=== PATIENT | male | born 1975 | race Caucasian/White ===

== ENCOUNTER → 2016-11-06 | Outpatient (CLI) | payer BC ==
[~2016-11-06] MED LIST: MOME200A INH; VNTHFA/IN INH
[2016-11-06 17:29] LABS: ALT/SGPT 26 U/L (12-78); AST/SGOT 11 U/L (15-37); BLOOD UREA NITROGEN 14 mg/dl (7-18); BUN/CREATININE RATIO 14.3 (10-20); CALCIUM 8.6 mg/dl (8.5-10.1); CARBON DIOXIDE 26 mmol/L (21-32); CHLORIDE 106 mmol/L (98-107); GLUCOSE 100 mg/dl (70-99); POTASSIUM 4.1 mmol/L (3.5-5.1); SODIUM 141 mmol/L (136-145)
[2016-11-06 17:32] LABS: ALB/GLOB RATIO 1.3 (0.9-2); ALKALINE PHOSPHATASE 54 U/L (45-117); CHOLESTEROL 167 mg/dl (0-200); CHOLESTEROL/HDL RATIO 3.6; HDL CHOLESTEROL 47 mg/dl; LDL CHOLESTEROL CALCULATED 94 mg/dl; TRIGLYCERIDES 131 mg/dl (0-150); VERY LOW DENSITY LIPOPROT CALC 26 mg/dl
== END | disposition home or self-care (01) ==
LOC: C.LABPVFM 14:59
PROVIDERS: ATTEND Family Medicine
DX: J45.909 Unspecified asthma, uncomplicated (principal); Z13.220 Encounter for screening for lipoid disorders; R06.83 Snoring; E80.6 Other disorders of bilirubin metabolism

== ENCOUNTER 2017-08-03 20:19 | Emergency (ER) | payer BC ==
[~2017-08-03] VITALS: Ht 177.8 cm; Wt 152.8 kg
[2017-08-03 20:22] VITALS: TEMP 37.1; Ht 177.8 cm; Wt 152.8 kg
[2017-08-03] MEDS ORDERED: AMOX875T PO (21:19)
[2017-08-03] MEDS ORDERED: SODIUM CHLORIDE 0.9% 1000ML 1,000 ML IV STA ×2 (21:51)
[2017-08-03] MEDS ORDERED: ALBUT/IPRATROP 3MG/0.5MG NEB 3 ML VIAL INH STA ×2 (21:51)
[2017-08-03 22:01] LABS: BASO % 0.6 %; BASO ABS # 0.04 K/uL (0-0.2); COMPLETE YES; EOS % 6.3 %; HEMATOCRIT 47.7 % (42-52); IG% 0.9 %; LYMPH % 32.9 %; LYMPH ABS # 2.09 K/uL (1.2-3.4); MEAN CORPUSCULAR HEMOGLOBIN 30.9 pg (25-34); MEAN CORPUSCULAR HGB CONC 34.4 g/dl (32-36); MEAN PLATELET VOLUME 9.6 fL (7.4-10.4); NEUT % 51.3 %; PLATELET COUNT 204 K/uL (130-400); WHITE BLOOD COUNT 6.35 K/uL (4.8-10.8)
--- NOTE | 2017-08-03 22:03 | EMERGENCY ROOM VISIT NOTE ---
History Report prepared by Grace: Patricia Mckeon Under the Supervision of: Dr. Billy Carrera M.D. First contact with patient: 21:43 Chief Complaint: ILLNESS Stated Complaint: EAR ACHE, HEART RACING, FATIQUE, SWEATS History of Present Illness The patient is a 42 year old male who presents to the Emergency Room with complaints of generalized illness beginning yesterday. The patient went to [facility] a week ago and was discharged with an ear infection and was given a 10 day cycle of Augmentin. He notes some sweats, heart racing and chest tightness beginning yesterday. He also notes some coughing, fatigue and lightheadedness but denies any nausea or vomiting. The patient notes an incident where he had a coughing fit and felt like he might of blacked out because he forgot what happened. The patient has difficulty hearing out of his left ear and notes some ringing. He has a history of asthma and uses a Ventolin inhaler and Flonase. The patient has family history of a heart attack ( grandfather) at age 49. Source of History: patient Onset: 3 days ago Position: other (generalized) Quality: other (illness) Associated Symptoms: + diaphoresis, + cough, + chest pain (tightness), + fatigue, No nausea, No vomiting Review of Systems See HPI for pertinent positives and negatives. A total of ten systems were reviewed and were otherwise negative. Past Medical & Surgical Medical Problems: (1) Asthma Family History FH: heart attack Social History Smoking Status: Never Smoker Marital Status: Current/Historical Medications Scheduled Amoxicillin & Pot Clavulanate (Augmentin 875-125 mg), 1 TAB PO BID Levofloxacin (Levaquin), 1 TAB PO DAILY Mometasone Furoate-Formoterol (Dulera 200/5 Mcg), 2 PUFFS INH BID Scheduled PRN Albuterol Hfa (Ventolin Hfa), 2 PUFFS INH QID PRN for SOB/Wheezing Allergies Coded Allergies: Aspirin (Verified Allergy, Intermediate, GI SYMPTOMS, 08/03/17) Physical Exam Vital Signs Date Time Temp Pulse Resp B/P (MAP) Pulse Ox O2 Delivery O2 Flow Rate FiO2 08/04/17 03:02 70 22 131/70 97 08/04/17 01:22 89 22 149/79 96 Room Air 08/03/17 22:40 91 22 131/73 94 Room Air 08/03/17 22:21 98 Room Air 08/03/17 20:46 92 08/03/17 20:22 37.1 94 18 218/94 95 Room Air Physical Exam GENERAL: Awake, alert, uncomfortable-appearing, in no distress HENT: Normocephalic, atraumatic. Oropharynx Dry MM. Ejected, edematous left TM. Mild left mastoid discomfort but no exquisite ttp, edema/erythema. EYES: Normal conjunctiva. Sclera non-icteric. NECK: Supple. No nuchal rigidity. FROM. No JVD. RESPIRATORY: Scant wheezes but otherwise CTAB. CARDIAC: Regular rate, normal rhythm. Extremities warm and well perfused. Pulses equal. ABDOMEN: Soft, non-distended, obese abdomen. No tenderness to palpation. No rebound or guarding. No masses. RECTAL: Deferred. MUSCULOSKELETAL: Chest examination reveals no tenderness. The back is symmetrical on inspection without obvious abnormality. There is no CVA tenderness to palpation. No joint edema. LOWER EXTREMITIES: Calves are equal size bilaterally and non-tender. No edema. No discoloration. NEURO: Normal sensorium. No sensory or motor deficits noted. SKIN: No rash or jaundice noted. Medical Decision & Procedures ER Provider Diagnostic Interpretation: Radiology results as stated below per my review and radiologist interpretation: CHEST ONE VIEW PORTABLE FINDINGS: The cardiac and mediastinal contours are normal. There is no evidence of focal pulmonary consolidation. There is no evidence of failure. No pleural effusions are visualized.[ A small linear opacity at the left lung base is felt to represent atelectasis/scar IMPRESSION: No active disease in the chest. Electronically signed by: Oscar Richards M.D. CT NECK: IMPRESSION: fluid density within left greater than right middle ears and left mastoid air cells may represent otitis media and mastoiditis. There are a few opacified mastoid air cells on the right. No evidence of osseous destruction or abscess. Right apical nodularity/scarring versus small area of airspace disease. Moderate mucosal thickening right sphenoid sinus. Findings: No evidence of intracranial mass hemorrhage or hematoma. No abnormal enhancement of the neck or brain. 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 No lymphadenopathy. Radiologist Oriln Bryant Laboratory Results 08/03/17 21:04 Red Blood Count 5.30, Mean Corpuscular Volume 90.0, Mean Corpuscular Hemoglobin 30.9, Mean Corpuscular Hemoglobin Concent 34.4, Mean Platelet Volume 9.6, Neutrophils (%) (Auto) 51.3, Lymphocytes (%) (Auto) 32.9, Monocytes (%) (Auto) 8.0, Eosinophils (%) (Auto) 6.3, Basophils (%) (Auto) 0.6, Neutrophils # (Auto) 3.25, Lymphocytes # (Auto) 2.09, Monocytes # (Auto) 0.51, Eosinophils # (Auto) 0.40, Basophils # (Auto) 0.04 08/03/17 21:04 Test 08/03/17 21:04 08/04/17 01:43 White Blood Count 6.35 K/uL (4.8-10.8) Red Blood Count 5.30 M/uL (4.7-6.1) Hemoglobin 16.4 g/dL (14.0-18.0) Hematocrit 47.7 % (42-52) Mean Corpuscular Volume 90.0 fL (80-100) Mean Corpuscular Hemoglobin 30.9 pg (25-34) Mean Corpuscular Hemoglobin Concent 34.4 g/dl (32-36) Platelet Count 204 K/uL (130-400) Mean Platelet Volume 9.6 fL (7.4-10.4) Neutrophils (%) (Auto) 51.3 % Lymphocytes (%) (Auto) 32.9 % Monocytes (%) (Auto) 8.0 % Eosinophils (%) (Auto) 6.3 % Basophils (%) (Auto) 0.6 % Neutrophils # (Auto) 3.25 K/uL (1.4-6.5) Lymphocytes # (Auto) 2.09 K/uL (1.2-3.4) Monocytes # (Auto) 0.51 K/uL (0.11-0.59) Eosinophils # (Auto) 0.40 K/uL (0-0.5) Basophils # (Auto) 0.04 K/uL (0-0.2) RDW Standard Deviation 42.1 fL (36.4-46.3) RDW Coefficient of Variation 12.9 % (11.5-14.5) Immature Granulocyte % (Auto) 0.9 % Immature Granulocyte # (Auto) 0.06 K/uL (0.00-0.02) Anion Gap 7.0 mmol/L (3-11) Est Creatinine Clear Calc Drug Dose 137.2 ml/min Estimated GFR () 102.6 Estimated GFR (Non- 88.6 BUN/Creatinine Ratio 13.6 (10-20) Calcium Level 8.9 mg/dl (8.5-10.1) Troponin I < 0.015 ng/ml (0-0.045) Lactic Acid Level 0.9 mmol/L (0.4-2.0) Laboratory results reviewed by me Medications Administered Medications (Trade) Dose Ordered Sig/Anish Route Start Time Stop Time Status Last Admin Dose Admin Sodium Chloride 1,000 ml @ 999 mls/hr Q1H1M STAT IV 08/03/17 21:51 08/03/17 22:51 DC 08/03/17 22:18 999 MLS/HR Albuterol/ Ipratropium (Duoneb) 3 ml NOW STAT INH 08/03/17 21:51 08/03/17 21:55 DC 08/03/17 21:51 3 ML Albuterol/ Ipratropium (Duoneb) 3 ml NOW STAT INH 08/03/17 21:51 08/03/17 21:55 DC 08/03/17 21:51 3 ML Sodium Chloride 1,000 ml @ 999 mls/hr Q1H1M STAT IV 08/03/17 21:51 08/03/17 22:51 DC 08/03/17 22:18 999 MLS/HR Piperacillin Sod/ Tazobactam Sod (Zosyn Iv) 4.5 gm NOW STAT IV 08/04/17 01:20 08/04/17 01:22 DC 08/04/17 01:20 4.5 GM Levofloxacin (Levaquin Tab) 750 mg NOW PO 08/04/17 02:45 08/04/17 03:53 DC 08/04/17 02:42 750 MG ECG Indication: chest pain Rate (beats per minute): 91 Rhythm: normal sinus Findings: no acute ischemic change, other (normal axis) ED Course 2144: The patient was evaluated in room B5. A complete history and physical exam was performed. 2114: Sodium Chloride 1000 ml @ 999 mls/hr IV, Duoneb 3 ml INH, Sodium Chloride 1000 ml @ 999 mls/hr IV, Duoneb 3 ml INH. 2315: Ioversol 100 ml IV, Vancomyocin HCL 2750 ml/Sodium Chloride 555 ml @200 mls/hr IV. 0120: Zosyn Iv 4.5 gm IV. 0126: Discussed the patient's case with [facility] Admitting Team. The patient will be evaluated for further treatment and disposition. 0215: Patient evaluated by hospitalist and admission declined as they do not believe he meets admission criteria and recommend that his treatment failure is likely due to lack of atypical coverage. Recommends Levofloxacin for mycoplasma coverage. 0230: I further d/w Dr. Roca, ENT, who agrees that the patient does not require admission and that Levofloxacin is an appropriate choice. Moreover, given the patient does not have mastoid swelling or erythema, mastoiditis is not likely. Medical Decision I reviewed the patient's past medical history, medications, and the nursing notes as described above. Differential diagnoses: mastoiditis, pharyngitis, pneumonia, peritonsillar abscess, retropharyngeal abscess. The patient is a 42-year-old gentleman with a past medical history of asthma who presents emergency Department with worsening left ear pain and fullness as well as body aches, fatigue and chest tightness in the setting of being treated outpatient for a left otitis media on Augmentin per history of present illness. Arrival the patient appears uncomfortable but in no acute distress. He is afebrile with stable vital signs. On exam the patient has an injected edematous left TM as well as with mild mastoid discomfort on palpation but no exquisite tenderness, redness or swelling. Labs unremarkable with WBC within normal limits. Given the patient's discomfort on arrival CT of the neck was ordered and showed fluid density within left greater than right middle ears and left mastoid air cells may represent otitis media and mastoiditis. Given these findings in the setting failed outpatient antibiotics, hospitalist was consulted for admission the patient was ordered for broad-spectrum antibiotics to cover for pseudomonas as well as possible MRSA. Patient was evaluated by the Dr. Germain [facility] hospitalist who recommended that the patient did not meet inpatient criteria. Rather, believes outpatient treatment failure was due to lack of atypical coverage and thus is recommending Levaquin for mycoplasma coverage. I did discuss this additionally with Dr. Roca, ENT, who agrees that the patient does not require admission and Levaquin is an appropriate choice. Moreover, given the patient has no redness or swelling of the mastoid he believes that mastoiditis is unlikely. Recommends, the patient may call the office in the morning for a follow-up visit. Findings and plan for follow-up reviewed patient. Patient agreeable and d/c'd per discharge instructions. Medication Reconcilliation Current Medication List: was personally reviewed by me Blood Pressure Screening Patient's blood pressure: Elevated blood pressure Blood pressure disposition: Elevated BP felt to be situational Consults Time Called: 0125 Consulting Physician: [facility] Admitting Team Returned Call: [phone] Discussed the patient's case. The patient will be evaluated for further treatment and disposition. Impression Primary Impression: Mastoiditis Scribe Attestation The scribe's documentation has been prepared under my direction and personally reviewed by me in its entirety. I confirm that the note above accurately reflects all work, treatment, procedures, and medical decision making performed by me. Departure Information Dispostion Home / Self-Care Prescriptions Levofloxacin (LEVAQUIN) 750 Mg Tab 1 TAB PO DAILY for 10 Days, #10 TAB Prov: Billy Carrera M.D. 08/04/17 Referrals Conner Merritt M.D. (PCP) Beatriz Roca M.D. Patient Instructions ED Otitis Media Acute Adult, Mastoiditis Ch, My [facility] Additional Instructions Please follow up with ENT, Dr. Roca, tomorrow for re-evaluation. You have a persistent ear infection that may also involve your mastoid. Take your new antibiotic as prescribed. Return to the emergency department for worsening symptoms as described in the accompanying instructions.
[2017-08-03 22:09] LABS: BLOOD UREA NITROGEN 14 mg/dl (7-18); BUN/CREATININE RATIO 13.6 (10-20); CALCIUM 8.9 mg/dl (8.5-10.1); CARBON DIOXIDE 28 mmol/L (21-32); CHLORIDE 105 mmol/L (98-107); CREATININE 1.03 mg/dl (0.60-1.40); GLUCOSE 166 mg/dl (70-99); POTASSIUM 3.8 mmol/L (3.5-5.1); SODIUM 140 mmol/L (136-145)
--- NOTE | 2017-08-03 22:14 | DIAGNOSTIC IMAGING REPORT ---
CHEST ONE VIEW PORTABLE CLINICAL HISTORY: Atypical chest pain COMPARISON STUDY: No previous studies for comparison. FINDINGS: The cardiac and mediastinal contours are normal. There is no evidence of focal pulmonary consolidation. There is no evidence of failure. No pleural effusions are visualized.[ A small linear opacity at the left lung base is felt to represent atelectasis/scar IMPRESSION: No active disease in the chest. Electronically signed by: Oscar Richards M.D. 08/03/2017 10:12 PM Dictated Date/Time: 08/03/2017 10:12 PM
[2017-08-03 22:21] VITALS: O2SAT 98
[2017-08-03] MEDS ORDERED: OPTIRAY 320 IV PRN (23:15)
[2017-08-04] MEDS ORDERED: VANCOMYCIN INJ 2,750 MG in SODIUM CHLORIDE 0.9% 500ML 500 ML IV STA (01:20)
[2017-08-04] MEDS ORDERED: PIPERACILLIN/TAZOBACTAM 4.5 GM/100ML D5W IV STA (01:20)
--- NOTE | 2017-08-04 02:21 | Progress Note ---
Progress Note Date of Service Aug 04, 2017. Progress Note Patient was evaluated by Dr. Germain and Frances. The patient maybe treated with a dose of IV Levaquin while in the ER and continuation of Abx for 2 weeks outpatient with close follow up with PCP. Should his condition worsen, he may come back to the ER for further evaluation. Patient agreeable to outpatient management of mastoiditis. Discussed with ER physician. p/e: General: Awake, alert, no acute distress, non toxic HEENT: Left TM is bulging and erythematous, Minimal tenderness over left mastoid , right TM is clear
[2017-08-04] MEDS ORDERED: LEVO-18 PO (02:35)
[2017-08-04] MEDS ORDERED: LEVOFLOXACIN 250 MG TAB ONE (02:43)
[2017-08-04] MEDS ORDERED: LEVOFLOXACIN 750 MG TAB PO SCH (02:45)
[2017-08-04 03:02] VITALS: BP 131/70; PULSE 70; O2SAT 97
--- NOTE | 2017-08-04 06:52 | DIAGNOSTIC IMAGING REPORT ---
SOFT TISSUE NECK WITH CLINICAL HISTORY: left mastoid tup, r/o mastoiditis TECHNIQUE: Transaxial CT acquisition with multi axial reformatted images COMPARISON STUDY: None FINDINGS: Moderate mucosal thickening of the mastoid air cells bilaterally. Soft tissue opacification of the left and to lesser extent right middle air regions. No evidence for bony destructive process. 3 x 2 cm poorly defined subcutaneous nodule right suboccipital region. Several cervical nodes bilaterally measuring up to 1.2 cm. Minimal mucosal thickening of the sinuses. IMPRESSION: 1. Moderate mucosal thickening right middle ear canal with near complete opacification left middle ear. 2. Moderate mucosal thickening of the mastoid air cells bilaterally. 3. Mild cervical adenopathy. 4. 3 x 2 cm nonspecific subcutaneous nodule right suboccipital region. The above report was generated using voice recognition software. It may contain grammatical, syntax or spelling errors. Electronically signed by: Júnior Noble M.D. 08/04/2017 6:51 AM Dictated Date/Time: 08/04/2017 6:42 AM
== END 2017-08-04 03:02 | disposition home or self-care (01) ==
LOC: C.EDB 20:20
DX: H70.92 Unspecified mastoiditis, left ear (principal); J45.909 Unspecified asthma, uncomplicated; Z88.6 Allergy status to analgesic agent; Z82.49 Family history of ischemic heart disease and other diseases of the circulatory system

== ENCOUNTER → 2017-11-14 | Outpatient (CLI) | payer BC ==
[~2017-11-14] MED LIST changes: +AMOX875T PO
[2017-11-14 12:51] LABS: ALBUMIN 3.5 gm/dl (3.4-5.0); ALT/SGPT 33 U/L (12-78); BLOOD UREA NITROGEN 18 mg/dl (7-18); CALCIUM 8.6 mg/dl (8.5-10.1); CARBON DIOXIDE 28 mmol/L (21-32); CREATININE 1.07 mg/dl (0.60-1.40); GLUCOSE 134 mg/dl (70-99); POTASSIUM 4.4 mmol/L (3.5-5.1); SODIUM 138 mmol/L (136-145)
[2017-11-14 12:54] LABS: ALKALINE PHOSPHATASE 56 U/L (45-117); AST/SGOT 11 U/L (15-37); TOTAL PROTEIN 6.6 gm/dl (6.4-8.2)
== END | disposition home or self-care (01) ==
LOC: C.LABPVFM 08:27
PROVIDERS: ATTEND Family Medicine
DX: E66.01 Morbid (severe) obesity due to excess calories (principal); J45.909 Unspecified asthma, uncomplicated; R73.9 Hyperglycemia, unspecified

== ENCOUNTER → 2017-11-21 | Outpatient (CLI) | payer BC | END | disposition home or self-care (01) | LOC: C.LABPVFM 13:24 | PROVIDERS: ATTEND Family Medicine | DX: R73.9 Hyperglycemia, unspecified (principal) ==

== ENCOUNTER 2020-08-14 08:53 | Inpatient (IN) ==
[2020-08-14] MEDS ORDERED: SODIUM CHLORIDE 0.9% 1000ML 1,000 ML IV STA (09:18)
--- NOTE | 2020-08-14 10:02 | XRay Report ---
SINGLE VIEW CHEST CLINICAL HISTORY: Dyspnea. FINDINGS: An AP, portable, upright chest radiograph is compared to study dated 08/03/2017. The heart is top normal for projection. Mild eventration of right hemidiaphragm is unchanged in previous. No ai rspace consolidation or large pleural effusion is seen. Atelectasis is noted at the lung bases. No pn eumothorax is seen. The bony thorax is grossly intact. IMPRESSION: No acute cardiopulmonary abnormality. ACT 112: Negative or not required by law. Electronically signed by: Kartik Mcfarlane M.D. 08/14/2020 10:01 AM
[2020-08-14] MEDS ORDERED: DEXAMETHASONE SOD INJ 10 MG/ML VIAL IV ONE (10:24)
[2020-08-14] MEDS ORDERED: ALBUTEROL HFA 8 GM INHALER INH ONE (10:24)
[2020-08-14 10:28] LABS: Basophils # (auto) 0.03 K/uL (0-0.2); Basophils % (auto) 0.4 %; Eosinophils # (auto) 0.23 K/uL (0-0.5); Hematocrit (blood only) 50.9 % (42-52); Hemoglobin 17.2 g/dL (14.0-18.0); Immature Granulocytes # (auto) 0.05 K/uL (0.00-0.02); Immature Granulocytes % (auto) 0.7 %; Lymphocytes # (auto) 0.99 K/uL (1.2-3.4); Lymphocytes % (auto) 13.1 %; Mean Corpuscular Hemoglobin 31.2 pg (25-34); Mean Corpuscular Hgb Conc 33.8 g/dL (32-36); Mean Corpuscular Volume 92.4 fL (80-100); Mean Platelet Volume 10.5 fL (7.4-10.4); Monocytes # (auto) 0.52 K/uL (0.11-0.59); Monocytes % (auto) 6.9 %; Neutrophils # (auto) 5.73 K/uL (1.4-6.5); Neutrophils % (auto) 75.9 %; Platelet Count 129 K/uL (130-400); RDW Coefficient of Variation 13.2 % (11.5-14.5); RDW Standard Deviation 44.6 fL (36.4-46.3); Red Blood Count 5.51 M/uL (4.7-6.1); White Blood Count 7.55 K/uL (4.8-10.8)
[2020-08-14 10:40] LABS: Partial Thromboplastin Ratio 0.9; Partial Thromboplastin Time 26.5 Seconds (21.0-31.0); Prothrombin Time 10.9 Seconds (9.0-12.0)
[2020-08-14] MEDS ORDERED: ALBUT/IPRATROP 3MG/0.5MG NEB 3 ML VIAL NEB STA (10:40)
[2020-08-14 10:43] LABS: Appearance Urine Clear (Clear); Bacteria Urine Automated Negative (Negative); Bilirubin Urine Negative (Negative); Blood Urine Negative (Negative); Color Urine Dark Yellow; Epithelial Cell Urine Auto 0-5 /lpf (0-5); Glucose Urine UA Trace (Negative); Ketones Urine Negative (Negative); Leukocyte Esterase Urine Negative (Negative); Nitrite Urine Negative (Negative); Protein Urine Trace (Negative); RBC Urine Automated 0-4 /hpf (0-4); Specific Gravity Urine 1.023 (1.000-1.030); Urobilinogen Urine Negative (Negative)
[2020-08-14 10:47] LABS: Albumin Level 3.9 gm/dl (3.4-5.0); BUN Creatinine Ratio 13.9 (10-20); Calcium 9.4 mg/dl (8.5-10.1); Creatinine Clr Calc Pharmacy 120.2 ml/min; Est GFR (African American) 89.8; Est GFR (Non-African American) 77.5; Magnesium 2.1 mg/dl (1.8-2.4); Potassium 4.6 mmol/L (3.5-5.1)
[2020-08-14 10:55] LABS: Bilirubin,Total 1.1 mg/dl (0.2-1); Globulin 3.9 gm/dl (2.5-4.0); Total Protein 7.8 gm/dl (6.4-8.2); Troponin I 0.407 ng/ml (0-0.045)
[2020-08-14] MEDS ORDERED: SODIUM CHLORIDE 0.9% 1000ML 500 ML IV ONE (11:00)
[2020-08-14] MEDS ORDERED: OPTIRAY 320 125ml IV ONE (11:14)
--- NOTE | 2020-08-14 11:17 | Electrocardiogram Report ---
Test Reason : Blood Pressure : / mmHG Vent. Rate : 134 BPM Atrial Rate : 134 BPM P-R Int : 142 ms QRS Dur : 090 ms QT Int : 296 ms P-R-T Axes : 061 087 041 degrees QTc Int : 442 ms Sinus tachycardia Otherwise normal ECG When compared with ECG of 03-AUG-2017 20:43, No significant change was found Confirmed by Josh Villarreal ([id number]) on 08/14/2020 11:16:53 AM Referred By: Confirmed By:Alex Villarreal
[2020-08-14] MEDS ORDERED: LORazepam 1 MG/2 ML VIAL IV STA ×2 (11:33→12:06)
--- NOTE | 2020-08-14 11:39 | Emergency Department Note ---
Impression & Plan Saddle pulmonary embolus, SOB (shortness of breath), Elevated troponin, Tachycardia ED Provider Note INFORMANT: Patient ED PROVIDER(S): Kalen Zamora MD CHIEF COMPLAINT: Shortness of breath PLAN: Disposition: Admitted Condition: Guarded MEDICAL DECISION MAKING: Patient presented with acute shortness of breath. He had a chest x-ray performed which was negative. Blood work was obtained. ECG showed sinus tachycardia. A CT scan of the chest was ordered. The patient's blood work showed a mildly elevated troponin but was otherwise unremarkable. The patient was sent for CT imaging but initially declined. He was given IV Ativan as he was anxious about the test. This helped but then he refused again. He was brought back to the ER. I had a long discussion with him about the necessary need for the test. He was given an additional dose of IV Ativan and and agreed for testing. He underwent CT imaging and this showed extensive bilateral pulmonary emboli with a saddle embolus. This would explain the patient's symptoms as well as his elevated troponin. The patient was started on IV heparin. I did discuss the case with critical care medicine, Dr. Oh who agreed with the heparin drip will review the CT scan and recommended PCU admission unless his condition deteriorates. I did discuss the case with Dr. Mckenzie of internal medicine. The patient was evaluated in the ER and admitted for further management. Triage Nursing notes reviewed and agree them. Additional history obtained from patient's Vital Signs: reviewed and remarkable for tachycardia Differential diagnosis: Reactive airway disease, pneumonia, pneumothorax, COPD, CHF, infections, cardiac ischemia, pulmonary embolism, musculoskeletal, gastrointestinal, as well as other pathologies. Diagnostics interpreted by me: ECG: Twelve-lead ECG reveals sinus tachycardia 134 bpm. There is no ST elevation or depression. No PACs or PVCs. Normal QRS and axis. Cardiac Monitoring: Cardiac monitoring ordered by me: The patient was placed on continuous cardiac monitoring and observed. It revealed a normal sinus rhythm at 123 beats per minute without ectopy or evidence of dysrhythmia. Imaging studies: Chest x-ray. Findings: A chest x-ray was performed and revealed no pneumothorax, effusion, infiltrate, pulmonary edema, free air under the diaphragm, or wide mediastinum. CT scan of the chest reveals significant bilateral pulmonary emboli with saddle embolus and right heart strain. Consultation(s): Critical care medicine, Dr. Oh Hospitalist medicine, Dr. Mckenzie HPI: The patient is a 45 year old male who presents to the Emergency Room with complaints of shortness of breath. This started 6 days and is progressively worsening. The patient also notes the following associated symptoms, fevers, fatigue, and mild chest discomfort with heavy breathing. The patient has tried his albuterol MDI for relieving factors. Current pain is rated as 5/10. Patient had knee scope surgery done 1 week ago. He was intubated for that. The day after the surgery he began to feel the symptoms. Pt denies LOC, headache, fevers, chills, diaphoresis, visual changes, neck pain, leg swelling, nausea, vomiting, abdominal pain, back pain, melena, hematochezia, urinary symptoms, numbness, weakness, lymphadenopathy, rash, or other complaints. ROS: See above HPI for pertinent positives & negatives. A total of 10 systems reviewed and were otherwise negative. PAST MEDICAL HISTORY:See Below, asthma, GERD PAST SURGICAL HISTORY:See Below, laparoscopic knee surgery left FAMILY HISTORY:See Below SOCIAL HISTORY:See Below, HOME MEDICATIONS:See Below ALLERGIES:See Below VITALS:See Below PHYSICAL EXAMINATION: GENERAL: Awake, alert, dyspneic-appearing, in no distress HENT: Normocephalic, atraumatic. Oropharynx unremarkable. EYES: Normal conjunctiva. Sclera non-icteric. NECK: Inspection normal. Non-tender. Supple. No nuchal rigidity. FROM. No masses. RESPIRATORY: Clear to auscultation. No wheezes. No rales. Normal respiratory effort. CARDIAC: Tachycardic rate. Normal rhythm. No murmurs. No rubs. Extremities warm and well perfused. Pulses equal. No JVD. GI: Soft, non-distended. No tenderness to palpation. No rebound or guarding. No masses. RECTAL: Deferred. MUSCULOSKELETAL: Atraumatic. Chest examination reveals no tenderness. The back is symmetrical on inspection without obvious abnormality. There is no CVA tenderness to palpation. No joint edema. LOWER EXTREMITIES: Calves are equal size bilaterally and non-tender. No edema. No discoloration. NEURO: Normal sensorium. No sensory or motor deficits noted. SKIN: No rash or jaundice noted. ED COURSE: Critical Care: I have personally spent greater than 75 minutes of critical care time in the direct management of this patient. This includes bedside care, interpretation of diagnostic studies, and testing, discussion with consultants, patient, and family members, and other required patient management activities. These minutes are in excess of all separately billable procedures. Kalen Zamora MD Past Med/Surg History Medical History Asthma Sleep apnea Umbilical hernia, incarcerated Surgical History History of cataract surgery L EYE History of tooth extraction History of umbilical hernia repair Family History Father Family history of diabetes mellitus Mother Family history of diabetes mellitus Brother Family history of diabetes mellitus Family/Other Coronary heart disease Social History Smoking Status: Never smoker Smoking End Date: 2015; Second Hand Exposure: No; Do You Dip or Chew Tobacco: No; Tobacco Cessation Education Requested by Patient: No Hx Alcohol Use: No Hx Substance Use: No Preferred Language: Maori Communication Ability: Effective Visual Impairment: No Limitations Predatory Animal Trapper Required: No Beliefs That Will Affect Care: None Current Living Situation: Family Current Living Situation Comment: FATHER/BROTHER IN HOME WITH PT AND SPOUSE current occupational status: employed Other Information That Helps Us Care for You: No Feels Safe at Home: Yes Safety Concerns: Feels Safe At This Time Assistive Devices: Cane Allergies Allergies Allergy/AdvReac Type Severity Reaction Status Date / Time aspirin AdvReac Intermediate GI SYMPTOMS Verified 08/14/20 09:36 Home Meds Home Medications Medication Instructions Recorded Confirmed fexofenadine [Jana Allergy] 180 mg PO DAILY 07/02/18 08/14/20 fluticasone propionate 50 1 sprays INTNAS DAILY 06/08/19 08/14/20 mcg/actuation nasal spray,suspension azelastine 0.15 % (205.5 mcg) 2 sprays INTNAS BID 06/25/19 08/14/20 nasal spray albuterol sulfate [Ventolin HFA] 2 puff INHALATION QID PRN 08/14/20 08/14/20 Previous Rx's Medication Instructions Recorded mometasone-formoterol HFA 200 2 puff INHALATION BID #8.8 gm 12/10/19 mcg-5 mcg/actuation aerosol inhaler omeprazole 20 mg capsule,delayed 20 mg PO DAILY #90 cap 03/28/20 release diclofenac sodium 75 mg 75 mg PO BID #60 tab 04/06/20 tablet,delayed release metformin 500 mg tablet 500 mg PO BID #180 tab 08/03/20 Results & Data (ED) Vital Signs Vital Signs - 24 hr 08/14/20 08:57 08/14/20 09:30 08/14/20 09:39 Temperature 36.9 C Temperature Source Oral Pulse Rate 135 H 130 H Pulse Rate [Right Finger] Pulse Rate from SpO2 Sensor 131 H Respiratory Rate 32 H 20 Respiratory Effort / Characteristics Blood Pressure 143/86 H 114/90 Blood Pressure Mean 105 95 Pulse Oximetry 91 95 88 L Oxygen Delivery Method Room Air Nasal Cannula Nasal Cannula Oxygen Flow Rate 2 Sepsis Recent Fever Within 48 Hours Yes Sepsis New/Unexplained Change in Mental Status N/A Sepsis Action Taken by Nursing No Action Required Oxygen Flow Rate - Titration 2 Pulse Oximetry Post Tiitration 93 08/14/20 09:40 08/14/20 10:00 08/14/20 10:30 Temperature Temperature Source Pulse Rate 130 H Pulse Rate [Right Finger] Pulse Rate from SpO2 Sensor 131 H 130 H Respiratory Rate 24 28 H Respiratory Effort / Characteristics Blood Pressure 122/81 140/86 Blood Pressure Mean 88 110 Pulse Oximetry 93 94 94 Oxygen Delivery Method Nasal Cannula Nasal Cannula Nasal Cannula Oxygen Flow Rate 2 2 2 Sepsis Recent Fever Within 48 Hours Sepsis New/Unexplained Change in Mental Status Sepsis Action Taken by Nursing Oxygen Flow Rate - Titration Pulse Oximetry Post Tiitration 08/14/20 10:58 08/14/20 11:01 08/14/20 11:31 Temperature Temperature Source Pulse Rate 123 H 125 H Pulse Rate [Right Finger] 121 H Pulse Rate from SpO2 Sensor 124 H 126 H Respiratory Rate 20 15 22 Respiratory Effort / Characteristics Spontaneous Blood Pressure 117/83 129/79 Blood Pressure Mean 97 109 Pulse Oximetry 94 97 93 Oxygen Delivery Method Nasal Cannula Nasal Cannula Oxygen Flow Rate 2 2 Sepsis Recent Fever Within 48 Hours Sepsis New/Unexplained Change in Mental Status Sepsis Action Taken by Nursing Oxygen Flow Rate - Titration Pulse Oximetry Post Tiitration 08/14/20 12:00 08/14/20 12:34 08/14/20 12:35 Temperature Temperature Source Pulse Rate 130 H 130 H 132 H Pulse Rate [Right Finger] Pulse Rate from SpO2 Sensor 131 H 228 H 255 H Respiratory Rate 25 H 29 H 34 H Respiratory Effort / Characteristics Blood Pressure 124/90 127/88 Blood Pressure Mean 98 93 Pulse Oximetry 90 91 92 Oxygen Delivery Method Nasal Cannula Nasal Cannula Nasal Cannula Oxygen Flow Rate 2 2 Sepsis Recent Fever Within 48 Hours Sepsis New/Unexplained Change in Mental Status Sepsis Action Taken by Nursing Oxygen Flow Rate - Titration Pulse Oximetry Post Tiitration 08/14/20 13:00 08/14/20 13:30 Temperature Temperature Source Pulse Rate 132 H 128 H Pulse Rate [Right Finger] Pulse Rate from SpO2 Sensor 131 H 129 H Respiratory Rate 34 H 32 H Respiratory Effort / Characteristics Blood Pressure 158/86 H 135/81 Blood Pressure Mean 101 87 Pulse Oximetry 92 92 Oxygen Delivery Method Nasal Cannula Oxygen Flow Rate 2 2 Sepsis Recent Fever Within 48 Hours Sepsis New/Unexplained Change in Mental Status Sepsis Action Taken by Nursing Oxygen Flow Rate - Titration Pulse Oximetry Post Tiitration Laboratory Data Result diagrams: 08/14/20 10:12 08/14/20 10:12 Lab Results 08/14/20 08/14/20 08/14/20 Range/Units 09:30 09:30 10:12 WBC 7.55 (4.8-10.8) K/uL RBC 5.51 (4.7-6.1) M/uL Hgb 17.2 (14.0-18.0) g/dL Hct 50.9 (42-52) % MCV 92.4 (80-100) fL MCH 31.2 (25-34) pg MCHC 33.8 (32-36) g/dL RDW Std Deviation 44.6 (36.4-46.3) fL RDW Coeff of Andie 13.2 (11.5-14.5) % Plt Count 129 L (130-400) K/uL MPV 10.5 H (7.4-10.4) fL Immature Gran % (Auto) 0.7 % Neut % (Auto) 75.9 % Lymph % (Auto) 13.1 % [place] % (Auto) 6.9 % Eos % (Auto) 3.0 % Baso % (Auto) 0.4 % Neut # (Auto) 5.73 (1.4-6.5) K/uL Lymph # (Auto) 0.99 L (1.2-3.4) K/uL [place] # (Auto) 0.52 (0.11-0.59) K/uL Eos # (Auto) 0.23 (0-0.5) K/uL Baso # (Auto) 0.03 (0-0.2) K/uL Immature Gran # (Auto) 0.05 H (0.00-0.02) K/uL PT (9.0-12.0) Seconds INR (0.9-1.1) APTT (21.0-31.0) Seconds PTT Ratio Sodium (136-145) mmol/L Potassium (3.5-5.1) mmol/L Chloride (98-107) mmol/L Carbon Dioxide (21-32) mmol/L Anion Gap (3-11) BUN (7-18) mg/dl Creatinine (0.6-1.4) mg/dl Est Cr Clr Drug Dosing ml/min Est GFR ( Amer) Est GFR (Non-Af Amer) BUN/Creatinine Ratio (10-20) Glucose (70-99) mg/dl Lactate (0.4-2.0) mmol/L Calcium (8.5-10.1) mg/dl Magnesium (1.8-2.4) mg/dl Total Bilirubin (0.2-1) mg/dl AST (15-37) U/L ALT (12-78) U/L Alkaline Phosphatase (45-117) U/L Troponin I (0-0.045) ng/ml NT-Pro-B Natriuret Pep (0-450) pg/ml Total Protein (6.4-8.2) gm/dl Albumin (3.4-5.0) gm/dl Globulin (2.5-4.0) gm/dl Albumin/Globulin Ratio (0.9-2) Urine Color Urine Appearance (Clear) Urine pH (4.5-7.5) Ur Specific [place] (1.000-1.030) Urine Protein (Negative) Urine Glucose (UA) (Negative) Urine Ketones (Negative) Urine Blood (Negative) Urine Nitrite (Negative) Urine Bilirubin (Negative) Urine Urobilinogen (Negative) Ur Leukocyte Esterase (Negative) Urine WBC (Auto) (0-5) /hpf Urine RBC (Auto) (0-4) /hpf U Hyaline Cast (Auto) (0-5) /lpf U Epithel Cells (Auto) (0-5) /lpf Urine Bacteria (Auto) (Negative) COVID-19 Eval Order Covid19 Done at [facility] COVID-19 PCR NEGATIVE (Negative) 08/14/20 08/14/20 08/14/20 Range/Units 10:12 10:12 10:12 WBC (4.8-10.8) K/uL RBC (4.7-6.1) M/uL Hgb (14.0-18.0) g/dL Hct (42-52) % MCV (80-100) fL MCH (25-34) pg MCHC (32-36) g/dL RDW Std Deviation (36.4-46.3) fL RDW Coeff of Andie (11.5-14.5) % Plt Count (130-400) K/uL MPV (7.4-10.4) fL Immature Gran % (Auto) % Neut % (Auto) % Lymph % (Auto) % [place] % (Auto) % Eos % (Auto) % Baso % (Auto) % Neut # (Auto) (1.4-6.5) K/uL Lymph # (Auto) (1.2-3.4) K/uL [place] # (Auto) (0.11-0.59) K/uL Eos # (Auto) (0-0.5) K/uL Baso # (Auto) (0-0.2) K/uL Immature Gran # (Auto) (0.00-0.02) K/uL PT 10.9 (9.0-12.0) Seconds INR 1.0 (0.9-1.1) APTT 26.5 (21.0-31.0) Seconds PTT Ratio 0.9 Sodium 136 (136-145) mmol/L Potassium 4.6 (3.5-5.1) mmol/L Chloride 103 (98-107) mmol/L Carbon Dioxide 27 (21-32) mmol/L Anion Gap 6.0 (3-11) BUN 16 (7-18) mg/dl Creatinine 1.13 (0.6-1.4) mg/dl Est Cr Clr Drug Dosing 120.2 ml/min Est GFR ( Amer) 89.8 Est GFR (Non-Af Amer) 77.5 BUN/Creatinine Ratio 13.9 (10-20) Glucose 244 H (70-99) mg/dl Lactate 2.4 H* (0.4-2.0) mmol/L Calcium 9.4 (8.5-10.1) mg/dl Magnesium 2.1 (1.8-2.4) mg/dl Total Bilirubin 1.1 H (0.2-1) mg/dl AST 20 (15-37) U/L ALT 46 (12-78) U/L Alkaline Phosphatase 77 (45-117) U/L Troponin I 0.407 H* (0-0.045) ng/ml NT-Pro-B Natriuret Pep 133 (0-450) pg/ml Total Protein 7.8 (6.4-8.2) gm/dl Albumin 3.9 (3.4-5.0) gm/dl Globulin 3.9 (2.5-4.0) gm/dl Albumin/Globulin Ratio 1.0 (0.9-2) Urine Color Urine Appearance (Clear) Urine pH (4.5-7.5) Ur Specific [place] (1.000-1.030) Urine Protein (Negative) Urine Glucose (UA) (Negative) Urine Ketones (Negative) Urine Blood (Negative) Urine Nitrite (Negative) Urine Bilirubin (Negative) Urine Urobilinogen (Negative) Ur Leukocyte Esterase (Negative) Urine WBC (Auto) (0-5) /hpf Urine RBC (Auto) (0-4) /hpf U Hyaline Cast (Auto) (0-5) /lpf U Epithel Cells (Auto) (0-5) /lpf Urine Bacteria (Auto) (Negative) COVID-19 Eval Order COVID-19 PCR (Negative) 08/14/20 08/14/20 Range/Units 10:22 12:01 WBC (4.8-10.8) K/uL RBC (4.7-6.1) M/uL Hgb (14.0-18.0) g/dL Hct (42-52) % MCV (80-100) fL MCH (25-34) pg MCHC (32-36) g/dL RDW Std Deviation (36.4-46.3) fL RDW Coeff of Andie (11.5-14.5) % Plt Count (130-400) K/uL MPV (7.4-10.4) fL Immature Gran % (Auto) % Neut % (Auto) % Lymph % (Auto) % [place] % (Auto) % Eos % (Auto) % Baso % (Auto) % Neut # (Auto) (1.4-6.5) K/uL Lymph # (Auto) (1.2-3.4) K/uL [place] # (Auto) (0.11-0.59) K/uL Eos # (Auto) (0-0.5) K/uL Baso # (Auto) (0-0.2) K/uL Immature Gran # (Auto) (0.00-0.02) K/uL PT (9.0-12.0) Seconds INR (0.9-1.1) APTT (21.0-31.0) Seconds PTT Ratio Sodium (136-145) mmol/L Potassium (3.5-5.1) mmol/L Chloride (98-107) mmol/L Carbon Dioxide (21-32) mmol/L Anion Gap (3-11) BUN (7-18) mg/dl Creatinine (0.6-1.4) mg/dl Est Cr Clr Drug Dosing ml/min Est GFR ( Amer) Est GFR (Non-Af Amer) BUN/Creatinine Ratio (10-20) Glucose (70-99) mg/dl Lactate 1.9 (0.4-2.0) mmol/L Calcium (8.5-10.1) mg/dl Magnesium (1.8-2.4) mg/dl Total Bilirubin (0.2-1) mg/dl AST (15-37) U/L ALT (12-78) U/L Alkaline Phosphatase (45-117) U/L Troponin I (0-0.045) ng/ml NT-Pro-B Natriuret Pep (0-450) pg/ml Total Protein (6.4-8.2) gm/dl Albumin (3.4-5.0) gm/dl Globulin (2.5-4.0) gm/dl Albumin/Globulin Ratio (0.9-2) Urine Color Dark Yellow Urine Appearance Clear (Clear) Urine pH 5.0 (4.5-7.5) Ur Specific [place] 1.023 (1.000-1.030) Urine Protein Trace H (Negative) Urine Glucose (UA) Trace H (Negative) Urine Ketones Negative (Negative) Urine Blood Negative (Negative) Urine Nitrite Negative (Negative) Urine Bilirubin Negative (Negative) Urine Urobilinogen Negative (Negative) Ur Leukocyte Esterase Negative (Negative) Urine WBC (Auto) 1-5 (0-5) /hpf Urine RBC (Auto) 0-4 (0-4) /hpf U Hyaline Cast (Auto) 1-5 (0-5) /lpf U Epithel Cells (Auto) 0-5 (0-5) /lpf Urine Bacteria (Auto) Negative (Negative) COVID-19 Eval Order COVID-19 PCR (Negative) Administered Medications Sodium Chloride (Nss 1000ml) 1,000 mls @ 125 mls/hr IV .Q8H STA Stop: 08/14/20 17:17 Last Admin: 08/14/20 10:38 Dose: 125 mls/hr Documented by: [id number] Heparin Sodium/Dextrose (Heparin Sodium/Dextrose) 25,000 units in 500 mls @ 37 mls/hr IV .[id number] [facility]; Protocol Stop: 09/13/20 12:44 Last Admin: 08/14/20 12:49 Dose: 1,850 units/hr, 37 mls/hr Documented by: [id number] Cosigned by: [id number] Discontinued Medications Albuterol (Albuterol Hfa 8 Gm Inhaler) 6 puffs INH NOW ONE Stop: 08/14/20 10:25 Last Admin: 08/14/20 10:45 Dose: Not Given Documented by: [id number] Albuterol (Albut/Ipratrop 3mg/0.5mg Neb 3 Ml Vial) 3 ml NEB NOW STA Stop: 08/14/20 10:41 Last Admin: 08/14/20 10:57 Dose: 3 ml Documented by: [id number] Dexamethasone (Dexamethasone Sod Inj 10 Mg/Ml Vial) 10 mg IV NOW ONE Stop: 08/14/20 10:25 Last Admin: 08/14/20 10:45 Dose: 10 mg Documented by: [id number] Heparin Sodium (Porcine) (Heparin Sod (Porcine) 1000 Unit/Ml 10 Ml Vial) Confirm Administered Dose 10,000 units .ROUTE .STK-MED ONE Stop: 08/14/20 12:46 Last Admin: 08/14/20 12:48 Dose: 5,000 units Documented by: [id number] Cosigned by: [id number] Heparin Sodium/Dextrose (Heparin Iv Standard With Bolus) 1 ea N/A NOW STA; Pr otocol Stop: 08/14/20 12:40 Last Admin: 08/14/20 12:50 Dose: Not Given Documented by: [id number] Sodium Chloride (Nss 1000ml) 500 mls @ 999 mls/hr IV .Q31M ONE Stop: 08/14/20 11:30 Last Infusion: 08/14/20 11:33 Dose: 0 mls/hr Documented by: [id number] Admin: 08/14/20 11:02 Dose: 999 mls/hr Documented by: [id number] Lorazepam (Ativan) 1 mg in 2 mls @ 2 mls/min IV NOW STA Stop: 08/14/20 11:34 Last Admin: 08/14/20 11:38 Dose: 2 mls/min Documented by: [id number] Lorazepam (Ativan) 1 mg in 2 mls @ 2 mls/min IV NOW STA Stop: 08/14/20 12:07 Last Admin: 08/14/20 12:14 Dose: 2 mls/min Documented by: [id number] Ioversol (Optiray 320 125ml) 119 ml IV ONCE ONE Stop: 08/14/20 11:15 Last Admin: 08/14/20 11:14 Dose: 119 ml Documented by: [id number] Discharge Plan Visit Data Chief Complaint: Shortness of Breath/Dyspnea Stated Complaint: SOB, ASTHMA ED Provider: Kalen Zamora Discharge Problem: Saddle pulmonary embolus, SOB (shortness of breath), Elevated troponin, Tachycardia Discharge Instructions Interventions: ED Discharge Assessment Last Done: 08/14/20 13:57 Forms Stand Alone Forms: My [facility] Prescriptions Prescriptions: No Action Dulera 200-5 mcg/actuation HFA aerosol inhaler 2 puff INHALATION BID Qty: 8.8 RF: 5 omeprazole 20 mg capsule,delayed release(DR/EC) 20 mg PO DAILY Qty: 90 RF: 1 diclofenac sodium 75 mg tablet,delayed release (DR/EC) 75 mg PO BID Qty: 60 RF: 5 metformin 500 mg tablet 500 mg PO BID Qty: 180 RF: 1 azelastine 0.15 % (205.5 mcg) spray,non-aerosol 2 sprays INTNAS BID RF: 0 fluticasone propionate [Flonase Allergy Relief] 50 mcg/actuation spray,suspension 1 sprays INTNAS DAILY RF: 0 fexofenadine [Jana Allergy] 180 mg Tablet 180 mg PO DAILY RF: 0 albuterol sulfate [Ventolin HFA] 90 mcg/actuation HFA aerosol inhaler 2 puff inhalation QID PRN (Reason: Shortness Of Breath) RF: 0 Referrals Referrals: Chayo Pfeiffer CRNP [Primary Care Provider] -
[2020-08-14] MEDS ORDERED: HEPARIN SOD (PORCINE) 1000 UNIT/ML 10 ML VIAL ONE (12:45)
[2020-08-14] MEDS: HEPARIN SODIUM/DEXTROSE 25,000 UNITS/500 ML BAG IV SCH (12:49)
--- NOTE | 2020-08-14 12:51 | CT Scan Report ---
CT angio chest PE protocol CT DOSE: 1987.79 mGy.cm HISTORY: 45 years-old Male with tachy, SOB, low 02, recent surg. eval for PE. Acute shortness of b reath with tachycardia TECHNIQUE: Multiple CTA images of the chest were obtained after the intravenous administration of 119 ml Optiray 320. Coronal and sagittal MIPS were obtained from the axial data set and were submitted for review. All measurements were obtained according to NASCET criteria. A dose lowering technique w as utilized adhering to the principles of ALARA. COMPARISON: Chest radiograph of same day. FINDINGS: Limited exam secondary to patient body habitus with beam hardening artifact. Portions of the patient' s right lateral lung and chest wall are outside the [id number]. CTA: Heart is upper limits of normal in size. Dilation of the right atrium and ventricle with straightenin g of the intraventricular septum. No thoracic aortic aneurysm or dissection. Patency of the imaged gr eat vessels. There is extensive pulmonary emboli including large saddle emboli with emboli extending into the lobar, segmental and subsegmental branches of all lobes bilaterally. CT CHEST: Unremarkable thyroid. Nonspecific mildly enlarged paratracheal and subcarinal lymph nodes measure up to 10 mm. There is no pneumothorax. Trace left pleural effusion. Mild bibasilar atelectasis without p ulmonary infarct, suspicious pulmonary nodule or mass. Central airways are patent. Hepatomegaly with hepatic steatosis. Unremarkable soft tissues. The bones appear intact. No acute fra cture. Degenerative changes of the shoulders and spine. IMPRESSION: 1. Extensive pulmonary emboli include saddle emboli with associated right heart strain. 2. Mild subsegmental bibasilar atelectasis. No pulmonary infarct. 3. Mild nonspecific mediastinal adenopathy. 4. Hepatomegaly with hepatic steatosis. ACT 112: Negative or not required by law. The above report was generated using voice recognition software. It may contain grammatical, syntax o r spelling errors. Electronically signed by: Parth Palmer M.D. 08/14/2020 12:49 PM
--- NOTE | 2020-08-14 14:25 | History & Physical Report ---
Date of Service August 14, 2020 Assessment & Plan (1) Saddle pulmonary embolus: Noted on CTA chest on 08/14. PESI score 126, giving him 10-25% 30-day mortality. Has a strong family hx of VTE with father, uncle. Per patient and , he tested negative, but unsure what testing was done. - Heparin gtt started - Pulmonary consulted - Informed in ED by ED provider - PCU-tele status - Hypercoagulable work-up as per pulmonary - Echo ordered; trend troponins (2) Asthma: Presently no wheezing on exam. - Continue home inhaler - DuoNebs PRN (3) Diabetes mellitus: A1c was 6.8% in 04/2020. - Hold metformin - Sliding scale insulin - Repeat A1c (4) Hematochezia: Noted on prior PCP notes. Had planned for colonoscopy, but not done. - Monitor while on anticoagulation (5) Sleep apnea: - Can use home CPAP. (6) Obesity (BMI 30-39.9): BMI 47. Given data on DOACs and obesity, may need warfarin. - Discuss with pulmonology History of Present Illness Primary Care Provider: NORBERTO Musa 45yo M w/ hx of asthma who presents with saddle PE. The patient underwent a laparoscopic knee procedure for a torn meniscus on Friday, . He says he has felt shortness of breath since the procedure and assumed it was asthma from the intubation. However, he has felt increasing shortness of breath in the week since then despite using his home inhalers. He also had some mild, central, substernal pressure that was non-pleuritic in nature and without radiation. No other palpitations or other chest pain. His family encouraged him to come to the ER. He was given a breathing treatment and felt some better and wanted to go home; however, he underwent a CTA chest which found large PE. Allergies Allergy/AdvReac Type Severity Reaction Status Date / Time aspirin AdvReac Intermediate GI SYMPTOMS Verified 08/14/20 09:36 Home Medications Home Medications Medication Instructions Recorded Confirmed Type fexofenadine [Jana Allergy] 180 mg PO DAILY 07/02/18 08/14/20 History fluticasone propionate 50 1 sprays INTNAS DAILY 06/08/19 08/14/20 History mcg/actuation nasal spray,suspension azelastine 0.15 % (205.5 mcg) 2 sprays INTNAS BID 06/25/19 08/14/20 History nasal spray mometasone-formoterol HFA 200 2 puff INHALATION BID #8.8 gm 12/10/19 08/14/20 Rx mcg-5 mcg/actuation aerosol inhaler omeprazole 20 mg capsule,delayed 20 mg PO DAILY #90 cap 03/28/20 08/14/20 Rx release diclofenac sodium 75 mg 75 mg PO BID #60 tab 04/06/20 08/14/20 Rx tablet,delayed release metformin 500 mg tablet 500 mg PO BID #180 tab 08/03/20 08/14/20 Rx albuterol sulfate [Ventolin HFA] 2 puff INHALATION QID PRN 08/14/20 08/14/20 History Past Med/Surg History Medical History Asthma Sleep apnea Umbilical hernia, incarcerated Surgical History History of cataract surgery L EYE History of tooth extraction History of umbilical hernia repair Family History Father Family history of diabetes mellitus Mother Family history of diabetes mellitus Brother Family history of diabetes mellitus Family/Other Coronary heart disease Social History Smoking Status: Never smoker Smoking End Date: 2015; Second Hand Exposure: No; Do You Dip or Chew Tobacco: No; Tobacco Cessation Education Requested by Patient: No Hx Alcohol Use: No Hx Substance Use: No Preferred Language: Persian Communication Ability: Effective Visual Impairment: No Limitations Knife Glazer Required: No Beliefs That Will Affect Care: None Current Living Situation: Family Current Living Situation Comment: FATHER/BROTHER IN HOME WITH PT AND SPOUSE current occupational status: employed Other Information That Helps Us Care for You: No Feels Safe at Home: Yes Safety Concerns: Feels Safe At This Time Assistive Devices: Cane Review of Systems Review of Systems: All systems reviewed & are unremarkable except as noted in HPI & below Physical Exam Constitutional: WD/WN, vitals as above Eyes: EOM intact bilaterally; no conjunctival abnormality ENMT: external ear and nose normal, oropharynx normal Neck: trachea midline, no thyromegaly normal visual inspection Respiratory: + labored breathing and + tachypneic; no respiratory distress Auscultation: + diminished lung sounds; no crackles and no wheezes Cardiovascular: Rate/Rhythm: + tachycardic Heart Sounds: normal S1 and normal S2 Vessels: no JVD Extremities: no edema Gastrointestinal (Abdomen): Inspection/Auscultation: abdomen normal to inspection; abdomen not distended Musculoskeletal: no cyanosis or clubbing, extremities motor strength 5/5 Skin: no rashes, warm and dry Neurologic: moves all extremities and awake Psychiatric: Orientation: alert, oriented to person and cooperative Results & Data Results & Data ([facility]) Vital Signs (Past 12 Hours) Vital Signs Temp Pulse Pulse Resp BP Pulse Ox 08/14/20 13:30 128 H 32 H 135/81 92 08/14/20 13:00 132 H 34 H 158/86 H 92 08/14/20 12:35 132 H 34 H 127/88 92 08/14/20 12:34 130 H 29 H 91 08/14/20 12:00 130 H 25 H 124/90 90 08/14/20 11:31 125 H 22 129/79 93 08/14/20 11:01 123 H 15 117/83 97 08/14/20 10:58 121 H 20 94 08/14/20 10:30 130 H 28 H 140/86 94 08/14/20 10:00 24 122/81 94 08/14/20 09:40 93 08/14/20 09:39 88 L 08/14/20 09:30 130 H 20 114/90 95 08/14/20 08:57 36.9 C 135 H 32 H 143/86 H 91 PG Care Time/CCT Total # of Minutes Spent Total Time Spent with Patient: Total time spent is greater than 50% in coordination of care (as documented) at patient's floor/unit and/or counseling patient: Coding Level of Care Code 47089 Initial Inpt Care Lvl 3 Diagnoses Saddle pulmonary embolus I26.92 Asthma J45.909 Diabetes mellitus E11.9 Hematochezia K92.1 Sleep apnea G47.30 Obesity (BMI 30-39.9) E66.9
[2020-08-14] MEDS ORDERED: GLUCOSE 10 TABS/TUBE PO PRN (15:09)
[2020-08-14] MEDS ORDERED: GLUCOSE 40% GEL 15 GM TUBE PO PRN (15:09)
[2020-08-14] MEDS ORDERED: CARBOHYDRATES FOR HYPOGLYCEMIA PO PRN (15:09)
[2020-08-14] MEDS ORDERED: ALBUT/IPRATROP 3MG/0.5MG NEB 3 ML VIAL NEB PRN (15:09)
[2020-08-14] MEDS ORDERED: ONDANSETRON INJ 2 MG/ML 2 ML VIAL IV PRN (15:09)
[2020-08-14] MEDS ORDERED: GLUCAGON FOR INJ 1 MG VIAL SQ PRN (15:09)
[2020-08-14] MEDS ORDERED: DEXTROSE 50% 50 ML SYRINGE IV PRN (15:09)
--- NOTE | 2020-08-14 15:15 | Pulmonary Consultation ---
Date of Consultation August 14, 2020 Assessment & Plan (1) Acute respiratory failure with hypoxia: CT chest 08/14/2020 personally reviewed: Mild atelectasis left lower lobe, scarring of the lingula inferior lobe, no mediastinal lymphadenopathy Saddle PE appreciated with right heart strain. --Acute hypoxic respiratory failure Secondary to saddle PE with right heart strain sPESI: 1 PESI: 76 points 1.7-3.5% 30 day mortality There is family history of clots on the paternal side. Patient falls into the criteria where consideration for TPA should be given. I did go over the risks and benefits of giving TPA. Risk includes but not limited to bleeding including cerebral bleed which might be fatal. Patient wants to think about it and wants to continue with the heparin currently . Continue with heparin for the time being. If there is any clinical deterioration will give TPA. --History of asthma Not in any acute exacerbation On Dulera at home Continue with Breo 100-25 MCG 1 in the hospital --TERRENCE Continue with CPAP His is going to bring his home CPAP --Morbid obesity Advised to lose with diet and exercise Plan: Follow-up Doppler lower extremity Follow-up 2D echo to look at the right side pressures Hypercoagulable work-up will be needed given that the patient has family history of blood clots Please note the above document was generated using voice recognition software. It may contain grammatical, syntax or spelling errors.Any formal questions or concerns about the content, text or information contained within the body of this dictation should be directly addressed to the provider for clarification. (2) Pulmonary embolism: (3) Sleep apnea: History of Present Illness Attending Physician: Anthony Mckenzie MD History of Present Illness 45-year-old male past medical history of TERRENCE, morbid obesity, asthma and diabetes type 2 presented to the ED with complaints of shortness of breath and chest tightness going on since couple of days progressively getting worse. Patient denies any dizziness, no palpitations, no chest pain, no fever or chills. No cough. In the ED patient had CTA which showed saddle PE with right heart strain. Patient blood pressure has been stable. Patient does not have history of hypertension. On examination his blood pressure was 135 systolic. He was saturating 93% on 4 L nasal cannula at rest. Patient's aunt was at bedside at the time of examination. Social history: Non-smoker. There is family history of blood clots on the paternal side. Allergies Allergy/AdvReac Type Severity Reaction Status Date / Time aspirin AdvReac Intermediate GI SYMPTOMS Verified 08/14/20 09:36 Home Medications Home Medications Medication Instructions Recorded Confirmed Type fexofenadine [Jana Allergy] 180 mg PO DAILY 07/02/18 08/14/20 History fluticasone propionate 50 1 sprays INTNAS DAILY 06/08/19 08/14/20 History mcg/actuation nasal spray,suspension azelastine 0.15 % (205.5 mcg) 2 sprays INTNAS BID 06/25/19 08/14/20 History nasal spray mometasone-formoterol HFA 200 2 puff INHALATION BID #8.8 gm 12/10/19 08/14/20 Rx mcg-5 mcg/actuation aerosol inhaler omeprazole 20 mg capsule,delayed 20 mg PO DAILY #90 cap 03/28/20 08/14/20 Rx release diclofenac sodium 75 mg 75 mg PO BID #60 tab 04/06/20 08/14/20 Rx tablet,delayed release metformin 500 mg tablet 500 mg PO BID #180 tab 08/03/20 08/14/20 Rx albuterol sulfate [Ventolin HFA] 2 puff INHALATION QID PRN 08/14/20 08/14/20 History Patient History Medical History Asthma Sleep apnea Umbilical hernia, incarcerated Surgical History History of cataract surgery L EYE History of tooth extraction History of umbilical hernia repair Family History Father Family history of diabetes mellitus Mother Family history of diabetes mellitus Brother Family history of diabetes mellitus Family/Other Coronary heart disease Social History Smoking Status: Never smoker Smoking End Date: 2015; Second Hand Exposure: No; Do You Dip or Chew Tobacco: No; Tobacco Cessation Education Requested by Patient: No Hx Alcohol Use: No Hx Substance Use: No Preferred Language: Belarusian Communication Ability: Effective Visual Impairment: No Limitations Apartment Community Assistant Manager Required: No Beliefs That Will Affect Care: None Current Living Situation: Family Current Living Situation Comment: FATHER/BROTHER IN HOME WITH PT AND SPOUSE current occupational status: employed Other Information That Helps Us Care for You: No Feels Safe at Home: Yes Safety Concerns: Feels Safe At This Time Assistive Devices: Cane Review of Systems Review of Systems: All systems reviewed & are unremarkable except as noted in HPI & below Physical Exam Physical Exam: Constitutional: No acute distress HEENT: EOMI, PERRLA Respiratory system: Decreased air entry bilaterally, no wheeze, no rhonchi, mild crackles bilateral lower lobes CVS: S1-S2 positive, no murmurs or gallops, tachycardia Abdomen: Soft, nontender, nondistended, positive bowel sounds x4, obese Extremities: +2 pulses bilaterally radialis/ dorsalis pedis, no cyanosis, +1 edema bilateral lower extremity, left knee medial aspect suture present Neuro: Awake alert oriented x3 Psych: Normal mood and affect G/U: No Srinivasan Skin: no rashes, warm and dry Lymphatic: no cervical or axillary lymphadenopathy Results & Data Results & Data ([facility]) Vital Signs (Past 12 Hours) Vital Signs Temp Pulse Pulse Resp BP BP Pulse Ox 08/14/20 14:39 36.9 C 133 H 28 H 135/90 92 08/14/20 13:30 128 H 32 H 135/81 92 08/14/20 13:00 132 H 34 H 158/86 H 92 08/14/20 12:35 132 H 34 H 127/88 92 08/14/20 12:34 130 H 29 H 91 08/14/20 12:00 130 H 25 H 124/90 90 08/14/20 11:31 125 H 22 129/79 93 08/14/20 11:01 123 H 15 117/83 97 08/14/20 10:58 121 H 20 94 08/14/20 10:30 130 H 28 H 140/86 94 08/14/20 10:00 24 122/81 94 08/14/20 09:40 93 08/14/20 09:39 88 L 08/14/20 09:30 130 H 20 114/90 95 08/14/20 08:57 36.9 C 135 H 32 H 143/86 H 91 08/14/20 10:12 08/14/20 10:12 PG Care Time/CCT Total # of Minutes Spent Total Time Spent with Patient: Total time spent is greater than 50% in coordination of care (as documented) at patient's floor/unit and/or counseling patient: Coding Level of Care Code 53395 Initial Inpt Care Lvl 3 Diagnoses Acute respiratory failure with hypoxia J96.01 Pulmonary embolism I26.99 Sleep apnea G47.30
--- NOTE | 2020-08-14 16:34 | XCELERA ---
[id number]
[2020-08-14] MEDS: INSULIN ASPART 100 UNITS/ML 3 ML PEN SC SCH ×2 (17:40→21:45)
--- NOTE | 2020-08-14 19:06 | Ultrasound Report ---
BILATERAL LOWER EXTREMITY VENOUS DOPPLER CLINICAL HISTORY: Saddle PE COMPARISON STUDY: No previous studies for comparison. TECHNIQUE: Sonography of the deep venous system of the bilateral lower extremities was performed. Co mpression and augmentation were evaluated. FINDINGS: The right common femoral, superficial femoral and popliteal veins were compressible. Augme ntation was normal. Flow was shown within the deep calf vessels. Note is made of deep venous thrombus within the left popliteal vein. There is also deep venous thrombus within the left anterior tibial v ein. IMPRESSION: Deep venous thrombus within the left popliteal and anterior tibial veins. ACT 112: Negative or not required by law. Electronically signed by: Rojas Hughes M.D. 08/14/2020 7:04 PM
[2020-08-14 19:21] LABS: Partial Thromboplastin Ratio 1.2; Partial Thromboplastin Time 32.4 Seconds (21.0-31.0)
[2020-08-14] MEDS ORDERED: HEPARIN IV BOLUS 8,000 UNITS in SYRINGE 0 ML IV ONE (19:45)
[2020-08-15] MEDS: HEPARIN SODIUM/DEXTROSE 25,000 UNITS/500 ML BAG IV SCH ×4 (01:38→21:08)
[2020-08-15 02:38] LABS: Hematocrit (blood only) 47.7 % (42-52); Hemoglobin 16.4 g/dL (14.0-18.0); Mean Corpuscular Hemoglobin 31.3 pg (25-34); Mean Corpuscular Hgb Conc 34.4 g/dL (32-36); Mean Platelet Volume 9.9 fL (7.4-10.4); Platelet Count 139 K/uL (130-400); RDW Coefficient of Variation 12.9 % (11.5-14.5); RDW Standard Deviation 42.7 fL (36.4-46.3); Red Blood Count 5.24 M/uL (4.7-6.1); White Blood Count 10.22 K/uL (4.8-10.8)
[2020-08-15 02:54] LABS: Partial Thromboplastin Ratio 1.4; Partial Thromboplastin Time 38.2 Seconds (21.0-31.0)
[2020-08-15 02:56] LABS: BUN Creatinine Ratio 17.5 (10-20); Calcium 8.6 mg/dl (8.5-10.1); Creatinine Clr Calc Pharmacy 130.6 ml/min; Est GFR (African American) 99.3; Est GFR (Non-African American) 85.7; Magnesium 2.3 mg/dl (1.8-2.4); Potassium 4.4 mmol/L (3.5-5.1)
[2020-08-15 03:02] LABS: Troponin I 0.158 ng/ml (0-0.045)
[2020-08-15] MEDS ORDERED: HEPARIN IV BOLUS 8,000 UNITS in SYRINGE 0 ML IV ONE ×2 (03:25→18:30)
[2020-08-15 05:58] LABS: Estimated Average Glucose 169 mg/dl; Hemoglobin A1C 7.5 % (4.5-5.6)
[2020-08-15] MEDS: FEXOFENADINE HCL 180 MG TAB PO SCH (08:58)
[2020-08-15] MEDS: INSULIN ASPART 100 UNITS/ML 3 ML PEN SC SCH ×4 (08:58→21:09)
[2020-08-15] MEDS: PANTOprazole 40 MG TAB PO SCH (08:58)
[2020-08-15] MEDS: FLUTICASONE/VILANTEROL 200/25MCG 14 PUFFS/INHALER INH SCH (08:58)
[2020-08-15 10:23] LABS: Partial Thromboplastin Ratio 1.7
[2020-08-15 10:28] LABS: Partial Thromboplastin Time 47.3 Seconds (21.0-31.0)
[2020-08-15] MEDS ORDERED: INSULIN GLARGINE SOLOSTAR 100 UNITS/ML 3 ML PEN SC ONE (12:15)
--- NOTE | 2020-08-15 12:40 | Hospitalist Progress Note ---
Date of Service August 15, 2020 Assessment & Plan (1) Saddle pulmonary embolus: Mr. Mcdonough is a 45 yo male with h/o Asthma, T2DM, TERRENCE and recent laparscopic knee surgery for torn meniscus on 08/07, who was admitted to [facility] on 08/14 for saddle PE. - Saddle PE noted on CTA chest on 08/14. - PESI score 86, giving him 3.2-7.1% 30-day mortality - LE Venous Doppler showed DVT in left popliteal and L anterior tibial veins - Has a strong family hx of VTE with father, uncle. Per patient and , father tested negative for hypercoagulability w/u, but unsure what testing was done. - hemodynamically stable with improved tachypnea and tachycardia - good oxygenation with 3L NC - Started on Heparin gtt on 08/14 - continue - PTT 47.3s at 0945 --> next ordered for 1545 (goal 60-90s) - Pulm consulted - recommended TPA but patient and aunt would like to hold off on this due to risk of intracranial bleed. They would consent to TPA if patient decompensates. - revisited this with patient and he would like to speak about it with his before deciding - ordered hypercoagulability w/u per Pulm - ordered on 08/15: Protein C/S, Factor V Leiden mutation, Homocysteine, PT mutation - will need chronic anti-coagulation given DVTs and saddle PE. Given weight > 120kg would need to be on Warfarin rather than DOAC - would consider Lovenox bridge to Warfarin on discharge (2) Asthma: - Denies h/o increased wheezing/sputum production before hospitalization. - No wheezing on exam - Continue Dulera daily inhaler - DuoNebs PRN (3) Diabetes mellitus: - A1C 7.5% on 08/15 (previously 6.8% in 04/2020) - Hold home Metformin 500 mg PO BID - Sliding scale insulin - POC glucose - Lantus 10u BID started on 08/15, due to POC glucose consistently in mid-200s (4) Hematochezia: - Noted on prior PCP notes. Had planned for colonoscopy, but not done. - Monitor while on anticoagulation (5) Sleep apnea: - Can use home CPAP. (6) Obesity (BMI 30-39.9): - BMI 47 - Would need Warfarin for chronic anti-coagulation as mentioned above Admission and Anticipated Discharge Date Admission Date: August 14, 2020 Supervising Physician Co-Signing Physician Notes Attending attestation Pt seen and examined in concert with Dr. Tim. In agreement with the documented findings as noted in the resident documentation with any exceptions o r additions as noted here. 45 y/o male h/o DMII, asthma with saddle PE and LE DVTs. Improving shortness of breath in bed, though 'was never that bad'. Initially concerned and afraid of the TpA but also concerned re: risks of delayed resolution of thrombus. Discussed briefly the questions that would be helpful - what can we do if adverse things happen, what to expect and watch for as the thrombus resolves. Patient is open to further discussion with Dr. Oh re: TPa if that's an option. On examination, S1/S2 nl, mild tachycardia no MCG. Distant but CTAB. Abd NT/ND BS+ve Saddle PE with LE DVTs - pulmonology consultation appreciated - tolerating heparin, would likely be warfarin candidate 2/2 weight, with lovenox bridge. Has more ? re: TPa Asthma - continue Dulera, DuoNebs DMII - glargine and ISS, restart metformin on discharge Else see resident documentation as noted. Subjective No acute events overnight. Patient confirmed family h/o VTE in father, uncle and paternal GM and reports hypercoagulability testing that was negative in his father. Denies previous testing for himself. Patient and aunt confirm that they have consider the risks and benefits of tPA and would like to hold off on this unless patient's condition worsens - will continue Heparin gtt. Denies fever/chills, chest pain, palpitations, SOB, wheezing, cough. Review of Systems Gastrointestinal: no abdominal pain, no nausea and no vomiting Neurologic: no syncope Physical Exam Physical Exam: Vitals are improving - currently satting well on 4L NC. Pulse down to 100s-110s overnight with occasional PVCs. RR improved to 18-20. Constitutional: + obese appears fatigued Respiratory: normal respiratory effort, lungs clear to auscultation Cardiovascular: RRR, no murmur, no edema Gastrointestinal (Abdomen): normal bowel sounds, soft, nontender, no hepatosplenomegaly Skin: no rashes, warm and dry Results & Data Results & Data ([facility]) Vital Signs (Past 12 Hours) Vital Signs Temp Pulse Pulse Resp BP Pulse Ox 08/15/20 11:47 36.8 C 107 H 18 104/83 97 08/15/20 09:30 107 H 08/15/20 07:28 36.5 C 101 H 20 101/71 96 08/15/20 05:22 36.8 C 100 H 20 120/90 98 08/15/20 00:38 119 H Resident Activity Tracking Resident Involvement: Resident Care Provided Care Provided: Adult [facility]
--- NOTE | 2020-08-15 15:09 | Pulmonology Progress Note ---
Date of Service August 15, 2020 Assessment & Plan (1) Acute respiratory failure with hypoxia: CT chest 08/14/2020 personally reviewed: Mild atelectasis left lower lobe, scarring of the lingula inferior lobe, no mediastinal lymphadenopathy Saddle PE appreciated with right heart strain. --Acute hypoxic respiratory failure Secondary to saddle PE with right heart strain, likely from left lower leg DVT sPESI: 1 PESI: 76 points 1.7-3.5% 30 day mortality There is family history of clots on the paternal side. Patient falls into the criteria where consideration for TPA should be given. I went over the risks and benefits of giving TPA with the patient as well as patient's . Risk includes but not limited to bleeding including cerebral bleed which might be fatal. Patient and patient's are currently inclined towards continuing with heparin drip. If there is any clinical deterioration will give TPA. On 2D echo 08/14/2020: EF greater than 70%, right-sided pressure but not able to be done as it was not very well visualized. ''Possible mild to moderate dilatation of the right ventricle with reduced function'' --History of asthma Not in any acute exacerbation On Dulera at home Continue with Breo 100-25 MCG 1 in the hospital --TERRENCE Continue with CPAP His is going to bring his home CPAP --Morbid obesity Advised to lose with diet and exercise Plan: All questions inquiries of the patient and patient's were answered and the best way possible. Continue with heparin drip till patient is definitely short of not getting TPA. Continue with heparin for at least 48-72 hours. Monitor for any signs of hypoxia or severe tachycardia or dizziness. In that case TPA should be given in the ICU. Patient likely will end up on oxygen at home. Social work consult recommended. Please note the above document was generated using voice recognition software. It may contain grammatical, syntax or spelling errors.Any formal questions or concerns about the content, text or information contained within the body of this dictation should be directly addressed to the provider for clarification. (2) Pulmonary embolism: (3) Sleep apnea: Admission and Anticipated Discharge Date Admission Date: August 14, 2020 Subjective Patient seen and examined at bedside. No acute distress, no adverse events overnight. Patient's was present at bedside. Patient states that he is feeling better compared to when he came to the hospital. He still gets short of breath on exertion. Denies any chest pain, no dizziness, no headache, no nausea, no vomiting. He was saturating 98% on 3 L nasal cannula at rest with heart rate of 108. Review of Systems Review of Systems: All systems reviewed & are unremarkable except as noted in Subjective Physical Exam Physical Exam: Constitutional: No acute distress HEENT: EOMI, PERRLA Respiratory system: Decreased air entry bilaterally, no wheeze, no rhonchi, mild crackles bilateral lower lobes CVS: S1-S2 positive, no murmurs or gallops, tachycardia Abdomen: Soft, nontender, nondistended, positive bowel sounds x4, obese Extremities: +2 pulses bilaterally radialis/ dorsalis pedis, no cyanosis, +1 edema bilateral lower extremity, left knee medial aspect suture present Neuro: Awake alert oriented x3 Psych: Normal mood and affect G/U: No Srinivasan Skin: no rashes, warm and dry Lymphatic: no cervical or axillary lymphadenopathy Results & Data Results & Data ([facility]) Vital Signs (Past 12 Hours) Vital Signs Temp Pulse Pulse Resp BP Pulse Ox 08/15/20 11:47 36.8 C 107 H 18 104/83 97 08/15/20 09:30 107 H 08/15/20 07:28 36.5 C 101 H 20 101/71 96 08/15/20 05:22 36.8 C 100 H 20 120/90 98 08/15/20 02:18 08/15/20 02:18 PG Care Time/CCT Total # of Minutes Spent Total Time Spent with Patient: Total time spent is greater than 50% in coordi nation of care (as documented) at patient's floor/unit and/or counseling patient: Coding Level of Care Code 49565 Subseq Hosp Care Lvl 3 Diagnoses Acute respiratory failure with hypoxia J96.01 Pulmonary embolism I26.99 Sleep apnea G47.30
[2020-08-15 16:26] LABS: Partial Thromboplastin Ratio 1.3; Partial Thromboplastin Time 37.4 Seconds (21.0-31.0)
[2020-08-15] MEDS: INSULIN GLARGINE SOLOSTAR 100 UNITS/ML 3 ML PEN SC SCH (21:08)
[2020-08-16 01:27] LABS: Partial Thromboplastin Ratio 1.9
[2020-08-16 01:31] LABS: Partial Thromboplastin Time 51.7 Seconds (21.0-31.0)
[2020-08-16] MEDS: HEPARIN SODIUM/DEXTROSE 25,000 UNITS/500 ML BAG IV SCH ×3 (05:05→17:00)
[2020-08-16 06:38] LABS: Basophils # (auto) 0.05 K/uL (0-0.2); Basophils % (auto) 0.6 %; Eosinophils # (auto) 0.41 K/uL (0-0.5); Eosinophils % (auto) 4.6 %; Hematocrit (blood only) 47.3 % (42-52); Hemoglobin 16.4 g/dL (14.0-18.0); Immature Granulocytes # (auto) 0.07 K/uL (0.00-0.02); Immature Granulocytes % (auto) 0.8 %; Lymphocytes # (auto) 2.56 K/uL (1.2-3.4); Lymphocytes % (auto) 28.5 %; Mean Corpuscular Hemoglobin 31.4 pg (25-34); Mean Corpuscular Hgb Conc 34.7 g/dL (32-36); Mean Corpuscular Volume 90.6 fL (80-100); Mean Platelet Volume 10.4 fL (7.4-10.4); Monocytes # (auto) 0.65 K/uL (0.11-0.59); Monocytes % (auto) 7.2 %; Neutrophils # (auto) 5.24 K/uL (1.4-6.5); Neutrophils % (auto) 58.3 %; Platelet Count 150 K/uL (130-400); RDW Coefficient of Variation 13.2 % (11.5-14.5); RDW Standard Deviation 43.3 fL (36.4-46.3); Red Blood Count 5.22 M/uL (4.7-6.1); White Blood Count 8.98 K/uL (4.8-10.8)
[2020-08-16 06:58] LABS: Partial Thromboplastin Ratio 1.9
[2020-08-16 07:04] LABS: Partial Thromboplastin Time 52.4 Seconds (21.0-31.0)
--- NOTE | 2020-08-16 07:04 | Hospitalist Progress Note ---
Date of Service August 16, 2020 Assessment & Plan (1) Saddle pulmonary embolus: Mr. Mcdonough is a 45 yo male with h/o Asthma, T2DM, TERRENCE and recent laparscopic knee surgery for torn meniscus on 08/07, who was admitted to [facility] on 08/14 for saddle PE. - Saddle PE noted on CTA chest on 08/14. - PESI score 86, giving him 3.2-7.1% 30-day mortality - LE Venous Doppler showed DVT in left popliteal and L anterior tibial veins - Has a strong family hx of VTE with father, uncle. Per patient and , father tested negative for hypercoagulability w/u, but unsure what testing was done. - hemodynamically stable with improved tachypnea and tachycardia - good oxygenation with 2-33L NC - Started on Heparin gtt on 08/14 - PTT therapeutic as of 08/15 PM - update on 08/16: patient would now like to proceed with tPA and will be transferred to ICU for tPA - Dr. Oh will administer tPA today in ICU - ordered hypercoagulability w/u per Pulm - ordered on 08/15: Protein C/S, Factor V Leiden mutation, Homocysteine, PT mutation - will need chronic anti-coagulation given DVTs and saddle PE. Given weight > 120kg would need to be on Warfarin rather than DOAC - would consider Heparin bridge for at least 48 hours to Warfarin before discharge - would need Warfarin therapy for at least 6 months (2) Asthma: - Denies h/o increased wheezing/sputum production before hospitalization. - No wheezing on exam - Continue Dulera daily inhaler - DuoNebs PRN (3) Diabetes mellitus: - A1C 7.5% on 08/15 (previously 6.8% in 04/2020) - Hold home Metformin 500 mg PO BID - Sliding scale insulin - POC glucose - Lantus 10u BID started on 08/15, due to POC glucose consistently in mid-200s (4) Hematochezia: - Noted on prior PCP notes. Had planned for colonoscopy, but not done. - Monitor while on anticoagulation (5) Sleep apnea: - Can use home CPAP. (6) Obesity (BMI 30-39.9): - BMI 47 - Would need Warfarin for chronic anti-coagulation as mentioned above Admission and Anticipated Discharge Date Admission Date: August 14, 2020 Supervising Physician Co-Signing Physician Notes Attending attestation Pt seen and examined in concert with Dr. Tim. In agreement with the documented findings as noted in the resident documentation with any exceptions or additions as noted here. 45 y/o male h/o DMII, asthma with saddle PE and LE DVTs. Stable/marginally improved shortness of breath without pain. Further discussion of TpA with patient along side pulmonology and patient is now interested in moving forward with same. On examination, S1/S2 nl, mild tachycardia no MCG. Distant but CTAB. Abd NT/ND BS+ve Saddle PE with LE DVTs - pulmonology consultation appreciated - transfer to ICU for TpA therapy. D/C heparin, would likely be warfarin candidate 2/2 weight, with lovenox bridge. Asthma - continue Dulera, DuoNebs DMII - glargine and ISS, restart metformin on discharge Else see resident documentation as noted. Subjective No acute events overnight. On further conversation about tPA this morning the patient decided that he would like to go forward with this. He will be trans ferred to ICU for Dr. Oh to administer tPA. Patient fever/chills, chest pain, palpitations, SOB, wheezing, cough. Review of Systems Review of Systems: Pertinent positives and negatives mentioned in HPI Physical Exam Constitutional: + obese Respiratory: normal respiratory effort, lungs clear to auscultation Cardiovascular: RRR, no murmur, no edema Gastrointestinal (Abdomen): normal bowel sounds, soft, nontender, no hepatosplenomegaly Skin: no rashes, warm and dry Results & Data Results & Data ([facility]) Vital Signs (Past 12 Hours) Vital Signs Temp Pulse Pulse Resp BP Pulse Ox 08/16/20 04:24 36.6 C 98 H 18 116/81 95 08/16/20 00:34 36.8 C 110 H 18 123/80 97 08/15/20 23:00 108 H 08/15/20 19:44 36.9 C 114 H 23 111/70 96 Resident Activity Tracking Resident Involvement: Resident Care Provided Care Provided: Adult Hospital Medicine
[2020-08-16 07:17] LABS: BUN Creatinine Ratio 17.1 (10-20); Calcium 8.6 mg/dl (8.5-10.1); Creatinine Clr Calc Pharmacy 122.9 ml/min; Est GFR (African American) 92.8; Est GFR (Non-African American) 80.1; Potassium 3.7 mmol/L (3.5-5.1)
[2020-08-16] MEDS: FLUTICASONE/VILANTEROL 200/25MCG 14 PUFFS/INHALER INH SCH (09:55)
[2020-08-16] MEDS: FEXOFENADINE HCL 180 MG TAB PO SCH (09:55)
[2020-08-16] MEDS: PANTOprazole 40 MG TAB PO SCH (09:55)
[2020-08-16] MEDS: INSULIN GLARGINE SOLOSTAR 100 UNITS/ML 3 ML PEN SC SCH ×2 (09:56→21:02)
[2020-08-16] MEDS: INSULIN ASPART 100 UNITS/ML 3 ML PEN SC SCH ×4 (09:57→21:02)
[2020-08-16] MEDS ORDERED: ICU PROTOCOL FOR HYPERGLYCEMIA PRN (10:39)
[2020-08-16] MEDS ORDERED: DC ALL ANTICOAGULANTS STA (12:30)
[2020-08-16] MEDS ORDERED: SODIUM CHLORIDE 0.9% 50 ML BAG IV STA (12:30)
[2020-08-16] MEDS ORDERED: PRIMARY PLUMSET, PE LINED TUBING, 113 IN, NON-DEHP (2260-0500) IV STA (12:30)
[2020-08-16] MEDS ORDERED: ALTEPLASE 100mg IV over 2hr **For PE (FDA Approved) IV STA (12:38)
[2020-08-16] MEDS ORDERED: ALTEPLASE, RECOMBINANT 50 MG in EMPTY BAG 0 ML IV STA (12:45)
[2020-08-16] MEDS ORDERED: NSS 50 ML--Send if TPA given as SVP IV ONE ×2 (12:45→14:45)
[2020-08-16] MEDS ORDERED: PRIMARY PLUMSET--Send if TPA given as SVP IV ONE (12:45)
--- NOTE | 2020-08-16 14:11 | Critical Care Progress Note ---
Date of Service August 16, 2020 Assessment & Plan (1) Acute respiratory failure with hypoxia: This is a 45-year-old male who had recent ACL repair. He presented with shortness of breath and dyspnea with exertion. He was found to have saddle pulmonary emboli with associated right heart strain. CT scan also showed mild atelectasis of the left lower lobe and scarring of the lingula inferior lobe. Patient is currently on weight-based heparin drip and has no acute complaints. Recommendations: 1. Saddle emboli: Patient is on a current heparin drip. He has decided to undergo TPA therapy. Systemic TPA will be administered in the intensive care unit over 2-hour.. Patient will then be monitored for 24 hours for acute changes. If APTT drops below 60 after administration of TPA, heparin drip will be reinitiated at previous rate with no bolus. Patient had lower extremity Doppler completed which showed occlusive DVT in the left popliteal and anterior tibial veins. There is no appreciation of thrombosis above the knee. Patient will require systemic anticoagulation on discharge for minimum of 6 months. He is not a candidate for DOAC therapy secondary to BMI of 47.2 kg/m. Once stable, he should be initiated on warfarin therapy with overlap with heparin drip for least 48 hours. Patient does have family history of thromboembolic disease on paternal side and should follow-up with hematology for genetic work- up. 2. Acute hypoxic respiratory failure: Secondary to saddle pulmonary embolus with right heart strain. Continue supplemental oxygen to titrate SaO2 greater than 90%. I did discuss with the patient that he most likely will need outpatient oxygen therapy on discharge and should follow up with the pulmonary office for management. 3. Acute right heart strain: Transthoracic echocardiogram completed 08/14/2020 with an EF greater than 70%. Right-sided pressure not well visualized. There is mention of mild to moderate dilatation of the right ventricle with reduced function. This is secondary to acute saddle emboli and hopefully will resolve in the next 6 months. Patient should follow-up outpatient for repeat echocardiogram. 3. Asthma: Patient is clear to auscultation on exam with no evidence of bronchospasm. He is on Dulera at home. Will use Brio Ellipta while in the hospital. 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 Patient does have exposure to dust and is much as patient primarily works with hay. Encouraged use of facial covering/mask while working in the [place]. Patient should also avoid working in a silo without SCBA. 4. Obstructive sleep apnea: Patient does use CPAP at home and reports compliance. We will use hospital CPAP until can bring home unit in. Patient permitted to use his own unit. 5. Morbid obesity: Dr. Oh talked about weight loss with the patient yesterday. It should be noted that the patient has had considerable intentional weight loss over the last 2 years. He is encouraged to continue working on weight loss as he can. Thank you very much for including us in the care of this patient. We will c marianela to follow along with you. Please refer to Dr. Oh's addendum for further recommendations. (2) Pulmonary embolism: (3) Sleep apnea: Admission and Anticipated Discharge Date Admission Date: August 14, 2020 Supervising Physician Co-Signing Physician Notes I saw and evaluated the patient with Kartik Landa, and agree with findings and plan as documented in the note. Patient seen and examined at bedside. was present at bedside at time of examination. He states that he is feeling little bit better. They both are in agreement to have TPA done per their submassive PE. Risk and benefits of the procedure were explained to the patient. Patient had the TPA questionnaire done which was negative. We will give the patient 50 mg of TPA over 2 hours. This will be followed by heparin drip. Patient will be in ICU for 24 hours for monitoring. Please note the above document was generated using voice recognition software. It may contain grammatical, syntax or spelling errors.Any formal questions or concerns about the content, text or information contained within the body of this dictation should be directly addressed to the provider for clarification. Subjective Attending: Dr. Oh Patient seen and examined at bedside with his present. They had many questions about TPA administration for saddle emboli as well as ongoing treatment for his pulmonary emboli. After long discussion was decided that the patient would prefer TPA so he was transferred to the intensive care unit in room 108 for further intervention. Patient had no complaints of headache, change of vision, or neurological deficit. He had no shortness of breath with supplemental oxygen placed. He does however still have exertional dyspnea and hypoxia. He is currently on supplemental oxygen at 3 L/min via nasal cannula and is comfortable at rest. He denies any current hemoptysis. He has no other acute complaints. Review of Systems Review of Systems: All systems reviewed & are unremarkable except as noted in Subjective Physical Exam Physical Exam: GENERAL : No acute distress EYES: No icterus, gaze conjugate NOSE: No evidence of epistaxis MOUTH: No lesions or candidiasis NECK: Supple LUNGS: CTA B/L, no wheezes, rales or rhonchi. Decreased breath sounds due to his inspiratory effort HEART: Regular, rate continues to be tachycardic in low 100s ABDOMEN: Soft, NT, ND, BS Present EXTREMITIES: No LE edema, pedal pulses intact and equal bilaterally NEURO: A&OX3. Pupils are equal round and reactive to light. Tongue is midline. No facial droop. Negative for pronator drift. Strength is equal and appropriate to bilateral upper extremity as well as lower extremities at 4/4. Patient does have some limitation of movement from his left leg status post ACL repair. Cerebellar function is in place with [id number] and rapid alternating movements. Patient has no neurological deficits that are appreciated. Results & Data Results & Data ([facility]) Vital Signs (Past 12 Hours) Vital Signs Temp Pulse Pulse Resp BP BP Pulse Ox 08/16/20 13:35 83 20 117/74 91 08/16/20 13:20 79 16 116/79 94 08/16/20 13:05 99 H 16 108/81 95 08/16/20 13:00 36.6 C 102 H 17 134/74 95 08/16/20 12:00 101 H 23 125/90 95 08/16/20 11:00 95 H 16 129/83 95 08/16/20 10:40 36.6 C 93 H 16 118/72 94 08/16/20 10:37 92 H 08/16/20 07:48 36.7 C 107 H 19 127/79 96 08/16/20 04:24 36.6 C 98 H 18 116/81 95 Laboratory Results 08/16/20 15:55 08/16/20 06:03 Diagnostic Findings No new diagnostic imaging since 08/14/2020 Coding Level of Care Code Critical Care 1st 30-74 mins Diagnoses Acute respiratory failure with hypoxia J96.01 Pulmonary embolism I26.99 Sleep apnea G47.30 Time Spent (min) 40
[2020-08-16] MEDS: ACETAMINOPHEN 325 MG TAB PO PRN (15:42)
[2020-08-16 16:01] LABS: Hematocrit (blood only) 45.8 % (42-52); Hemoglobin 15.9 g/dL (14.0-18.0); Mean Corpuscular Hemoglobin 31.2 pg (25-34); Mean Corpuscular Hgb Conc 34.7 g/dL (32-36); Platelet Count 126 K/uL (130-400); RDW Standard Deviation 42.8 fL (36.4-46.3); Red Blood Count 5.09 M/uL (4.7-6.1); White Blood Count 9.35 K/uL (4.8-10.8)
[2020-08-16 16:21] LABS: Partial Thromboplastin Ratio 1.8
[2020-08-16 16:43] LABS: Partial Thromboplastin Time 49.8 Seconds (21.0-31.0)
[2020-08-16] MEDS ORDERED: Heparin IV Standard *NO* Bolus IV ONE (16:49)
[2020-08-16 23:32] LABS: Partial Thromboplastin Time 56.7 Seconds (21.0-31.0)
[2020-08-17] MEDS: HEPARIN SODIUM/DEXTROSE 25,000 UNITS/500 ML BAG IV SCH ×3 (00:40→16:53)
[2020-08-17 04:45] LABS: Hematocrit (blood only) 47.2 % (42-52); Hemoglobin 16.4 g/dL (14.0-18.0); Mean Corpuscular Hemoglobin 31.4 pg (25-34); Mean Corpuscular Hgb Conc 34.7 g/dL (32-36); Mean Corpuscular Volume 90.2 fL (80-100); Mean Platelet Volume 10.6 fL (7.4-10.4); Platelet Count 141 K/uL (130-400); RDW Coefficient of Variation 13.1 % (11.5-14.5); RDW Standard Deviation 43.1 fL (36.4-46.3); Red Blood Count 5.23 M/uL (4.7-6.1); White Blood Count 8.03 K/uL (4.8-10.8)
[2020-08-17 05:06] LABS: BUN Creatinine Ratio 14.1 (10-20); Calcium 8.8 mg/dl (8.5-10.1); Creatinine Clr Calc Pharmacy 118.6 ml/min; Est GFR (African American) 88.9; Est GFR (Non-African American) 76.7; Phosphorus 4.1 mg/dl (2.5-4.9)
--- NOTE | 2020-08-17 06:41 | Hospitalist Progress Note ---
Date of Service August 17, 2020 Assessment & Plan (1) Saddle pulmonary embolus: Mr. Mcdonough is a 45 yo male with h/o Asthma, T2DM, TERRENCE and recent laparscopic knee surgery for torn meniscus on 08/07, who was admitted to [facility] on 08/14 for saddle PE. ICU for TPA on 08/16; back to PCU on 08/17. - Saddle PE noted on CTA chest on 08/14. - hypercoagulability w/u pending (family h/o VTE) - Started on Heparin gtt on 08/14 and transferred to ICU on 08/16 for TPA. Patient did well and was transferred back to floor on 08/17. - hemodynamically stable - TTE 08/17: Normal LV systolic fx and elevated RVSP 30-40 mmHg - suspect 2/2 saddle PE - serial TTE at 3 months and 6 months per Pulm recs - will need chronic anti-coagulation given DVTs and saddle PE. Given weight > 120kg would need to be on Warfarin rather than DOAC - start Warfarin 5 mg this afternoon - plan to transition Heparin gtt to Lovenox tomorrow in preparation for discharge (2) Asthma: - Denies h/o increased wheezing/sputum production before hospitalization. - No wheezing on exam - Continue Dulera daily inhaler - DuoNebs PRN (3) Diabetes mellitus: - A1C 7.5% on 08/15 (previously 6.8% in 04/2020) - Hold home Metformin 500 mg PO BID - Sliding scale insulin - POC glucose - Lantus 10u BID (4) Hematochezia: - Noted on prior PCP notes. Had planned for colonoscopy, but not done. - Monitor while on anticoagulation (5) Sleep apnea: - Can use home CPAP. (6) Obesity (BMI 30-39.9): - BMI 47 - Warfarin for chronic anti-coagulation as mentioned above FEN/GI: DM2 DVT Prophylaxis: Heparin gtt Code Status: Full code Disposition: PCU with tele Admission and Anticipated Discharge Date Admission Date: August 14, 2020 Supervising Physician Co-Signing Physician Notes Attending attestation Pt seen and examined in concert with Dr. Tim. In agreement with the documented findings as noted in the resident documentation with any exceptions or additions as noted here. Improved shortness of breath at rest and now without 2LNC. Feeling overall relieved at finished procedure. On examination, S1/S2 nl RRR no MCG. Distant but CTAB. Abd NT/ND BS+ve Saddle pulmonary embolism s/p TPa on 08.16.2020 - responding well. Continue heparin until tomorrow, start warfarin 5mg this evening and trend INR. O2 per protocol. f/u coagulopathy w/u as outpatient. DMII - continue glargine, ISS and restart metformin on discharge Else see resident documentation as noted. Subjective NAEO. Patient has done well since TPA. Denies headache, dizziness, chest pain/palpitations, SOB, cough, N/V, easy bleeding/bruising. Review of Systems Review of Systems: Pertinent positives and negatives mentioned in HPI Physical Exam Constitutional: + obese Respiratory: normal respiratory effort, lungs clear to auscultation Cardiovascular: RRR, no murmur, no edema Gastrointestinal (Abdomen): normal bowel sounds, soft, nontender, no hepatosplenomegaly Skin: no rashes, warm and dry Results & Data Results & Data ([facility]) Vital Signs (Past 12 Hours) Vital Signs Temp Pulse Resp BP Pulse Ox 08/17/20 06:19 93 H 16 110/70 95 08/17/20 05:19 88 21 122/75 94 08/17/20 04:19 89 22 116/71 95 08/17/20 03:34 37.0 C 08/17/20 03:19 97 H 20 119/78 93 08/17/20 02:19 88 12 128/74 93 08/17/20 01:19 94 H 17 101/69 94 08/17/20 00:19 86 24 108/71 93 08/16/20 23:21 91 H 21 111/78 95 08/16/20 23:19 92 H 08/16/20 23:04 36.6 C 08/16/20 22:19 91 H 18 114/75 94 08/16/20 21:19 94 H 24 115/72 94 08/16/20 20:19 91 H 23 128/78 96 08/16/20 19:46 37.3 C 08/16/20 19:19 93 H 20 112/74 91 08/16/20 19:18 96 H 26 H 119/71 92 08/16/20 19:12 90 18 112/70 92 08/16/20 19:08 90 20 104/72 92 08/16/20 19:02 93 H 24 115/76 90 Resident Activity Tracking Resident Involvement: Resident Care Provided Care Provided: Adult Hospital Medicine
[2020-08-17] MEDS: FLUTICASONE/VILANTEROL 200/25MCG 14 PUFFS/INHALER INH SCH (08:23)
[2020-08-17] MEDS: INSULIN GLARGINE SOLOSTAR 100 UNITS/ML 3 ML PEN SC SCH ×2 (08:25→20:52)
[2020-08-17] MEDS: FEXOFENADINE HCL 180 MG TAB PO SCH (08:25)
[2020-08-17] MEDS: PANTOprazole 40 MG TAB PO SCH (08:25)
[2020-08-17] MEDS: INSULIN ASPART 100 UNITS/ML 3 ML PEN SC SCH ×4 (08:27→20:52)
--- NOTE | 2020-08-17 09:16 | Critical Care Progress Note ---
Date of Service August 17, 2020 Assessment & Plan (1) Pulmonary embolism: (2) Acute respiratory failure with hypoxia: (3) Saddle pulmonary embolus: CT chest 08/14/2020 personally reviewed: Mild atelectasis left lower lobe, scarring of the lingula inferior lobe, no mediastinal lymphadenopathy Saddle PE appreciated with right heart strain. --Acute hypoxic respiratory failure Secondary to saddle PE with right heart strain, likely from left lower leg DVT sPESI: 1 PESI: 76 points 1.7-3.5% 30 day mortality There is family history of clots on the paternal side. Patient had TPA 50 mg IV over 2 hours on 08/16/2020 around 3 PM. On 2D echo 08/14/2020: EF greater than 70%, right-sided pressure but not able to be done as it was not very well visualized. ''Possible mild to moderate dilatation of the right ventricle with reduced function'' --History of asthma Not in any acute exacerbation On Dulera at home Continue with Breo 100-25 MCG in the hospital --TERRENCE Continue with CPAP His is going to bring his home CPAP --Morbid obesity Advised to lose with diet and exercise Plan: S/p TPA. Patient is hemodynamically stable. No adverse events overnight. Monitor in the ICU till later in the afternoon. Continue with heparin drip. Can start oral anticoagulation preferably warfarin later tonight. Continue with heparin for 1 more day. We will repeat limited echo to look at the right-sided pressures. Patient will need echo to be done at 3 months and then 6 months. Chest x-ray portable today. Please note the above document was generated using voice recognition software. It may contain grammatical, syntax or spelling errors.Any formal questions or concerns about the content, text or information contained within the body of this dictation should be directly addressed to the provider for clarification. (4) SOB (shortness of breath): (5) Asthma: (6) Encounter for wellness examination: (7) Obesity (BMI 30-39.9): Admission and Anticipated Discharge Date Admission Date: August 14, 2020 Subjective Patient seen and examined at bedside. No acute distress, no adverse events. Patient is s/p TPA 50 mg IV yesterday around 3 PM for 2 hours. No adverse events. Complains of mild chest tightness. no dizziness, no nausea or vomiting. Positive bowel movements. Denies any dysuria, no hematuria. No hematochezia. Mild headache which responds to Tylenol. He had this headache since prior to initiation of TPA. Patient was saturating 92% on room air at the time of examination with heart rate of 98 at rest. was present at bedside during examination. Review of Systems Review of Systems: All systems reviewed & are unremarkable except as noted in Subjective Physical Exam Physical Exam: Constitutional: No acute distress HEENT: EOMI, PERRLA Respiratory system: Decreased air entry bilaterally, no wheeze, no rhonchi, mild crackles bilateral lower lobes CVS: S1-S2 positive, no murmurs or gallops, tachycardia Abdomen: Soft, nontender, nondistended, positive bowel sounds x4, obese Extremities: +2 pulses bilaterally radialis/ dorsalis pedis, no cyanosis, +1 edema bilateral lower extremity, left knee medial aspect suture present Neuro: Awake alert oriented x3 Psych: Normal mood and flat affect G/U: No Srinivasan Skin: no rashes, warm and dry Lymphatic: no cervical or axillary lymphadenopathy Results & Data Results & Data ([facility]) Vital Signs (Past 12 Hours) Vital Signs Temp Pulse Resp BP Pulse Ox 08/17/20 09:00 98 H 18 93 08/17/20 08:30 99 H 16 89 L 08/17/20 08:19 121/75 94 08/17/20 08:00 94 H 18 91 08/17/20 07:31 112 H 19 118/67 93 08/17/20 07:30 108 H 12 93 08/17/20 07:00 90 22 93 08/17/20 06:30 88 21 96 08/17/20 06:19 93 H 16 110/70 95 08/17/20 05:19 88 21 122/75 94 08/17/20 04:19 89 22 116/71 95 08/17/20 03:34 37.0 C 08/17/20 03:19 97 H 20 119/78 93 08/17/20 02:19 88 12 128/74 93 08/17/20 01:19 94 H 17 101/69 94 08/17/20 00:19 86 24 108/71 93 08/16/20 23:21 91 H 21 111/78 95 08/16/20 23:19 92 H 08/16/20 23:04 36.6 C 08/16/20 22:19 91 H 18 114/75 94 08/16/20 21:19 94 H 24 115/72 94 08/17/20 03:40 Coding Level of Care Code 46599 Subseq Hosp Care Lvl 3 Diagnoses Pulmonary embolism I26.99 Acute respiratory failure with hypoxia J96.01 Saddle pulmonary embolus I26.92 SOB (shortness of breath) R06.02 Asthma J45.909 Encounter for wellness examination Z00.00 Obesity (BMI 30-39.9) E66.9
[2020-08-17 09:27] LABS: Potassium 3.8 mmol/L (3.5-5.1)
[2020-08-17 09:29] LABS: Magnesium 2.3 mg/dl (1.8-2.4)
[2020-08-17 09:39] LABS: Partial Thromboplastin Ratio 1.7
[2020-08-17 09:47] LABS: Partial Thromboplastin Time 46.7 Seconds (21.0-31.0)
--- NOTE | 2020-08-17 10:35 | XCELERA ---
[id number]
--- NOTE | 2020-08-17 11:36 | XRay Report ---
XR chest 1V portable CLINICAL HISTORY: saddle PE COMPARISON STUDY: Chest radiograph and chest CT August 14, 2020. FINDINGS: Mild elevation of the right hemidiaphragm is unchanged. There is no pneumothorax or pleural effusion. There is no evidence for pulmonary edema. Cardiomediastinal silhouette is stable. Mild lef t basilar opacity likely reflects epicardial fat pad and atelectasis. The appearance of the chest is unchanged. IMPRESSION: No change in appearance of the chest. ACT 112: Negative or not required by law. Electronically signed by: Rojas Hughes M.D. 08/17/2020 11:34 AM
[2020-08-17 13:40] LABS: Partial Thromboplastin Ratio 1.7
[2020-08-17 13:41] LABS: Partial Thromboplastin Time 46.9 Seconds (21.0-31.0)
[2020-08-17] MEDS: WARFARIN SOD 5 MG TAB PO SCH (16:51)
[2020-08-17] MEDS: ACETAMINOPHEN 325 MG TAB PO PRN (20:52)
[2020-08-18] MEDS: HEPARIN SODIUM/DEXTROSE 25,000 UNITS/500 ML BAG IV SCH (00:14)
[2020-08-18 06:29] LABS: Basophils # (auto) 0.03 K/uL (0-0.2); Basophils % (auto) 0.4 %; Eosinophils # (auto) 0.37 K/uL (0-0.5); Eosinophils % (auto) 4.8 %; Hematocrit (blood only) 44.5 % (42-52); Hemoglobin 15.2 g/dL (14.0-18.0); Immature Granulocytes # (auto) 0.09 K/uL (0.00-0.02); Immature Granulocytes % (auto) 1.2 %; Lymphocytes # (auto) 1.94 K/uL (1.2-3.4); Mean Corpuscular Hemoglobin 30.8 pg (25-34); Mean Corpuscular Hgb Conc 34.2 g/dL (32-36); Mean Corpuscular Volume 90.3 fL (80-100); Mean Platelet Volume 10.3 fL (7.4-10.4); Monocytes # (auto) 0.58 K/uL (0.11-0.59); Monocytes % (auto) 7.5 %; Neutrophils # (auto) 4.74 K/uL (1.4-6.5); Neutrophils % (auto) 61.1 %; Platelet Count 148 K/uL (130-400); RDW Coefficient of Variation 13.1 % (11.5-14.5); Red Blood Count 4.93 M/uL (4.7-6.1); White Blood Count 7.75 K/uL (4.8-10.8)
--- NOTE | 2020-08-18 06:35 | Hospitalist Progress Note ---
Date of Service August 18, 2020 Assessment & Plan (1) Saddle pulmonary embolus: Mr. Mcdonough is a 45 yo male with h/o Asthma, T2DM, TERRENCE and recent laparscopic knee surgery for torn meniscus on 08/07, who was admitted to [facility] on 08/14 for saddle PE. ICU for TPA on 08/16; back to PCU on 08/17. - Saddle PE noted on CTA chest on 08/14. - hypercoagulability w/u pending (family h/o VTE) - Started on Heparin gtt on 08/14 and transferred to ICU on 08/16 for TPA. Patient did well and was transferred back to floor on 08/17. - hemodynamically stable - TTE 08/17: Normal LV systolic fx and elevated RVSP 30-40 mmHg - suspect 2/2 saddle PE - serial TTE at 3 months and 6 months per Lorri abarca - will need chronic anti-coagulation given DVTs and saddle PE. Given weight > 120kg would need to be on Warfarin rather than DOAC - continue Warfarin 5 mg; INR 1.1 today - transition Heparin gtt --> therapeutic Lovenox 150mg SQ Q12H - bridge with Lovenox at least 5 days, and at least 48 hours with therapeutic INR - frequent trend of INR after discharge until therapeutic and stable (2) Asthma: - Denies h/o increased wheezing/sputum production before hospitalization. - No wheezing on exam - Continue Dulera daily inhaler - DuoNebs PRN (3) Diabetes mellitus: - A1C 7.5% on 08/15 (previously 6.8% in 04/2020) - Hold home Metformin 500 mg PO BID - Sliding scale insulin - POC glucose - Lantus 10u BID (4) Hematochezia: - Noted on prior PCP notes. Had planned for colonoscopy, but not done. - Monitor while on anticoagulation (5) Sleep apnea: - Continue home CPAP. (6) Obesity (BMI 30-39.9): - BMI 47 - Warfarin for chronic anti-coagulation as mentioned above FEN/GI: DM2 DVT Prophylaxis: Warfarin, Lovenox Code Status: Full code Disposition: PCU with tele; tentative discharge tomorrow if medically stable Admission and Anticipated Discharge Date Admission Date: August 14, 2020 Supervising Physician Co-Signing Physician Notes I also saw the patient with the resident physician and confirmed rock portions of the history and physical examination. I agree with the impression and plan as noted in the resident documentation. The patient and his have just received Lovenox instruction from the nursing staff. He tells me he would feel comfortable self administering the Lovenox on his own. He has been ambulatory with physical therapy and did so without significant pulse oximetry drop. Exam Blood pressure 105/60, 89, 20, 37.6, 93% room air Heart regular rate and rhythm. Lungs clear Data Hemoglobin 15.2 BMP is unremarkable Impression and Plan Saddle pulmonary embolism Asthma Diabetes Lovenox and warfarin, will need 48-hour overlap once therapeutic on warfarin Given his weight, will need to utilize the twice daily dosing (1 mg/kg twice daily). Hypercoagulability work-up is pending. Discussed with patient how these results will determine his duration of anticoagulation, but in the least expect 6 months; if positive finding, indefinite. Repeat echocardiogram to look at right-sided pressures at intervals recommended by pulmonary medicine. Resume Metformin upon discharge Subjective NAEO. Patient has done well since TPA. Reports doing well with PT this morning - no SOB or oxygen desaturation with ambulation around the PCU. Denies headache, dizziness, chest pain/palpitations, SOB, cough, N/V, easy bleeding/bruising. Review of Systems Review of Systems: Pertinent positives and negatives mentioned in HPI Physical Exam Constitutional: + obese Respiratory: normal respiratory effort, lungs clear to auscultation Cardiovascular: RRR, no murmur, no edema Gastrointestinal (Abdomen): normal bowel sounds, soft, nontender, no hepatosplenomegaly Skin: no rashes, warm and dry Results & Data Results & Data ([facility]) Vital Signs (Past 12 Hours) Vital Signs Temp Pulse Pulse Resp BP Pulse Ox 08/18/20 03:49 36.8 C 80 18 116/68 96 08/18/20 00:01 37 C 99 H 18 123/71 95 08/17/20 23:00 99 H 08/17/20 21:08 95 H 20 92 08/17/20 20:32 37.6 C H 96 H 18 156/91 H 94 Resident Activity Tracking Resident Involvement: Resident Care Provided Care Provided: [facility] Medicine
[2020-08-18 06:39] LABS: INR 1.1 (0.9-1.1); Partial Thromboplastin Ratio 1.8; Prothrombin Time 11.4 Seconds (9.0-12.0)
[2020-08-18 06:57] LABS: BUN Creatinine Ratio 11.5 (10-20); Calcium 8.9 mg/dl (8.5-10.1); Creatinine Clr Calc Pharmacy 125.1 ml/min; Est GFR (African American) 94.9; Est GFR (Non-African American) 81.9; Potassium 3.8 mmol/L (3.5-5.1)
[2020-08-18 07:00] LABS: Partial Thromboplastin Time 50.1 Seconds (21.0-31.0)
[2020-08-18] MEDS: PANTOprazole 40 MG TAB PO SCH (07:47)
[2020-08-18] MEDS: FLUTICASONE/VILANTEROL 200/25MCG 14 PUFFS/INHALER INH SCH (07:47)
[2020-08-18] MEDS: FEXOFENADINE HCL 180 MG TAB PO SCH (07:47)
[2020-08-18] MEDS: INSULIN ASPART 100 UNITS/ML 3 ML PEN SC SCH ×4 (08:24→21:02)
[2020-08-18] MEDS: INSULIN GLARGINE SOLOSTAR 100 UNITS/ML 3 ML PEN SC SCH ×2 (08:25→21:03)
--- NOTE | 2020-08-18 09:08 | Pulmonology Progress Note ---
Date of Service August 18, 2020 Assessment & Plan (1) Saddle pulmonary embolus: CT chest 08/14/2020 personally reviewed: Mild atelectasis left lower lobe, scarring of the lingula inferior lobe, no mediastinal lymphadenopathy Saddle PE appreciated with right heart strain. --Acute hypoxic respiratory failure Secondary to saddle PE with right heart strain, likely from left lower leg DVT sPESI: 1 PESI: 76 points 1.7-3.5% 30 day mortality There is family history of clots on the paternal side. Patient had TPA 50 mg IV over 2 hours on 08/16/2020 around 3 PM. On 2D echo 08/14/2020: EF greater than 70%, right-sided pressure but not able to be done as it was not very well visualized. ''Possible mild to moderate dilata tion of the right ventricle with reduced function'' Repeat 2D echo 08/17/2020: Shows RVSP of 30-40 mmHg, again right ventricle was not clearly visualized. --History of asthma Not in any acute exacerbation On Dulera at home Continue with Breo 100-25 MCG in the hospital --TERRENCE Continue with CPAP His is going to bring his home CPAP --Morbid obesity Advised to lose with diet and exercise Plan: Chest x-ray from yesterday 08/17/2020 did not show any infiltrate. Patient needs to be on at least 6 months of anticoagulation. Hypercoagulable work-up during that time. Recommend following up with fitness sales associate to see if he will qualify for lifelong anticoagulation given the family history of clots. Recommend repeating 2D echo in 3 months and then at 6 months to look at the right-sided pressures. Compliance with Dulera and CPAP at home. All questions and queries of the patient as well as patient's were answered in depth. No further recommendations from pulmonary perspective. Will sign off, please recall if needed. Please note the above document was generated using voice recognition software. It may contain grammatical, syntax or spelling errors.Any formal questions or concerns about the content, text or information contained within the body of this dictation should be directly addressed to the provider for clarification. (2) SOB (shortness of breath): (3) Asthma: (4) Encounter for wellness examination: Admission and Anticipated Discharge Date Admission Date: August 14, 2020 Subjective Patient seen and examined at bedside. No acute distress, no adverse events overnight. Patient is more than 36 hours post TPA. Patient was at bedside. He is in good mood today. Denies any shortness of breath. He was saturating 96% on room air at the time of examination. Did complain of some discomfort overnight on the right side of the chest which resolved with DuoNeb's. Eating well. No hematuria, no hematochezia, no epistaxis. Review of Systems Review of Systems: All systems reviewed & are unremarkable except as noted in Subjective Physical Exam Physical Exam: Constitutional: No acute distress HEENT: EOMI, PERRLA Respiratory system: Decreased air entry bilaterally, no wheeze, no rhonchi, mild crackles bilateral lower lobes CVS: S1-S2 positive, no murmurs or gallops Abdomen: Soft, nontender, nondistended, positive bowel sounds x4, obese Extremities: +2 pulses bilaterally radialis/ dorsalis pedis, no cyanosis, no edema, left knee medial aspect suture present Neuro: Awake alert oriented x3 Psych: Normal mood and flat affect G/U: No Srinivasan Skin: no rashes, warm and dry Lymphatic: no cervical or axillary lymphadenopathy Results & Data Results & Data ([facility]) Vital Signs (Past 12 Hours) Vital Signs Temp Pulse Pulse Resp BP Pulse Ox 08/18/20 07:29 36.9 C 90 20 133/77 93 08/18/20 03:49 36.8 C 80 18 116/68 96 08/18/20 00:01 37 C 99 H 18 123/71 95 08/17/20 23:00 99 H 08/18/20 05:51 08/18/20 05:51 PG Care Time/CCT Total # of Minutes Spent Total Time Spent with Patient: Total time spent is greater than 50% in coordination of care (as documented) at patient's floor/unit and/or counseling patient: Coding Level of Care Code 34024 Subseq Hosp Care Lvl 3 Diagnoses Saddle pulmonary embolus I26.92 SOB (shortness of breath) R06.02 Asthma J45.909 Encounter for wellness examination Z00.00
[2020-08-18] MEDS: ENOXAPARIN 150 MG/ML SYR SQ SCH ×2 (09:52→20:59)
[2020-08-18] MEDS: WARFARIN SOD 5 MG TAB PO SCH (15:53)
[2020-08-18 19:37] LABS: Protein S Functional(Activity) 80 % (70-150)
[2020-08-19 03:16] VITALS: PULSE 88; TEMP 98.4
[2020-08-19 06:04] LABS: Basophils # (auto) 0.05 K/uL (0-0.2); Basophils % (auto) 0.7 %; Eosinophils # (auto) 0.41 K/uL (0-0.5); Eosinophils % (auto) 5.8 %; Hematocrit (blood only) 44.2 % (42-52); Hemoglobin 14.8 g/dL (14.0-18.0); Immature Granulocytes # (auto) 0.06 K/uL (0.00-0.02); Immature Granulocytes % (auto) 0.8 %; Lymphocytes # (auto) 1.66 K/uL (1.2-3.4); Lymphocytes % (auto) 23.4 %; Mean Corpuscular Hemoglobin 30.5 pg (25-34); Mean Corpuscular Hgb Conc 33.5 g/dL (32-36); Mean Corpuscular Volume 91.1 fL (80-100); Mean Platelet Volume 10.1 fL (7.4-10.4); Monocytes # (auto) 0.54 K/uL (0.11-0.59); Monocytes % (auto) 7.6 %; Neutrophils # (auto) 4.38 K/uL (1.4-6.5); Neutrophils % (auto) 61.7 %; Platelet Count 162 K/uL (130-400); RDW Coefficient of Variation 13.1 % (11.5-14.5); RDW Standard Deviation 43.5 fL (36.4-46.3); Red Blood Count 4.85 M/uL (4.7-6.1)
[2020-08-19 06:09] LABS: INR 1.1 (0.9-1.1); Prothrombin Time 11.2 Seconds (9.0-12.0)
[2020-08-19 06:27] LABS: BUN Creatinine Ratio 12.4 (10-20); Calcium 8.6 mg/dl (8.5-10.1); Creatinine Clr Calc Pharmacy 128.2 ml/min; Est GFR (African American) 98.2; Est GFR (Non-African American) 84.7; Potassium 3.9 mmol/L (3.5-5.1)
[2020-08-19 07:36] VITALS: BP 146/86; O2SAT 93
[2020-08-19] MEDS: FLUTICASONE/VILANTEROL 200/25MCG 14 PUFFS/INHALER INH SCH (07:51)
[2020-08-19] MEDS: FEXOFENADINE HCL 180 MG TAB PO SCH (07:52)
[2020-08-19] MEDS: ENOXAPARIN 150 MG/ML SYR SQ SCH (07:52)
[2020-08-19] MEDS: PANTOprazole 40 MG TAB PO SCH (07:52)
[2020-08-19] MEDS: INSULIN GLARGINE SOLOSTAR 100 UNITS/ML 3 ML PEN SC SCH (07:53)
[2020-08-19] MEDS: INSULIN ASPART 100 UNITS/ML 3 ML PEN SC SCH ×2 (07:53→12:13)
--- NOTE | 2020-08-19 09:52 | Discharge Summary ---
Date of Service August 19, 2020 Admission HPI Per Admitting Provider 45yo M w/ hx of asthma who presents with saddle PE. The patient underwent a laparoscopic knee procedure for a torn meniscus on . He says he has felt shortness of breath since the procedure and assumed it was asthma from the intubation. However, he has felt increasing shortness of breath in the week since then despite using his home inhalers. He also had some mild, central, substernal pressure that was non-pleuritic in nature and without radiation. No other palpitations or other chest pain. His family encouraged him to come to the ER. He was given a breathing treatment and felt some better and wanted to go home; however, he underwent a CTA chest which found large PE. Admission Exam Per Admitting Provider Constitutional: WD/WN, vitals as above Eyes: EOM intact bilaterally; no conjunctival abnormality ENMT: external ear and nose normal, oropharynx normal Neck: trachea midline, no thyromegaly normal visual inspection Respiratory: + labored breathing and + tachypneic; no respiratory distress Auscultation: + diminished lung sounds; no crackles and no wheezes Cardiovascular: Rate/Rhythm: + tachycardic Heart Sounds: normal S1 and normal S2 Vessels: no JVD Extremities: no edema Gastrointestinal (Abdomen): Inspection/Auscultation: abdomen normal to inspection; abdomen not distended Musculoskeletal: no cyanosis or clubbing, extremities motor strength 5/5 Skin: no rashes, warm and dry Neurologic: moves all extremities and awake Psychiatric: Orientation: alert, oriented to person and cooperative Principal Diagnosis Saddle pulmonary embolism Discharge Exam Constitutional well nourished; no acute distress and not ill appearing Respiratory normal respiratory effort, lungs clear to auscultation Cardiovascular RRR, no murmur, no edema Gastrointestinal (Abdomen) normal bowel sounds, soft, nontender, no hepatosplenomegaly Musculoskeletal no cyanosis or clubbing, extremities motor strength 5/5 Neurologic PERRL, EOMI, accommodation nl, no face palsy, no dysarthria Psychiatric A+Ox3, euthymic affect Discharge Data Allergies Allergy/AdvReac Type Severity Reaction Status Date / Time aspirin AdvReac Intermediate GI SYMPTOMS Verified 08/14/20 09:36 Consultations 08/14/20 14:26 ED Decision to Admit Stat 08/14/20 15:09 Consult Pulmonology Routine 08/16/20 10:39 Consult Case Management - Discharge Planning Routine Ordered Studies 08/14/20 09:18 CT angio chest PE protocol Stat 08/14/20 16:30 US venous doppler LE Stat Hospital Course (1) Saddle pulmonary embolus: Mr. Mcdonough is a 45 yo male with h/o Asthma, T2DM, TERRENCE and recent laparscopic knee surgery for torn meniscus on 08/07, who was admitted to [facility] on 08/14 for saddle PE. ICU for TPA on 08/16; back to PCU on 08/17. CTA chest was performed due to shortness of breath s/p knee surgery about a week prior to admission (surgery 08/07, presented to ED on 08/14), which found a large saddle PE. He was started on a heparin drip, and later (on 08/16) transferred to the ICU for tPA administration. Patient clinically improved and was transferred back to the medical floor on 08/17. He remained hemodynamically stable. The heparin drip was transitioned to lovenox (150mg sq q12h). Given his risk factors and history, he will need to be on chronic anticoagulation, but a DOAC was unable to be considered, at least initially, due to his weight over 120kg. He was started on warfarin 5mg PO daily prior to discharge. INR on day of discharge (08/19) was 1.1. Due to this INR, patient was instructed to take 7.5mg warfarin in the evening on 08/19, followed by 5mg in the evening of 08/20, followed by bloodwork scheduled for Friday (08/21) to reassess INR. Patient was given thorough, clear instructions on this new medication regimen, and the need for lovenox bridging until his PCP deems his INR therapeutic. Patient and his were taught how to administer lovenox. (2) Asthma: Patient denied a h/o increased wheezing/sputum production before hospitalization. He had no wheezing on admission or during his stay. His dulera inhalers were continued during his hospitalization, as were duonebs PRN. (3) Diabetes mellitus: Patients A1c on admission was 7.5% on 08/15 (previously 6.8% in 04/2020). His home dose metformin was held, and he was put on sliding scale insulin during his stay, in addition to lantus 10u bid. His blood glucose levels were stable during admission, and his home dose metformin 500mg PO bid was continued upon discharge. (4) Hematochezia: Hematochezia was noted on prior PCP notes; patient was closely monitored during his stay due to being on anticoagulation but this did not occur or become a clinical concern during his hospitalization. (5) Sleep apnea: Patient's home CPAP was continued during his hospitalization. (6) Obesity (BMI 30-39.9): FEN/GI: DM2 DVTp: as detailed above Code status: full code Disposition: discharge home today with close follow-up for lovenox-warfarin bridging, INR monitoring, and long-term management Total Time Total Time Spent Total Time Spent (In Minutes): see attending documentation Discharge Plan Discharge Items Patient Disposition: Home - Self-Care Reason For Visit: SADDLE PE Discharge Diagnosis: Saddle Pulmonary Embolus Activity: Per Instructions section Non-emergency contact: Primary Care Provider, Machine Adjuster Leader and Sales And Marketing Director Call non-emergency contact if: you have any medication questions, your symptoms worsen, your pain is not controlled and you have a fever Follow-up/Referrals: Chayo Pfeiffer CRNP [Primary Care Provider] - Diet: Carb Consistent or DM2 Addtl Attending Provider Instructions: You were admitted to [facility] on August 14 for a blood clot in your lungs (called a pulmonary embolism). We started you on a blood thinner at that time. On August 16, we transferred you to the hospital's intensive care unit, which allowed us to use a "clot-busting" medication (called tPA). At this time, we took a sonographic picture of your heart (called an echocardiogram), which showed some strain on the right side of your heart due to the blood clot. Your condition improved with these medicines, and on August 17 we transferred you out of the intensive care unit and back to the medical floor. That day, we started you on a blood thinner in pill form (this medicine is called warfarin, and is also sometimes referred to as and coumadin). You will need to attend regularly-scheduled blood draws to help your PCP determine how well the medicine is working. After your PCP receives the results of the lab tests, they will be in contact with you to tell you how much warfarin (aka coumadin) to take. Your PCP will also help determine how long you should take this medicine, as well as determining if it is safe for you to switch to a different medicine that might require less monitoring and lab tests. This medicine reduces your risk of experiencing another blood clot or pulmonary embolism in the future. You are at increased risk of clotting due to your family history of blood clots, your history of blood clots in the leg, and the pulmonary embolism from this hospital stay. In order to reduce the risk of experiencing another pulmonary embolism in the future, it is very important that you take this medicine as directed by your PCP. It is also very important that you go to every blood draw appointment to have this medicine monitored. Until you receive further instructions from your PCP, take your medicine as follows: * You and your recently received instructions for administering Lovenox shots at home. Continue with the Lovenox shots twice daily until you are instructed to stop by your PCP. * Tonight, once you are home from the hospital, take 7.5 mg of warfarin (one and a half tablets). * Tomorrow (Friday evening), take 5 mg of warfarin (one tablet). * You will have blood drawn on Friday. After receiving the results of the blood test, your PCP will contact you and let you know how much warfarin to take that evening. If you have any questions regarding this process, please contact your PCP. It is important that you stop taking diclofenac, as well as other NSAIDs (including advil/ibuprofen and aleve/naproxen). If you experience joint pain or other mild pain, use tylenol 650mg every 4-6 hours. We also recommend following up with your wireless telegrapher. They have recommended repeating another echocardiogram in 3 months and in 6 months, to monitor your recovery. Continue taking all your other medications as prescribed. If you have any new or worsening symptoms, contact your primary care physician. If you experience an emergency, immediately call 911 or go to your nearest emergency department. Pending Studies at Discharge: No Stand-Alone Forms: My Hybrent, Smoking Cessation Medications and DC Order Prescriptions: New enoxaparin [Lovenox] 150 mg/mL Syringe 150 mg subcut Q12H 14 Days Qty: 28 RF: 0 warfarin 5 mg Tablet 5 mg PO DAILY@1600 10 Days Qty: 10 RF: 0 acetaminophen 325 mg capsule 650 mg PO Q6H PRN (Reason: fever or pain) Qty: 60 RF: 0 Continued Dulera 200-5 mcg/actuation HFA aerosol inhaler 2 puff INHALATION BID Qty: 8.8 RF: 5 omeprazole 20 mg capsule,delayed release(DR/EC) 20 mg PO DAILY Qty: 90 RF: 1 metformin 500 mg tablet 500 mg PO BID Qty: 180 RF: 1 azelastine 0.15 % (205.5 mcg) spray,non-aerosol 2 sprays INTNAS BID RF: 0 fluticasone propionate [Flonase Allergy Relief] 50 mcg/actuation spray,suspension 1 sprays INTNAS DAILY RF: 0 fexofenadine [Jana Allergy] 180 mg Tablet 180 mg PO DAILY RF: 0 albuterol sulfate [Ventolin HFA] 90 mcg/actuation HFA aerosol inhaler 2 puff inhalation QID PRN (Reason: Shortness Of Breath) RF: 0 Discontinued diclofenac sodium 75 mg tablet,delayed release (DR/EC) 75 mg PO BID Qty: 60 RF: 5 Discharge Orders: Discharge Order (Routine); Ordered 08/19/20 Ordered By: Robbie Philip/Other Patient Handouts: Pulmonary Embolism, What to Know When TakingWarfarin, Managing Type 2 Diabetes, Managing Diabetes: The A1C Test, Diabetes: Meal Planning Admission Data Admit Date/Time: 08/14/20 14:58 Attending Provider: Toby Chavarria Admit Provider: Anthony Mckenzie Primary Care Provider: Chayo Pfeiffer Other Providers: Anthony Mckenzie ; Lenore Oh Other Interventions: Discharge Summary Assessment (RN) Last Done: 08/19/20 14:42 Supervising Physician Co-Signing Physician Notes I also saw the patient with the resident physician and confirmed rock portions of the history and physical examination. I agree with the impression and plan as noted in the resident documentation. Upon examination today, the patient is out of bed and seated in the chair. He has no complaints. He has not noted any shortness of breath with ambulation in his room and in the hallway. He denies any chest pain. Exam Pulse oximetry 93% on room air Heart regular rate and rhythm. Lungs clear Data Hemoglobin 14.8 INR 1.1 Impression and Plan Saddle pulmonary embolism Asthma Diabetes Reviewed diagnosis and treatment plan with respect to Lovenox and warfarin Recommend warfarin 7.5 mg tonight, and 5 mg on Friday night INR on Friday with results to PCP Continue Lovenox twice daily, look for 24 to 48-hour overlap with therapeutic INR Discussed pending hypercoagulability testing Discussed option for NOAC, although this will depend on results of his hypercoagulability testing and his potential weight loss Resume Metformin Repeat echocardiogram to look at right-sided pressures at intervals recommended by pulmonary medicine Return to work at discretion of PCP, we discussed it may be 1 to 2 weeks as his job is fairly labor-intensive. Resident Activity Tracking Resident Involvement: Resident Care Provided Care Provided: Adult Hospital Medicine
== END 2020-08-19 15:15 | disposition home or self-care (01) | DRG 175 ==
LOC: ED 08:53 → 2E 13:57 → SUATTDRO 14:58 → 2E 14:58 → 1E 08-16 10:06 → 2E 08-17 11:15

== ENCOUNTER 2022-01-20 16:07 | Inpatient (IN) ==
--- NOTE | 2022-01-20 16:55 | Emergency Department Note ---
History of Present Illness General Chief complaint: Leg Injury/Pain Stated complaint: PAIN IN ARMS/LEGS, HX OF BLOOD CLOT IN PICCLINE Time Seen by Provider: 01/20/22 16:35 Source: patient and family ( who is at the bedside) Mode of arrival: ambulatory Limitations: no limitations History of Present Illness Maximum Pain Intensity: 10 This patient is a 46-year-old male who has a history of esophageal cancer with liver mets and antiphospholipid antibody syndrome with recent and frequent blood clots in his arms and legs, comes in after having pain and redness in his right arm near the PICC line. He had no fever. Denies any shortness of breath or chest pain at present he is legs have been hurting he was recently discharged from the hospital and has DVT in the lower extremities. He did start chemo recently but is not for another couple weeks. Heparin 1 in the hospital and the PICC line was placed about a week ago. The actually try to put a port in but were unsuccessful. He was transitioned over to Coumadin and is on 10 mg they had increases the other days he was on the low side in the low twos. No Fall or trauma. Home Medications Medication Instructions Recorded Confirmed Type fexofenadine 180 mg tablet 180 mg PO QAM PRN 07/02/18 01/20/22 History (Jana Allergy) fluticasone propionate 50 1 sprays INTNAS QAM PRN 06/08/19 01/20/22 History mcg/actuation nasal spray,suspension (Flonase Allergy Relief) azelastine 205.5 mcg (0.15 %) 2 sprays INTNAS BID PRN 06/25/19 01/20/22 History nasal spray blood-glucose meter (Advanced #1 ea 08/22/20 01/18/22 Rx Glucose Meter) blood-glucose meter (OneTouch #1 ea 09/22/20 01/18/22 Rx Verio Flex Start) blood sugar diagnostic (OneTouch #100 ea 10/03/20 01/18/22 Rx Verio test strips) lancets 30 gauge (BD Ultra-Fine II #100 ea 07/05/21 01/18/22 Rx Lancets) nebulizer kit #1 ea 12/25/21 01/18/22 Rx metformin 500 mg tablet 500 mg PO BID 12/26/21 01/20/22 History albuterol sulfate 90 mcg/actuation 2 puff INHALATION QID PRN #18 g 12/31/21 01/20/22 Rx aerosol inhaler (Ventolin HFA) atorvastatin 20 mg tablet 20 mg PO QAM 01/04/22 01/20/22 History lisinopril 10 mg tablet 10 mg PO QAM 01/04/22 01/20/22 History albuterol sulfate 2.5 mg INHALATION QID PRN 01/09/22 01/20/22 History warfarin 5 mg tablet 10 mg PO DAILY@1700 01/09/22 01/20/22 History sennosides 8.6 mg tablet (Senokot) 17.2 mg PO QAM #60 tab 01/15/22 01/20/22 Rx lorazepam 0.5 mg tablet 0.5 mg PO TID PRN tab 01/16/22 01/20/22 History pantoprazole 40 mg tablet,delayed 40 mg PO BID #180 tab 01/17/22 01/20/22 Rx release (Protonix) Bifidobacterium infantis 4 mg 4 mg PO DAILY 01/20/22 01/20/22 History capsule (Align) capecitabine 500 mg tablet 500 mg PO Q12 01/20/22 01/20/22 History docusate sodium 100 mg capsule 100 mg PO TID PRN 01/20/22 01/20/22 History lorazepam 0.5 mg tablet 0.5 mg PO HS PRN 01/20/22 01/20/22 History ondansetron HCl 8 mg tablet 8 mg PO Q8 PRN 01/20/22 01/20/22 History prochlorperazine maleate 10 mg 10 mg PO Q6 PRN 01/20/22 01/20/22 History tablet sucralfate 100 mg/mL oral 10 ml PO TID PRN 01/20/22 01/20/22 History suspension tramadol 50 mg tablet 50 mg PO BID 01/20/22 01/20/22 History Allergies Allergy/AdvReac Type Severity Reaction Status Date / Time aspirin AdvReac Intermediate GI SYMPTOMS Verified 01/20/22 16:38 Past Med/Surg History Medical History Anticoagulant long-term use Asthma Well controlled with inhalers Diabetes mellitus Esophageal cancer, stage IV Presumed per CT scan per general surgery records. Reason for port placement GERD (gastroesophageal reflux disease) History of anesthesia reaction Woke up during cataract procedure and "attempted to walk off the table" and was told he should always be "put completely to sleep". 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 On Lovenox Sleep apnea CPAP Surgical History History of cataract surgery L EYE History of left knee surgery History of liver biopsy History of surgery (01/08/22) Attempted Insertion Access Port with Fluoroscopy(Left) - Carlos Angeles DO 01/08/2022 History of tooth extraction History of umbilical hernia repair Family History Father Family history of diabetes mellitus FHx: skin cancer Cancer FHx: bladder cancer Mother FHx: kidney cancer Family history of diabetes mellitus Cancer Brother Family history of diabetes mellitus Family/Other Coronary heart disease Grandmother (Paternal) FHx: colon cancer Social History Smoking Status: Never smoker Tobacco Type: Smokeless Tobacco (Dip or Chew) Second Hand Exposure: Yes ("some"); Hx Alcohol Use: No Hx Substance Use: No Preferred Language: Argentine Communication Ability: Effective Visual Impairment: No Limitations Geotechnicial Properties Technician Required: No Beliefs That Will Affect Care: None Current Living Situation: Parent Current Living Situation Comment: Lives with father current occupational status: employed Feels Safe at Home: Yes during the past year weight has: remained stable Assistive Devices: None Review of Systems A total of 10 systems reviewed and were otherwise negative Physical Exam Vital Signs Vital Signs - 24 hr 01/20/22 16:17 01/20/22 16:41 01/20/22 16:50 Temperature 36.6 C Temperature Source Temporal Artery Scan Pulse Rate 95 H 91 H 93 H Pulse Rate from SpO2 Sensor 91 H Respiratory Rate 20 18 19 Respiratory Effort / Characteristics Non-Labored Spontaneous Respiratory Depth Normal Respiratory Pattern Regular Blood Pressure 109/71 Blood Pressure Mean 83 Pulse Oximetry 92 93 Oxygen Delivery Method Room Air Sepsis Recent Fever Within 48 Hours No Sepsis New/Unexplained Change in Mental Status No Sepsis Action Taken by Nursing No Action Required 01/20/22 17:00 01/20/22 17:10 01/20/22 17:20 Temperature Temperature Source Pulse Rate 91 H 87 85 Pulse Rate from SpO2 Sensor 89 85 Respiratory Rate 20 18 16 Respiratory Effort / Characteristics Respiratory Depth Respiratory Pattern Blood Pressure 110/72 Blood Pressure Mean 84 Pulse Oximetry 94 94 Oxygen Delivery Method Sepsis Recent Fever Within 48 Hours Sepsis New/Unexplained Change in Mental Status Sepsis Action Taken by Nursing 01/20/22 19:11 01/20/22 19:43 01/20/22 21:32 Temperature Temperature Source Pulse Rate 94 H 101 H Pulse Rate from SpO2 Sensor Respiratory Rate 20 16 Respiratory Effort / Characteristics Non-Labored Respiratory Depth Respiratory Pattern Blood Pressure 113/67 128/73 Blood Pressure Mean 82 91 Pulse Oximetry 95 97 96 Oxygen Delivery Method Room Air Sepsis Recent Fever Within 48 Hours Sepsis New/Unexplained Change in Mental Status Sepsis Action Taken by Nursing General: Well developed well nourished morbidly obese middle-age male who in no acute distress, breathing comfortably on room air. Normal speech HEENT: Normal cephalic atraumatic. Pupils are equal round and reactive to light. Extraocular movements are intact. Oropharynx is pink with moist mucous membranes. No swelling of the mouth lips or tongue. Neck: Supple with a midline trachea. No meningeal signs or stiffness, no JVD or bruits. No Stridor. Chest: Clear to auscultation bilaterally. No wheezes or rhonchi. No increased work of breathing. Heart: Regular rate and rhythm without murmurs or gallops. Abdomen: Soft nontender, nondistended without rebound guarding or rigidity. Extremities: No cyanosis clubbing or edema. No calf tenderness or assymetry. He has swelling in the right arm. There is a PICC line in the right upper arm there is some pinkish discoloration proximal to this. His hand has normal pulse. He has some mild swelling in both of his legs bilaterally Spine/Back. Non tender to palpation. No CVA tenderness Skin: Good turgor without rashes. Neurologic exam: Cranial nerves two through 12 are intact. Motor and sensation are intact and symmetrical throughout. Course Administered Medications Sodium Chloride (Nss 1000ml) 1,000 mls @ 125 mls/hr IV .Q8H [facility] Stop: 02/19/22 19:29 Last Admin: 01/20/22 19:54 Dose: 125 mls/hr Documented by: [id number] Discontinued Medications Morphine Sulfate (Morphine Sulfate 2 Mg/Ml Carp) 2 mg IV NOW STA Stop: 01/20/22 19:30 Last Admin: 01/20/22 19:48 Dose: 2 mg Documented by: [id number] Ondansetron HCl (Ondansetron Inj 2 Mg/Ml 2 Ml Vial) 4 mg IV NOW STA Stop: 01/20/22 19:46 Last Admin: 01/20/22 19:48 Dose: 4 mg Documented by: [id number] Medical Decision Making Differential Diagnosis Sepsis, PICC line infection, DVT, PE, cancer related complication, electrolyte or metabolic abnormality Medical Records Attestation: I reviewed the patient's medical records. Home Medications Current Medication List: was personally reviewed by me Laboratory Data Attestation: I reviewed the patient's lab results. Result diagrams: 01/20/22 17:04 01/20/22 17:04 Lab Results 01/20/22 01/20/22 01/20/22 Range/Units 17:04 17:04 17:04 WBC 6.54 (4.8-10.8) K/uL RBC 4.55 L (4.7-6.1) M/uL Hgb 13.6 L (14.0-18.0) g/dL Hct 38.5 L (42-52) % MCV 84.6 (80-100) fL MCH 29.9 (25-34) pg MCHC 35.3 (32-36) g/dL RDW Std Deviation 44.2 (36.4-46.3) fL RDW Coeff of Andie 14.2 (11.5-14.5) % Plt Count 102 L (130-400) K/uL MPV 9.2 (7.4-10.4) fL Immature Gran % (Auto) 0.2 % Neut % (Auto) 71.6 % Lymph % (Auto) 14.5 % [place] % (Auto) 10.1 % Eos % (Auto) 3.4 % Baso % (Auto) 0.2 % Neut # (Auto) 4.69 (1.4-6.5) K/uL Lymph # (Auto) 0.95 L (1.2-3.4) K/uL [place] # (Auto) 0.66 H (0.11-0.59) K/uL Eos # (Auto) 0.22 (0-0.5) K/uL Baso # (Auto) 0.01 (0-0.2) K/uL Immature Gran # (Auto) 0.01 (0.00-0.02) K/uL PT INR APTT PTT Ratio Sodium 130 L (136-145) mmol/L Potassium 4.3 (3.5-5.1) mmol/L Chloride 98 (98-107) mmol/L Carbon Dioxide 23 (21-32) mmol/L Anion Gap 9 (3-11) BUN 26 H (6-23) mg/dl Creatinine 1.44 H (0.6-1.4) mg/dl Est Cr Clr Drug Dosing Not Reportable Est GFR ( Amer) 66.5 ml/min Est GFR (Non-Af Amer) 57.4 ml/min BUN/Creatinine Ratio 18.1 (10-20) Glucose 135 H (70-99(Fasting)) mg/dl Lactate (0.4-2.0) mmol/L Calcium 8.4 L (8.5-10.1) mg/dl Magnesium 2.0 (1.7-2.4) mg/dl Total Bilirubin 0.8 (0.2-1.0) mg/dl AST 16 (13-39) U/L ALT 27 (7-52) U/L Alkaline Phosphatase 77 (34-104) U/L Troponin I < 0.03 (0-0.04) ng/ml Total Protein 6.3 (6.0-8.3) gm/dl Albumin 3.5 (3.4-5.0) gm/dl Globulin 2.8 (2.5-4.0) gm/dl Albumin/Globulin Ratio 1.3 (0.9-2) Procalcitonin 0.06 (0-0.5) ng/ml Urine Color Urine Appearance (Clear) Urine pH (4.5-7.5) Ur Specific [place] (1.000-1.030) Urine Protein (Negative) Urine Glucose (UA) (Negative) Urine Ketones (Negative) Urine Blood (Negative) Urine Nitrite (Negative) Urine Bilirubin (Negative) Urine Urobilinogen (Negative) Ur Leukocyte Esterase (Negative) Urine WBC (Auto) (0-5) /hpf Urine RBC (Auto) (0-4) /hpf U Hyaline Cast (Auto) (0-5) /lpf U Epithel Cells (Auto) (0-5) /lpf Urine Bacteria (Auto) (Negative) SARS-CoV-2, RNA, NAAT (NEGATIVE) 01/20/22 01/20/22 01/20/22 Range/Units 17:04 17:04 17:17 WBC (4.8-10.8) K/uL RBC (4.7-6.1) M/uL Hgb (14.0-18.0) g/dL Hct (42-52) % MCV (80-100) fL MCH (25-34) pg MCHC (32-36) g/dL RDW Std Deviation (36.4-46.3) fL RDW Coeff of Andie (11.5-14.5) % Plt Count (130-400) K/uL MPV (7.4-10.4) fL Immature Gran % (Auto) % Neut % (Auto) % Lymph % (Auto) % [place] % (Auto) % Eos % (Auto) % Baso % (Auto) % Neut # (Auto) (1.4-6.5) K/uL Lymph # (Auto) (1.2-3.4) K/uL [place] # (Auto) (0.11-0.59) K/uL Eos # (Auto) (0-0.5) K/uL Baso # (Auto) (0-0.2) K/uL Immature Gran # (Auto) (0.00-0.02) K/uL PT Cancelled INR Cancelled APTT Cancelled PTT Ratio Cancelled Sodium (136-145) mmol/L Potassium (3.5-5.1) mmol/L Chloride (98-107) mmol/L Carbon Dioxide (21-32) mmol/L Anion Gap (3-11) BUN (6-23) mg/dl Creatinine (0.6-1.4) mg/dl Est Cr Clr Drug Dosing Est GFR ( Amer) ml/min Est GFR (Non-Af Amer) ml/min BUN/Creatinine Ratio (10-20) Glucose (70-99(Fasting)) mg/dl Lactate 0.7 (0.4-2.0) mmol/L Calcium (8.5-10.1) mg/dl Magnesium (1.7-2.4) mg/dl Total Bilirubin (0.2-1.0) mg/dl AST (13-39) U/L ALT (7-52) U/L Alkaline Phosphatase (34-104) U/L Troponin I (0-0.04) ng/ml Total Protein (6.0-8.3) gm/dl Albumin (3.4-5.0) gm/dl Globulin (2.5-4.0) gm/dl Albumin/Globulin Ratio (0.9-2) Procalcitonin (0-0.5) ng/ml Urine Color Urine Appearance (Clear) Urine pH (4.5-7.5) Ur Specific [place] (1.000-1.030) Urine Protein (Negative) Urine Glucose (UA) (Negative) Urine Ketones (Negative) Urine Blood (Negative) Urine Nitrite (Negative) Urine Bilirubin (Negative) Urine Urobilinogen (Negative) Ur Leukocyte Esterase (Negative) Urine WBC (Auto) (0-5) /hpf Urine RBC (Auto) (0-4) /hpf U Hyaline Cast (Auto) (0-5) /lpf U Epithel Cells (Auto) (0-5) /lpf Urine Bacteria (Auto) (Negative) SARS-CoV-2, RNA, NAAT NEGATIVE (NEGATIVE) 01/20/22 Range/Units 19:58 WBC (4.8-10.8) K/uL RBC (4.7-6.1) M/uL Hgb (14.0-18.0) g/dL Hct (42-52) % MCV (80-100) fL MCH (25-34) pg MCHC (32-36) g/dL RDW Std Deviation (36.4-46.3) fL RDW Coeff of Andie (11.5-14.5) % Plt Count (130-400) K/uL MPV (7.4-10.4) fL Immature Gran % (Auto) % Neut % (Auto) % Lymph % (Auto) % [place] % (Auto) % Eos % (Auto) % Baso % (Auto) % Neut # (Auto) (1.4-6.5) K/uL Lymph # (Auto) (1.2-3.4) K/uL [place] # (Auto) (0.11-0.59) K/uL Eos # (Auto) (0-0.5) K/uL Baso # (Auto) (0-0.2) K/uL Immature Gran # (Auto) (0.00-0.02) K/uL PT INR APTT PTT Ratio Sodium (136-145) mmol/L Potassium (3.5-5.1) mmol/L Chloride (98-107) mmol/L Carbon Dioxide (21-32) mmol/L Anion Gap (3-11) BUN (6-23) mg/dl Creatinine (0.6-1.4) mg/dl Est Cr Clr Drug Dosing Est GFR ( Amer) ml/min Est GFR (Non-Af Amer) ml/min BUN/Creatinine Ratio (10-20) Glucose (70-99(Fasting)) mg/dl Lactate (0.4-2.0) mmol/L Calcium (8.5-10.1) mg/dl Magnesium (1.7-2.4) mg/dl Total Bilirubin (0.2-1.0) mg/dl AST (13-39) U/L ALT (7-52) U/L Alkaline Phosphatase (34-104) U/L Troponin I (0-0.04) ng/ml Total Protein (6.0-8.3) gm/dl Albumin (3.4-5.0) gm/dl Globulin (2.5-4.0) gm/dl Albumin/Globulin Ratio (0.9-2) Procalcitonin (0-0.5) ng/ml Urine Color Yellow Urine Appearance Clear (Clear) Urine pH 5.0 (4.5-7.5) Ur Specific [place] 1.017 (1.000-1.030) Urine Protein Trace H (Negative) Urine Glucose (UA) Negative (Negative) Urine Ketones Negative (Negative) Urine Blood Negative (Negative) Urine Nitrite Negative (Negative) Urine Bilirubin Negative (Negative) Urine Urobilinogen Negative (Negative) Ur Leukocyte Esterase Negative (Negative) Urine WBC (Auto) 1-5 (0-5) /hpf Urine RBC (Auto) 0-4 (0-4) /hpf U Hyaline Cast (Auto) 0 (0-5) /lpf U Epithel Cells (Auto) 5-10 H (0-5) /lpf Urine Bacteria (Auto) Negative (Negative) SARS-CoV-2, RNA, NAAT (NEGATIVE) Imaging Data Attestation: I personally reviewed and interpreted this imaging study as fol lows: My Impression: Chest x-rayno acute infiltrate, failure, pneumothorax seen. Radiologist's Impression: Venous Doppler Study 01/20/22 16:48 ULTRASOUND RIGHT UPPER EXTREMITY VENOUS CLINICAL HISTORY: Right arm pain and swelling. PICC line. COMPARISON STUDY: Chest x-ray dated 01/20/2022. TECHNIQUE: Real-time, grayscale, and color Doppler sonography of the deep veins of the right upper extremity is performed. Compression and augmentation were utilized. FINDINGS: A PICC line is in place from a right basilic approach. There is nearly occlusive to occlusive deep venous thrombosis identified in the right subclavian, axillary, and brachial veins. Occlusive superficial venous thrombus is noted in the basilic vein. The right internal jugular vein is patent and normally compressible. The cephalic vein appears clear. The visualized radial and ulnar veins are patent. IMPRESSION: 1. A right PICC line is in place from a basilic approach. 2. There is extensive and nearly occlusive to occlusive right upper extremity deep venous thrombosis as above. 3. Occlusive superficial venous thrombus is identified in the basilic vein around the PICC line. ACT 112: Negative or not required by law. Electronically signed by: Kartik Mcfarlane M.D. 01/20/2022 7:07 PM Chest X-Ray 01/20/22 16:49 SINGLE VIEW CHEST CLINICAL HISTORY: Sepsis. FINDINGS: An AP, portable, semierect chest radiograph is compared to study dated 01/11/2022. Correlation is made with chest CT dated 01/09/2022. A right PICC line is unchanged in position. The heart is enlarged. There is pulmonary vascular congestion. There is mild bibasilar atelectasis. No airspace consolidation or large pleural effusion is identified. No pneumothorax is seen. The skeletal structures appear osteopenic. The bony thorax is grossly intact. IMPRESSION: 1. Cardiomegaly with mild pulmonary vascular congestion. 2. No airspace consolidation or large pleural effusion is identified. ACT 112: Negative or not required by law. Electronically signed by: Kartik Mcfarlane M.D. 01/20/2022 8:11 PM ECG Data Attestation: I personally reviewed and interpreted this ECG as follows: Indication: + weakness Rate (beats per minute): 89 Rhythm: + normal sinus ECG Intervals/blocks: + Normal QRS, + Normal QT and + Normal MS ECG [place]: + Normal ECG ST segments: + Normal ST segments ECG Findings: no PACs or no PVCs Comparison ECG Date: from (01/10/22) [place] Narrative This patient comes in as described above. He was placed in room B 11. He is here for treatment and evaluation of redness around his PICC line. He has a history of blood clots and is on anticoagulation and there is some concern this could be a clot or infection or potentially both. He had extensive sepsis type work-up we did place an IV in the left arm. EKG and chest x-ray were obtained. He was reassessed frequently. Ultrasound shows alarge clot in multiple vessels in the right arm. His white count is not elevated and his inflammatory markers do not suggest infection I think this is all likely clot related. He has no acute chest pain or shortness of breath he has been treated for known DVTs/PEs but has no progressive symptoms in regards to his chest. He has been having pain in his legs which has been going on. His says he gets better with the IV heparin. The PICC line will likely need to be removed we do have an IV in t he opposite arm. Apparently they tried to start a port in the OR but were not able to get central access. When they took him off anticoagulation to do this he had clots. I did discuss the case with Dr. Guidry and she recommended starting him back on Lovenox which she thinks it works better than the Coumadin for him. She did reccommend IV heparin when I told her that I was going to admit him. She recommended using the standard rate without a bolus unless his INR is less than 2.5 and then also bolus. There was a significant delay in the INR. Apparently there was an issue with the first lab draw and unbeknownst to me initially, the patient refused the follow-up recollects. I went talk to the patient and told him that we need this so we can monitor his blood thinness and appropriately dose his medications. He did agree. I did order some IV normal saline as well as morphine 2 mg IV and Zofran 4 mg IV. This was redrawn. The patient was seen by Dr. Lei, the [facility] hospitalist and the patient will be admitted for further inpatient treatment and evaluation. At this point the PT/PTT INR is pending and Dr. Lei will follow up on this and start the heparin accordingly. Continuous cardiac monitoring: Orders placed in EMR for continuous cart monitor. Upon my interpretation patient noted to be sinus rhythm with a rate of 90. Impression & Plan Acute deep vein thrombosis (DVT) of right upper extremity, Current use of intermediate frame tender anticoagulation, Anti-phospholipid antibody syndrome, Metastasis from esophageal cancer, Lab test negative for COVID-19 virus Discharge Plan Visit Data Chief Complaint: Leg Injury/Pain Stated Complaint: PAIN IN ARMS/LEGS, HX OF BLOOD CLOT IN PICCLINE ED Provider: Wilder Richardson Discharge Problem: Acute deep vein thrombosis (DVT) of right upper extremity, Current use of intermediate frame tender anticoagulation, Anti-phospholipid antibody syndrome, Metastasis from esophageal cancer, Lab test negative for COVID-19 virus Forms Stand Alone Forms: My [facility] Prescriptions Prescriptions: No Action (DME) blood-glucose meter [OneTouch Verio Flex Start] Kit See Rx Instructions .ROUTE .MEDSUPPLY Qty: 1 RF: 0 (DME) OneTouch Verio test strips Strip See Rx Instructions .ROUTE .MEDSUPPLY Qty: 100 RF: 3 albuterol sulfate [Ventolin HFA] 90 mcg/actuation HFA aerosol inhaler 2 puff inhalation QID PRN (Reason: Shortness Of Breath) Qty: 18 RF: 6 lorazepam 0.5 mg tablet 0.5 mg PO TID PRN (Reason: Anxiety) RF: 0 pantoprazole [Protonix] 40 mg tablet,delayed release (DR/EC) 40 mg PO BID Qty: 180 RF: 3 azelastine 0.15 % (205.5 mcg) spray,non-aerosol 2 sprays INTNAS BID PRN (Reason: Congestion) RF: 0 (DME) nebulizer kit See Rx Instructions .Route .MEDSUPPLY Qty: 1 RF: 0 fluticasone propionate [Flonase Allergy Relief] 50 mcg/actuation spray,suspension 1 sprays INTNAS QAM PRN (Reason: Congestion) RF: 0 (DME) blood-glucose meter [Advanced Glucose Meter] Misc See Rx Instructions .ROUTE .MEDSUPPLY Qty: 1 RF: 0 (DME) lancets [BD Ultra-Fine II Lancets] 30 gauge misc See Rx Instructions .Route Qty: 100 RF: 4 fexofenadine [Jana Allergy] 180 mg Tablet 180 mg PO QAM PRN (Reason: Allergic Symptoms) RF: 0 albuterol sulfate 2.5 mg /3 mL (0.083 %) solution for nebulization 2.5 mg inhalation QID PRN (Reason: Shortness Of Breath Or Wheezing) RF: 0 warfarin 5 mg tablet 10 mg PO DAILY@1700 RF: 0 sennosides [Senokot] 8.6 mg Tablet 17.2 mg PO QAM Qty: 60 RF: 0 metformin 500 mg tablet 500 mg PO BID RF: 0 atorvastatin 20 mg tablet 20 mg PO QAM RF: 0 lisinopril 10 mg tablet 10 mg PO QAM RF: 0 ondansetron HCl 8 mg tablet 8 mg PO Q8 PRN (Reason: Nausea) RF: 0 prochlorperazine maleate 10 mg tablet 10 mg PO Q6 PRN (Reason: Nausea) RF: 0 capecitabine 500 mg tablet 500 mg PO Q12 RF: 0 lorazepam 0.5 mg tablet 0.5 mg PO HS PRN (Reason: Anxiety) RF: 0 tramadol 50 mg tablet 50 mg PO BID RF: 0 docusate sodium 100 mg Capsule 100 mg PO TID PRN (Reason: Constipation) RF: 0 Align 4 mg Capsule 4 mg PO DAILY RF: 0 sucralfate 100 mg/mL suspension 10 ml PO TID PRN (Reason: gastric distress) RF: 0 Referrals Referrals: Chayo Pfeiffer CRNP [Primary Care Provider] - Discharge Problem: Acute deep vein thrombosis (DVT) of right upper extremity Qualifiers: Affected thrombotic vein of extremity: unspecified vein of extremity Qualified Code(s): I82.621 - Acute embolism and thrombosis of deep veins of right upper extremity
[2022-01-20 17:32] LABS: Basophils # (auto) 0.01 K/uL (0-0.2); Basophils % (auto) 0.2 %; Eosinophils # (auto) 0.22 K/uL (0-0.5); Eosinophils % (auto) 3.4 %; Hematocrit (blood only) 38.5 % (42-52); Hemoglobin 13.6 g/dL (14.0-18.0); Immature Granulocytes # (auto) 0.01 K/uL (0.00-0.02); Immature Granulocytes % (auto) 0.2 %; Lymphocytes # (auto) 0.95 K/uL (1.2-3.4); Lymphocytes % (auto) 14.5 %; Mean Corpuscular Hemoglobin 29.9 pg (25-34); Mean Corpuscular Hgb Conc 35.3 g/dL (32-36); Mean Corpuscular Volume 84.6 fL (80-100); Mean Platelet Volume 9.2 fL (7.4-10.4); Monocytes # (auto) 0.66 K/uL (0.11-0.59); Monocytes % (auto) 10.1 %; Neutrophils # (auto) 4.69 K/uL (1.4-6.5); Neutrophils % (auto) 71.6 %; Platelet Count 102 K/uL (130-400); RDW Coefficient of Variation 14.2 % (11.5-14.5); RDW Standard Deviation 44.2 fL (36.4-46.3); Red Blood Count 4.55 M/uL (4.7-6.1); White Blood Count 6.54 K/uL (4.8-10.8)
[2022-01-20 17:54] LABS: Troponin I < 0.03 ng/ml (0-0.04)
[2022-01-20 17:57] LABS: Alanine Aminotransferase 27 U/L (7-52); Albumin Globulin Ratio 1.3 (0.9-2); Albumin Level 3.5 gm/dl (3.4-5.0); Alkaline Phosphatase 77 U/L (34-104); Anion Gap 9 (3-11); Aspartate Aminotransferase 16 U/L (13-39); BUN Creatinine Ratio 18.1 (10-20); Bilirubin,Total 0.8 mg/dl (0.2-1.0); Blood Urea Nitrogen 26 mg/dl (6-23); Calcium 8.4 mg/dl (8.5-10.1); Carbon Dioxide 23 mmol/L (21-32); Chloride 98 mmol/L (98-107); Est GFR (African American) 66.5 ml/min; Est GFR (Non-African American) 57.4 ml/min; Globulin 2.8 gm/dl (2.5-4.0); Glucose 135 mg/dl (70-99(Fasting)); Potassium 4.3 mmol/L (3.5-5.1); Sodium 130 mmol/L (136-145); Total Protein 6.3 gm/dl (6.0-8.3)
--- NOTE | 2022-01-20 19:10 | Ultrasound Report ---
ULTRASOUND RIGHT UPPER EXTREMITY VENOUS CLINICAL HISTORY: Right arm pain and swelling. PICC line. COMPARISON STUDY: Chest x-ray dated 01/20/2022. TECHNIQUE: Real-time, grayscale, and color Doppler sonography of the deep veins of the right upper ex tremity is performed. Compression and augmentation were utilized. FINDINGS: A PICC line is in place from a right basilic approach. There is nearly occlusive to occlusi ve deep venous thrombosis identified in the right subclavian, axillary, and brachial veins. Occlusive superficial venous thrombus is noted in the basilic vein. The right internal jugular vein is patent and normally compressible. The cephalic vein appears clear. The visualized radial and ulnar veins are patent. IMPRESSION: 1. A right PICC line is in place from a basilic approach. 2. There is extensive and nearly occlusive to occlusive right upper extremity deep venous thrombosis as above. 3. Occlusive superficial venous thrombus is identified in the basilic vein around the PICC line. ACT 112: Negative or not required by law. Electronically signed by: Kartik Mcfarlane M.D. 01/20/2022 7:07 PM
[2022-01-20] MEDS ORDERED: MoRPHine SULFATE 2 MG/ML CARP IV STA (19:29)
[2022-01-20] MEDS ORDERED: SODIUM CHLORIDE 0.9% 1000ML 1,000 ML IV SCH (19:30)
[2022-01-20] MEDS ORDERED: ONDANSETRON INJ 2 MG/ML 2 ML VIAL IV STA (19:45)
--- NOTE | 2022-01-20 20:12 | XRay Report ---
SINGLE VIEW CHEST CLINICAL HISTORY: Sepsis. FINDINGS: An AP, portable, semierect chest radiograph is compared to study dated 01/11/2022. Correlatio n is made with chest CT dated 01/09/2022. A right PICC line is unchanged in position. The heart is enl arged. There is pulmonary vascular congestion. There is mild bibasilar atelectasis. No airspace conso lidation or large pleural effusion is identified. No pneumothorax is seen. The skeletal structures ap pear osteopenic. The bony thorax is grossly intact. IMPRESSION: 1. Cardiomegaly with mild pulmonary vascular congestion. 2. No airspace consolidation or large pleural effusion is identified. ACT 112: Negative or not required by law. Electronically signed by: Kartik Mcfarlane M.D. 01/20/2022 8:11 PM
[2022-01-20 20:16] LABS: Appearance Urine Clear (Clear); Bacteria Urine Automated Negative (Negative); Bilirubin Urine Negative (Negative); Blood Urine Negative (Negative); Cast Urine Automated 0 /lpf (0-5); Color Urine Yellow; Glucose Urine UA Negative (Negative); Ketones Urine Negative (Negative); Leukocyte Esterase Urine Negative (Negative); Nitrite Urine Negative (Negative); Protein Urine Trace (Negative); RBC Urine Automated 0-4 /hpf (0-4); Specific Gravity Urine 1.017 (1.000-1.030); Urobilinogen Urine Negative (Negative)
[2022-01-20 20:58] LABS: Partial Thromboplastin Ratio 2.1; Prothrombin Time 65.5 Seconds (9.0-12.0)
--- NOTE | 2022-01-20 21:07 | History & Physical Report ---
Date of Service January 20, 2022 Assessment & Plan (1) Acute deep vein thrombosis (DVT) of right upper extremity: Plan: Secondary to PICC line. -Removal of PICC line. Will wait until INR decreased slightly -Patient will be on lifelong anticoagulation due to history of recurrent VTE, APLA Syndrome and current malignancy Patient also with worsening pain in bilateral lower extremities, tenderness with palpation of calf muscle. Known deep and superficial venous thrombi of the bilateral lower extremities. Palpable pulses, no phlegmasia cerulea dolens Pain control with tramadol and morphine as needed Colace as needed We will repeat Doppler to assess for clot propagation If persistent pain with heavy clot burden may need discussed with vascular regarding catheter directed thrombolysis (2) Current use of supervisor intermediates anticoagulation: Plan: As above, secondary to APLA Syndrome, recurrent VTE including saddle PE in 08/2020 and present metastatic malignancy most likely esophageal adenocarcinoma. Patient had been on Lovenox - briefly on hold for planned placement of Mediport, unfortunately patient developed recurrent of bilateral DVT and PEs requiring hospitalization. He was discharged on Coumadin with Lovenox bridging. He has been taking his medication as prescribed. INR today is 6.8. No melena/hematochezia/hematemesis. -Will hold Coumadin -Monitor INR daily -Question if patient would be better served on BID Lovenox injections for ongoing anticoagulation given his elevated BMI, history of malignancy and difficulty maintaining INR within therapeutic range? Will defer to Hematology expertise -Hematology consultation appreciated (3) Anti-phospholipid antibody syndrome: Plan: As above. -Management with anticoagulation -Hematology consultation -?additional therapy for antiphospholipid syndrome? (4) Metastasis from esophageal cancer: Plan: Patient with newly diagnosed adenocarcinoma with metastases to the liver. Started on chemotherapy. Continue capecitabine 500 mg p.o. every 12 Zyprexa taking at home Consider palliative care consultation to assist with symptom management, family and patient support and navigation of this difficult diagnosis line -Patient will need to have new access placed. Unsuccessful port placement (5) Hyperlipidemia: Plan: Chronic. Continue atorvastatin 20 mg p.o. every morning (6) Asthma: Plan: Chronic. Stable on medication. No cough, shortness of breath or wheeze Continue albuterol as needed Continue Azelastine and Flonase (7) Diabetes mellitus: Plan: Chronic. Last hemoglobin A1c = 8.4 on 01/10/2022. Patient is eating very little We will hold metformin while inpatient Insulin sliding scale May need to adjust insulin if patient's p.o. intake increases (8) Hypertension: Plan: Chronic. Well-controlled. Continue lisinopril 10 mg p.o. every morning Continue to monitor (9) GERD (gastroesophageal reflux disease): Plan: Chronic. Well-controlled on medications. Continue Protonix 40 mg p.o. twice daily Continue Carafate 1 g p.o. 3 times daily (10) Sleep apnea: Plan: Patient is compliant with CPAP Continue nightly Plan: F/E/NLR at 125 mL/h x 2 bags, electrolytes within normal limits, consistent carb/easy to chew diet as tolerated. Patient requesting chicken broth which he can have as desired Prophylaxissupratherapeutic INR on Coumadin. CodeDNR/DNI per discussion with patient. at bedside. Dispoadmit to medical History of Present Illness Chief Complaint: RUE pain/swelling, bilateral leg pain Primary Care Provider: NORBERTO Musa Kalen Mcdonough is a 46yo male with history of antiphospholipid syndrome, recurrent DVTs and saddle PE (08/2020) on lifelong anticoagulation presently with Coumadin, DM, HTN, TERRENCE, newly diagnosed metastatic esophageal cancer. Patient had a CTA of the chest performed on 12/26/21 for acute SOB/rule out PE which revealed numerous ill-defined lesions of the liver suggestive of hepatic metastasis as well as mild esophageal wall thickening. Dedicated CT of the abdomen with abnormal wall thickening and infiltration below the GE junction - possibly representing esophageal/gastric tumor . He had an FNA of one of the liver lesions on 12/31/21 which revealed adenocarcinoma. Patient was to have a Mediport placed on 01/14/22 for chemotherapy. For this procedure his home Lovenox was held briefly. Unfortunately the port placement was not successful. Patient then developed shortness of breath, pain and redness of the RLE. He was seen in the ER and found to have bilateral PE secondary to extensive bilateral DVTs. Patient was admitted to [facility] from 01/09/22 - 01/15/22 for management. He was managed with a heparin gtt with Coumadin. He was discharged home on Coumadin 10mg daily with Lovenox bridging (135mg BID with overlap of at least 2 days). Patient received his first course of chemotherapy on 01/17/22 through RUE PICC line. He is on Xeloda daily. His next dose of IV chemotherapy is 02/07/22 per . He returns to the ER today with pain and swelling in his RUE as well as worsening pain in the posterior portion of both legs. He denies fever, chills, chest pain, palpitations, SOB. Denies abdominal pain, diarrhea, melena, hematochezia. He does have some intermittent nausea as well as poor appetite. No additional complaints at this time. ER workup revealed DVT in RUE at site of PICC line. Also with supratherapeutic INR of 6.8. ER Course: Morphine 2mg IV, Zofran 4mg IV, NSS at 125mL/hr x 1L Allergies Allergy/AdvReac Type Severity Reaction Status Date / Time aspirin AdvReac Intermediate GI SYMPTOMS Verified 01/20/22 16:38 Home Medications Medication Instructions Recorded Confirmed Type fexofenadine 180 mg tablet 180 mg PO QAM PRN 07/02/18 01/20/22 History (Jana Allergy) fluticasone propionate 50 1 sprays INTNAS QAM PRN 06/08/19 01/20/22 History mcg/actuation nasal spray,suspension (Flonase Allergy Relief) azelastine 205.5 mcg (0.15 %) 2 sprays INTNAS BID PRN 06/25/19 01/20/22 History nasal spray blood-glucose meter (Advanced #1 ea 08/22/20 01/18/22 Rx Glucose Meter) blood-glucose meter (OneTouch #1 ea 09/22/20 01/18/22 Rx Verio Flex Start) blood sugar diagnostic (OneTouch #100 ea 10/03/20 01/18/22 Rx Verio test strips) lancets 30 gauge (BD Ultra-Fine II #100 ea 07/05/21 01/18/22 Rx Lancets) nebulizer kit #1 ea 12/25/21 01/18/22 Rx metformin 500 mg tablet 500 mg PO BID 12/26/21 01/20/22 History albuterol sulfate 90 mcg/actuation 2 puff INHALATION QID PRN #18 g 12/31/21 01/20/22 Rx aerosol inhaler (Ventolin HFA) atorvastatin 20 mg tablet 20 mg PO QAM 01/04/22 01/20/22 History lisinopril 10 mg tablet 10 mg PO QAM 01/04/22 01/20/22 History albuterol sulfate 2.5 mg INHALATION QID PRN 01/09/22 01/20/22 History warfarin 5 mg tablet 10 mg PO DAILY@1700 01/09/22 01/20/22 History sennosides 8.6 mg tablet (Senokot) 17.2 mg PO QAM #60 tab 01/15/22 01/20/22 Rx lorazepam 0.5 mg tablet 0.5 mg PO TID PRN tab 01/16/22 01/20/22 History pantoprazole 40 mg tablet,delayed 40 mg PO BID #180 tab 01/17/22 01/20/22 Rx release (Protonix) Bifidobacterium infantis 4 mg 4 mg PO DAILY 01/20/22 01/20/22 History capsule (Align) capecitabine 500 mg tablet 500 mg PO Q12 01/20/22 01/20/22 History docusate sodium 100 mg capsule 100 mg PO TID PRN 01/20/22 01/20/22 History lorazepam 0.5 mg tablet 0.5 mg PO HS PRN 01/20/22 01/20/22 History ondansetron HCl 8 mg tablet 8 mg PO Q8 PRN 01/20/22 01/20/22 History prochlorperazine maleate 10 mg 10 mg PO Q6 PRN 01/20/22 01/20/22 History tablet sucralfate 100 mg/mL oral 10 ml PO TID PRN 01/20/22 01/20/22 History suspension tramadol 50 mg tablet 50 mg PO BID 01/20/22 01/20/22 History Past Med/Surg History Medical History Anticoagulant long-term use Asthma Well controlled with inhalers Diabetes mellitus Esophageal cancer, stage IV Presumed per CT scan per general surgery records. Reason for port placement GERD (gastroesophageal reflux disease) History of anesthesia reaction Woke up during cataract procedure and "attempted to walk off the table" and was told he should always be "put completely to sleep". 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 On Lovenox Sleep apnea CPAP Surgical History History of cataract surgery L EYE History of left knee surgery History of liver biopsy History of surgery (01/08/22) Attempted Insertion Access Port with Fluoroscopy(Left) - Carlos Angeles DO 01/08/2022 History of tooth extraction History of umbilical hernia repair Family History Father Family history of diabetes mellitus FHx: skin cancer Cancer FHx: bladder cancer Mother FHx: kidney cancer Family history of diabetes mellitus Cancer Brother Family history of diabetes mellitus Family/Other Coronary heart disease Grandmother (Paternal) FHx: colon cancer Social History Smoking Status: Never smoker Tobacco Type: Smokeless Tobacco (Dip or Chew) Second Hand Exposure: No; Do You Dip or Chew Tobacco: No; Hx Alcohol Use: No Hx Substance Use: No Preferred Language: [place] Communication Ability: Effective Visual Impairment: No Limitations Director Translation Required: No Beliefs That Will Affect Care: None Current Living Situation: Spouse Current Living Situation Comment: home with current occupational status: employed Other Information That Helps Us Care for You: No Feels Safe at Home: Yes Safety Concerns: Feels Safe At This Time during the past year weight has: remained stable Assistive Devices: Cane Review of Systems Review of Systems: All systems reviewed & are unremarkable except as noted in HPI & below Physical Exam Physical Exam: General: patient appears tired, chronically ill, NAD, AA&O x 4 Skin: warm, dry, attempted port site left chest wall - no infection/bleeding/erythema HEENT: NC/AT, PERRL, EOMI, anicteric sclera, conjunctiva without injection, ext ernal ear normal to inspection and nontender, nares patent, dry mucus membranes, dentition intact, no oropharyngeal lesions, neck supple, trachea midline, no LAD, no thyromegaly, no JVD Heart: +S1/S2, regular, no m/r/g Lungs: equal air entry bilaterally, no rales/rhonchi/wheezes Abd: +BS, soft, NT/ND, no masses/organomegaly/ascites Ext: warmth and tenderness of RUE, PICC line in place, tenderness of posterior calf bialterally Neuro: nonfocal, patient AA&O x 4, speech intact, no facial droop, moving all extremities on command with equal strength 5/5 Results & Data Results & Data ([facility]) Vital Signs (Past 12 Hours) Vital Signs Temp Pulse Resp BP Pulse Ox 01/20/22 19:43 97 01/20/22 19:11 94 H 20 113/67 95 01/20/22 17:20 85 16 94 01/20/22 17:10 87 18 110/72 94 01/20/22 17:00 91 H 20 01/20/22 16:50 93 H 19 01/20/22 16:41 91 H 18 93 01/20/22 16:17 36.6 C 95 H 20 109/71 92 Laboratory Results Laboratory Results WBC 6.54 K/uL (4.8-10.8) 01/20/22 17:04 RBC 4.55 M/uL (4.7-6.1) L 01/20/22 17:04 Hgb 13.6 g/dL (14.0-18.0) L 01/20/22 17:04 Hct 38.5 % (42-52) L 01/20/22 17:04 MCV 84.6 fL (80-100) 01/20/22 17:04 MCH 29.9 pg (25-34) 01/20/22 17:04 MCHC 35.3 g/dL (32-36) 01/20/22 17:04 RDW Std Deviation 44.2 fL (36.4-46.3) 01/20/22 17:04 RDW Coeff of Andie 14.2 % (11.5-14.5) 01/20/22 17:04 Plt Count 102 K/uL (130-400) L 01/20/22 17:04 MPV 9.2 fL (7.4-10.4) 01/20/22 17:04 Immature Gran % (Auto) 0.2 % 01/20/22 17:04 Neut % (Auto) 71.6 % 01/20/22 17:04 Lymph % (Auto) 14.5 % 01/20/22 17:04 [place] % (Auto) 10.1 % 01/20/22 17:04 Eos % (Auto) 3.4 % 01/20/22 17:04 Baso % (Auto) 0.2 % 01/20/22 17:04 Neut # (Auto) 4.69 K/uL (1.4-6.5) 01/20/22 17:04 Lymph # (Auto) 0.95 K/uL (1.2-3.4) L 01/20/22 17:04 [place] # (Auto) 0.66 K/uL (0.11-0.59) H 01/20/22 17:04 Eos # (Auto) 0.22 K/uL (0-0.5) 01/20/22 17:04 Baso # (Auto) 0.01 K/uL (0-0.2) 01/20/22 17:04 Immature Gran # (Auto) 0.01 K/uL (0.00-0.02) 01/20/22 17:04 PT 65.5 Seconds (9.0-12.0) H 01/20/22 20:20 INR 6.8 (0.9-1.1) H* 01/20/22 20:20 APTT 58.4 Seconds (21.0-31.0) H* 01/20/22 20:20 PTT Ratio 2.1 01/20/22 20:20 Sodium 130 mmol/L (136-145) L 01/20/22 17:04 Potassium 4.3 mmol/L (3.5-5.1) 01/20/22 17:04 Chloride 98 mmol/L (98-107) 01/20/22 17:04 Carbon Dioxide 23 mmol/L (21-32) 01/20/22 17:04 Anion Gap 9 (3-11) 01/20/22 17:04 BUN 26 mg/dl (6-23) H 01/20/22 17:04 Creatinine 1.44 mg/dl (0.6-1.4) H 01/20/22 17:04 Est Cr Clr Drug Dosing Not Reportable 01/20/22 17:04 Est GFR ( Amer) 66.5 ml/min 01/20/22 17:04 Est GFR (Non-Af Amer) 57.4 ml/min 01/20/22 17:04 BUN/Creatinine Ratio 18.1 (-20) 01/20/22 17:04 Glucose 135 mg/dl (70-99(Fasting)) H 01/20/22 17:04 Lactate 0.7 mmol/L (0.4-2.0) 01/20/22 17:04 Calcium 8.4 mg/dl (8.5-10.1) L 01/20/22 17:04 Magnesium 2.0 mg/dl (1.7-2.4) 01/20/22 17:04 Total Bilirubin 0.8 mg/dl (0.2-1.0) 01/20/22 17:04 AST 16 U/L (13-39) 01/20/22 17:04 ALT 27 U/L (7-52) 01/20/22 17:04 Alkaline Phosphatase 77 U/L (34-104) 01/20/22 17:04 Troponin I < 0.03 ng/ml (0-0.04) 01/20/22 17:04 Total Protein 6.3 gm/dl (6.0-8.3) 01/20/22 17:04 Albumin 3.5 gm/dl (3.4-5.0) 01/20/22 17:04 Globulin 2.8 gm/dl (2.5-4.0) 01/20/22 17:04 Albumin/Globulin Ratio 1.3 (0.9-2) 01/20/22 17:04 Procalcitonin 0.06 ng/ml (0-0.5) 01/20/22 17:04 Urine Color Yellow 01/20/22 19:58 Urine Appearance Clear (Clear) 01/20/22 19:58 Urine pH 5.0 (4.5-7.5) 01/20/22 19:58 Ur Specific [place] 1.017 (1.000-1.030) 01/20/22 19:58 Urine Protein Trace (Negative) H 01/20/22 19:58 Urine Glucose (UA) Negative (Negative) 01/20/22 19:58 Urine Ketones Negative (Negative) 01/20/22 19:58 Urine Blood Negative (Negative) 01/20/22 19:58 Urine Nitrite Negative (Negative) 01/20/22 19:58 Urine Bilirubin Negative (Negative) 01/20/22 19:58 Urine Urobilinogen Negative (Negative) 01/20/22 19:58 Ur Leukocyte Esterase Negative (Negative) 01/20/22 19:58 Urine WBC (Auto) 1-5 /hpf (0-5) 01/20/22 19:58 Urine RBC (Auto) 0-4 /hpf (0-4) 01/20/22 19:58 U Hyaline Cast (Auto) 0 /lpf (0-5) 01/20/22 19:58 U Epithel Cells (Auto) 5-10 /lpf (0-5) H 01/20/22 19:58 Urine Bacteria (Auto) Negative (Negative) 01/20/22 19:58 SARS-CoV-2, RNA, NAAT NEGATIVE (NEGATIVE) 01/20/22 17:17 Impressions Venous Doppler Study 01/20/22 16:48 ULTRASOUND RIGHT UPPER EXTREMITY VENOUS CLINICAL HISTORY: Right arm pain and swelling. PICC line. COMPARISON STUDY: Chest x-ray dated 01/20/2022. TECHNIQUE: Real-time, grayscale, and color Doppler sonography of the deep veins of the right upper extremity is performed. Compression and augmentation were utilized. FINDINGS: A PICC line is in place from a right basilic approach. There is nearly occlusive to occlusive deep venous thrombosis identified in the right wise bclavian, axillary, and brachial veins. Occlusive superficial venous thrombus is noted in the basilic vein. The right internal jugular vein is patent and normally compressible. The cephalic vein appears clear. The visualized radial and ulnar veins are patent. IMPRESSION: 1. A right PICC line is in place from a basilic approach. 2. There is extensive and nearly occlusive to occlusive right upper extremity deep venous thrombosis as above. 3. Occlusive superficial venous thrombus is identified in the basilic vein around the PICC line. ACT 112: Negative or not required by law. Electronically signed by: Kartik Mcfarlane M.D. 01/20/2022 7:07 PM Chest X-Ray 01/20/22 16:49 SINGLE VIEW CHEST CLINICAL HISTORY: Sepsis. FINDINGS: An AP, portable, semierect chest radiograph is compared to study dated 01/11/2022. Correlation is made with chest CT dated 01/09/2022. A right PICC line is unchanged in position. The heart is enlarged. There is pulmonary vascular congestion. There is mild bibasilar atelectasis. No airspace consolidation or large pleural effusion is identified. No pneumothorax is seen. The skeletal structures appear osteopenic. The bony thorax is grossly intact. IMPRESSION: 1. Cardiomegaly with mild pulmonary vascular congestion. 2. No airspace consolidation or large pleural effusion is identified. ACT 112: Negative or not required by law. Electronically signed by: Kartik Mcfarlane M.D. 01/20/2022 8:11 PM ECG Additional Comments: EKG wtih NSR at 89, normal axis, AO=851, QRS=90, KZn=101, no acute ischemic changes Code Status & VTE Plan VTE Prophylaxis Plan VTE Prophylaxis will be ordered: Yes PG Care Time/CCT Total # of Minutes Spent Total Time Spent with Patient: Total time spent is greater than 50% in coordination of care (as documented) at patient's floor/unit and/or counseling patient: Coding Level of Care Code INT OBSERVATION CARE 70M LVL 3 Diagnoses Acute deep vein thrombosis (DVT) of right upper extremity I82.621 Affected thrombotic vein of extremity: unspecified vein of extremity Current use of supervisor intermediates anticoagulation Z79.01 Anti-phospholipid antibody syndrome D68.61 Metastasis from esophageal cancer C79.9; C15.9 Hyperlipidemia E78.5 Asthma J45.909 Diabetes mellitus E11.9 Hypertension I10 Hypertension type: essential hypertension GERD (gastroesophageal reflux disease) K21.9 Sleep apnea G47.30 (1) Acute deep vein thrombosis (DVT) of right upper extremity Affected thrombotic vein of extremity: unspecified vein of extremity Qualified Code(s): I82.621 - Acute embolism and thrombosis of deep veins of right upper extremity (2) Hypertension Hypertension type: essential hypertension Qualified Code(s): I10 - Essential (primary) hypertension
[2022-01-20 21:57] LABS: INR 6.8 (0.9-1.1)
[2022-01-20 21:58] LABS: Partial Thromboplastin Time 58.4 Seconds (21.0-31.0)
[2022-01-20] MEDS ORDERED: NON-FORMULARY MEDICATION SCH (22:07)
[2022-01-20] MEDS ORDERED: SUCRALFATE 1 GM/10 ML UDC PO PRN (22:07)
[2022-01-20] MEDS ORDERED: CARBOHYDRATES FOR HYPOGLYCEMIA PO PRN (22:07)
[2022-01-20] MEDS ORDERED: FLUTICASONE PROPIONATE NA SPR 16 GM BTL PRN (22:07)
[2022-01-20] MEDS ORDERED: ALBUTEROL HFA 8 GM INHALER INH PRN (22:07)
[2022-01-20] MEDS ORDERED: GLUCOSE 40% GEL 15 GM TUBE PO PRN (22:07)
[2022-01-20] MEDS ORDERED: DEXTROSE 50% 50 ML SYRINGE IV PRN (22:07)
[2022-01-20] MEDS ORDERED: GLUCAGON FOR INJ 1 MG VIAL SQ PRN (22:07)
[2022-01-20] MEDS ORDERED: GLUCOSE 10 TABS/TUBE PO PRN (22:07)
[2022-01-20] MEDS ORDERED: DOCUSATE SODIUM 100 MG CAP PO PRN (22:07)
[2022-01-20] MEDS ORDERED: LORazepam 0.5 MG TAB PO PRN ×2 (22:07)
[2022-01-20] MEDS ORDERED: NON-FORMULARY MEDICATION (Capecitabine 500 mg tablet) PO SCH (22:07)
[2022-01-20] MEDS ORDERED: POLYETHYLENE (MIRALAX) 17 GM PACK PO PRN (22:07)
[2022-01-20] MEDS ORDERED: ACETAMINOPHEN 325 MG TAB PO PRN (22:07)
[2022-01-20] MEDS: CAPECITABINE PO SCH (22:15)
[2022-01-20] MEDS ORDERED: OLANZAPINE 2.5 MG TAB PO STA (22:28)
--- NOTE | 2022-01-20 22:30 | Communication Note ---
Date of Service: January 20, 2022 Notified by nursing that patient usually takes olanzapine 2.5mg when he receives his chemo treatments. Providing 1 dose of olanzapine 2.5mg now for chemo-induced nausea.
[2022-01-20] MEDS: PANTOprazole 40 MG TAB PO SCH (22:46)
[2022-01-20] MEDS: traMADol HCL 50 MG TABLET PO SCH (22:47)
[2022-01-20] MEDS ORDERED: AZELASTINE HCL 0.1% NASAL 200 SPRAYS/27,400 MCG BTL PRN (22:51)
[2022-01-20] MEDS: LACTATED RINGER'S 1,000 ML IV SCH (22:55)
[2022-01-21] MEDS: MoRPHine SULFATE 4 MG/ML 1 ML CARP\\VIAL IV PRN ×5 (03:44→19:51)
[2022-01-21] MEDS: LACTATED RINGER'S 1,000 ML IV SCH (07:12)
[2022-01-21 07:16] LABS: Hematocrit (blood only) 38.5 % (42-52); Hemoglobin 13.3 g/dL (14.0-18.0); Mean Corpuscular Hemoglobin 29.2 pg (25-34); Mean Corpuscular Hgb Conc 34.5 g/dL (32-36); Mean Corpuscular Volume 84.4 fL (80-100); RDW Standard Deviation 43.6 fL (36.4-46.3); Red Blood Count 4.56 M/uL (4.7-6.1); White Blood Count 5.63 K/uL (4.8-10.8)
[2022-01-21] MEDS: ONDANSETRON INJ 2 MG/ML 2 ML VIAL IV PRN ×2 (07:31→14:01)
[2022-01-21 07:34] LABS: BUN Creatinine Ratio 15.6 (10-20); Calcium 8.4 mg/dl (8.5-10.1); Creatinine Clr Calc Pharmacy 97.8 ml/min; Est GFR (African American) 71.9 ml/min; Est GFR (Non-African American) 62.1 ml/min; Potassium 4.2 mmol/L (3.5-5.1); Prothrombin Time 58.3 Seconds (9.0-12.0)
[2022-01-21 07:35] LABS: Bilirubin Direct 0.3 mg/dl (0-0.2); Bilirubin,Total 0.8 mg/dl (0.2-1.0); Total Protein 5.8 gm/dl (6.0-8.3)
[2022-01-21 07:37] LABS: Basophils # (auto) 0.02 K/uL (0-0.2); Basophils % (auto) 0.4 %; Eosinophils # (auto) 0.25 K/uL (0-0.5); Eosinophils % (auto) 4.4 %; Immature Granulocytes # (auto) 0.01 K/uL (0.00-0.02); Immature Granulocytes % (auto) 0.2 %; Lymphocytes # (auto) 0.92 K/uL (1.2-3.4); Lymphocytes % (auto) 16.3 %; Mean Platelet Volume 9.2 fL (7.4-10.4); Monocytes # (auto) 0.58 K/uL (0.11-0.59); Monocytes % (auto) 10.3 %; Neutrophils # (auto) 3.85 K/uL (1.4-6.5); Neutrophils % (auto) 68.4 %; Platelet Count 97 K/uL (130-400); Platelet Estimate Decreased (Normal)
[2022-01-21] MEDS: PROCHLORPERAZINE MALEATE 10 MG TAB PO PRN ×2 (08:41→21:38)
[2022-01-21] MEDS: SENNA 8.6 MG TAB PO SCH (09:00)
[2022-01-21] MEDS: lisinopril 10 MG TAB PO SCH (09:00)
[2022-01-21] MEDS: PANTOprazole 40 MG TAB PO SCH ×2 (09:01→20:19)
[2022-01-21] MEDS: ATORVASTATIN 20 MG TAB PO SCH (09:01)
[2022-01-21] MEDS: traMADol HCL 50 MG TABLET PO SCH ×2 (09:02→21:35)
[2022-01-21] MEDS: INSULIN ASPART PER UNIT SC SCH ×4 (09:03→21:43)
--- NOTE | 2022-01-21 09:14 | Ultrasound Report ---
US venous doppler LE BI CLINICAL HISTORY: assess for new DVT or propagation of clot . Continued leg pain and swelling COMPARISON: None available at the time of this dictation. TECHNIQUE: Bilateral lower extremity real-time compression venous ultrasound with Color Doppler imagi ng. Utilizing real-time ultrasonic imaging multiple real time high-resolution ultrasonic images with comp ression and noncompression maneuvers of the deep venous system in addition to color doppler imaging w ere performed from the common femoral vein through the proximal calf veins. FINDINGS: Compared to previous examination, there is no evidence for thrombus seen within the greater saphenous vein on the right to the level of the calf. There is still occlusive thrombus present within the pro ximal to distal calf. Thrombus is again seen within the posterior tibial and peroneal veins which is also occlusive. No evidence for deep vein is thrombosis is seen. On the left side, thrombus is again seen within the greater saphenous vein just distal to the common femoral vein and extending into the calf. Minimal flow is seen proximally with occlusive thrombus pre sent from the mid thigh to the calf. Thrombus is again seen within the posterior tibial and peroneal veins. No evidence for deep vein is thrombosis is seen. Impression: 1. Compared to previous examination, there is improvement of superficial thrombophlebitis on the righ t and no significant change on the left. 2. No new deep vein is thrombosis is identified. ACT 112: Negative or not required by law. Electronically signed by: Fili Olea M.D. 01/21/2022 9:12 AM
[2022-01-21] MEDS: CAPECITABINE PO SCH ×2 (10:00→21:35)
[2022-01-21 10:31] LABS: Albumin Level 3.3 gm/dl (3.4-5.0)
--- NOTE | 2022-01-21 12:03 | Hospitalist Progress Note ---
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 Coumadin has been therapeutic and supratherapeutic -Despite supratherapeutic INR, patient developed edema of the right upper extremity prompting him to seek medical attention. Venous Doppler shows extensive DVT of the right upper extremity -Patient also now complaining of left upper extremity edema. Venous Doppler confirms DVT in the left arm as well -I am very perplexed regarding the best course of treatment for this patient given he clotted well not only therapeutic but supratherapeutic on Coumadin. That being said, I would think long-term Lovenox would be best. I have discussed this in great detail with Dr. Guidry, Dr. Bishop and vascular surgery. Patient is not a candidate for TPA with an INR of 6 given bleeding risk. Per oncology, his chemotherapy agent (Xeloda) is apparently known to cause falsely elevated INR. She reports that he potentially could be subtherapeutic. -In theory, would not start Lovenox concurrently with an INR of 6. That being said, patient developed DVTs while supratherapeutic with his Coumadin. Uncertain if it may be worthwhile starting concurrent Lovenox or heparin as she currently isn't covered. I have a message out to Hematology and Dr. Guidry regarding this. In addition, the PICC line in the right upper extremity needs to be removed. Uncertain when the safest time to do this would be. Ultimately, removing the PICC line with a supratherapeutic INR does run the risk of bleeding- Especially if placing him concurrently on anticoagulation therapy (Lovenox/heparin). In addition, would prefer to stabilize the clots before removing the PICC line given risk of embolization (2) Current use of longterm anticoagulation: Plan: As above, secondary to APLA Syndrome, recurrent VTE including saddle PE in 08/2020 and present metastatic malignancy most likely esophageal adenocarcinoma. Patient had been on Lovenox - briefly on hold for planned placement of Mediport, unfortunately patient developed recurrent of bilateral DVT and PEs requiring hospitalization. He was discharged on Coumadin with Lovenox bridging. He has been taking his medication as prescribed. INR supratherapeutic (6.8) No melena/hematochezia/hematemesis or bleeding thus will avoid vitamin k given risk of clotting (as clearly VERY HYPERCOAGUABLE) (3) Anti-phospholipid antibody syndrome: Plan: As above. -? steroids for antiphospholipid antibody syndrome--> appreciate hematology consult. See above (4) Metastasis from esophageal cancer: Plan: Patient with newly diagnosed adenocarcinoma with metastases to the liver. Started on chemotherapy. Continue capecitabine 500 mg p.o. every 12 Zyprexa taking at home Consider palliative care consultation to assist with symptom management, family and patient support and navigation of this difficult diagnosis line -Lengthy discussion with hematology/oncology. Patient will need IV chemotherapy every 21 days but this can be given in a peripheral IV. Ideally, he would have a Mediport or some type of permanent line but he is still hypercoagulable And any long-term line runs the risk of clotting. (5) Hyperlipidemia: Plan: Chronic. Continue atorvastatin 20 mg p.o. every morning (6) Asthma: Plan: Chronic. Stable on medication. No cough, shortness of breath or wheeze Continue albuterol as needed Continue Azelastine and Flonase (7) Diabetes mellitus: Plan: Chronic. Last hemoglobin A1c = 8.4 on 01/10/2022. Patient is eating very little We will hold metformin while inpatient Insulin sliding scale May need to adjust insulin if patient's p.o. intake increases (8) Hypertension: Plan: Chronic. Well-controlled. Continue lisinopril 10 mg p.o. every morning Continue to monitor (9) GERD (gastroesophageal reflux disease): Plan: Chronic. Well-controlled on medications. Continue Protonix 40 mg p.o. twice daily Continue Carafate 1 g p.o. 3 times daily (10) Sleep apnea: Plan: Patient is compliant with CPAP Continue nightly Plan: Lengthy discussion with hematology/oncology, Dr. Guidry, Vascular surgery, and attending provider (Dr. Blankenship) Ultimately, there is no good solution for this patient. Trying to find the safest/best thing to do that poses little risk but his ultimate prognosis is poor Admission and Anticipated Discharge Date Admission Date: January 20, 2022 Subjective Patient seen on daily rounds today Hospitalized with a PICC line associated DVT in the right upper extremity Patient has a complicated past medical history. Has esophageal cancer (just diagnosed the beginning of December) and has recently been started on both IV and oral chemotherapy. Prior to that, he was on Coumadin given his history of antiphospholipid antibody syndrome and lupus anticoagulant. His Coumadin was held and he was bridged with Lovenox for Mediport insertion to facilitate chemotherapy. Unfortunately, during this timehe developed bilateral small PE and bilateral DVTs in the lower extremities requiring hospitalization 01/09 through 01/15. Has been back on Coumadin and therapeutic. PICC line was placed during that time given inability to insert Mediport and need for IV access for chemotherapy. Patient subsequently developed edema/erythema of the right upper extremity prompting him to seek medical attention. Venous Doppler showed extensive DVT of the right upper extremity despite a supratherapeutic INR of 6.8. Patient subsequently hospitalized for further evaluation and care. Patient was also complaining of some mild swelling of his left upper extremity for which a venous ultrasound was done showing DVT in the left brachial and ulnar veins Review of Systems Review of Systems: All systems reviewed and are unremarkable except as noted in HPI and below Denies fevers, chills, headache, nasal congestion, sore throat, cough, chest pain, shortness of breath, palpitations, orthopnea, PND, abdominal pain, nausea, vomiting, diarrhea, constipation, dysuria, hematuria, frequency, back pain, joint pain or swelling, easy bruising or bleeding, skin lesions or rashes. Physical Exam Physical Exam: General: Resting comfortably in his hospital bed. Very flat affect. Barely opens his eyes. Makes little to no eye contact. He does not appear ill or toxic HEENT: Head is AT/NC. Buccal mucosa is moist and pink Neck: No JVD. Negative hepatojugular reflex Cardiac: RRR without M/G/R Lungs: CTA without W/R/R Abdomen: Normoactive X4. Soft and nontender in all quadrants. Extremities: Right upper extremity with significant edema. No erythema noted. Left upper extremity with mild edema. Capillary refill intact bilaterally Neuro: A&O X4. Cranial nerves II through XII are grossly intact. No focal neuro deficits Skin: No obvious skin lesions or rashes Psych: Appropriate affect. Pleasant and cooperative Results & Data Results & Data ([facility]) Vital Signs (Past 12 Hours) Vital Signs Temp Pulse Resp BP Pulse Ox 01/21/22 08:42 36.8 C 115 H 18 140/84 94 Laboratory Results 01/21/22 06:27 01/21/22 06:27 PG Care Time/CCT Total # of Minutes Spent Total Time Spent with Patient: Total time spent is greater than 50% in coordination of care (as documented) at patient's floor/unit and/or counseling patient: Coding Level of Care Code 90953 Subseq Hosp Care Lvl 3 Diagnoses Current use of longterm anticoagulation Z79.01 Anti-phospholipid antibody syndrome D68.61 Metastasis from esophageal cancer C79.9; C15.9 Hyperlipidemia E78.5 Asthma J45.909 Diabetes mellitus E11.9 Hypertension I10 Hypertension type: essential hypertension GERD (gastroesophageal reflux disease) K21.9 Sleep apnea G47.30 DVT of upper extremity (deep vein thrombosis) I82.629 (1) Hypertension Hypertension type: essential hypertension Qualified Code(s): I10 - Essential (primary) hypertension
--- NOTE | 2022-01-21 14:48 | Ultrasound Report ---
US venous doppler UE LT CLINICAL HISTORY: edema PROCEDURE: Left upper extremity real-time compression venous ultrasound with Duplex and Color Doppler imaging. FINDINGS: Utilizing real-time ultrasonic imaging multiple real time high-resolution ultrasonic images of the de ep venous system were performed from the forearm through the subclavian vein including evaluation of the jugular vein. Compression real time ultrasonic imaging was performed in addition to color Dopple r imaging and duplex Doppler ultrasound with velocity spectral profile analysis. Deep venous thrombosis seen in the left brachial and ulnar veins. Impression: Deep venous thrombus is seen in the left brachial and ulnar veins. ACT 112: Negative or not required by law. Electronically signed by: Lon Wills M.D. 01/21/2022 2:47 PM
--- NOTE | 2022-01-21 15:46 | Oncology Consultation ---
Date of Consultation January 21, 2022 Assessment & Plan 46-year-old man with extensive metastatic disease, esophageal adenocarcinoma, with metastatic disease to the liver. This probably affects the metabolism of various proteins of the liver and consequently its synthetic function. As a consequence he presents with supratherapeutic INR in the absence of bleeding. I discussed the need to weigh the risks and benefits of additional thrombotic events in this gentleman. I am not too sure about the diagnosis of antiphospholipid syndrome in this gentleman. Because he also has widely spread metastatic disease he is also at an increased risk of developing thrombotic events. The standard of care for patients with APS is Coumadin, however, standard of care for patients with metastatic cancer with widespread venous thromboembolic disease is Lovenox. I do not reasonably believe that this newly diagnosed right upper extremity DVT is as a result of failure of Lovenox. The withholding of the Lovenox for 36 hours in this gentleman may be a contributing factor. I am recommending the resumption of Lovenox twice daily in this gentleman because of his weight. If we can confirm that this gentleman truly has APS, then Coumadin will be the drug of choice. Recently, direct oral anticoagulant was compared with Lovenox in patients with antiphospholipid syndrome and the outcome continues to favor Coumadin. I believe the INR of 6 is probably secondary to metastatic disease to the liver which has impaired the synthetic function of the liver. For now, I am recommending Lovenox 1 mg/kg twice daily and prior to dose #5, we will obtain anti-factor Xa very specific to Lovenox. I explained this to him and the family member and he verbalized full understanding. Meanwhile, I believe he may continue with his anticancer drugs History of Present Illness Attending Physician: Tee Blankenship MD History of Present Illness This is a 46-year-old obese patient whose malady began sometime in August 2020 when he was diagnosed with Saddlel pulmonary embolism in addition to DVT. He required thrombolytic agent at that time. During extensive work-up he was also found to have antiphospholipid syndrome (APS). I do not have the details of how this final diagnosis was made. He was treated accordingly and I believe he had other extensive work-up in which I did not see other thrombophilia labs such as factor V Leiden gene mutation and prothrombin gene mutation. He was doing well on until few weeks ago when he had a CT scan of the chest and was found to have multiple liver lesions and additional esophageal lesion. Biopsy of the liver was consistent with metastatic esophageal adenocarcinoma. This gentleman needed a line placed and I believe his Lovenox was withheld for about 36 hours. He was initiated on his anticancer treatment last week with a combination of a sav[place]onga, Xeloda and pembrolizumab. He has some side effects according to him. He presented to the ED on 01/21/2020 with significant pain and and right upper extremity swelling. Additional evaluation including venous Doppler showed extensive DVT involving the right upper extremity. The pain is so severe that he could barely move his upper extremity. He was found to have INR of 6 and therefore he is currently not on any form of anticoagulation. At the bedside he complains of severe right upper extremity pain and he is concerned that he is not being anticoagulated. Allergies Allergy/AdvReac Type Severity Reaction Status Date / Time aspirin AdvReac Intermediate GI SYMPTOMS Verified 01/20/22 16:38 Home Medications Medication Instructions Recorded Confirmed Type fexofenadine 180 mg tablet 180 mg PO QAM PRN 07/02/18 01/20/22 History (Jana Allergy) fluticasone propionate 50 1 sprays INTNAS QAM PRN 06/08/19 01/20/22 History mcg/actuation nasal spray,suspension (Flonase Allergy Relief) azelastine 205.5 mcg (0.15 %) 2 sprays INTNAS BID PRN 06/25/19 01/20/22 History nasal spray blood-glucose meter (Advanced #1 ea 08/22/20 01/18/22 Rx Glucose Meter) blood-glucose meter (OneTouch #1 ea 09/22/20 01/18/22 Rx Verio Flex Start) blood sugar diagnostic (OneTouch #100 ea 10/03/20 01/18/22 Rx Verio test strips) lancets 30 gauge (BD Ultra-Fine II #100 ea 07/05/21 01/18/22 Rx Lancets) nebulizer kit #1 ea 12/25/21 01/18/22 Rx metformin 500 mg tablet 500 mg PO BID 12/26/21 01/20/22 History albuterol sulfate 90 mcg/actuation 2 puff INHALATION QID PRN #18 g 12/31/21 01/20/22 Rx aerosol inhaler (Ventolin HFA) atorvastatin 20 mg tablet 20 mg PO QAM 01/04/22 01/20/22 History lisinopril 10 mg tablet 10 mg PO QAM 01/04/22 01/20/22 History albuterol sulfate 2.5 mg INHALATION QID PRN 01/09/22 01/20/22 History warfarin 5 mg tablet 10 mg PO DAILY@1700 01/09/22 01/20/22 History sennosides 8.6 mg tablet (Senokot) 17.2 mg PO QAM #60 tab 01/15/22 01/20/22 Rx lorazepam 0.5 mg tablet 0.5 mg PO TID PRN tab 01/16/22 01/20/22 History pantoprazole 40 mg tablet,delayed 40 mg PO BID #180 tab 01/17/22 01/20/22 Rx release (Protonix) Bifidobacterium infantis 4 mg 4 mg PO DAILY 01/20/22 01/20/22 History capsule (Align) capecitabine 500 mg tablet 500 mg PO Q12 01/20/22 01/20/22 History docusate sodium 100 mg capsule 100 mg PO TID PRN 01/20/22 01/20/22 History lorazepam 0.5 mg tablet 0.5 mg PO HS PRN 01/20/22 01/20/22 History ondansetron HCl 8 mg tablet 8 mg PO Q8 PRN 01/20/22 01/20/22 History prochlorperazine maleate 10 mg 10 mg PO Q6 PRN 01/20/22 01/20/22 History tablet sucralfate 100 mg/mL oral 10 ml PO TID PRN 01/20/22 01/20/22 History suspension tramadol 50 mg tablet 50 mg PO BID 01/20/22 01/20/22 History Patient History Medical History Anticoagulant long-term use Asthma Well controlled with inhalers Diabetes mellitus Esophageal cancer, stage IV Presumed per CT scan per general surgery records. Reason for port placement GERD (gastroesophageal reflux disease) History of anesthesia reaction Woke up during cataract procedure and "attempted to walk off the table" and was told he should always be "put completely to sleep". 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 On Lovenox Sleep apnea CPAP Surgical History History of cataract surgery L EYE History of left knee surgery History of liver biopsy History of surgery (01/08/22) Attempted Insertion Access Port with Fluoroscopy(Left) - Carlos Angeles DO 01/08/2022 History of tooth extraction History of umbilical hernia repair Family History Father Family history of diabetes mellitus FHx: skin cancer Cancer FHx: bladder cancer Mother FHx: kidney cancer Family history of diabetes mellitus Cancer Brother Family history of diabetes mellitus Family/Other Coronary heart disease Grandmother (Paternal) FHx: colon cancer Social History Smoking Status: Never smoker Tobacco Type: Smokeless Tobacco (Dip or Chew) Second Hand Exposure: No; Hx Alcohol Use: No Hx Substance Use: No Preferred Language: Welsh Communication Ability: Effective Visual Impairment: No Limitations Transfer Station Operator Required: No Beliefs That Will Affect Care: None Current Living Situation: Spouse Current Living Situation Comment: home with current occupational status: employed Feels Safe at Home: Yes during the past year weight has: remained stable Assistive Devices: None Review of Systems Review of Systems: Constitutional: Negative for weight loss, night sweats, or fever Eyes: Negative for event change of vision ENT: Negative for epistaxis, nasal discharge, sore throat, or deafness Cardiovascular: Negative for anginal type chest pain, palpitations, dizziness, diaphoresis Respiratory: Negative for new shortness of breath, hemoptysis, or purulent cough Gastroinestinal: Negative for diarrhea, hematemesis, melena, nausea, vomiting, or dyspepsia Integumentary (skin): Negative for rash, jaundice or discoloration Genitourinary: Negative for urinary frequency, hematuria, or dysuria Neurological: Negative for weakness, seizure activity, headache, or dizziness Lymphatic/Hematologic: Negative for petechiae, bleeding or new adenopathy Musculoskeletal: Negative for new joint or back pain Allergic/Immunologic: Negative for unusual rash or pruritis Physical Exam Physical Exam: ECOG Performance Status: Pain Ratin Fatigue: None. Constitutional: Vitals are stable. Eyes: Eyes are JARED EOMI without conjunctival erythema or icterus. ENT: External examination was negative for masses. Neck: Negative for masses or palpable thyromegaly. Respiratory: Lung sounds were generally clear bilaterally. Cardiovascular: Heart was RRR without significant murmur, gallops, or rubs. Gastrointestinal: No palpable hepatic or splenomegaly. The abdomen was soft with normal bowel sounds. Lymphatic system: There was no palpable peripheral lymphadenopathy. Musculoskeletal System: The musculoskeletal system concordant with age. Skin: The skin was negative for jaundice. Neurologic Exam: The exam was negative for any focal findings. Psychiatric Exam: Was essentially negative with normal mood and effect. Breast Exam: Done with patient permission was negative for palpable masses or nipple discharge. Extremities: Negative for edema or erythema. Strength and pulses equal. Results & Data ([facility]) Vital Signs (Past 12 Hours) Vital Signs Temp Pulse Resp BP Pulse Ox 01/21/22 14:51 36.8 C 100 H 15 149/69 H 94 01/21/22 08:42 36.8 C 115 H 18 140/84 94
[2022-01-21] MEDS ORDERED: WARFARIN SOD 10 MG TAB PO SCH (17:00)
[2022-01-21] MEDS ORDERED: Heparin IV Adult Wt-Based Standard *NO* Bolus Protocol IV SCH (17:49)
[2022-01-21 18:17] LABS: INR 5.1 (0.9-1.1); Prothrombin Time 49.7 Seconds (9.0-12.0)
[2022-01-21] MEDS: HEPARIN SODIUM/DEXTROSE 25,000 UNITS/500 ML BAG IV SCH (18:49)
[2022-01-21 18:59] LABS: Basophils # (auto) 0.01 K/uL (0-0.2); Basophils % (auto) 0.2 %; Eosinophils # (auto) 0.25 K/uL (0-0.5); Eosinophils % (auto) 3.9 %; Hematocrit (blood only) 37.7 % (42-52); Hemoglobin 12.9 g/dL (14.0-18.0); Immature Granulocytes # (auto) 0.01 K/uL (0.00-0.02); Immature Granulocytes % (auto) 0.2 %; Lymphocytes # (auto) 0.78 K/uL (1.2-3.4); Lymphocytes % (auto) 12.3 %; Mean Corpuscular Hemoglobin 29.1 pg (25-34); Mean Corpuscular Volume 85.1 fL (80-100); Monocytes # (auto) 0.54 K/uL (0.11-0.59); Monocytes % (auto) 8.5 %; Neutrophils # (auto) 4.77 K/uL (1.4-6.5); Neutrophils % (auto) 74.9 %; Platelet Count 116 K/uL (130-400); RDW Coefficient of Variation 13.9 % (11.5-14.5); RDW Standard Deviation 43.2 fL (36.4-46.3); Red Blood Count 4.43 M/uL (4.7-6.1); White Blood Count 6.36 K/uL (4.8-10.8)
[2022-01-21 19:30] LABS: INR 4.6 (0.9-1.1); Partial Thromboplastin Ratio 2.4; Prothrombin Time 45.4 Seconds (9.0-12.0)
[2022-01-21 19:37] LABS: Mean Corpuscular Hgb Conc 34.2 g/dL (32-36)
[2022-01-21 20:01] LABS: Partial Thromboplastin Time 66.8 Seconds (21.0-31.0)
[2022-01-22 01:22] LABS: Partial Thromboplastin Ratio 3.5
[2022-01-22 01:26] LABS: Partial Thromboplastin Time 96.5 Seconds (21.0-31.0)
[2022-01-22] MEDS: MoRPHine SULFATE 4 MG/ML 1 ML CARP\\VIAL IV PRN ×2 (01:33→14:03)
--- NOTE | 2022-01-22 04:05 | Communication Note ---
Date of Service: January 22, 2022 Notified by RN about APTT (96) being above goal (46-66) and heparin drip being paused per protocol. Patient did had elevated aptt in goal range even prior to starting drip. I have added anti Xa level to AM labs. Eduar Go PGY2 night resident
--- NOTE | 2022-01-22 05:56 | Electrocardiogram Report ---
Test Reason : Blood Pressure : / mmHG Vent. Rate : 089 BPM Atrial Rate : 089 BPM P-R Int : 160 ms QRS Dur : 090 ms QT Int : 364 ms P-R-T Axes : 054 060 043 degrees QTc Int : 442 ms Poor data quality, interpretation may be adversely affected Normal sinus rhythm Normal ECG When compared with ECG of 10-JAN-2022 15:51, No significant change was found Confirmed by Saul Rivera ([id number]) on 01/22/2022 5:56:11 AM Referred By: REFERRED SELF Confirmed By:Saul Rivera
[2022-01-22] MEDS: ONDANSETRON INJ 2 MG/ML 2 ML VIAL IV PRN ×2 (08:12→15:02)
[2022-01-22] MEDS: PANTOprazole 40 MG TAB PO SCH ×2 (08:39→21:26)
[2022-01-22] MEDS: lisinopril 10 MG TAB PO SCH (08:39)
[2022-01-22] MEDS: traMADol HCL 50 MG TABLET PO SCH ×2 (08:39→21:31)
[2022-01-22] MEDS: SENNA 8.6 MG TAB PO SCH (08:40)
[2022-01-22] MEDS: ATORVASTATIN 20 MG TAB PO SCH (08:40)
[2022-01-22] MEDS: INSULIN ASPART PER UNIT SC SCH ×4 (09:07→21:26)
[2022-01-22] MEDS: HEPARIN SODIUM/DEXTROSE 25,000 UNITS/500 ML BAG IV SCH (09:07)
[2022-01-22 09:13] LABS: Hematocrit (blood only) 38.8 % (42-52); Hemoglobin 13.2 g/dL (14.0-18.0); Mean Corpuscular Hemoglobin 28.9 pg (25-34); Mean Corpuscular Volume 84.9 fL (80-100); Mean Platelet Volume 9.2 fL (7.4-10.4); Platelet Count 136 K/uL (130-400); RDW Standard Deviation 43.3 fL (36.4-46.3); Red Blood Count 4.57 M/uL (4.7-6.1)
[2022-01-22 10:01] LABS: Partial Thromboplastin Ratio 2.3; Prothrombin Time 30.5 Seconds (9.0-12.0)
[2022-01-22 10:03] LABS: Partial Thromboplastin Time 63.8 Seconds (21.0-31.0)
[2022-01-22 10:18] LABS: BUN Creatinine Ratio 16.5 (10-20); Calcium 8.2 mg/dl (8.5-10.1); Creatinine Clr Calc Pharmacy 99.3 ml/min; Est GFR (African American) 73.3 ml/min; Est GFR (Non-African American) 63.2 ml/min; Potassium 4.1 mmol/L (3.5-5.1)
[2022-01-22] MEDS: CAPECITABINE PO SCH ×2 (10:51→21:25)
--- NOTE | 2022-01-22 14:22 | Hospitalist Progress Note ---
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 Coumadin has been therapeutic and supratherapeutic since -Despite supratherapeutic INR, patient developed edema of the right upper extremity prompting him to seek medical attention. Venous Doppler shows extensive DVT of the right upper extremity -Patient also now complaining of left upper extremity edema. Venous Doppler confirms DVT in the left arm as well -I am very perplexed regarding the best course of treatment for this patient given he clotted while not only therapeutic but supratherapeutic on Coumadin. That being said, I would think long-term Lovenox would be best. I have discussed this in great detail with Dr. Guidry, Dr. Bishop and vascular surgery. Patient is not a candidate for TPA with an INR of 6 given bleeding risk. Per oncology, his chemotherapy agent (Xeloda) is apparently known to cause falsely elevated INR. She reports that he potentially could be subtherapeutic. Ultimately, this is considered a Coumadin failure. -Despite elevated INR, needs treatment for the active DVT's. Has since been started on a Heparin gtt (as can be turned off in the event of bleeding) with plan to transition to fdc lovenox once INR <2 -PICC line not removed upfront given elevated INR and risk of bleeding but also the need to stabilize these clots (heparin) given risk of embolization. INR down to 3.0 and now on heparin gtt x 24 hours (with therapeutic PTT). Would be inclined to REMOVE PICC today but now the has concerns regarding this. She believes that with him now being on appropriate anticoagulation therapy and plan to transition to Lovenox, this line can remain. I explained that any form line poses risk of clotting as he is very hypercoagulable. I spoke with oncology who reports he does not need a chronic indwelling line at this point as the risk does not outweigh the benefit. His chemotherapy agent can be given through peripheral site every 21 days. The very reluctant to agree to removal of line. We will reach out to oncology and Dr. Guidry will for them to weigh in but ultimately, I believe that this PICC line needs to be removed. Lengthy D/W patient and his regarding limited options and none having a great outcome. I am trying to come up with the best and safest solution out of a terrible situation. (2) Current use of fdc anticoagulation: Plan: As above, secondary to APLA Syndrome, recurrent VTE including saddle PE in 08/2020 and present metastatic malignancy most likely esophageal adenocarcinoma. Patient had been on Lovenox - briefly on hold for planned placement of Mediport, unfortunately patient developed recurrent of bilateral DVT and PEs requiring hospitalization. He was discharged on Coumadin with Lovenox bridging. He has been taking his medication as prescribed. INR supratherapeutic (6.8) No melena/hematochezia/hematemesis or bleeding thus will avoid vitamin k given risk of clotting (as clearly VERY HYPERCOAGUABLE) (3) Anti-phospholipid antibody syndrome: Plan: As above. -discussed steroids with oncology who reports so added benefit at this time (4) Metastasis from esophageal cancer: Plan: Patient with newly diagnosed adenocarcinoma with metastases to the liver. Started on chemotherapy. Continue capecitabine 500 mg p.o. every 12 Zyprexa taking at home Consider palliative care consultation to assist with symptom management, family and patient support and navigation of this difficult diagnosis line -Lengthy discussion with hematology/oncology. Patient will need IV chemotherapy every 21 days but this can be given in a peripheral IV. Ideally, he would have a Mediport or some type of permanent line but he is still hypercoagulable And any long-term line runs the risk of clotting. (5) Hyperlipidemia: Plan: Chronic. Continue atorvastatin 20 mg p.o. every morning (6) Asthma: Plan: Chronic. Stable on medication. No cough, shortness of breath or wheeze Continue albuterol as needed Continue Azelastine and Flonase (7) Diabetes mellitus: Plan: Chronic. Last hemoglobin A1c = 8.4 on 01/10/2022. Patient is eating very little We will hold metformin while inpatient Insulin sliding scale May need to adjust insulin if patient's p.o. intake increases (8) Hypertension: Plan: Chronic. Well-controlled. Continue lisinopril 10 mg p.o. every morning Continue to monitor (9) GERD (gastroesophageal reflux disease): Plan: Chronic. Well-controlled on medications. Continue Protonix 40 mg p.o. twice daily Continue Carafate 1 g p.o. 3 times daily (10) Sleep apnea: Plan: Patient is compliant with CPAP Continue nightly Plan: Lengthy discussion with hematology/oncology, Dr. Guidry, Vascular surgery, and attending provider (Dr. Blankenship) Ultimately, there is no good solution for this patient. Trying to find the safest/best thing to do that poses little risk but his ultimate prognosis is poor Admission and Anticipated Discharge Date Admission Date: January 22, 2022 Subjective Patient seen on daily rounds today. Reports that the swelling and pain in his right arm seems to be slightly lessened today. PTT now therapeutic. Heparin drip remains on board. INR is down to 3.0. Plan was for removal of PICC line but does not want the PICC line taken out given the fact that it flushes and seems to be a "usable line". Review of Systems Review of Systems: All systems reviewed and are unremarkable except as noted in HPI and below Denies fevers, chills, headache, nasal congestion, sore throat, cough, chest pain, shortness of breath, palpitations, orthopnea, PND, abdominal pain, nausea, vomiting, diarrhea, constipation, dysuria, hematuria, frequency, back pain, joint pain or swelling, easy bruising or bleeding, skin lesions or rashes. Physical Exam Physical Exam: General: Resting comfortably in his hospital bed. Very flat af fect. Barely opens his eyes. Makes little to no eye contact. He does not appear ill or toxic HEENT: Head is AT/NC. Buccal mucosa is moist and pink Neck: No JVD. Negative hepatojugular reflex Cardiac: RRR without M/G/R Lungs: CTA without W/R/R Abdomen: Normoactive X4. Soft and nontender in all quadrants. Extremities: Right upper extremity with significant edema and mild erythema. PICC line noted to right upper extremity. Left upper extremity with mild edema but much less compared to the right. Capillary refill intact bilaterally Neuro: A&O X4. Cranial nerves II through XII are grossly intact. No focal neuro deficits Skin: Erythema noted of the right upper extremity Psych: Appropriate affect. Pleasant and cooperative Results & Data Results & Data ([facility]) Vital Signs (Past 12 Hours) Vital Signs Temp Pulse Resp BP Pulse Ox 01/22/22 07:30 36.7 C 99 H 16 122/77 92 Laboratory Results 01/22/22 08:39 01/22/22 08:39 INR 3.0 (0.9-1.1) H 01/22/22 08:39 PG Care Time/CCT Total # of Minutes Spent Total Time Spent with Patient: Total time spent is greater than 50% in coordination of care (as documented) at patient's floor/unit and/or counseling patient: Coding Level of Care Code 38918 Subseq Hosp Care Lvl 2 Diagnoses DVT of upper extremity (deep vein thrombosis) I82.629 Current use of fdc anticoagulation Z79.01 Anti-phospholipid antibody syndrome D68.61 Metastasis from esophageal cancer C79.9; C15.9 Hyperlipidemia E78.5 Asthma J45.909 Diabetes mellitus E11.9 Hypertension I10 Hypertension type: essential hypertension GERD (gastroesophageal reflux disease) K21.9 Sleep apnea G47.30 (1) Hypertension Hypertension type: essential hypertension Qualified Code(s): I10 - Essential (primary) hypertension
[2022-01-22 15:42] LABS: INR 2.7 (0.9-1.1); Prothrombin Time 26.8 Seconds (9.0-12.0)
[2022-01-22] MEDS: PROCHLORPERAZINE MALEATE 10 MG TAB PO PRN (20:17)
[2022-01-23] MEDS: HEPARIN SODIUM/DEXTROSE 25,000 UNITS/500 ML BAG IV SCH ×3 (00:32→16:20)
[2022-01-23] MEDS: MoRPHine SULFATE 4 MG/ML 1 ML CARP\\VIAL IV PRN ×3 (01:40→23:41)
[2022-01-23 06:06] LABS: Basophils # (auto) 0.02 K/uL (0-0.2); Basophils % (auto) 0.3 %; Eosinophils # (auto) 0.26 K/uL (0-0.5); Eosinophils % (auto) 3.6 %; Hematocrit (blood only) 39.6 % (42-52); Hemoglobin 13.6 g/dL (14.0-18.0); Immature Granulocytes # (auto) 0.03 K/uL (0.00-0.02); Immature Granulocytes % (auto) 0.4 %; Lymphocytes # (auto) 1.35 K/uL (1.2-3.4); Lymphocytes % (auto) 18.6 %; Mean Corpuscular Hemoglobin 29.4 pg (25-34); Mean Corpuscular Hgb Conc 34.3 g/dL (32-36); Mean Corpuscular Volume 85.5 fL (80-100); Mean Platelet Volume 8.8 fL (7.4-10.4); Monocytes # (auto) 0.55 K/uL (0.11-0.59); Monocytes % (auto) 7.6 %; Neutrophils # (auto) 5.03 K/uL (1.4-6.5); Neutrophils % (auto) 69.5 %; Platelet Count 181 K/uL (130-400); RDW Coefficient of Variation 14.1 % (11.5-14.5); RDW Standard Deviation 44.1 fL (36.4-46.3); Red Blood Count 4.63 M/uL (4.7-6.1); White Blood Count 7.24 K/uL (4.8-10.8)
[2022-01-23 06:16] LABS: Partial Thromboplastin Ratio 1.6; Partial Thromboplastin Time 44.9 Seconds (21.0-31.0); Prothrombin Time 20.5 Seconds (9.0-12.0)
[2022-01-23] MEDS: SENNA 8.6 MG TAB PO SCH (08:47)
[2022-01-23] MEDS: ATORVASTATIN 20 MG TAB PO SCH (08:47)
[2022-01-23] MEDS: LORazepam 0.5 MG TAB PO PRN ×3 (08:47→21:16)
[2022-01-23] MEDS: PANTOprazole 40 MG TAB PO SCH ×2 (08:47→21:16)
[2022-01-23] MEDS: lisinopril 10 MG TAB PO SCH (08:47)
[2022-01-23] MEDS: traMADol HCL 50 MG TABLET PO SCH ×2 (08:48→21:15)
[2022-01-23] MEDS: CAPECITABINE PO SCH ×2 (09:41→21:20)
[2022-01-23] MEDS: INSULIN ASPART PER UNIT SC SCH ×4 (09:42→21:19)
[2022-01-23 11:11] LABS: Urine Potassium 23.3 mmol/L
[2022-01-23 13:13] LABS: INR 1.9 (0.9-1.1); Partial Thromboplastin Ratio 1.4; Partial Thromboplastin Time 39.8 Seconds (21.0-31.0); Prothrombin Time 19.4 Seconds (9.0-12.0)
[2022-01-23 13:26] LABS: BUN Creatinine Ratio 16.8 (10-20); Calcium 8.7 mg/dl (8.5-10.1); Creatinine Clr Calc Pharmacy 100.8 ml/min; Est GFR (African American) 74.6 ml/min; Est GFR (Non-African American) 64.4 ml/min; Potassium 4.2 mmol/L (3.5-5.1)
[2022-01-23] MEDS: ONDANSETRON INJ 2 MG/ML 2 ML VIAL IV PRN ×2 (13:48→19:53)
[2022-01-23] MEDS ORDERED: SODIUM CHLORIDE 1 GM TABLET PO STA (14:05)
--- NOTE | 2022-01-23 14:32 | Hospitalist Progress Note ---
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 Coumadin has been therapeutic and supratherapeutic since -Despite supratherapeutic INR, patient developed edema of the right upper extremity prompting him to seek medical attention. Venous Doppler shows extensive DVT of the right upper extremity -Patient also with left upper extremity edema. Venous Doppler confirms DVT in the left arm as well -I am very perplexed regarding the best course of treatment for this patient given he clotted while not only therapeutic but supratherapeutic on Coumadin. That being said, I would think long-term Lovenox would be best. I have discussed this in great detail with Dr. Guidry, Dr. Bishop and vascular surgery. Patient is not a candidate for TPA with an INR of 6 given bleeding risk. Per oncology, his chemotherapy agent (Xeloda) is apparently known to cause falsely elevated INR. She reports that he potentially could be subtherapeutic. Ultimately, this is considered a Coumadin failure. -Despite elevated INR, needs treatment for the active DVT's. Treated with a Heparin gtt (as can be turned off in the event of bleeding). INR has been followed and is now 1.9-- stop heparin gtt and start lovenox -PICC line not removed upfront given elevated INR and risk of bleeding but also the need to stabilize these clots (heparin) given risk of embolization. Mixed literature regarding removal of PICC line since functional. Up-to-date reports can stay in pending resolution of the clots. Discussed in great detail with Dr. Bishop who recommends removal of the PICC given he still has significant edema and pain (more for symptomatic relief) as literature suggests line safe to stay in place. She reports that these symptoms will likely not resolve without removal of PICC. (2) Anti-phospholipid antibody syndrome: Plan: As above. -discussed steroids with oncology who reports no added benefit at this time (3) Metastasis from esophageal cancer: Plan: Patient with newly diagnosed adenocarcinoma with metastases to the liver. [facility] on chemotherapy. Continue capecitabine 500 mg p.o. every 12 Zyprexa taking at home Consider palliative care consultation to assist with symptom management, family and patient support and navigation of this difficult diagnosis line -Lengthy discussion with hematology/oncology. Patient will need IV chemotherapy every 21 days but this can be given in a peripheral IV. Ideally, he would have a Mediport or some type of permanent line but he is hypercoagulable and the fear is that this line would clot (as clots developed while supratherapeutic on Coumadin). Plan is for peripheral IV unless unable to obtain IV access. Can consider referral to vascular as an OP as they will insert line while on lovenox (4) Hyponatremia: Plan: suspect SIADH - sodium downtrending over past month. Now at 127 - urine osmo > serum osmo - likely in setting of malignancy, chemotherapy and chemo induced nausea and too much free water (as pushing his fluids) - sodium Bicarb 1G now - start fluid restricted diet - follow labs (5) Hyperlipidemia: Plan: Chronic. Continue atorvastatin 20 mg p.o. every morning (6) Asthma: Plan: Chronic. Stable on medication. No cough, shortness of breath or wheeze Continue albuterol as needed Continue Azelastine and Flonase (7) Diabetes mellitus: Plan: Chronic. Last hemoglobin A1c = 8.4 on 01/10/2022. Patient is eating very little We will hold metformin while inpatient Insulin sliding scale May need to adjust insulin if patient's p.o. intake increases (8) Hypertension: Plan: Chronic. Well-controlled. Continue lisinopril 10 mg p.o. every morning Continue to monitor (9) GERD (gastroesophageal reflux disease): Plan: Chronic. Well-controlled on medications. Continue Protonix 40 mg p.o. twice daily Continue Carafate 1 g p.o. 3 times daily (10) Sleep apnea: Plan: Patient is compliant with CPAP Continue nightly Plan: Lengthy discussion with hematology/oncology, Dr. Guidry, Vascular surgery, and attending provider (Dr. Alarcon) Ultimately, there is no good solution for this patient. Trying to find the safest/best thing to do that poses little risk but his ultimate prognosis is poor Admission and Anticipated Discharge Date Admission Date: January 22, 2022 Subjective Patient seen on daily rounds today. PICC line remains in place (was awaiting being on ACT for at least 24 hours to stabilize the clots to decrease risk of embolization) but requested the line stay in. PICC was flushing and aspirating and seemed functional. D/W Dr. Guidry and Oncology in great detail. Updated literature (up-to-date) denotes PICC can remain in if functional; however, in talking with Oncology-- Dr. Bishop recommends removal given his significant edema and pain. INR down to 1.9. In addition, sodium level noted to be dropping while in house. He was told to be sure to push his fluids given his chemotherapy induced nausea.I have since ordered Urine/Serum Osmo and lytes. Patient denies fevers, chills, chest pain, shortness of breath, abdominal pain, nausea or vomiting. His biggest complaint is the pain and swelling in his right upper extremity. Review of Systems Review of Systems: All systems reviewed and are unremarkable except as noted in HPI and below Denies fevers, chills, headache, nasal congestion, sore throat, cough, chest pain, shortness of breath, palpitations, orthopnea, PND, abdominal pain, nausea, vomiting, diarrhea, constipation, dysuria, hematuria, frequency, back pain, joint pain or swelling, easy bruising or bleeding, skin lesions or rashes. Physical Exam Physical Exam: General: Resting comfortably in his hospital bed. Very flat affect. Barely opens his eyes. Makes little to no eye contact. He does not appear ill or toxic HEENT: Head is AT/NC. Buccal mucosa is moist and pink Neck: No JVD. Negative hepatojugular reflex Cardiac: RRR without M/G/R Lungs: CTA without W/R/R Abdomen: Normoactive X4. Soft and nontender in all quadrants. Extremities: Right upper extremity with significant edema and mild erythema. PICC line noted to right upper extremity. Left upper extremity with mild edema but much less compared to the right. Capillary refill intact bilaterally Neuro: A&O X4. Cranial nerves II through XII are grossly intact. No focal neuro deficits Skin: Erythema noted of the right upper extremity Psych: Appropriate affect. Pleasant and cooperative Results & Data Results & Data ([facility]) Vital Signs (Past 12 Hours) Vital Signs Temp Pulse Resp BP Pulse Ox 01/23/22 07:26 36.8 C 96 H 20 109/69 94 Laboratory Results 01/23/22 05:49 01/23/22 12:39 INR 1.9 (0.9-1.1) H 01/23/22 12:39 INR Cancelled 01/23/22 12:39 PG Care Time/CCT Total # of Minutes Spent Total Time Spent with Patient: Total time spent is greater than 50% in coordination of care (as documented) at patient's floor/unit and/or counseling patient: Coding Level of Care Code 79575 Subseq Hosp Care Lvl 3 Diagnoses DVT of upper extremity (deep vein thrombosis) I82.629 Anti-phospholipid antibody syndrome D68.61 Metastasis from esophageal cancer C79.9; C15.9 Hyperlipidemia E78.5 Asthma J45.909 Diabetes mellitus E11.9 Hypertension I10 Hypertension type: essential hypertension GERD (gastroesophageal reflux disease) K21.9 Sleep apnea G47.30 Hyponatremia E87.1 (1) Hypertension Hypertension type: essential hypertension Qualified Code(s): I10 - Essential (primary) hypertension
[2022-01-23] MEDS: ENOXAPARIN 150 MG/ML SYR SQ SCH ×2 (15:20→23:41)
[2022-01-23] MEDS: CALCIUM CARBONATE 500 MG CHEWABLE TAB PO PRN (17:13)
[2022-01-23] MEDS: MoRPHine SULFATE 2 MG/ML CARP IV PRN (18:27)
[2022-01-24 06:52] LABS: BUN Creatinine Ratio 15.6 (10-20); Calcium 8.6 mg/dl (8.5-10.1); Creatinine Clr Calc Pharmacy 93.6 ml/min; Est GFR (African American) 68.3 ml/min; Est GFR (Non-African American) 58.9 ml/min
[2022-01-24 07:04] LABS: INR 1.8 (0.9-1.1); Partial Thromboplastin Ratio 1.6; Partial Thromboplastin Time 44.8 Seconds (21.0-31.0); Prothrombin Time 18.8 Seconds (9.0-12.0)
[2022-01-24] MEDS: lisinopril 10 MG TAB PO SCH (08:31)
[2022-01-24] MEDS: ATORVASTATIN 20 MG TAB PO SCH (08:31)
[2022-01-24] MEDS: SENNA 8.6 MG TAB PO SCH (08:31)
[2022-01-24] MEDS: PANTOprazole 40 MG TAB PO SCH ×2 (08:31→21:05)
[2022-01-24] MEDS: CAPECITABINE PO SCH ×2 (08:32→21:05)
[2022-01-24] MEDS: PROCHLORPERAZINE MALEATE 10 MG TAB PO PRN (08:36)
[2022-01-24] MEDS: INSULIN ASPART PER UNIT SC SCH ×5 (08:39→21:04)
[2022-01-24] MEDS: traMADol HCL 50 MG TABLET PO SCH ×2 (08:40→21:05)
[2022-01-24] MEDS ORDERED: SODIUM CHLORIDE 1 GM TABLET PO STA (09:27)
[2022-01-24] MEDS: MoRPHine SULFATE 2 MG/ML CARP IV PRN ×2 (09:49→14:58)
[2022-01-24] MEDS: LORazepam 0.5 MG TAB PO PRN ×2 (09:49→17:34)
[2022-01-24] MEDS: ONDANSETRON INJ 2 MG/ML 2 ML VIAL IV PRN (11:47)
[2022-01-24] MEDS: ENOXAPARIN 150 MG/ML SYR SQ SCH ×2 (12:50→21:51)
[2022-01-24] MEDS: CALCIUM CARBONATE 500 MG CHEWABLE TAB PO PRN (12:57)
[2022-01-24 14:04] LABS: Anion Gap 9 (3-11); BUN Creatinine Ratio 16.2 (10-20); Blood Urea Nitrogen 23 mg/dl (6-23); Calcium 8.6 mg/dl (8.5-10.1); Carbon Dioxide 26 mmol/L (21-32); Chloride 94 mmol/L (98-107); Est GFR (African American) 67.7 ml/min; Est GFR (Non-African American) 58.4 ml/min; Glucose 133 mg/dl (70-99(Fasting)); Sodium 129 mmol/L (136-145)
--- NOTE | 2022-01-24 14:12 | Hospitalist Progress Note ---
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 Coumadin has been therapeutic and supratherapeutic since -Despite supratherapeutic INR, patient developed edema of the right upper extremity prompting him to seek medical attention. Venous Doppler shows extensive DVT of the right upper extremity -Patient also with left upper extremity edema. Venous Doppler confirms DVT in the left arm as well -Patient has been very difficult to determine best course of treatment given he clotted while not only therapeutic but supratherapeutic on Coumadin. That being said, I would think long-term Lovenox would be best. I have discussed this in great detail with Dr. Guidry, Dr. Bishop and vascular surgery. Patient is not a candidate for TPA given initial INR of 6 and bleeding risk. Per oncology, his chemotherapy agent (Xeloda) is apparently known to cause falsely elevated INR. She reports that he potentially could be subtherapeutic. Discussed this with pharmacy and also Dr. Guidry who reports his chemotherapy agent can cause elevated INR due to metabolism of the drug but to her knowledge, was not known to cause falsely elevated INRs. At any rate, this is ultimately, this is considered a Coumadin failure. -Despite elevated INR up from, needed treatment for the active DVT's. Treated with a Heparin gtt (as can be turned off in the event of bleeding). INR has been followed. Heparin drip stopped and converted to Lovenox once INR was <2.0 -PICC line not removed upfront given elevated INR and risk of bleeding but also the need to stabilize these clots (heparin) given risk of embolization. Mixed literature regarding removal of PICC line since functional. Up-to-date reports can stay in pending resolution of the clots. Discussed in great detail with Dr. Bishop who recommends removal of the PICC given he still has significant edema and pain (more for symptomatic relief) as literature suggests line safe to stay in place. She reports that these symptoms will likely not resolve without removal of PICC. Over the past several days, his pain and swelling has increased only reiterating that the PICC line should be removed. There was multiple attempts made by IV team to remove the PICC but they were unsuccessful. Vascular surgery was consulted for this given risk of snapping the line within the vein. Vascular surgery was successfully able to remove the PICC line There is now some bulla and mild breakdown given the amount of edema. Patient does have a low sodium and is likely third spacing at this point. He should elevate the arm. Will consult wound nurse and provide Silvadene in the interim (2) Anti-phospholipid antibody syndrome: Plan: As above. -discussed steroids with oncology who reports no added benefit at this time (3) Metastasis from esophageal cancer: Plan: Patient with newly diagnosed adenocarcinoma with metastases to the liver. Started on chemotherapy. Continue capecitabine 500 mg p.o. every 12 Zyprexa taking at home Consider palliative care consultation to assist with symptom management, family and patient support and navigation of this difficult diagnosis line -Lengthy discussion with hematology/oncology. Patient will need IV chemotherapy every 21 days but this can be given in a peripheral IV. Ideally, he would have a Mediport or some type of permanent line but he is hypercoagulable and the fear is that this line would clot (as clots developed while supratherapeutic on Coumadin). Plan is for peripheral IV unless unable to obtain IV access. Can consider referral to vascular as an OP as they will insert line while on lovenox (4) Hyponatremia: Plan: suspect SIADH - sodium downtrending over past month. Down to 127 on 01/23 - urine osmo > serum osmo - likely in setting of malignancy, chemotherapy and chemo induced nausea and too much free water (as pushing his fluids) - sodium Bicarb 1G X2 doses given. Sodium up trending and currently 129 - Continue fluid restricted diet - Continue to follow labs - (5) Hyperlipidemia: Plan: Chronic. Continue atorvastatin 20 mg p.o. every morning (6) Asthma: Plan: Chronic. Stable on medication. No cough, shortness of breath or wheeze Continue albuterol as needed Continue Azelastine and Flonase (7) Diabetes mellitus: Plan: Chronic. Last hemoglobin A1c = 8.4 on 01/10/2022. Patient is eating very little We will hold metformin while inpatient Insulin sliding scale May need to adjust insulin if patient's p.o. intake increases (8) Hypertension: Plan: Chronic. Well-controlled. Continue lisinopril 10 mg p.o. every morning Continue to monitor (9) GERD (gastroesophageal reflux disease): Plan: Chronic. Well-controlled on medications. Continue Protonix 40 mg p.o. twice daily Continue Carafate 1 g p.o. 3 times daily (10) Sleep apnea: Plan: Patient is compliant with CPAP Continue nightly Plan: Lengthy discussion with hematology/oncology, Dr. Guidyr, Vascular surgery and attending providers regarding this case Ultimately, there is no good solution for this patient. Trying to find the safest/best thing to do that poses little risk but his ultimate prognosis is poor Sodium is up trending and PICC line has finally been successfully removed We will keep him overnight given the increased edema of his upper extremity. I was concern for developing compartment syndrome but now that his PICC line has been removed, I believe the swelling will start to improve. Continue K pad to this region for symptomatic relief. Patient can likely be discharged tomorrow (or even potentially later today). I will go back to check on him later Admission and Anticipated Discharge Date Admission Date: January 22, 2022 Subjective Patient seen on daily rounds today. Complaining of significant increased pain of the right upper extremity along with swelling. Attempted PICC line removal X3 different IV nurses unsuccessful. Able to pull back the line approximately 15 cm but in fear of snapping the line, this was aborted. They have tried heat without success. Pain has increased substantially. Still has feeling in the fingers. His sodium level is up trending. He is complaining of nausea (but this is an ongoing chronic problem for him). Otherwise he denies fevers, chills, chest pain, shortness of breath, abdominal pain, nausea or vomiting. Review of Systems Review of Systems: All systems reviewed and are unremarkable except as noted in HPI and below Denies fevers, chills, headache, nasal congestion, sore throat, cough, chest pain, shortness of breath, palpitations, orthopnea, PND, abdominal pain, nausea, vomiting, diarrhea, constipation, dysuria, hematuria, frequency, back pain, joint pain, easy bruising or bleeding, skin lesions or rashes. Physical Exam Physical Exam: General: Resting comfortably in his hospital bed. Very flat affect. Barely opens his eyes. Makes little to no eye contact. He does not appear ill or toxic HEENT: Head is AT/NC. Buccal mucosa is moist and pink Neck: No JVD. Negative hepatojugular reflex Cardiac: RRR without M/G/R Lungs: CTA without W/R/R Abdomen: Normoactive X4. Soft and nontender in all quadrants. Extremities: Right upper extremity with increased erythema and edema today. There is a small blister/bulla in the medial upper arm with some serosanguineous drainage. PICC line noted to right upper extremity. Left upper extremity with mild edema but much less compared to the right. Radial pulse intact bilaterally. Capillary refill +2. Neuro: A&O X4. Cranial nerves II through XII are grossly intact. No focal neuro deficits Skin: Erythema noted of the right upper extremity Psych: Appropriate affect. Pleasant and cooperative Results & Data Results & Data ([facility]) Vital Signs (Past 12 Hours) Vital Signs Temp Pulse Resp BP Pulse Ox 01/24/22 07:30 36.6 C 99 H 20 111/69 93 Laboratory Results Laboratory Results - last 24 hr 01/23/22 01/23/22 01/24/22 17:04 20:41 06:15 PT 18.8 H INR 1.8 H APTT 44.8 H PTT Ratio 1.6 Sodium Potassium Chloride Carbon Dioxide Anion Gap BUN Creatinine Est Cr Clr Drug Dosing Est GFR ( Amer) Est GFR (Non-Af Amer) BUN/Creatinine Ratio Glucose POC Glucose 136 H 139 H Calcium 01/24/22 01/24/22 01/24/22 06:15 08:03 12:10 PT INR APTT PTT Ratio Sodium 128 L Potassium 4.0 Chloride 95 L Carbon Dioxide 23 Anion Gap 10 BUN 22 Creatinine 1.41 H Est Cr Clr Drug Dosing 93.6 Est GFR ( Amer) 68.3 Est GFR (Non-Af Amer) 58.9 BUN/Creatinine Ratio 15.6 Glucose 153 H POC Glucose 169 H 144 H Calcium 8.6 01/24/22 01/24/22 12:32 14:56 PT INR APTT PTT Ratio Sodium 129 L Potassium TNP 4.0 Chloride 94 L Carbon Dioxide 26 Anion Gap 9 BUN 23 Creatinine 1.42 H Est Cr Clr Drug Dosing 93.0 Est GFR ( Amer) 67.7 Est GFR (Non-Af Amer) 58.4 BUN/Creatinine Ratio 16.2 Glucose 133 H POC Glucose Calcium 8.6 PG Care Time/CCT Total # of Minutes Spent Total Time Spent with Patient: Total time spent is greater than 50% in coordination of care (as documented) at patient's floor/unit and/or counseling patient: Coding Level of Care Code 65027 Subseq Hosp Care Lvl 2 Diagnoses DVT of upper extremity (deep vein thrombosis) I82.629 Anti-phospholipid antibody syndrome D68.61 Metastasis from esophageal cancer C79.9; C15.9 Hyponatremia E87.1 Hyperlipidemia E78.5 Asthma J45.909 Diabetes mellitus E11.9 Hypertension I10 Hypertension type: essential hypertension GERD (gastroesophageal reflux disease) K21.9 Sleep apnea G47.30 (1) Hypertension Hypertension type: essential hypertension Qualified Code(s): I10 - Essential (primary) hypertension
[2022-01-24] MEDS: SILVER SULFADIAZINE 1% CR 50 GM JAR EXT SCH ×2 (15:32→21:05)
--- NOTE | 2022-01-24 15:49 | Consultation ---
Date of Consultation January 24, 2022 Assessment & Plan (1) Acute deep vein thrombosis (DVT) of right upper extremity: Pt discussed with Dr Garcia, who reviewed pertinent imaging and felt that gentle tension should loosen the catheter. PICC was successfully removed with gentle tension. No bleeding noted. No new swelling or erythema. Pt tolerated well. Dry dressing was placed. Recommend local wound care to blisters. Pt could use gauntlet compression of RUE to assist in decompression. Will order orthotic eval. Please call if needed. Affected thrombotic vein of extremity: unspecified vein of extremity Qualified Code(s): I82.621 - Acute embolism and thrombosis of deep veins of right upper extremity History of Present Illness Reason for Consultation: [facility] PICC Attending Physician: Jose Ambrose MD History of Present Illness 46 yo m with hx of DVT/ saddle PE, TERRENCE, GERD, esophageal ca with liver mets, HTN, antiphosppholipid syndrome, arthritis, DMII, asthma, hyperlipidemia, admitted with RUE DVT, seen in consultation today for R PICC line that IV team is unable to remove. Pt noted increased edema and pain in RUE and came to [facility] for eval. Has been on coumadin and arrived with RUE and LUE DVT and INR of 6. This was apparently falsely elevated d/t his new chemo treatment, however, he was started on heparin drip and is being switched to lovenox. He has been undergoing chemo tx through RUE PICC line placed a few weeks ago. Removal of the PICC line was recommended, however, the IV team has not been able to remove it despite multiple attempts to do so. Pt admits pain and edema of RUE, controlled wiht medications. Pt deneis CHE, fever, chest pain, SOB, abd pain, N/V, rest pain, claudication, other complaints. RUE venous US demonstrates thrombus in basilic v, as well as DVT in axillary, brachial and subclavian veins. Allergies Allergy/AdvReac Type Severity Reaction Status Date / Time aspirin AdvReac Intermediate GI SYMPTOMS Verified 01/20/22 16:38 Home Medications Medication Instructions Recorded Confirmed Type fexofenadine 180 mg tablet 180 mg PO QAM PRN 07/02/18 01/20/22 History (Jana Allergy) fluticasone propionate 50 1 sprays INTNAS QAM PRN 06/08/19 01/20/22 History mcg/actuation nasal spray,suspension (Flonase Allergy Relief) azelastine 205.5 mcg (0.15 %) 2 sprays INTNAS BID PRN 06/25/19 01/20/22 History nasal spray blood-glucose meter (Advanced #1 ea 08/22/20 01/18/22 Rx Glucose Meter) blood-glucose meter (OneTouch #1 ea 09/22/20 01/18/22 Rx Verio Flex Start) blood sugar diagnostic (OneTouch #100 ea 10/03/20 01/18/22 Rx Verio test strips) lancets 30 gauge (BD Ultra-Fine II #100 ea 07/05/21 01/18/22 Rx Lancets) nebulizer kit #1 ea 12/25/21 01/18/22 Rx metformin 500 mg tablet 500 mg PO BID 12/26/21 01/20/22 History albuterol sulfate 90 mcg/actuation 2 puff INHALATION QID PRN #18 g 12/31/21 01/20/22 Rx aerosol inhaler (Ventolin HFA) atorvastatin 20 mg tablet 20 mg PO QAM 01/04/22 01/20/22 History lisinopril 10 mg tablet 10 mg PO QAM 01/04/22 01/20/22 History albuterol sulfate 2.5 mg INHALATION QID PRN 01/09/22 01/20/22 History warfarin 5 mg tablet 10 mg PO DAILY@1700 01/09/22 01/20/22 History sennosides 8.6 mg tablet (Senokot) 17.2 mg PO QAM #60 tab 01/15/22 01/20/22 Rx lorazepam 0.5 mg tablet 0.5 mg PO TID PRN tab 01/16/22 01/20/22 History pantoprazole 40 mg tablet,delayed 40 mg PO BID #180 tab 01/17/22 01/20/22 Rx release (Protonix) Bifidobacterium infantis 4 mg 4 mg PO DAILY 01/20/22 01/20/22 History capsule (Align) capecitabine 500 mg tablet 500 mg PO Q12 01/20/22 01/20/22 History docusate sodium 100 mg capsule 100 mg PO TID PRN 01/20/22 01/20/22 History lorazepam 0.5 mg tablet 0.5 mg PO HS PRN 01/20/22 01/20/22 History ondansetron HCl 8 mg tablet 8 mg PO Q8 PRN 01/20/22 01/20/22 History prochlorperazine maleate 10 mg 10 mg PO Q6 PRN 01/20/22 01/20/22 History tablet sucralfate 100 mg/mL oral 10 ml PO TID PRN 01/20/22 01/20/22 History suspension tramadol 50 mg tablet 50 mg PO BID 01/20/22 01/20/22 History Patient History Medical History Anticoagulant long-term use Asthma Well controlled with inhalers Diabetes mellitus Esophageal cancer, stage IV Presumed per CT scan per general surgery records. Reason for port placement GERD (gastroesophageal reflux disease) History of anesthesia reaction Woke up during cataract procedure and "attempted to walk off the table" and was told he should always be "put completely to sleep". 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 On Lovenox Sleep apnea CPAP Surgical History History of cataract surgery L EYE History of left knee surgery History of liver biopsy History of surgery (01/08/22) Attempted Insertion Access Port with Fluoroscopy(Left) - [facility], 01/08/2022 History of tooth extraction History of umbilical hernia repair Family History Father Family history of diabetes mellitus FHx: skin cancer Cancer FHx: bladder cancer Mother FHx: kidney cancer Family history of diabetes mellitus Cancer Brother Family history of diabetes mellitus Family/Other Coronary heart disease Grandmother (Paternal) FHx: colon cancer Social History Smoking Status: Never smoker Tobacco Type: Smokeless Tobacco (Dip or Chew) Second Hand Exposure: No; Do You Dip or Chew Tobacco: No; Hx Alcohol Use: No Hx Substance Use: No Preferred Language: Hebrew Communication Ability: Effective Visual Impairment: No Limitations Lacquer Maker Required: No Beliefs That Will Affect Care: None Current Living Situation: Spouse Current Living Situation Comment: home with current occupational status: employed Other Information That Helps Us Care for You: No Feels Safe at Home: Yes Safety Concerns: Feels Safe At This Time during the past year weight has: remained stable Assistive Devices: None Review of Systems Review of Systems: All systems reviewed & are unremarkable except as noted in HPI & below Physical Exam Constitutional: WD/WN, vitals as above + obese, cooperative and comfor table; not in distress ENMT: Ears: no hearing impairment Neck: trachea midline Respiratory: normal respiratory effort, lungs clear to auscultation Auscultation: + diminished lung sounds Cardiovascular: Rate/Rhythm: regular rate and regular rhythm Vessels: femoral pulses present, posterior tibial pulses present, dorsalis pedis pulses present and radial pulses present; + abnormal peripheral pulses Extremities: normal capillary refill, + edema (RUE +3, LUE +2) and + vascular access device (RUE PICC partially removed) Gastrointestinal (Abdomen): Inspection/Auscultation: abdomen normal to inspection and normal bowel sounds Percussion/Palpation: abdomen soft; abdomen nontender Musculoskeletal: no cyanosis or clubbing, extremities motor strength 5/5 Skin: RUE blisters noted volar/medial distal upper arm. faint erythema RUE. Neurologic: moves all extremities and awake; no focal motor deficits and not confused Psychiatric: A+Ox3, euthymic affect Results & Data ([facility]) Vital Signs (Past 12 Hours) Vital Signs Temp Pulse Resp BP Pulse Ox 01/24/22 07:30 36.6 C 99 H 20 111/69 93
[2022-01-24] MEDS ORDERED: SODIUM CHLORIDE 1 GM TABLET PO ONE (17:00)
[2022-01-24] MEDS: MoRPHine SULFATE 4 MG/ML 1 ML CARP\\VIAL IV PRN (21:50)
[2022-01-25 06:39] LABS: Basophils # (auto) 0.04 K/uL (0-0.2); Basophils % (auto) 0.6 %; Eosinophils # (auto) 0.18 K/uL (0-0.5); Eosinophils % (auto) 2.8 %; Hematocrit (blood only) 38.2 % (42-52); Hemoglobin 13.1 g/dL (14.0-18.0); Immature Granulocytes # (auto) 0.04 K/uL (0.00-0.02); Immature Granulocytes % (auto) 0.6 %; Lymphocytes # (auto) 1.08 K/uL (1.2-3.4); Mean Corpuscular Hgb Conc 34.3 g/dL (32-36); Mean Corpuscular Volume 84.5 fL (80-100); Mean Platelet Volume 8.6 fL (7.4-10.4); Monocytes # (auto) 0.62 K/uL (0.11-0.59); Monocytes % (auto) 9.8 %; Neutrophils # (auto) 4.38 K/uL (1.4-6.5); Neutrophils % (auto) 69.2 %; Platelet Count 194 K/uL (130-400); RDW Standard Deviation 43.2 fL (36.4-46.3); Red Blood Count 4.52 M/uL (4.7-6.1); White Blood Count 6.34 K/uL (4.8-10.8)
[2022-01-25 06:52] LABS: Partial Thromboplastin Ratio 1.3; Partial Thromboplastin Time 36.4 Seconds (21.0-31.0)
[2022-01-25 07:14] LABS: BUN Creatinine Ratio 17.8 (10-20); Calcium 8.5 mg/dl (8.5-10.1); Creatinine Clr Calc Pharmacy 86.8 ml/min; Est GFR (African American) 62.3 ml/min; Est GFR (Non-African American) 53.8 ml/min; Potassium 4.1 mmol/L (3.5-5.1)
[2022-01-25] MEDS: PANTOprazole 40 MG TAB PO SCH (08:05)
[2022-01-25] MEDS: LORazepam 0.5 MG TAB PO PRN (08:05)
[2022-01-25] MEDS: lisinopril 10 MG TAB PO SCH (08:05)
[2022-01-25] MEDS: ATORVASTATIN 20 MG TAB PO SCH (08:06)
[2022-01-25] MEDS: SENNA 8.6 MG TAB PO SCH (08:06)
[2022-01-25] MEDS: SILVER SULFADIAZINE 1% CR 50 GM JAR EXT SCH (08:08)
[2022-01-25] MEDS: traMADol HCL 50 MG TABLET PO SCH (08:12)
[2022-01-25] MEDS: CAPECITABINE PO SCH (09:32)
[2022-01-25] MEDS: INSULIN ASPART PER UNIT SC SCH ×2 (09:34→12:33)
[2022-01-25] MEDS: ONDANSETRON INJ 2 MG/ML 2 ML VIAL IV PRN (09:38)
[2022-01-25] MEDS: ENOXAPARIN 150 MG/ML SYR SQ SCH (11:26)
[2022-01-25] MEDS: CALCIUM CARBONATE 500 MG CHEWABLE TAB PO PRN (11:28)
[2022-01-25] MEDS: PROCHLORPERAZINE MALEATE 10 MG TAB PO PRN (12:35)
--- NOTE | 2022-01-25 12:56 | Discharge Summary ---
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 Patient had a CTA of the chest performed on 12/26/21 for acute SOB/rule out PE which revealed numerous ill-defined lesions of the liver suggestive of hepatic metastasis as well as mild esophageal wall thickening. Dedicated CT of the abdomen with abnormal wall thickening and infiltration below the GE junction - possibly representing esophageal/gastric tumor . He had an FNA of one of the liver lesions on 12/31/21 which revealed adenocarcinoma. Patient was to have a Mediport placed on 01/14/22 for chemotherapy. For this procedure his home Lovenox was held briefly. Unfortunately the port placement was not successful. Patient then developed shortness of breath, pain and redness of the RLE. He was seen in the ER and found to have bilateral PE secondary to extensive bilateral DVTs. Patient was admitted to [facility] from 01/09/22 - 01/15/22 for management. He was managed with a heparin gtt with Coumadin. He was discharged home on Coumadin 10mg daily with Lovenox bridging (135mg BID with overlap of at least 2 days). Patient received his first course of chemotherapy on 01/17/22 through RUE PICC line. He is on Xeloda daily. His next dose of IV chemotherapy is 02/07/22 per . He returns to the ER today with pain and swelling in his RUE as well as worsening pain in the posterior portion of both legs. He denies fever, chills, chest pain, palpitations, SOB. Denies abdominal pain, diarrhea, melena, hematochezia. He does have some intermittent nausea as well as poor appetite. No additional complaints at this time. ER workup revealed DVT in RUE at site of PICC line. Also with supratherapeutic INR of 6.8. ER Course: Morphine 2mg IV, Zofran 4mg IV, NSS at 125mL/hr x 1L Principal Diagnosis Right upper extremity DVT s/p PICC line removal Coumadin failure Discharge Exam GENERAL: Well-developed, well-nourished. NAD. LUNGS: Clear to auscultation bilaterally. No accessory muscle use. No W/R/R. CARDIOVASCULAR: Regular rate and rhythm. No M/G/R. No JVD. ABDOMEN: Soft, non-tender and non-distended. BS normal x 4 quad. EXTREMITIES: Extensive swelling RUE but radial/ulnar pulses both +2/4. Sensation intact. No pallor. Mildly tender. NEUROLOGIC: A&O x3. PSYCHIATRIC: Cooperative. Appropriate mood and affect. SKIN: Warm, dry, intact. Discharge Data Allergies Allergy/AdvReac Type Severity Reaction Status Date / Time aspirin AdvReac Intermediate GI SYMPTOMS Verified 01/20/22 16:38 Consultations 01/20/22 19:43 ED Decision to Admit Stat 01/20/22 22:07 Consult Hematology Routine 01/24/22 13:11 Consult Vascular Surgery Routine Ordered Studies Venous Doppler Study 01/20/22 16:48 ULTRASOUND RIGHT UPPER EXTREMITY VENOUS CLINICAL HISTORY: Right arm pain and swelling. PICC line. COMPARISON STUDY: Chest x-ray dated 01/20/2022. TECHNIQUE: Real-time, grayscale, and color Doppler sonography of the deep veins of the right upper extremity is performed. Compression and augmentation were utilized. FINDINGS: A PICC line is in place from a right basilic approach. There is nearly occlusive to occlusive deep venous thrombosis identified in the right subclavian, axillary, and brachial veins. Occlusive superficial venous thrombus is noted in the basilic vein. The right internal jugular vein is patent and normally compressible. The cephalic vein appears clear. The visualized radial and ulnar veins are patent. IMPRESSION: 1. A right PICC line is in place from a basilic approach. 2. There is extensive and nearly occlusive to occlusive right upper extremity deep venous thrombosis as above. 3. Occlusive superficial venous thrombus is identified in the basilic vein around the PICC line. ACT 112: Negative or not required by law. Electronically signed by: Kartik Mcfarlane M.D. 01/20/2022 7:07 PM Chest X-Ray 01/20/22 16:49 SINGLE VIEW CHEST CLINICAL HISTORY: Sepsis. FINDINGS: An AP, portable, semierect chest radiograph is compared to study dated 01/11/2022. Correlation is made with chest CT dated 01/09/2022. A right PICC line is unchanged in position. The heart is enlarged. There is pulmonary vascular congestion. There is mild bibasilar atelectasis. No airspace consolidation or large pleural effusion is identified. No pneumothorax is seen. The skeletal structures appear osteopenic. The bony thorax is grossly intact. IMPRESSION: 1. Cardiomegaly with mild pulmonary vascular congestion. 2. No airspace consolidation or large pleural effusion is identified. ACT 112: Negative or not required by law. Electronically signed by: Kartik Mcfarlane M.D. 01/20/2022 8:11 PM Venous Doppler Study 01/21/22 00:00 US venous doppler LE BI CLINICAL HISTORY: assess for new DVT or propagation of clot . Continued leg pain and swelling COMPARISON: None available at the time of this dictation. TECHNIQUE: Bilateral lower extremity real-time compression venous ultrasound with Color Doppler imaging. Utilizing real-time ultrasonic imaging multiple real time high-resolution ultrasonic images with compression and noncompression maneuvers of the deep venous system in addition to color doppler imaging were performed from the common femoral vein through the proximal calf veins. FINDINGS: Compared to previous examination, there is no evidence for thrombus seen within the greater saphenous vein on the right to the level of the calf. There is still occlusive thrombus present within the proximal to distal calf. Thrombus is again seen within the posterior tibial and peroneal veins which is also occlusive. No evidence for deep vein is thrombosis is seen. On the left side, thrombus is again seen within the greater saphenous vein just distal to the common femoral vein and extending into the calf. Minimal flow is seen proximally with occlusive thrombus present from the mid thigh to the calf. Thrombus is again seen within the posterior tibial and peroneal veins. No evidence for deep vein is thrombosis is seen. Impression: 1. Compared to previous examination, there is improvement of superficial thrombophlebitis on the right and no significant change on the left. 2. No new deep vein is thrombosis is identified. ACT 112: Negative or not required by law. Electronically signed by: Fili Olea M.D. 01/21/2022 9:12 AM Extremity Venous Study 01/21/22 13:32 US venous doppler UE LT CLINICAL HISTORY: edema PROCEDURE: Left upper extremity real-time compression venous ultrasound with Duplex and Color Doppler imaging. FINDINGS: Utilizing real-time ultrasonic imaging multiple real time high-resolution ultrasonic images of the deep venous system were performed from the forearm through the subclavian vein including evaluation of the jugular vein. Compression real time ultrasonic imaging was performed in addition to color Doppler imaging and duplex Doppler ultrasound with velocity spectral profile analysis. Deep venous thrombosis seen in the left brachial and ulnar veins. Impression: Deep venous thrombus is seen in the left brachial and ulnar veins. ACT 112: Negative or not required by law. Electronically signed by: Lon Wills M.D. 01/21/2022 2:47 PM Hospital Course (1) DVT of upper extremity (deep vein thrombosis): 46-year-old white male with an underlying past medical history of esophageal cancer with hepatic mets, antiphospholipid antibody syndrome, and lupus anticoagulant and history of multiple VTE in the past on chronic Coumadin -Recent diagnosis of esophageal cancer led to pause and anticoagulation therapy for Mediport insertion when he subsequently developed small bilateral PE and DVT of the lower extremities -PICC line inserted to the right upper extremity given unsuccessful Mediport attempt -Has since been back on Coumadin with Lovenox bridge until therapeutic. Coumadin has been therapeutic and supratherapeutic since -Despite supratherapeutic INR, patient developed edema of the right upper extremity prompting him to seek medical attention. Venous Doppler shows extensive DVT of the right upper extremity -Patient also with left upper extremity edema. Venous Doppler confirms DVT in the left arm as well -Patient has been very difficult to determine best course of treatment given he clotted while not only therapeutic but supratherapeutic on Coumadin. That being said, plan is for long-term Lovenox. I have discussed this in great detail with Dr. Guidry, Dr. Bishop and vascular surgery. Patient is not a candidate for TPA given initial INR of 6 and bleeding risk. Per oncology, his chemotherapy agent (Xeloda) is apparently known to cause falsely elevated INR. She reports that he potentially could be subtherapeutic. Discussed this with pharmacy and also Dr. Guidry who reports his chemotherapy agent can cause elevated INR due to metabolism of the drug but to her knowledge, was not known to cause falsely elevated INRs. At any rate, this is ultimately, this is considered a Coumadin failure. -Despite elevated INR up from, needed treatment for the active DVT's. Treated with a Heparin gtt (as can be turned off in the event of bleeding). INR has been followed. Heparin drip stopped and converted to Lovenox once INR was <2.0 -PICC line not removed upfront given elevated INR and risk of bleeding but also the need to stabilize these clots (heparin) given risk of embolization. Mixed literature regarding removal of PICC line since functional. Up-to-date reports can stay in pending resolution of the clots. Discussed in great detail with Dr. Bishop who recommends removal of the PICC given he still has significant edema and pain (more for symptomatic relief) as literature suggests line safe to stay in place. She reports that these symptoms will likely not resolve without removal of PICC. Over the past several days, his pain and swelling has increased only reiterating that the PICC line should be removed. There was multiple attempts made by IV team to remove the PICC but they were unsuccessful. Vascular surgery was consulted for this given risk of snapping the line within the vein. Vascular surgery was successfully able to remove the PICC line. Recommending a compression device. Orthotics consulted, measured for custom device and will be delivered once patient returns home. There is now some bulla and mild breakdown given the amount of edema. Patient does have a low sodium and is likely third spacing at this point. He should elevate the arm. Can gently clean with mild soap and water and apply barrier ointment to protect skin. (2) Anti-phospholipid antibody syndrome: As above. -discussed steroids with oncology who reports no added benefit at this time (3) Metastasis from esophageal cancer: Patient with newly diagnosed adenocarcinoma with metastases to the liver. Started on chemotherapy. Continue capecitabine 500 mg p.o. every 12 Zyprexa taking at home Consider palliative care consultation to assist with symptom management, family and patient support and navigation of this difficult diagnosis line -Lengthy discussion with hematology/oncology. Patient will need IV chemotherapy every 21 days but this can be given in a peripheral IV. Ideally, he would have a Mediport or some type of permanent line but he is hypercoagulable and the fear is that this line would clot (as clots developed while supratherapeutic on Coumadin). Plan is for peripheral IV unless unable to obtain IV access. Can consider referral to vascular as an OP as they will insert line while on lovenox (4) Hyponatremia: suspect SIADH - sodium downtrending over past month. Down to 127 on 01/23 - urine osmo > serum osmo - likely in setting of malignancy, chemotherapy and chemo induced nausea and too much free water (as pushing his fluids) - sodium Bicarb 1G X2 doses given. Sodium up trending and currently 129 - Continue fluid restricted diet - will repeat blood work in 1 week to reassess Na level. - Could consider oral Lasix as outpatient PRN (5) Hyperlipidemia: Chronic. Continue atorvastatin 20 mg p.o. every morning (6) Asthma: Chronic. Stable on medication. No cough, shortness of breath or wheeze Continue albuterol as needed Continue Azelastine and Flonase (7) Diabetes mellitus: Chronic. Last hemoglobin A1c = 8.4 on 01/10/2022. Patient is eating very little We will hold metformin while inpatient Insulin sliding scale May need to adjust insulin if patient's p.o. intake increases (8) Hypertension: Chronic. Well-controlled. Continue lisinopril 10 mg p.o. every morning Continue to monitor (9) GERD (gastroesophageal reflux disease): Chronic. Well-controlled on medications. Continue Protonix 40 mg p.o. twice daily Continue Carafate 1 g p.o. 3 times daily (10) Sleep apnea: Patient is compliant with CPAP Continue nightly At this time, pt's swelling is about the same, no s/sx concerning for development of compartment syndrome at this time. Will plan for d/c home today. Advised fluid restriction of about 2L per day due to concern for SIADH. Will repeat labs in one week and results will be forwarded to his PCP. Could consider oral Lasix PRN. Recommend f/u with Dr. Bishop as scheduled for chemo. Also f/u with PCP within 7 days of discharge. He is felt to be medically and hemodynamically stable for discharge home with home health. Plan has been d/w Dr. Pedraza who has also seen and evaluated this patient prior to d/c and agrees with aforementioned. Total Time Total Time Spent Total Time Spent (In Minutes): >30 minutes Discharge Plan Discharge Items Patient Disposition: Home - Home Health Services Reason For Visit: RUE DVT Discharge Diagnosis: Blood clot in right upper extremity Activity: Resume your previous activity Non-emergency contact: Primary Care Provider Call non-emergency contact if: you have any medication questions and your symptoms worsen Follow-up/Referrals: Chayo Pfeiffer CRNP [Primary Care Provider] - Patricia Bishop MD [Physician] - Diet: Carb Consistent or DM2 Ambulatory Orders: Basic Metabolic Panel (Routine) Timeframe: 1 Week Location: Determined by Patient Ordered By: Karen Pachecotl Attending Provider Instructions: 1. Keep right arm elevated above the level of your heart (utilize pillows to keep right arm propped up). * If your arm swelling begins to get worse, you notice increased pain that is not relieved by medications, or you start to notice coolness or pale skin color, you need to return promptly to the ER for re-evaluation. 2. You will need to remain on Lovenox injections indefinitely until otherwise instructed by your oncologist/electrical tryout person. A new prescription has been sent to your pharmacy. 3. Keep overall fluid intake to no more than 2L every day. This is due to your body's inability to correctly pee off the excess fluid that you take in which inadvertently lowers or dilutes your sodium level. If your sodium level gets too low, this can cause other medical issues such as seizures. * You are to be given a lab slip to have your sodium rechecked, we advise you do this in about 1 week. Results to be forwarded to your PCP for review. 4. Clean/irrigate any open sores on your arm with some saline (can purchase over the counter at local pharmacy). Pat dry. Apply thin layer of silvadene cream (sent to pharmacy) and cover with gauze or nonadhesive dressing. 5. We recommend that you follow up with Dr. Bishop in the office as scheduled. 6. We also advise that you follow up with your family healthcare provider within 1 week of discharge. 7. In the event of any questions, feel free to contact the nonemergen number. In the event of a medical emergency, call 911. Pending Studies at Discharge: No Stand-Alone Forms: My [facility] O[employer] VR, Smoking Cessation Medications and DC Order Prescriptions: New enoxaparin [Lovenox] 150 mg/mL Syringe 150 mg subcut Q12H 30 Days Qty: 60 RF: 0 silver sulfadiazine [Silvadene] 1 % cream 1 applic topical DAILY Qty: 20 RF: 0 Continued (DME) blood-glucose meter [OneTouch Verio Flex Start] Kit See Rx Instructions .ROUTE .MEDSUPPLY Qty: 1 RF: 0 (DME) OneTouch Verio test strips Strip See Rx Instructions .ROUTE .MEDSUPPLY Qty: 100 RF: 3 albuterol sulfate [Ventolin HFA] 90 mcg/actuation HFA aerosol inhaler 2 puff inhalation QID PRN (Reason: Shortness Of Breath) Qty: 18 RF: 6 lorazepam 0.5 mg tablet 0.5 mg PO TID PRN (Reason: Anxiety) RF: 0 pantoprazole [Protonix] 40 mg tablet,delayed release (DR/EC) 40 mg PO BID Qty: 180 RF: 3 azelastine 0.15 % (205.5 mcg) spray,non-aerosol 2 sprays INTNAS BID PRN (Reason: Congestion) RF: 0 (DME) nebulizer kit See Rx Instructions .Route .MEDSUPPLY Qty: 1 RF: 0 fluticasone propionate [Flonase Allergy Relief] 50 mcg/actuation spray,suspension 1 sprays INTNAS QAM PRN (Reason: Congestion) RF: 0 (DME) blood-glucose meter [Advanced Glucose Meter] Misc See Rx Instructions .ROUTE .MEDSUPPLY Qty: 1 RF: 0 (DME) lancets [BD Ultra-Fine II Lancets] 30 gauge misc See Rx Instructions .Route Qty: 100 RF: 4 fexofenadine [Jana Allergy] 180 mg Tablet 180 mg PO QAM PRN (Reason: Allergic Symptoms) RF: 0 albuterol sulfate 2.5 mg /3 mL (0.083 %) solution for nebulization 2.5 mg inhalation QID PRN (Reason: Shortness Of Breath Or Wheezing) RF: 0 sennosides [Senokot] 8.6 mg Tablet 17.2 mg PO QAM Qty: 60 RF: 0 metformin 500 mg tablet 500 mg PO BID RF: 0 atorvastatin 20 mg tablet 20 mg PO QAM RF: 0 lisinopril 10 mg tablet 10 mg PO QAM RF: 0 ondansetron HCl 8 mg tablet 8 mg PO Q8 PRN (Reason: Nausea) RF: 0 prochlorperazine maleate 10 mg tablet 10 mg PO Q6 PRN (Reason: Nausea) RF: 0 capecitabine 500 mg tablet 500 mg PO Q12 RF: 0 lorazepam 0.5 mg tablet 0.5 mg PO HS PRN (Reason: Anxiety) RF: 0 docusate sodium 100 mg Capsule 100 mg PO TID PRN (Reason: Constipation) RF: 0 Align 4 mg Capsule 4 mg PO DAILY RF: 0 sucralfate 100 mg/mL suspension 10 ml PO TID PRN (Reason: gastric distress) RF: 0 Changed tramadol 50 mg tablet 50 mg PO Q4H PRN (Reason: pain) Qty: 18 RF: 0 Discontinued warfarin 5 mg tablet 10 mg PO DAILY@1700 RF: 0 Discharge Orders: Discharge Order (Routine); Ordered 01/25/22 Ordered By: Karen Philip/Other Patient Handouts: DVT Dc, Understanding Compartment Syndrome Admission Data Admit Date/Time: 01/22/22 10:08 Attending Provider: Denzel Pedraza Admit Provider: Annemarie Lei Primary Care Provider: Chayo Pfeiffer. Other Providers: Annemarie Lei ; Patricia Bishop ; Flex Garcia ; [facility],Home Healthcare Other Interventions: Discharge Summary Assessment (RN) Last Done: 01/25/22 13:44 Supervising Physician Co-Signing Physician Notes I personally saw and examined the patient. I verified all rock points and agree with Karen Emery PA-C with the following exceptions and/or additions: 46 yo male admission for right upper extremity pain and swelling while on warfarin. Due to liver mets unable to determine if elevated INR because of his liver rather than warfarin. PICC line removed and he was switched to Lovenox for DVT treatment. Please continue to follow sodium levels, suspect SIADH and may need lasix in addition to fluid restriction on follow up. Wuold avoid salt tabs due to fluid retention. Coding Level of Care Code D/C DAY MANAGEMENT >30 MINS Diagnoses DVT of upper extremity (deep vein thrombosis) I82.629 Anti-phospholipid antibody syndrome D68.61 Metastasis from esophageal cancer C79.9; C15.9 Hyponatremia E87.1 Hyperlipidemia E78.5 Asthma J45.909 Diabetes mellitus E11.9 Hypertension I10 Hypertension type: essential hypertension GERD (gastroesophageal reflux disease) K21.9 Sleep apnea G47.30 [facility] Attestation I certify that this patient is under my care and that I, or a physicians salon shampoo assistant working with me, had a face to-face encounter that meets the [facility] [id number] encounter requirements with this patient. The encounter with the patient was in whole, or in part, for the following medical condition, which is the primary reason for home health care (list medical condition): I certify that, based on my findings, the following services are medically necessary home health services: My clinical findings support the need for the above services because: Further, I certify that my clinical findings support that this patient is homebound (i.e. absences from home require considerable and taxing effort and are for medical reasons or jew services or infrequently or of short duration when for other reasons) because: Certification for Home Health Services: Based on the above findings, I certify that this patient is confined to the home and needs intermittent group home care, physical therapy and/or speech therapy or continues to need occupational therapy. The patient is under my care, and I have initiated the establishment of the plan of care. This patient will be followed by a physician who will periodically review the plan of care.
== END 2022-01-25 14:37 | disposition home health service (06) | DRG 315 ==
LOC: ED 16:07 → 3E 16:07 → SUATTDRO 21:06 → 3E 21:49 → SUATTDRO 01-22 10:08

== ENCOUNTER 2022-03-27 11:50 | Inpatient (IN) ==
[2022-03-27 12:58] LABS: Basophils # (auto) 0.01 K/uL (0-0.2); Basophils % (auto) 0.4 %; Eosinophils # (auto) 0.08 K/uL (0-0.5); Eosinophils % (auto) 2.8 %; Hematocrit (blood only) 30.2 % (42-52); Hemoglobin 10.2 g/dL (14.0-18.0); Lymphocytes # (auto) 0.81 K/uL (1.2-3.4); Lymphocytes % (auto) 28.6 %; Mean Corpuscular Hemoglobin 31.7 pg (25-34); Mean Corpuscular Hgb Conc 33.8 g/dL (32-36); Mean Corpuscular Volume 93.8 fL (80-100); Mean Platelet Volume 8.6 fL (7.4-10.4); Monocytes # (auto) 0.57 K/uL (0.11-0.59); Monocytes % (auto) 20.1 %; Neutrophils # (auto) 1.36 K/uL (1.4-6.5); Neutrophils % (auto) 48.1 %; Platelet Count 103 K/uL (130-400); RDW Coefficient of Variation 21.7 % (11.5-14.5); Red Blood Count 3.22 M/uL (4.7-6.1); White Blood Count 2.83 K/uL (4.8-10.8)
[2022-03-27] MEDS ORDERED: ACETAMINOPHEN 325 MG TAB PO PRN (12:58)
[2022-03-27] MEDS ORDERED: ONDANSETRON INJ 2 MG/ML 2 ML VIAL IV PRN (12:58)
--- NOTE | 2022-03-27 12:58 | Emergency Department Note ---
Impression & Plan Stroke, Liver metastases, Dizziness, Pancytopenia, Hypomagnesemia, COVID-19 ED Provider Note NAME: ANA WORRELL AGE: 46 SEX: M : 1975 ARRIVES VIA: Walk-In INFORMANT: Patient ED PROVIDER(S): Jarek Martins DO CHIEF COMPLAINT: Dizzy HPI: Patient is a 46-year-old male with stage IV gastric cancer with mets to liver that presents to the ER for dizziness which started he believes within the past week. noticed this on Friday.. He had an MRI of his brain which showed a CVA in the left parietal region and was referred in from MRI today. He admits to nausea but has been consistent with chemo. Last dose was about a week ago. Denies any new headache or change in vision. No focal weakness of the upper or lower extremities. No belly pain. No dysuria urgency or frequency. No other exacerbating or remitting factors. ROS: See above HPI for pertinent positives & negatives. A total of 10 systems reviewed and were otherwise negative. PAST MEDICAL HISTORY:See Below PAST SURGICAL HISTORY:See Below FAMILY HISTORY:See Below SOCIAL HISTORY:See Below HOME MEDICATIONS:See Below ALLERGIES:See Below VITALS:See Below PHYSICAL EXAMINATION: GENERAL: Sitting up in bed, alert, well appearing, well nourished, no distress, non-toxic EYE EXAM: normal conjunctiva. PERRL and EOM's intact. OROPHARYNX: mucous membranes are moist LUNGS: Clear to auscultation. Normal chest wall mechanics HEART: no murmurs, S1 normal and S2 normal ABDOMEN: abdomen soft, non-tender, normo-active bowel sounds, no masses, no rebound or guarding. BACK: Back is symmetrical on inspection and there is no deformity, no midline tenderness, no CVA tenderness. UPPER EXTREMITIES: upper extremities are grossly normal. LOWER EXTREMITIES: No pitting edema. NEURO EXAM: Normal sensorium, cranial nerves II-XII grossly intact, normal speech, no gross weakness of arms, no gross weakness of legs. No drift. Finger to nose intact. Gross sensation intact. MEDICAL DECISION MAKING: Patient is a 46-year-old male who presents ER for the above-stated complaint. IV was established blood work was obtained. Labs show pancytopenia with a white count of 2.8, hemoglobin of 10 platelets of 103 likely secondary to chemo. BMP with mild hypokalemia 3.4. Magnesium low at 1.3. Bili slightly up at 1.4. LFTs were unremarkable. Patient was COVID-positive. CT angios of the head and neck were obtained and unremarkable. He was discussed with the hospitalist due to the CVA. He was admitted for further work-up. Was not given aspirin due to an allergy Triage Nursing notes reviewed. Limited review of prior medical records performed Vital Signs: reviewed and remarkable for tachy Differential diagnosis: Differential Diagnosis includes but is not limited to ischemic Stroke, hemorrhagic stroke, bells palsy, mass, neoplasm, migraine headache, seizure, subarachnoid hemorrhage, TIA, and transient global amnesia. ER treatment provided: See below Diagnostics interpreted by me: ECG: Sinus tachycardia rate of 106 Normal axis No PVCs QTC 454 Cardiac Monitoring: An order was placed for continuous cardiac monitoring. The monitor shows a rate of 110 with sinus rhythm. Laboratory studies: As stated above and show below. Imaging studies: CT angios of the head and neck were negative Consultation(s): D/w Daniele from [facility] 7 Procedures: none Critical Care: None Past Med/Surg History Medical History Anticoagulant long-term use Asthma Well controlled with inhalers Diabetes mellitus Esophageal cancer, stage IV Presumed per CT scan per general surgery records. Reason for port placement GERD (gastroesophageal reflux disease) History of anesthesia reaction Woke up during cataract procedure and "attempted to walk off the table" and was told he should always be "put completely to sleep". 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 On Lovenox Sleep apnea CPAP Surgical History History of cataract surgery L EYE History of left knee surgery History of liver biopsy History of surgery (01/08/22) Attempted Insertion Access Port with Fluoroscopy(Left) - Carlos Angeles DO 01/08/2022 History of tooth extraction History of umbilical hernia repair Family History Father Family history of diabetes mellitus FHx: skin cancer Cancer FHx: bladder cancer Mother FHx: kidney cancer Family history of diabetes mellitus Cancer Brother Family history of diabetes mellitus Family/Other Coronary heart disease Grandmother (Paternal) FHx: colon cancer Social History Smoking Status: Never smoker Tobacco Type: Smokeless Tobacco (Dip or Chew) Second Hand Exposure: No; Hx Alcohol Use: No Hx Substance Use: No Preferred Language: Romanian Communication Ability: Effective Visual Impairment: No Limitations President Celebrity Acquistion Required: No Beliefs That Will Affect Care: None Current Living Situation: Spouse Current Living Situation Comment: home with current occupational status: employed Feels Safe at Home: Yes Safety Concerns: Feels Safe At This Time during the past year weight has: remained stable Assistive Devices: CPAP Allergies Allergies Allergy/AdvReac Type Severity Reaction Status Date / Time aspirin AdvReac Intermediate GI SYMPTOMS Verified 01/31/22 14:32 Home Meds Home Medications Medication Instructions Recorded Confirmed fexofenadine 180 mg tablet 180 mg PO QAM PRN 07/02/18 01/31/22 (Jana Allergy) fluticasone propionate 50 1 sprays INTNAS QAM PRN 06/08/19 01/31/22 mcg/actuation nasal spray,suspension (Flonase Allergy Relief) azelastine 205.5 mcg (0.15 %) 2 sprays INTNAS BID PRN 06/25/19 01/31/22 nasal spray metformin 500 mg tablet 500 mg PO BID 12/26/21 01/31/22 albuterol sulfate 2.5 mg INHALATION QID PRN 01/09/22 01/31/22 capecitabine 500 mg tablet 500 mg PO Q12 01/20/22 01/31/22 docusate sodium 100 mg capsule 100 mg PO TID PRN 01/20/22 01/31/22 sucralfate 100 mg/mL oral 10 ml PO TID PRN 01/20/22 01/31/22 suspension Previous Rx's Medication Instructions Recorded blood-glucose meter (Advanced #1 ea 08/22/20 Glucose Meter) blood-glucose meter (OneTouch #1 ea 09/22/20 Verio Flex Start) blood sugar diagnostic (OneTouch #100 ea 10/03/20 Verio test strips) lancets 30 gauge (BD Ultra-Fine II #100 ea 07/05/21 Lancets) nebulizer kit #1 ea 12/25/21 albuterol sulfate 90 mcg/actuation 2 puff INHALATION QID PRN #18 g 12/31/21 aerosol inhaler (Ventolin HFA) sennosides 8.6 mg tablet (Senokot) 17.2 mg PO QAM #60 tab 01/15/22 silver sulfadiazine 1 % topical 1 applic TOPICAL DAILY #20 g 01/25/22 cream (Silvadene) hydrocortisone 2.5 % topical cream 1 applic ME DAILY PRN #30 g 01/31/22 with perineal applicator (Proctosol HC) ondansetron HCl 8 mg tablet 8 mg PO Q8 PRN #100 tab 01/31/22 sertraline 50 mg tablet 50 mg PO DAILY #30 tab 01/31/22 tramadol 50 mg tablet 50 mg PO TID #90 tab 01/31/22 atorvastatin 20 mg tablet 20 mg PO QAM #90 tab 02/18/22 CPAP Supplies #1 ea 03/06/22 lorazepam 1 mg tablet 1 mg PO QID #120 tab 03/15/22 Results & Data (ED) Vital Signs Vital Signs - 24 hr 03/27/22 11:53 03/27/22 12:04 03/27/22 12:30 Temperature 36.7 C Temperature Source Temporal Artery Scan Pulse Rate 117 H 112 H Pulse Rate from SpO2 Sensor 106 H Respiratory Rate 17 18 23 Respiratory Effort / Characteristics Non-Labored Blood Pressure 117/76 120/77 116/79 Blood Pressure Mean 89 91 91 Pulse Oximetry 95 96 96 Oxygen Delivery Method Room Air Room Air Sepsis Recent Fever Within 48 Hours No Sepsis New/Unexplained Change in Mental Status N/A Sepsis Action Taken by Nursing No Action Required Laboratory Data Result diagrams: 03/27/22 12:30 03/27/22 12:30 Lab Results 03/27/22 03/27/22 03/27/22 Range/Units 12:30 12:30 12:30 WBC 2.83 L (4.8-10.8) K/uL RBC 3.22 L (4.7-6.1) M/uL Hgb 10.2 L (14.0-18.0) g/dL Hct 30.2 L (42-52) % MCV 93.8 (80-100) fL MCH 31.7 (25-34) pg MCHC 33.8 (32-36) g/dL RDW Std Deviation 74.0 H (36.4-46.3) fL RDW Coeff of Andie 21.7 H (11.5-14.5) % Plt Count 103 L (130-400) K/uL MPV 8.6 (7.4-10.4) fL Immature Gran % (Auto) 0.0 % Neut % (Auto) 48.1 % Lymph % (Auto) 28.6 % Woodward % (Auto) 20.1 % Eos % (Auto) 2.8 % Baso % (Auto) 0.4 % Neut # (Auto) 1.36 L (1.4-6.5) K/uL Lymph # (Auto) 0.81 L (1.2-3.4) K/uL Woodward # (Auto) 0.57 (0.11-0.59) K/uL Eos # (Auto) 0.08 (0-0.5) K/uL Baso # (Auto) 0.01 (0-0.2) K/uL Immature Gran # (Auto) 0.00 (0.00-0.02) K/uL Anisocytosis Present PT 13.1 H (9.0-12.0) Seconds INR 1.2 H (0.9-1.1) APTT 29.1 (21.0-31.0) Seconds PTT Ratio 1.1 Sodium 135 L (136-145) mmol/L Potassium 3.4 L (3.5-5.1) mmol/L Chloride 101 (98-107) mmol/L Carbon Dioxide 27 (21-32) mmol/L Anion Gap 7 (3-11) BUN 11 (6-23) mg/dl Creatinine 0.94 (0.6-1.4) mg/dl Est Cr Clr Drug Dosing 134.8 ml/min Est GFR ( Amer) 111.5 ml/min Est GFR (Non-Af Amer) 96.2 ml/min BUN/Creatinine Ratio 11.7 (10-20) Glucose 154 H (70-99(Fasting)) mg/dl Calcium 8.2 L (8.5-10.1) mg/dl Magnesium 1.3 L (1.7-2.4) mg/dl Total Bilirubin 1.4 H (0.2-1.0) mg/dl AST 15 (13-39) U/L ALT 18 (7-52) U/L Alkaline Phosphatase 66 (34-104) U/L Troponin I High Sens 8.1 (0-20) pg/ml Total Protein 5.5 L (6.0-8.3) gm/dl Albumin 3.4 (3.4-5.0) gm/dl Globulin 2.1 L (2.5-4.0) gm/dl Albumin/Globulin Ratio 1.6 (0.9-2) SARS-CoV-2, RNA, NAAT (NEGATIVE) 03/27/22 Range/Units 12:45 WBC (4.8-10.8) K/uL RBC (4.7-6.1) M/uL Hgb (14.0-18.0) g/dL Hct (42-52) % MCV (80-100) fL MCH (25-34) pg MCHC (32-36) g/dL RDW Std Deviation (36.4-46.3) fL RDW Coeff of Andie (11.5-14.5) % Plt Count (130-400) K/uL MPV (7.4-10.4) fL Immature Gran % (Auto) % Neut % (Auto) % Lymph % (Auto) % Woodward % (Auto) % Eos % (Auto) % Baso % (Auto) % Neut # (Auto) (1.4-6.5) K/uL Lymph # (Auto) (1.2-3.4) K/uL Woodward # (Auto) (0.11-0.59) K/uL Eos # (Auto) (0-0.5) K/uL Baso # (Auto) (0-0.2) K/uL Immature Gran # (Auto) (0.00-0.02) K/uL Anisocytosis PT (9.0-12.0) Seconds INR (0.9-1.1) APTT (21.0-31.0) Seconds PTT Ratio Sodium (136-145) mmol/L Potassium (3.5-5.1) mmol/L Chloride (98-107) mmol/L Carbon Dioxide (21-32) mmol/L Anion Gap (3-11) BUN (6-23) mg/dl Creatinine (0.6-1.4) mg/dl Est Cr Clr Drug Dosing ml/min Est GFR ( Amer) ml/min Est GFR (Non-Af Amer) ml/min BUN/Creatinine Ratio (10-20) Glucose (70-99(Fasting)) mg/dl Calcium (8.5-10.1) mg/dl Magnesium (1.7-2.4) mg/dl Total Bilirubin (0.2-1.0) mg/dl AST (13-39) U/L ALT (7-52) U/L Alkaline Phosphatase (34-104) U/L Troponin I High Sens (0-20) pg/ml Total Protein (6.0-8.3) gm/dl Albumin (3.4-5.0) gm/dl Globulin (2.5-4.0) gm/dl Albumin/Globulin Ratio (0.9-2) SARS-CoV-2, RNA, NAAT POSITIVE A* (NEGATIVE) Administered Medications Atorvastatin Calcium (Atorvastatin 10 Mg Tab) 10 mg PO QAM LETY Stop: 04/26/22 16:59 Last Admin: 03/27/22 16:48 Dose: Not Given Documented by: [id number] Enoxaparin Sodium (Enoxaparin 150 Mg/Ml Syr) 141 mg SQ Q12@0600,1800 LETY Stop: 04/26/22 16:44 Last Admin: 03/27/22 17:21 Dose: 141 mg Documented by: [id number] Magnesium Sulfate/Dextrose (Magnesium Sulfate / D5w) 1 gm in 100 mls @ 50 mls/hr IV Q2H LETY Stop: 03/27/22 22:29 Last Infusion: 03/27/22 17:15 Dose: 50 mls/hr Documented by: [id number] Infusion: 03/27/22 16:12 Dose: 0 mls/hr Documented by: [id number] Admin: 03/27/22 16:11 Dose: 50 mls/hr Documented by: [id number] Lactated Ringer's (Lr) 1,000 mls @ 90 mls/hr IV .Q11H7M ONE Stop: 03/28/22 01:35 Last Infusion: 03/27/22 17:15 Dose: 90 mls/hr Documented by: [id number] Infusion: 03/27/22 16:12 Dose: 0 mls/hr Documented by: [id number] Admin: 03/27/22 16:10 Dose: 90 mls/hr Documented by: [id number] Discontinued Medications Aspirin (Aspirin Chew 324 Mg) 324 mg PO NOW STA Stop: 03/27/22 13:17 Last Admin: 03/27/22 13:21 Dose: Not Given Documented by: [id number] Clopidogrel Bisulfate (Clopidogrel Bisulfate 75 Mg Tab) 75 mg PO NOW ONE Stop: 03/27/22 15:46 Last Admin: 03/27/22 17:20 Dose: 75 mg Documented by: [id number] Ioversol (Optiray 320 125ml) 120 ml IV ONCE ONE Stop: 03/27/22 14:04 Last Admin: 03/27/22 14:04 Dose: 120 ml Documented by: [id number] Potassium Chloride (Potassium Chloride Crtab 20 Meq Tabcr) 40 meq PO NOW STA Stop: 03/27/22 14:30 Last Admin: 03/27/22 16:11 Dose: 40 meq Documented by: [id number] Imaging Data Radiologist's Impression: Head CTA 03/27/22 12:51 CT ANGIOGRAM OF THE BRAIN; CT ANGIOGRAM OF THE NECK CLINICAL HISTORY: Stroke. COMPARISON STUDY: CT of the brain dated 03/29/2021. MRI of the brain dated 03/27/2022. CT of the neck dated 08/03/2017. TECHNIQUE: Follow-up the IV administration of 120 of Optiray 320, CT angiogram of the head and neck was performed from the aortic arch to the vertex. Images are reviewed in the axial, sagittal, and coronal planes. 3-D MIPS images are created and assessed. IV contrast was administered without complication. All measurements were calculated based on NASCET criteria. A dose lowering technique was utilized adhering to the principles of ALARA. CT DOSE: 706.85 mGy.cm FINDINGS: Brain parenchyma: There is no evidence of hemorrhage, mass effect, or acute territorial ischemia noting angiographic phase technique. There is no evidence of enhancing mass lesion on the angiogram phase images. The ventricles, sulci, and cisterns are normal in configuration. Wilson-white matter differentiation is preserved. No extra-axial fluid collection is seen. Thoracic aorta: Visualized portions of the thoracic aorta are normal in caliber. The aortic arch demonstrates standard 3-vessel anatomy. Right carotid arterial system: The right common carotid artery is widely patent, as are the right internal and external carotid arteries. Left carotid arterial system: The left common carotid artery is widely patent, as are the left internal and external carotid arteries. Vertebral arteries: The vertebral arteries are widely patent bilaterally and codominant. Subclavian arteries: Widely patent bilaterally. Intracranial vasculature: The internal carotid arteries are patent at the skull base, as are the anterior and middle cerebral arteries bilaterally. The vertebrobasilar system and posterior cerebral arteries are widely patent. The vertebral arteries are codominant. There is no aneurysm, high-grade stenosis, or focal vessel cut off seen throughout the intracranial circulation. Jugular veins: Patent bilaterally. Dural sinuses: Patent. Lung apices: Partially visualized upper lobe lung parenchyma appears clear. Soft tissues: The visualized pharyngeal soft tissues are normal in appearance noting angiographic phase technique. The oropharyngeal airway appears widely patent. The salivary and thyroid glands are normal in appearance. No cervical lymphadenopathy is seen. A 3.4 cm lobulated soft tissue lesion in the right suboccipital soft tissues is unchanged. Skeletal structures: The skeletal structures are osteopenic. The calvarium appears intact. The cervical spine is maintained noting multilevel spondylosis. No lytic or blastic lesion is seen. Orbits: The bony orbits are intact. Orbital contents are normal as visualized noting a left ocular lens implant. Sinuses and mastoids: The paranasal sinuses are clear. There is a small left mastoid effusion. The right mastoid air cells are well pneumatized. IMPRESSION: 1. There is no evidence of hemorrhage, mass effect, or acute territorial ischemia noting angiographic phase technique. The small lacunar infarct in the left periventricular white matter seen by MRI was not visualized by CT. 2. Unremarkable CT angiogram of the brain. 3. Unremarkable CT angiogram of the neck. 4. A right suboccipital soft tissue mass is pathologically indeterminant and has been present dating back to at least 2017. ACT 112: Negative or not required by law. Electronically signed by: Kartik Mcfarlane M.D. 03/27/2022 2:19 PM Neck CTA 03/27/22 12:51 CT ANGIOGRAM OF THE BRAIN; CT ANGIOGRAM OF THE NECK CLINICAL HISTORY: Stroke. COMPARISON STUDY: CT of the brain dated 03/29/2021. MRI of the brain dated 03/27/2022. CT of the neck dated 08/03/2017. TECHNIQUE: Follow-up the IV administration of 120 of Optiray 320, CT angiogram of the head and neck was performed from the aortic arch to the vertex. Images are reviewed in the axial, sagittal, and coronal planes. 3-D MIPS images are created and assessed. IV contrast was administered without complication. All measurements were calculated based on NASCET criteria. A dose lowering technique was utilized adhering to the principles of ALARA. CT DOSE: 706.85 mGy.cm FINDINGS: Brain parenchyma: There is no evidence of hemorrhage, mass effect, or acute territorial ischemia noting angiographic phase technique. There is no evidence of enhancing mass lesion on the angiogram phase images. The ventricles, sulci, and cisterns are normal in configuration. Wilson-white matter differentiation is preserved. No extra-axial fluid collection is seen. Thoracic aorta: Visualized portions of the thoracic aorta are normal in caliber. The aortic arch demonstrates standard 3-vessel anatomy. Right carotid arterial system: The right common carotid artery is widely patent, as are the right internal and external carotid arteries. Left carotid arterial system: The left common carotid artery is widely patent, as are the left internal and external carotid arteries. Vertebral arteries: The vertebral arteries are widely patent bilaterally and codominant. Subclavian arteries: Widely patent bilaterally. Intracranial vasculature: The internal carotid arteries are patent at the skull base, as are the anterior and middle cerebral arteries bilaterally. The vertebrobasilar system and posterior cerebral arteries are widely patent. The vertebral arteries are codominant. There is no aneurysm, high-grade stenosis, or focal vessel cut off seen throughout the intracranial circulation. Jugular veins: Patent bilaterally. Dural sinuses: Patent. Lung apices: Partially visualized upper lobe lung parenchyma appears clear. Soft tissues: The visualized pharyngeal soft tissues are normal in appearance noting angiographic phase technique. The oropharyngeal airway appears widely patent. The salivary and thyroid glands are normal in appearance. No cervical lymphadenopathy is seen. A 3.4 cm lobulated soft tissue lesion in the right suboccipital soft tissues is unchanged. Skeletal structures: The skeletal structures are osteopenic. The calvarium appears intact. The cervical spine is maintained noting multilevel spondylosis. No lytic or blastic lesion is seen. Orbits: The bony orbits are intact. Orbital contents are normal as visualized noting a left ocular lens implant. Sinuses and mastoids: The paranasal sinuses are clear. There is a small left mastoid effusion. The right mastoid air cells are well pneumatized. IMPRESSION: 1. There is no evidence of hemorrhage, mass effect, or acute territorial ischemia noting angiographic phase technique. The small lacunar infarct in the left periventricular white matter seen by MRI was not visualized by CT. 2. Unremarkable CT angiogram of the brain. 3. Unremarkable CT angiogram of the neck. 4. A right suboccipital soft tissue mass is pathologically indeterminant and has been present dating back to at least 2017. ACT 112: Negative or not required by law. Electronically signed by: Kartik Mcfarlane M.D. 03/27/2022 2:19 PM Discharge Plan Visit Data Chief Complaint: Neuro Symptoms/Deficit Stated Complaint: HAD SCAN OF HEAD, POSSIBLE STROKE, REFERRED BY ED Provider: Jarek Martins Discharge Problem: Stroke, Liver metastases, Dizziness, Pancytopenia, Hypomagnesemia, COVID-19 Patient Disposition: Admitted As Inpatient Discharge Instructions Interventions: ED Discharge Assessment Last Done: 03/27/22 14:35 Discharge Problem: Stroke Qualifiers: CVA mechanism: unspecified Qualified Code(s): I63.9 - Cerebral infarction, unspecified
[2022-03-27] MEDS ORDERED: PHARMACIST DISCHARGE MED REC CONSULT PRN (13:04)
[2022-03-27] MEDS ORDERED: ASPIRIN CHEW 324 MG PO STA (13:16)
[2022-03-27 13:19] LABS: Albumin Globulin Ratio 1.6 (0.9-2); Albumin Level 3.4 gm/dl (3.4-5.0); BUN Creatinine Ratio 11.7 (10-20); Bilirubin,Total 1.4 mg/dl (0.2-1.0); Calcium 8.2 mg/dl (8.5-10.1); Creatinine Clr Calc Pharmacy 134.8 ml/min; Est GFR (African American) 111.5 ml/min; Est GFR (Non-African American) 96.2 ml/min; Globulin 2.1 gm/dl (2.5-4.0); Magnesium 1.3 mg/dl (1.7-2.4); Potassium 3.4 mmol/L (3.5-5.1); Total Protein 5.5 gm/dl (6.0-8.3)
[2022-03-27 13:20] LABS: Troponin I High Sensitivity 8.1 pg/ml (0-20)
[2022-03-27 13:23] LABS: INR 1.2 (0.9-1.1); Partial Thromboplastin Ratio 1.1; Partial Thromboplastin Time 29.1 Seconds (21.0-31.0); Prothrombin Time 13.1 Seconds (9.0-12.0)
--- NOTE | 2022-03-27 13:52 | History & Physical Report ---
Date of Service March 27, 2022 Assessment & Plan (1) CVA (cerebral vascular accident): Plan: Acute left parietal CVA < 1cm noted on screening MRI - CTA of the head and neck negative - NIHSS 0 - Plavix 75 mg now and then daily - Increase atorvastatin 40mg following treatment with Paxlovid- decrease statin dose to 10mg now - Continue Lovenox for his underlying blood clots and APLS- follow neurological exams - ECHO - Nuero consulted appreciate assistance (2) COVID-19: Plan: Incidental finding- approx day of symptoms unknown- patient did go to [facility] on - Reports no symptoms other than possible diarrhea - CXR pending - ESR, CRP, Fibrinogen pending for inflammatory markers - Will discuss with pharmacy and oncologist in regards to Paxlovid treatment - Paxlovid therapy Ok with oncology- will provide outpatient script and can take while in house - statin dose decreased, tramadol held (3) Hypomagnesemia: Plan: Mag 1.3 - had mag repalced eariler in the week as well at cancer care - diarrhea and low appetite - replete with 4GM mag IV (4) Anti-phospholipid antibody syndrome: Plan: As above continue with anticoagulation - continue to follow with heme/onc (5) Metastasis from esophageal cancer: Plan: As above- on Cisplatin/Xeloda/Pembrolizumab - therapy will have to be on hold with COVID diagnosis- call cancer care to reschedule appt. likely will need 10 days post - Will hold his Xeloda for tonight- clarify continuing with COVID (6) Hyperlipidemia: Plan: Statin therapy as above - lipid panel in the morning (7) Current use of intermediate card tender anticoagulation: Plan: Multiple DVT and PE in the setting of Cancer, antiphospholipid syndrome - continue with weight based Lovenox BID (8) Esophageal cancer, stage IV: Plan: As above with GERD continue with PPI and Carafate (9) Sleep apnea: Plan: Continue with autoPAP CPAP (10) Anxiety: Plan: Continue with Ativan patient on TID 0.5mg at home - takes 1mg twice a day he reports - Continue Olanzapine (11) Hyponatremia: Plan: Mild at 134 previously was as low as 129 - previously interpreted as SIADH - Continues with diarrhea and low oral food intake - LR overnight (12) Asthma: Plan: Continue Albuterol inhaler prn q4 Albuterol Nebulizer PRN for symptoms not controlled by inhaler (13) Diabetes mellitus: Plan: Hold Metformin - Aspart sliding scale loose coverage - goal <180mg/DL - CF 20 hold on carb ratio at this time as diet is small meals and minimal appetite History of Present Illness Primary Care Provider: NORBERTO Musa 46 YOM with medical history of: Esophageal adenocarcinoma with mets to liver (01/01), PE (02/01), RUE DVT with PICC line (02/01), DVT leg (2019), antiphospholipid syndrome. He is receiving palliative chemoimmunotherapy and is scheduled for chemotherapy tomorrow. Patient went for outpatient MRI today for screening for metastatic disease and was found to have acute small vessel infarct involving the left parietal lobe < 1cm size without surrounding edema. He was referred to the EMD. The patient is accompanied by his , she reports that since Friday he has been feeling light headed and some dizziness and was off balance on Friday on approx 2 episodes. In the EMD the patient had routine labs performed with Pt/PTT/INR performed. Awaiting CTA of the head and neck to be performed. He has NIHSS of 0. Patient was also found to be COVID positive on admission. He will be started on Plavix as he has abdominal pain and tachycardia with aspirin. Will discuss case with his oncologist and pharmacist in regards to Paxlovid therapy with above. COVID: POSITIVE Allergies Allergy/AdvReac Type Severity Reaction Status Date / Time aspirin AdvReac Intermediate GI SYMPTOMS Verified 01/31/22 14:32 Home Medications Medication Instructions Recorded Confirmed Type fexofenadine 180 mg tablet 180 mg PO QAM 07/02/18 03/27/22 History (Jana Allergy) fluticasone propionate 50 1 sprays INTNAS QAM PRN 06/08/19 03/27/22 History mcg/actuation nasal spray,suspension (Flonase Allergy Relief) azelastine 205.5 mcg (0.15 %) 2 sprays INTNAS BID PRN 06/25/19 03/27/22 History nasal spray blood-glucose meter (Advanced #1 ea 08/22/20 01/31/22 Rx Glucose Meter) blood-glucose meter (OneTouch #1 ea 09/22/20 01/31/22 Rx Verio Flex Start) blood sugar diagnostic (OneTouch #100 ea 10/03/20 01/31/22 Rx Verio test strips) lancets 30 gauge (BD Ultra-Fine II #100 ea 07/05/21 01/31/22 Rx Lancets) nebulizer kit #1 ea 12/25/21 01/31/22 Rx metformin 500 mg tablet 500 mg PO BID 12/26/21 03/27/22 History albuterol sulfate 90 mcg/actuation 2 puff INHALATION QID PRN #18 g 12/31/21 03/27/22 Rx aerosol inhaler (Ventolin HFA) albuterol sulfate 2.5 mg INHALATION QID PRN 01/09/22 03/27/22 History sennosides 8.6 mg tablet (Senokot) 17.2 mg PO QAM #60 tab 01/15/22 03/27/22 Rx capecitabine 500 mg tablet 500 mg PO Q12 01/20/22 03/27/22 History hydrocortisone 2.5 % topical cream 1 applic MO DAILY PRN #30 g 01/31/22 03/27/22 Rx with perineal applicator (Proctosol HC) ondansetron HCl 8 mg tablet 8 mg PO Q8 PRN #100 tab 01/31/22 03/27/22 Rx sertraline 50 mg tablet 50 mg PO DAILY #30 tab 01/31/22 03/27/22 Rx tramadol 50 mg tablet 50 mg PO TID #90 tab 01/31/22 03/27/22 Rx atorvastatin 20 mg tablet 20 mg PO QAM #90 tab 02/18/22 03/27/22 Rx CPAP Supplies #1 ea 03/06/22 03/06/22 Rx lorazepam 1 mg tablet 1 mg PO QID #120 tab 03/15/22 03/27/22 Rx dexlansoprazole 60 mg 60 mg PO QAM 03/27/22 03/27/22 History capsule,biphase delayed release dronabinol 2.5 mg capsule See Rx Instructions .ROUTE .COMPLEX 03/27/22 03/27/22 History enoxaparin 150 mg/mL subcutaneous 150 mg SUBCUT BID 03/27/22 03/27/22 History syringe mometasone-formoterol HFA 200 2 inh INHALATION BID 03/27/22 03/27/22 History mcg-5 mcg/actuation aerosol inhaler (Dulera) olanzapine 5 mg tablet 5 mg PO BID 03/27/22 03/27/22 History clopidogrel 75 mg tablet 75 mg PO QAM #30 tab 03/28/22 Rx Past Med/Surg History Medical History Anticoagulant long-term use Asthma Well controlled with inhalers Diabetes mellitus Esophageal cancer, stage IV Presumed per CT scan per general surgery records. Reason for port placement GERD (gastroesophageal reflux disease) History of anesthesia reaction Woke up during cataract procedure and "attempted to walk off the table" and was told he should always be "put completely to sleep". 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 On Lovenox Sleep apnea CPAP Surgical History History of cataract surgery L EYE History of left knee surgery History of liver biopsy History of surgery (01/08/22) Attempted Insertion Access Port with Fluoroscopy(Left) - Carlos Angeles DO 01/08/2022 History of tooth extraction History of umbilical hernia repair Family History Father Family history of diabetes mellitus FHx: skin cancer Cancer FHx: bladder cancer Mother FHx: kidney cancer Family history of diabetes mellitus Cancer Brother Family history of diabetes mellitus Family/Other Coronary heart disease Grandmother (Paternal) FHx: colon cancer Social History Smoking Status: Never smoker Tobacco Type: Smokeless Tobacco (Dip or Chew) Second Hand Exposure: No; Hx Alcohol Use: No Hx Substance Use: No Preferred Language: Persian Communication Ability: Effective Visual Impairment: No Limitations Criminology Professor Required: No Beliefs That Will Affect Care: None marital status: Current Living Situation: Spouse Current Living Situation Comment: home with current occupational status: employed Feels Safe at Home: Yes Safety Concerns: Feels Safe At This Time during the past year weight has: remained stable Assistive Devices: CPAP Review of Systems 2 Review of Systems: REVIEW OF SYSTEMS: Constitutional: No fever, sweats or chills Eyes: No diplopia, no worsening or blurred vision ENT: normal hearing, no trouble swallowing Respiratory: No cough, sputum, dyspnea at rest or on exertion Cardiovascular: (+) chest pain, tightness or palpitations Abdomen: (+) diarrhea, No pain, nausea, vomiting, or constipation Musculoskeletal: No joint pain, calf pain, swelling Neurologic: (+) dizziness, No weakness, numbness/tingling, or balance problems Psychiatric: No anxiety or depression Skin: No rash or itch Physical Exam Physical Exam: PHYSICAL EXAM: General: awake, alert, no apparent distress Head: Normocephalic, atraumatic ENT: PERRLA, EOMI, no pharyngeal exudate, mucous membranes moist Neuro: AAO x 3, speech clear and appropriate, strength intact bilaterally 5/5, sensation intact and equal all extremities and dermatomes, no pronator drift, no overshoot with finger to nose and no ataxia Chest: equal rise and fall of the chest, no accessory muscle use, no heaves or thrills, Clear to auscultation, on room air, Cardiac: Regular rate and rhythm, telemetry reviewed, skin warm dry, cap refill <3 seconds, peripheral pulses +2 no JVD, no murmur, no edema GI: NABS x 4 quadrants, soft, nontender to palpation, no rebound, guarding or tenderness : Spontaneously voiding, no pain, no CVA tenderness, Extremities: Normal inspection, no peripheral edema or erythema, calfs nontender to palpation Psych: Normal mood and affect Skin: no rash or erythema Results & Data Results & Data ([facility]) Vital Signs (Past 12 Hours) Vital Signs Temp Pulse Resp BP Pulse Ox 03/27/22 12:04 112 H 18 120/77 96 03/27/22 11:53 36.7 C 117 H 17 117/76 95 Laboratory Results Abnormal lab results 03/27/22 03/27/22 03/27/22 Range/Units 12:30 12:30 12:30 WBC 2.83 L (4.8-10.8) K/uL RBC 3.22 L (4.7-6.1) M/uL Hgb 10.2 L (14.0-18.0) g/dL Hct 30.2 L (42-52) % RDW Std Deviation 74.0 H (36.4-46.3) fL RDW Coeff of Andie 21.7 H (11.5-14.5) % Plt Count 103 L (130-400) K/uL Neut # (Auto) 1.36 L (1.4-6.5) K/uL Lymph # (Auto) 0.81 L (1.2-3.4) K/uL PT 13.1 H (9.0-12.0) Seconds INR 1.2 H (0.9-1.1) Sodium 135 L (136-145) mmol/L Potassium 3.4 L (3.5-5.1) mmol/L Glucose 154 H (70-99(Fasting)) mg/dl Calcium 8.2 L (8.5-10.1) mg/dl Magnesium 1.3 L (1.7-2.4) mg/dl Total Bilirubin 1.4 H (0.2-1.0) mg/dl Total Protein 5.5 L (6.0-8.3) gm/dl Globulin 2.1 L (2.5-4.0) gm/dl SARS-CoV-2, RNA, NAAT (NEGATIVE) 03/27/22 Range/Units 12:45 WBC (4.8-10.8) K/uL RBC (4.7-6.1) M/uL Hgb (14.0-18.0) g/dL Hct (42-52) % RDW Std Deviation (36.4-46.3) fL RDW Coeff of Andie (11.5-14.5) % Plt Count (130-400) K/uL Neut # (Auto) (1.4-6.5) K/uL Lymph # (Auto) (1.2-3.4) K/uL PT (9.0-12.0) Seconds INR (0.9-1.1) Sodium (136-145) mmol/L Potassium (3.5-5.1) mmol/L Glucose (70-99(Fasting)) mg/dl Calcium (8.5-10.1) mg/dl Magnesium (1.7-2.4) mg/dl Total Bilirubin (0.2-1.0) mg/dl Total Protein (6.0-8.3) gm/dl Globulin (2.5-4.0) gm/dl SARS-CoV-2, RNA, NAAT POSITIVE A* (NEGATIVE) Diagnostic Findings Head CTA 03/27/22 12:51 CT ANGIOGRAM OF THE BRAIN; CT ANGIOGRAM OF THE NECK CLINICAL HISTORY: Stroke. COMPARISON STUDY: CT of the brain dated 03/29/2021. MRI of the brain dated 03/27/2022. CT of the neck dated 08/03/2017. TECHNIQUE: Follow-up the IV administration of 120 of Optiray 320, CT angiogram of the head and neck was performed from the aortic arch to the vertex. Images are reviewed in the axial, sagittal, and coronal planes. 3-D MIPS images are created and assessed. IV contrast was administered without complication. All measurements were calculated based on NASCET criteria. A dose lowering technique was utilized adhering to the principles of ALARA. CT DOSE: 706.85 mGy.cm FINDINGS: Brain parenchyma: There is no evidence of hemorrhage, mass effect, or acute territorial ischemia noting angiographic phase technique. There is no evidence of enhancing mass lesion on the angiogram phase images. The ventricles, sulci, and cisterns are normal in configuration. Wilson-white matter differentiation is preserved. No extra-axial fluid collection is seen. Thoracic aorta: Visualized portions of the thoracic aorta are normal in caliber. The aortic arch demonstrates standard 3-vessel anatomy. Right carotid arterial system: The right common carotid artery is widely patent, as are the right internal and external carotid arteries. Left carotid arterial system: The left common carotid artery is widely patent, as are the left internal and external carotid arteries. Vertebral arteries: The vertebral arteries are widely patent bilaterally and codominant. Subclavian arteries: Widely patent bilaterally. Intracranial vasculature: The internal carotid arteries are patent at the skull base, as are the anterior and middle cerebral arteries bilaterally. The vertebrobasilar system and posterior cerebral arteries are widely patent. The vertebral arteries are codominant. There is no aneurysm, high-grade stenosis, or focal vessel cut off seen throughout the intracranial circulation. Jugular veins: Patent bilaterally. Dural sinuses: Patent. Lung apices: Partially visualized upper lobe lung parenchyma appears clear. Soft tissues: The visualized pharyngeal soft tissues are normal in appearance noting angiographic phase technique. The oropharyngeal airway appears widely patent. The salivary and thyroid glands are normal in appearance. No cervical lymphadenopathy is seen. A 3.4 cm lobulated soft tissue lesion in the right suboccipital soft tissues is unchanged. Skeletal structures: The skeletal structures are osteopenic. The calvarium appears intact. The cervical spine is maintained noting multilevel spondylosis. No lytic or blastic lesion is seen. Orbits: The bony orbits are intact. Orbital contents are normal as visualized noting a left ocular lens implant. Sinuses and mastoids: The paranasal sinuses are clear. There is a small left mastoid effusion. The right mastoid air cells are well pneumatized. IMPRESSION: 1. There is no evidence of hemorrhage, mass effect, or acute territorial ischemia noting angiographic phase technique. The small lacunar infarct in the left periventricular white matter seen by MRI was not visualized by CT. 2. Unremarkable CT angiogram of the brain. 3. Unremarkable CT angiogram of the neck. 4. A right suboccipital soft tissue mass is pathologically indeterminant and has been present dating back to at least 2016. ACT 112: Negative or not required by law. Electronically signed by: Kartik Mcfarlane M.D. 03/27/2022 2:19 PM Neck CTA 03/27/22 12:51 CT ANGIOGRAM OF THE BRAIN; CT ANGIOGRAM OF THE NECK CLINICAL HISTORY: Stroke. COMPARISON STUDY: CT of the brain dated 03/29/2021. MRI of the brain dated 03/27/2022. CT of the neck dated 08/03/2017. TECHNIQUE: Follow-up the IV administration of 120 of Optiray 320, CT angiogram of the head and neck was performed from the aortic arch to the vertex. Images are reviewed in the axial, sagittal, and coronal planes. 3-D MIPS images are created and assessed. IV contrast was administered without complication. All measurements were calculated based on NASCET criteria. A dose lowering technique was utilized adhering to the principles of ALARA. CT DOSE: 706.85 mGy.cm FINDINGS: Brain parenchyma: There is no evidence of hemorrhage, mass effect, or acute territorial ischemia noting angiographic phase technique. There is no evidence of enhancing mass lesion on the angiogram phase images. The ventricles, sulci, and cisterns are normal in configuration. Wilson-white matter differentiation is preserved. No extra-axial fluid collection is seen. Thoracic aorta: Visualized portions of the thoracic aorta are normal in caliber. The aortic arch demonstrates standard 3-vessel anatomy. Right carotid arterial system: The right common carotid artery is widely patent, as are the right internal and external carotid arteries. Left carotid arterial system: The left common carotid artery is widely patent, as are the left internal and external carotid arteries. Vertebral arteries: The vertebral arteries are widely patent bilaterally and codominant. Subclavian arteries: Widely patent bilaterally. Intracranial vasculature: The internal carotid arteries are patent at the skull base, as are the anterior and middle cerebral arteries bilaterally. The vertebrobasilar system and posterior cerebral arteries are widely patent. The vertebral arteries are codominant. There is no aneurysm, high-grade stenosis, or focal vessel cut off seen throughout the intracranial circulation. Jugular veins: Patent bilaterally. Dural sinuses: Patent. Lung apices: Partially visualized upper lobe lung parenchyma appears clear. Soft tissues: The visualized pharyngeal soft tissues are normal in appearance noting angiographic phase technique. The oropharyngeal airway appears widely patent. The salivary and thyroid glands are normal in appearance. No cervical lymphadenopathy is seen. A 3.4 cm lobulated soft tissue lesion in the right suboccipital soft tissues is unchanged. Skeletal structures: The skeletal structures are osteopenic. The calvarium appears intact. The cervical spine is maintained noting multilevel spondylosis. No lytic or blastic lesion is seen. Orbits: The bony orbits are intact. Orbital contents are normal as visualized noting a left ocular lens implant. Sinuses and mastoids: The paranasal sinuses are clear. There is a small left mastoid effusion. The right mastoid air cells are well pneumatized. IMPRESSION: 1. There is no evidence of hemorrhage, mass effect, or acute territorial ischemia noting angiographic phase technique. The small lacunar infarct in the left periventricular white matter seen by MRI was not visualized by CT. 2. Unremarkable CT angiogram of the brain. 3. Unremarkable CT angiogram of the neck. 4. A right suboccipital soft tissue mass is pathologically indeterminant and has been present dating back to at least 2017. ACT 112: Negative or not required by law. Electronically signed by: Kartik Mcfarlane M.D. 03/27/2022 2:19 PM Medications Administered Home Medications fexofenadine 180 mg tablet (Jana Allergy) 180 mg PO QAM PRN 07/02/18 [History Confirmed 01/31/22] fluticasone propionate 50 mcg/actuation nasal spray,suspension (Flonase Allergy Relief) 1 sprays INTNAS QAM PRN 06/08/19 [History Confirmed 01/31/22] azelastine 205.5 mcg (0.15 %) nasal spray 2 sprays INTNAS BID PRN 06/25/19 [History Confirmed 01/31/22] blood-glucose meter (Advanced Glucose Meter) #1 ea 08/22/20 [Rx Confirmed 01/31/22] blood-glucose meter (MultiZona.comTouch Verio Flex Start) #1 ea 09/22/20 [Rx Confirmed 01/31/22] blood sugar diagnostic ([email or web address] Verio test strips) #100 ea 10/03/20 [Rx Confirmed 01/31/22] lancets 30 gauge (BD Ultra-Fine II Lancets) #100 ea 07/05/21 [Rx Confirmed 01/31/22] nebulizer kit #1 ea 12/25/21 [Rx Confirmed 01/31/22] metformin 500 mg tablet 500 mg PO BID 12/26/21 [History Confirmed 01/31/22] albuterol sulfate 90 mcg/actuation aerosol inhaler (Ventolin HFA) 2 puff INHALATION QID PRN #18 g 12/31/21 [Rx Confirmed 01/31/22] albuterol sulfate 2.5 mg INHALATION QID PRN 01/09/22 [History Confirmed 01/31/22] sennosides 8.6 mg tablet (Senokot) 17.2 mg PO QAM #60 tab 01/15/22 [Rx Confirmed 01/31/22] pantoprazole 40 mg tablet,delayed release (Protonix) 40 mg PO BID #180 tab 01/17/22 [Rx Confirmed 01/31/22] Bifidobacterium infantis 4 mg capsule (Align) 4 mg PO DAILY 01/20/22 [History Confirmed 01/31/22] capecitabine 500 mg tablet 500 mg PO Q12 01/20/22 [History Confirmed 01/31/22] docusate sodium 100 mg capsule 100 mg PO TID PRN 01/20/22 [History Confirmed ] sucralfate 100 mg/mL oral suspension 10 ml PO TID PRN 01/20/22 [History Confirmed 01/31/22] silver sulfadiazine 1 % topical cream (Silvadene) 1 applic TOPICAL DAILY #20 g 01/25/22 [Rx Confirmed 01/31/22] lisinopril 10 mg tablet 10 mg PO QAM #90 tab 01/30/22 [Rx Confirmed 01/31/22] hydrocortisone 2.5 % topical cream with perineal applicator (Proctosol HC) 1 applic MO DAILY PRN #30 g 01/31/22 [Rx Confirmed 01/31/22] ondansetron HCl 8 mg tablet 8 mg PO Q8 PRN #100 tab 01/31/22 [Rx Confirmed 01/31/22] sertraline 50 mg tablet 50 mg PO DAILY #30 tab 01/31/22 [Rx Confirmed 01/31/22] tramadol 50 mg tablet 50 mg PO TID #90 tab 01/31/22 [Rx Confirmed 01/31/22] furosemide 20 mg tablet 20 mg PO DAILY #20 tab 02/04/22 [Rx] atorvastatin 20 mg tablet 20 mg PO QAM #90 tab 02/18/22 [Rx] CPAP Supplies #1 ea 03/06/22 [Rx Confirmed 03/06/22] lorazepam 1 mg tablet 1 mg PO QID #120 tab 03/15/22 [Rx Confirmed 03/15/22] Active Medications Acetaminophen (Acetaminophen 325 Mg Tab) 650 mg PO Q4H PRN PRN Reason: Pain or Fever Stop: 04/26/22 12:57 Magnesium Sulfate/Dextrose (Magnesium Sulfate / D5w) 1 gm in 100 mls @ 50 mls/hr IV Q2H LETY Stop: 03/27/22 22:29 Lactated Ringer's (Lr) 1,000 mls @ 90 mls/hr IV .Q11H7M ONE Stop: 03/28/22 01:35 Miscellaneous Information (Pharmacist Discharge Med Rec Consult) 1 ea N/A UD PRN PRN Reason: Consult Stop: 04/26/22 13:03 Ondansetron HCl (Ondansetron Inj 2 Mg/Ml 2 Ml Vial) 4 mg IV Q6H PRN PRN Reason: Nausea Stop: 04/26/22 12:57 Discontinued Medications Aspirin (Aspirin Chew 324 Mg) 324 mg PO NOW STA Stop: 03/27/22 13:17 Last Admin: 03/27/22 13:21 Dose: Not Given Documented by: [id number] Ioversol (Optiray 320 125ml) 120 ml IV ONCE ONE Stop: 03/27/22 14:04 Last Admin: 03/27/22 14:04 Dose: 120 ml Documented by: [id number] ECG Additional Comments: Sinus tachycardia Otherwise normal ECG When compared with ECG of 20-JAN-2022 16:57, No significant change was found Code Status & VTE Plan Code Status CODE: DRN/DNI VTE: SCDS, weight based lovenox bid VTE Prophylaxis Plan VTE Prophylaxis will be ordered: Yes Supervising Physician Co-Signing Physician Notes I personally saw and examined the patient. I verified all rock points and agree with NORBRETO Lucas with the following exceptions and/or additions: 46 year old with metastatic esophageal cancer presents to the ER with incidental finding of CVA on outpatient MRI. Notes lightheadedness, possible vertigo started last week but first complained about it to his on Friday. No change in vision, speech, hearing, facial droop, extremity weakness of sensation. ROS: using albuterol regularly due to shortness of breath, not using Dulera, chews tobacco O/E HS1+2, no murmur, Chest CTAB, Abdo SNT, no pronator drift, no focal unilateral weakness or sensory loss, CN2->12 intact A/P CVA - incidental, unclear if dizziness related. Add on Plavix. Atorvastatin lowered due to Paxlovid COVID-19 - asymptomatic. Given increased risk factors started on Paxlovid. PG Care Time/CCT Total # of Minutes Spent Total Time Spent with Patient: Total time spent is greater than 50% in coordination of care (as documented) at patient's floor/unit and/or counseling patient: Coding Level of Care Code 92924 Initial Inpt Care Lvl 3 Diagnoses CVA (cerebral vascular accident) I63.9 COVID-19 U07.1 Hypomagnesemia E83.42 Anti-phospholipid antibody syndrome D68.61 Metastasis from esophageal cancer C79.9; C15.9 Hyperlipidemia E78.5 Current use of correction anticoagulation Z79.01 Esophageal cancer, stage IV C15.9 Sleep apnea G47.30 Anxiety F41.9 Hyponatremia E87.1 Asthma J45.909 Diabetes mellitus E11.9
[2022-03-27 13:55] LABS: Anisocytosis Present
[2022-03-27] MEDS ORDERED: OPTIRAY 320 125ml IV ONE (14:03)
--- NOTE | 2022-03-27 14:21 | CT Scan Report ---
CT ANGIOGRAM OF THE BRAIN; CT ANGIOGRAM OF THE NECK CLINICAL HISTORY: Stroke. COMPARISON STUDY: CT of the brain dated 03/29/2021. MRI of the brain dated 03/27/2022. CT of the neck dated 08/03/2017. TECHNIQUE: Follow-up the IV administration of 120 of Optiray 320, CT angiogram of the head and neck w as performed from the aortic arch to the vertex. Images are reviewed in the axial, sagittal, and rose nal planes. 3-D MIPS images are created and assessed. IV contrast was administered without complicati on. All measurements were calculated based on NASCET criteria. A dose lowering technique was utilize d adhering to the principles of ALARA. CT DOSE: 706.85 mGy.cm FINDINGS: Brain parenchyma: There is no evidence of hemorrhage, mass effect, or acute territorial ischemia noti ng angiographic phase technique. There is no evidence of enhancing mass lesion on the angiogram phase images. The ventricles, sulci, and cisterns are normal in configuration. Wilson-white matter different iation is preserved. No extra-axial fluid collection is seen. Thoracic aorta: Visualized portions of the thoracic aorta are normal in caliber. The aortic arch demo nstrates standard 3-vessel anatomy. Right carotid arterial system: The right common carotid artery is widely patent, as are the right int ernal and external carotid arteries. Left carotid arterial system: The left common carotid artery is widely patent, as are the left internal affairs commander al and external carotid arteries. Vertebral arteries: The vertebral arteries are widely patent bilaterally and codominant. Subclavian arteries: Widely patent bilaterally. Intracranial vasculature: The internal carotid arteries are patent at the skull base, as are the ante rior and middle cerebral arteries bilaterally. The vertebrobasilar system and posterior cerebral bang delvis are widely patent. The vertebral arteries are codominant. There is no aneurysm, high-grade steno sis, or focal vessel cut off seen throughout the intracranial circulation. Jugular veins: Patent bilaterally. Dural sinuses: Patent. Lung apices: Partially visualized upper lobe lung parenchyma appears clear. Soft tissues: The visualized pharyngeal soft tissues are normal in appearance noting angiographic pha se technique. The oropharyngeal airway appears widely patent. The salivary and thyroid glands are nor mal in appearance. No cervical lymphadenopathy is seen. A 3.4 cm lobulated soft tissue lesion in the right suboccipital soft tissues is unchanged. Skeletal structures: The skeletal structures are osteopenic. The calvarium appears intact. The cervic al spine is maintained noting multilevel spondylosis. No lytic or blastic lesion is seen. Orbits: The bony orbits are intact. Orbital contents are normal as visualized noting a left ocular le ns implant. Sinuses and mastoids: The paranasal sinuses are clear. There is a small left mastoid effusion. The ri ght mastoid air cells are well pneumatized. IMPRESSION: 1. There is no evidence of hemorrhage, mass effect, or acute territorial ischemia noting angiographic phase technique. The small lacunar infarct in the left periventricular white matter seen by MRI was not visualized by CT. 2. Unremarkable CT angiogram of the brain. 3. Unremarkable CT angiogram of the neck. 4. A right suboccipital soft tissue mass is pathologically indeterminant and has been present dating back to at least 2017. ACT 112: Negative or not required by law. Electronically signed by: Kartik Mcfarlane M.D. 03/27/2022 2:19 PM
[2022-03-27] MEDS ORDERED: POTASSIUM CHLORIDE CRTAB 20 MEQ TABCR PO STA (14:29)
[2022-03-27] MEDS ORDERED: LACTATED RINGER'S 1,000 ML IV ONE (14:29)
--- NOTE | 2022-03-27 15:32 | XRay Report ---
XR chest 1V not portable CLINICAL HISTORY: COVID + eval for any pulmonary disease. COMPARISON STUDY: 01/20/2022 TECHNIQUE: 1 view of the chest FINDINGS: Single frontal view of the chest demonstrates the cardiomediastinal silhouette to be within normal li mits. There is a decreased inspiratory effort with elevation of the hemidiaphragms and crowding of th e bronchovascular markings at the lung bases and centrally. The lungs are clear of alveolar opacities . There is no evidence for pleural effusion. There is no evidence for vascular congestion. There is n o acute osseous pathology. IMPRESSION: 1. . There is a decreased inspiratory effort with otherwise no acute chest disease. ACT 112: Negative or not required by law. Electronically signed by: Fili Olea M.D. 03/27/2022 3:31 PM
[2022-03-27] MEDS ORDERED: CLOPIDOGREL BISULFATE 75 MG TAB PO ONE (15:45)
[2022-03-27] MEDS ORDERED: FEXOFENADINE HCL 180 MG TAB PO PRN (15:45)
[2022-03-27] MEDS ORDERED: ENOXAPARIN 1 MG/KG SQ SCH (15:45)
[2022-03-27] MEDS: MAGNESIUM SULFATE / D5W 1 GM/100 ML BAG IV SCH ×4 (16:11→23:11)
[2022-03-27] MEDS: ATORVASTATIN 10 MG TAB PO SCH (16:48)
[2022-03-27] MEDS: ENOXAPARIN 150 MG/ML SYR SQ SCH (17:21)
--- NOTE | 2022-03-27 17:40 | Electrocardiogram Report ---
Test Reason : Blood Pressure : / mmHG Vent. Rate : 106 BPM Atrial Rate : 106 BPM P-R Int : 148 ms QRS Dur : 090 ms QT Int : 342 ms P-R-T Axes : 051 066 055 degrees QTc Int : 454 ms Sinus tachycardia Otherwise normal ECG When compared with ECG of 20-JAN-2022 16:57, No significant change was found Confirmed by Josh Villarreal ([id number]) on 03/27/2022 5:40:15 PM Referred By: REFERRED SELF Confirmed By:Alex Villarreal
[2022-03-27] MEDS ORDERED: ALBUTEROL HFA 8 GM INHALER INH PRN (18:35)
[2022-03-27] MEDS ORDERED: SUCRALFATE 1 GM/10 ML UDC PO PRN (18:35)
[2022-03-27] MEDS ORDERED: DOCUSATE SODIUM 100 MG CAP PO PRN (18:35)
[2022-03-27] MEDS ORDERED: ALBUTEROL 0.083% NEBU SOLN 3 ML VIAL INH PRN (18:35)
[2022-03-27] MEDS ORDERED: FLUTICASONE PROPIONATE NA SPR 16 GM BTL NAE PRN (18:35)
[2022-03-27 19:56] LABS: Fibrinogen 465 mg/dl (184-400)
[2022-03-27] MEDS ORDERED: CARBOHYDRATES FOR HYPOGLYCEMIA PO PRN (20:59)
[2022-03-27] MEDS ORDERED: GLUCAGON FOR INJ 1 MG VIAL SQ PRN (20:59)
[2022-03-27] MEDS ORDERED: GLUCOSE 40% GEL 15 GM TUBE PO PRN (20:59)
[2022-03-27] MEDS ORDERED: DEXTROSE 50% 50 ML SYRINGE IV PRN (20:59)
[2022-03-27] MEDS ORDERED: GLUCOSE 10 TABS/TUBE PO PRN (20:59)
[2022-03-27] MEDS ORDERED: NON-FORMULARY MEDICATION (Capecitabine 500 mg tablet) PO SCH (21:00)
[2022-03-27] MEDS ORDERED: ONDANSETRON 4 MG OD TAB PO PRN (21:07)
[2022-03-27] MEDS: NIRMATRELVIR/RITONAVIR 1 EA TAB PO SCH (21:41)
[2022-03-27] MEDS: LORazepam 1 MG TAB PO SCH (22:50)
[2022-03-27] MEDS: FAMOTIDINE 20 MG TAB PO SCH (22:50)
[2022-03-27] MEDS: OLANZapine 5 MG TABLET PO SCH (22:51)
[2022-03-27] MEDS: INSULIN ASPART PER UNIT SC SCH (23:05)
[2022-03-28] MEDS: ENOXAPARIN 150 MG/ML SYR SQ SCH (06:14)
[2022-03-28 06:16] LABS: Mean Corpuscular Hemoglobin 32.4 pg (25-34); Mean Corpuscular Hgb Conc 34.5 g/dL (32-36); Mean Corpuscular Volume 93.9 fL (80-100); RDW Coefficient of Variation 21.7 % (11.5-14.5); RDW Standard Deviation 75.6 fL (36.4-46.3); Red Blood Count 3.09 M/uL (4.7-6.1)
[2022-03-28 06:40] LABS: Mean Platelet Volume 8.6 fL (7.4-10.4); Platelet Count 97 K/uL (130-400)
[2022-03-28 06:41] LABS: Anisocytosis Present; Basophils # (auto) 0.01 K/uL (0-0.2); Basophils % (auto) 0.4 %; Eosinophils # (auto) 0.11 K/uL (0-0.5); Eosinophils % (auto) 3.9 %; Immature Granulocytes # (auto) 0.01 K/uL (0.00-0.02); Immature Granulocytes % (auto) 0.4 %; Lymphocytes # (auto) 0.89 K/uL (1.2-3.4); Lymphocytes % (auto) 31.8 %; Monocytes # (auto) 0.51 K/uL (0.11-0.59); Monocytes % (auto) 18.2 %; Neutrophils # (auto) 1.27 K/uL (1.4-6.5); Neutrophils % (auto) 45.3 %; Platelet Estimate Decreased (Normal); Polychromasia 1+
[2022-03-28 06:44] LABS: BUN Creatinine Ratio 9.2 (10-20); Calcium 7.9 mg/dl (8.5-10.1); Chol HDL Ratio 2.6 (0-5); Creatinine Clr Calc Pharmacy 145.2 ml/min; Est GFR (African American) 119.1 ml/min; Est GFR (Non-African American) 102.8 ml/min; Magnesium 1.7 mg/dl (1.7-2.4); Potassium 3.5 mmol/L (3.5-5.1)
--- NOTE | 2022-03-28 07:30 | Hospitalist Progress Note ---
Date of Service March 28, 2022 Assessment & Plan (1) CVA (cerebral vascular accident): Plan: Acute left parietal CVA < 1cm noted on screening MRI - CTA of the head and neck negative - NIHSS 0 - Plavix 75 mg now and then daily - Increase atorvastatin 40mg following treatment with Paxlovid- decrease statin dose to 10mg now - Continue Lovenox for his underlying blood clots and APLS- follow neurological exams - ECHO - Nuero consulted appreciate assistance (2) COVID-19: Plan: Incidental finding- approx day of symptoms unknown- patient did go to [facility] on - Reports no symptoms other than possible diarrhea - CXR pending - ESR, CRP, Fibrinogen pending for inflammatory markers - Will discuss with pharmacy and oncologist in regards to Paxlovid treatment - Paxlovid therapy Ok with oncology- will provide outpatient script and can take while in house - statin dose decreased, tramadol held (3) Hypomagnesemia: Plan: Mag 1.3 - had mag repalced eariler in the week as well at cancer care - diarrhea and low appetite - replete with 4GM mag IV (4) Anti-phospholipid antibody syndrome: Plan: As above continue with anticoagulation - continue to follow with heme/onc (5) Metastasis from esophageal cancer: Plan: As above- on Cisplatin/Xeloda/Pembrolizumab - therapy will have to be on hold with COVID diagnosis- call cancer care to reschedule appt. 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: Plan: Multiple DVT and PE in the setting of Cancer, antiphospholipid syndrome - continue with weight based Lovenox BID (8) Esophageal cancer, stage IV: Plan: As above with GERD continue with PPI and Carafate (9) Sleep apnea: Plan: Continue with autoPAP CPAP (10) Anxiety: Plan: Continue with Ativan patient on TID 0.5mg at home - takes 1mg twice a day he reports - Continue Olanzapine (11) Hyponatremia: Plan: Mild at 134 previously was as low as 129 - previously interpreted as SIADH - Continues with diarrhea and low oral food intake - LR overnight (12) Asthma: Plan: Continue Albuterol inhaler prn q4 Albuterol Nebulizer PRN for symptoms not controlled by inhaler (13) Diabetes mellitus: Plan: Hold Metformin - Aspart sliding scale loose coverage - goal <180mg/DL - CF 20 hold on carb ratio at this time as diet is small meals and minimal appetite Admission and Anticipated Discharge Date Admission Date: March 27, 2022 Results & Data Results & Data ([facility]) Vital Signs (Past 12 Hours) Vital Signs Temp Pulse Pulse Resp BP Pulse Ox 03/28/22 04:52 94 H 19 95 03/28/22 04:19 98.1 F 94 H 20 126/83 95 03/27/22 23:33 101 H 20 109/71 95 03/27/22 22:20 107 H PG Care Time/CCT Total # of Minutes Spent Total Time Spent with Patient: Total time spent is greater than 50% in coordination of care (as documented) at patient's floor/unit and/or counseling patient: Coding Diagnoses CVA (cerebral vascular accident) I63.9 COVID-19 U07.1 Hypomagnesemia E83.42 Anti-phospholipid antibody syndrome D68.61 Metastasis from esophageal cancer C79.9; C15.9 Hyperlipidemia E78.5 Current use of intermodal truck driver anticoagulation Z79.01 Esophageal cancer, stage IV C15.9 Sleep apnea G47.30 Anxiety F41.9 Hyponatremia E87.1 Asthma J45.909 Diabetes mellitus E11.9
[2022-03-28] MEDS: ATORVASTATIN 10 MG TAB PO SCH (08:02)
[2022-03-28] MEDS: LORazepam 1 MG TAB PO SCH (08:02)
[2022-03-28] MEDS: FAMOTIDINE 20 MG TAB PO SCH (08:03)
[2022-03-28] MEDS: OLANZapine 5 MG TABLET PO SCH (08:03)
[2022-03-28] MEDS: NIRMATRELVIR/RITONAVIR 1 EA TAB PO SCH (08:03)
[2022-03-28 08:06] LABS: Estimated Average Glucose 160 mg/dl; Hemoglobin A1C 7.2 % (4.5-5.6)
--- NOTE | 2022-03-28 08:12 | Neurology Consultation ---
Date of Consultation March 28, 2022 Assessment & Plan (1) Stroke: Incidentally discovered small acute ischemic left parietal infarct in a patient with several stroke risk factors including metastatic esophageal cancer, antiphospholipid antibody syndrome with history of multiple DVT and PE, on Lovenox therapy, recent positive COVID-19 test without specific symptomatology, diabetes mellitus, hyperlipidemia, and chewing tobacco use. Patient CT angiography of the head and neck are unremarkable, no evidence for vascular lesion. Patient should continue with Lovenox. Clopidogrel has been added, I agree with this medication. Patient should continue with his statin although temporary dosage adjustment while receiving Paxlovid for COVID-19. Follow-up with results of up-to-date echocardiogram. Consultations with PT/OT/speech therapy. However, patient's not appear to have any specific or focal neurologic deficits at this time. Patient should receive additional counseling regarding cessation of chewing tobacco. Consider 30-day mobile cardiac outpatient telemetry. No further immediate recommendations. History of Present Illness Reason for Consultation: Stroke history of malignancy, antiphospholipid antibody syndrome Requesting Physician: NORBERTO Lucas Attending Physician: Tee Blankenship MD History of Present Illness The patient is a 46-year-old male with a history of esophageal adenocarcinoma with mets to the liver, pulmonary embolism, DVT, antiphospholipid antibody syndrome, who was referred to the emergency department yesterday for further evaluation of an incidentally discovered left hemispheric ischemic infarct. He denies experiencing any specific neurologic symptoms such as right sided motor or sensory deficits, difficulty with word finding, slurred speech, vision disturbance, or headache. No prior history of stroke. No known history of atrial fibrillation or coronary artery disease. He has been self administering Lovenox at home in light of his history of significant underlying thrombophilia. Allergies Allergy/AdvReac Type Severity Reaction Status Date / Time aspirin AdvReac Intermediate GI SYMPTOMS Verified 01/31/22 14:32 Home Medications Medication Instructions Recorded Confirmed Type fexofenadine 180 mg tablet 180 mg PO QAM 07/02/18 03/27/22 History (Jana Allergy) fluticasone propionate 50 1 sprays INTNAS QAM PRN 06/08/19 03/27/22 History mcg/actuation nasal spray,suspension (Flonase Allergy Relief) azelastine 205.5 mcg (0.15 %) 2 sprays INTNAS BID PRN 06/25/19 03/27/22 History nasal spray blood-glucose meter (Advanced #1 ea 08/22/20 01/31/22 Rx Glucose Meter) blood-glucose meter (OneTouch #1 ea 09/22/20 01/31/22 Rx Verio Flex Start) blood sugar diagnostic (OneTouch #100 ea 10/03/20 01/31/22 Rx Verio test strips) lancets 30 gauge (BD Ultra-Fine II #100 ea 07/05/21 01/31/22 Rx Lancets) nebulizer kit #1 ea 12/25/21 01/31/22 Rx metformin 500 mg tablet 500 mg PO BID 12/26/21 03/27/22 History albuterol sulfate 90 mcg/actuation 2 puff INHALATION QID PRN #18 g 12/31/21 03/27/22 Rx aerosol inhaler (Ventolin HFA) albuterol sulfate 2.5 mg INHALATION QID PRN 01/09/22 03/27/22 History sennosides 8.6 mg tablet (Senokot) 17.2 mg PO QAM #60 tab 01/15/22 03/27/22 Rx capecitabine 500 mg tablet 500 mg PO Q12 01/20/22 03/27/22 History hydrocortisone 2.5 % topical cream 1 applic MT DAILY PRN #30 g 01/31/22 03/27/22 Rx with perineal applicator (Proctosol HC) ondansetron HCl 8 mg tablet 8 mg PO Q8 PRN #100 tab 01/31/22 03/27/22 Rx sertraline 50 mg tablet 50 mg PO DAILY #30 tab 01/31/22 03/27/22 Rx tramadol 50 mg tablet 50 mg PO TID #90 tab 01/31/22 03/27/22 Rx atorvastatin 20 mg tablet 20 mg PO QAM #90 tab 02/18/22 03/27/22 Rx CPAP Supplies #1 ea 03/06/22 03/06/22 Rx lorazepam 1 mg tablet 1 mg PO QID #120 tab 03/15/22 03/27/22 Rx dexlansoprazole 60 mg 60 mg PO QAM 03/27/22 03/27/22 History capsule,biphase delayed release dronabinol 2.5 mg capsule See Rx Instructions .ROUTE .COMPLEX 03/27/22 03/27/22 History enoxaparin 150 mg/mL subcutaneous 150 mg SUBCUT BID 03/27/22 03/27/22 History syringe mometasone-formoterol HFA 200 2 inh INHALATION BID 03/27/22 03/27/22 History mcg-5 mcg/actuation aerosol inhaler (Dulera) olanzapine 5 mg tablet 5 mg PO BID 03/27/22 03/27/22 History Patient History Medical History Anticoagulant long-term use Asthma Well controlled with inhalers Diabetes mellitus Esophageal cancer, stage IV Presumed per CT scan per general surgery records. Reason for port placement GERD (gastroesophageal reflux disease) History of anesthesia reaction Woke up during cataract procedure and "attempted to walk off the table" and was told he should always be "put completely to sleep". 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 On Lovenox Sleep apnea CPAP Surgical History History of cataract surgery L EYE History of left knee surgery History of liver biopsy History of surgery (01/08/22) Attempted Insertion Access Port with Fluoroscopy(Left) - [facility], 01/08/2022 History of tooth extraction History of umbilical hernia repair Family History Father Family history of diabetes mellitus FHx: skin cancer Cancer FHx: bladder cancer Mother FHx: kidney cancer Family history of diabetes mellitus Cancer Brother Family history of diabetes mellitus Family/Other Coronary heart disease Grandmother (Paternal) FHx: colon cancer Social History Smoking Status: Never smoker Tobacco Type: Smokeless Tobacco (Dip or Chew) Second Hand Exposure: No; Hx Alcohol Use: No Hx Substance Use: No Preferred Language: Polish Communication Ability: Effective Visual Impairment: No Limitations Cue Selector Required: No Beliefs That Will Affect Care: None Current Living Situation: Spouse Current Living Situation Comment: home with current occupational status: employed Feels Safe at Home: Yes Safety Concerns: Feels Safe At This Time during the past year weight has: remained stable Assistive Devices: CPAP Review of Systems Constitutional: no fever and no chills Eyes: no blind spots and no diplopia Ear, Nose, Mouth, Throat: no ear pain and no hearing loss Respiratory: no cough and no dyspnea Cardiovascular: no chest pain and no palpitations Gastrointestinal: no constipation and no diarrhea/loose stools Genitourinary: no urinary incontinence or no urinary urgency Musculoskeletal: no muscle weakness and no muscle atrophy Integumentary: no rash and no lesions Neurologic: as per Subjective / HPI Psychiatric: no behavioral changes, no depression, no abnormal sleep pattern and no anxiety Hematologic / Lymphatic: no easy bruising and no lymphadenopathy Exam (Neuro) Constitutional: well developed and well nourished; no acute distress Eyes: normal visual aleman by confrontation, PERRL, normal accommodation and EOM intact bilaterally; no fundoscopic abnormality, no nystagmus and no papilledema Cardiovascular: Vessels: normal carotid upstroke; no carotid bruit Neurologic: Oriented to:: Person, Place and Time Memory: Short Term Intact and Remote Intact Attention: Span Intact and Concentration Intact Language: Naming Objects and Repeating Phrases Speech Fluency: negative Dysarthria Speech Aphasia: negative Aphasia Fund of Knowledge: Current Events, Past History and Vocabulary Cranial Nerves: Normal II (Visual aleman full to confrontation, visual acuity normal), III, IV, (Pupils equal round reactive to light and accommodation, eye movements normal), V (Facial sensation intact), VII (There is no facial droop or weakness), VIII (Hearing intact), IX, X (Palate elevates to midline), XI (Shoulder shrug intact) and XII (Tongue protrudes to midline) Motor Strength: Normal Lower Extremities and Normal Upper Extremities; negative Pronator Drift Motor Tone: Normal Lower Extremities and Normal Upper Extremities Muscle Bulk/Involuntary Movements: No Involuntary Movements; negative Muscle Atrophy Sensation: Light Touch Intact, Pain/Temperature Intact, Vibration Intact and Proprioception Intact Coordination: Normal; negative Limited Balance, Dysdiadochokinesia, Finger-Nose Abnormal or Heel-Jacques Abnormal Deep Tendon Reflexes: Rt Triceps: 2+, Lt Triceps: 2+, Rt Biceps: 2+, Lt Biceps: 2+, Rt Brachioradialis: 2+, Lt Brachioradialis: 2+, Rt Patellar: 2+, Lt Patellar: 2+, Rt Ankle: 2+ and Lt Ankle: 2+ Special Tests: negative Babinski Present Gait: Normal Station and Gait Results & Data ([facility]) Vital Signs (Past 12 Hours) Vital Signs Temp Pulse Pulse Resp BP Pulse Ox 03/28/22 08:00 37.0 C 108 H 118/78 92 03/28/22 04:52 94 H 19 95 03/28/22 04:19 36.7 C 94 H 20 126/83 95 03/27/22 23:33 101 H 20 109/71 95 03/27/22 22:20 107 H Laboratory Results WBC 2.80, hemoglobin 10.0, hematocrit 29.0, MCV 93.9, platelet count 97, sodium 153, potassium 3.5, BUN 8, creatinine 0.87, glucose 131, hemoglobin A1c 7.2, magnesium 1.7, AST 15, ALT 18, high-sensitivity troponin 8.1, triglycerides 123, cholesterol 60, LDL 12, VLDL 25, HDL 23, SARS-CoV-2 RNA positive Diagnostic Findings Brain MRI completed yesterday revealed an acute small vessel infarct involving the left parietal lobe, no evidence for enhancing metastatic disease. There was evidence of left mastoiditis. There was a subcutaneous soft tissue mass adjac ent to the skull posteriorly on the right which does not enhance and does not represent metastatic disease, present on previous CT of the brain from March 29, 2021. I reviewed the images as well as the radiologist interpretation of this test and was able to appreciate the acute infarct as described above. CT angiography of the head and neck unremarkable. Electrocardiogram revealed sinus tachycardia, 106 bpm. An echocardiogram completed January 12, 2022 was done without contrast due to patient refusal. Left ventricle size normal. Ejection fraction 60 to 65%. Left ventricular wall motion normal. Right ventricle size and function normal. Left atrial size normal. Coding Level of Care Code 26708 Initial Inpt Care Lvl 3 Diagnoses Stroke I63.9 CVA mechanism: unspecified (1) Stroke CVA mechanism: unspecified Qualified Code(s): I63.9 - Cerebral infarction, unspecified
[2022-03-28] MEDS: INSULIN ASPART PER UNIT SC SCH ×2 (08:51→12:20)
[2022-03-28] MEDS ORDERED: SENNA 8.6 MG TAB PO SCH (09:00)
[2022-03-28] MEDS ORDERED: SERTRALINE HCL 50 MG TABLET PO SCH (09:00)
[2022-03-28] MEDS ORDERED: CLOPIDOGREL BISULFATE 75 MG TAB PO SCH (09:00)
[2022-03-28] MEDS ORDERED: MEDICAL MARIJUANA PO SCH (09:00)
[2022-03-28 14:14] LABS: Influenza A virus by PCR Negative (Neg); Influenza B virus by PCR Negative (Neg); RSV by PCR Negative (Neg); SARS CoV2 RNA(COVID-19) InHosp NEGATIVE (Negative)
[2022-03-28] MEDS ORDERED: STROKE PATIENT DISCHARGE STA (14:31)
--- NOTE | 2022-03-28 14:31 | Discharge Summary ---
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 He is receiving palliative chemoimmunotherapy and is scheduled for chemotherapy tomorrow. Patient went for outpatient MRI today for screening for metastatic disease and was found to have acute small vessel infarct involving the left parietal lobe < 1cm size without surrounding edema. He was referred to the EMD. The patient is accompanied by his , she reports that since Friday he has been feeling light headed and some dizziness and was of f balance on Friday on approx 2 episodes. In the EMD the patient had routine labs performed with Pt/PTT/INR performed. Awaiting CTA of the head and neck to be performed. He has NIHSS of 0. Patient was also found to be COVID positive on admission. He will be started on Plavix as he has abdominal pain and tachycardia with aspirin. Will discuss case with his oncologist and pharmacist in regards to Paxlovid therapy with above. COVID: POSITIVE Principal Diagnosis left parietal stroke metastatic esophageal cancer Discharge Exam The patient appeared stable Vital signs as documented. Lungs are clear to auscultation and appear unlabored Cardiac exam, Rhythm is regular.. No murmurs, rubs or gallops. Abdominal exam reveals normal bowel sounds, soft non tender, no masses Extremities are nonedematous and both pedal pulses are normal. Neurologic exam is alert and oriented, no focal loss of strength or sensation patient's only neurological symptom was dizziness preceding the stroke Skin is without bruises or rashes Psychologically is without concerns for anxiety or depression. Discharge Data Allergies Allergy/AdvReac Type Severity Reaction Status Date / Time aspirin AdvReac Intermediate GI SYMPTOMS Verified 01/31/22 14:32 Consultations 03/27/22 12:53 ED Decision to Admit Stat 03/27/22 13:06 Consult Neurology Routine Ordered Studies Head CTA 03/27/22 12:51 CT ANGIOGRAM OF THE BRAIN; CT ANGIOGRAM OF THE NECK CLINICAL HISTORY: Stroke. COMPARISON STUDY: CT of the brain dated 03/29/2021. MRI of the brain dated 03/27/2022. CT of the neck dated 08/03/2017. TECHNIQUE: Follow-up the IV administration of 120 of Optiray 320, CT angiogram of the head and neck was performed from the aortic arch to the vertex. Images are reviewed in the axial, sagittal, and coronal planes. 3-D MIPS images are created and assessed. IV contrast was administered without complication. All measurements were calculated based on NASCET criteria. A dose lowering technique was utilized adhering to the principles of ALARA. CT DOSE: 706.85 mGy.cm FINDINGS: Brain parenchyma: There is no evidence of hemorrhage, mass effect, or acute territorial ischemia noting angiographic phase technique. There is no evidence of enhancing mass lesion on the angiogram phase images. The ventricles, sulci, and cisterns are normal in configuration. Wilson-white matter differentiation is preserved. No extra-axial fluid collection is seen. Thoracic aorta: Visualized portions of the thoracic aorta are normal in caliber. The aortic arch demonstrates standard 3-vessel anatomy. Right carotid arterial system: The right common carotid artery is widely patent, as are the right internal and external carotid arteries. Left carotid arterial system: The left common carotid artery is widely patent, as are the left internal and external carotid arteries. Vertebral arteries: The vertebral arteries are widely patent bilaterally and codominant. Subclavian arteries: Widely patent bilaterally. Intracranial vasculature: The internal carotid arteries are patent at the skull base, as are the anterior and middle cerebral arteries bilaterally. The vertebrobasilar system and posterior cerebral arteries are widely patent. The vertebral arteries are codominant. There is no aneurysm, high-grade stenosis, or focal vessel cut off seen throughout the intracranial circulation. Jugular veins: Patent bilaterally. Dural sinuses: Patent. Lung apices: Partially visualized upper lobe lung parenchyma appears clear. Soft tissues: The visualized pharyngeal soft tissues are normal in appearance noting angiographic phase technique. The oropharyngeal airway appears widely pat ent. The salivary and thyroid glands are normal in appearance. No cervical lymphadenopathy is seen. A 3.4 cm lobulated soft tissue lesion in the right suboccipital soft tissues is unchanged. Skeletal structures: The skeletal structures are osteopenic. The calvarium appears intact. The cervical spine is maintained noting multilevel spondylosis. No lytic or blastic lesion is seen. Orbits: The bony orbits are intact. Orbital contents are normal as visualized noting a left ocular lens implant. Sinuses and mastoids: The paranasal sinuses are clear. There is a small left mastoid effusion. The right mastoid air cells are well pneumatized. IMPRESSION: 1. There is no evidence of hemorrhage, mass effect, or acute territorial ischemia noting angiographic phase technique. The small lacunar infarct in the left periventricular white matter seen by MRI was not visualized by CT. 2. Unremarkable CT angiogram of the brain. 3. Unremarkable CT angiogram of the neck. 4. A right suboccipital soft tissue mass is pathologically indeterminant and has been present dating back to at least 2016. ACT 112: Negative or not required by law. Electronically signed by: Kartik Mcfarlane M.D. 03/27/2022 2:19 PM Neck CTA 03/27/22 12:51 CT ANGIOGRAM OF THE BRAIN; CT ANGIOGRAM OF THE NECK CLINICAL HISTORY: Stroke. COMPARISON STUDY: CT of the brain dated 03/29/2021. MRI of the brain dated 03/27/2022. CT of the neck dated 08/03/2017. TECHNIQUE: Follow-up the IV administration of 120 of Optiray 320, CT angiogram of the head and neck was performed from the aortic arch to the vertex. Images are reviewed in the axial, sagittal, and coronal planes. 3-D MIPS images are created and assessed. IV contrast was administered without complication. All measurements were calculated based on NASCET criteria. A dose lowering technique was utilized adhering to the principles of ALARA. CT DOSE: 706.85 mGy.cm FINDINGS: Brain parenchyma: There is no evidence of hemorrhage, mass effect, or acute territorial ischemia noting angiographic phase technique. There is no evidence of enhancing mass lesion on the angiogram phase images. The ventricles, sulci, and cisterns are normal in configuration. Wilson-white matter differentiation is preserved. No extra-axial fluid collection is seen. Thoracic aorta: Visualized portions of the thoracic aorta are normal in caliber. The aortic arch demonstrates standard 3-vessel anatomy. Right carotid arterial system: The right common carotid artery is widely patent, as are the right internal and external carotid arteries. Left carotid arterial system: The left common carotid artery is widely patent, as are the left internal and external carotid arteries. Vertebral arteries: The vertebral arteries are widely patent bilaterally and codominant. Subclavian arteries: Widely patent bilaterally. Intracranial vasculature: The internal carotid arteries are patent at the skull base, as are the anterior and middle cerebral arteries bilaterally. The vertebrobasilar system and posterior cerebral arteries are widely patent. The vertebral arteries are codominant. There is no aneurysm, high-grade stenosis, or focal vessel cut off seen throughout the intracranial circulation. Jugular veins: Patent bilaterally. Dural sinuses: Patent. Lung apices: Partially visualized upper lobe lung parenchyma appears clear. Soft tissues: The visualized pharyngeal soft tissues are normal in appearance noting angiographic phase technique. The oropharyngeal airway appears widely patent. The salivary and thyroid glands are normal in appearance. No cervical lymphadenopathy is seen. A 3.4 cm lobulated soft tissue lesion in the right suboccipital soft tissues is unchanged. Skeletal structures: The skeletal structures are osteopenic. The calvarium appears intact. The cervical spine is maintained noting multilevel spondylosis. No lytic or blastic lesion is seen. Orbits: The bony orbits are intact. Orbital contents are normal as visualized noting a left ocular lens implant. Sinuses and mastoids: The paranasal sinuses are clear. There is a small left mastoid effusion. The right mastoid air cells are well pneumatized. IMPRESSION: 1. There is no evidence of hemorrhage, mass effect, or acute territorial ischemia noting angiographic phase technique. The small lacunar infarct in the left periventricular white matter seen by MRI was not visualized by CT. 2. Unremarkable CT angiogram of the brain. 3. Unremarkable CT angiogram of the neck. 4. A right suboccipital soft tissue mass is pathologically indeterminant and has been present dating back to at least 2017. ACT 112: Negative or not required by law. Electronically signed by: Kartik Mcfarlane M.D. 03/27/2022 2:19 PM Chest X-Ray 03/27/22 14:33 XR chest 1V not portable CLINICAL HISTORY: COVID + eval for any pulmonary disease. COMPARISON STUDY: 01/20/2022 TECHNIQUE: 1 view of the chest FINDINGS: Single frontal view of the chest demonstrates the cardiomediastinal silhouette to be within normal limits. There is a decreased inspiratory effort with elevation of the hemidiaphragms and crowding of the bronchovascular markings at the lung bases and centrally. The lungs are clear of alveolar opacities. There is no evidence for pleural effusion. There is no evidence for vascular congestion. There is no acute osseous pathology. IMPRESSION: 1. . There is a decreased inspiratory effort with otherwise no acute chest disease. ACT 112: Negative or not required by law. Electronically signed by: Fili Olea M.D. 03/27/2022 3:31 PM Hospital Course (1) CVA (cerebral vascular accident): Acute left parietal CVA < 1cm noted on screening MRI 03/27/22 IMPRESSION: 1. Acute small vessel infarct involving the left parietal lobe. 2. No evidence for enhancing metastatic disease. 3. Left mastoiditis. 4. Subcutaneous soft tissue mass adjacent to the skull posteriorly on the right which does not enhance and does not represent metastatic disease. It was present on previous CT of the brain from 03/29/2021 - CTA of the head and neck negative - NIHSS 0 - Plavix 75 mg now and then daily - Increase atorvastatin 40mg following treatment with Paxlovid- decrease statin dose to 10mg now - Continue Lovenox for his underlying blood clots and APLS- follow neurological exams - ECHO - Nuero consulted appreciate assistance (2) COVID-19: Incidental finding- approx day of symptoms unknown- patient did go to [facility] - Reports no symptoms other than possible diarrhea - CXR pending - ESR, CRP, Fibrinogen pending for inflammatory markers - Will discuss with pharmacy and oncologist in regards to Paxlovid treatment - Paxlovid therapy Ok with oncology- will provide outpatient script and can take while in house - statin dose decreased, tramadol held (3) Hypomagnesemia: Mag 1.3 - had mag repalced eariler in the week as well at cancer care - diarrhea and low appetite - replete with 4GM mag IV (4) Anti-phospholipid antibody syndrome: As above continue with anticoagulation - continue to follow with heme/onc (5) Metastasis from esophageal cancer: As above- on Cisplatin/Xeloda/Pembrolizumab - therapy will have to be on hold with COVID diagnosis- call cancer care to reschedule appt. likely will need 10 days post - Will hold his Xeloda for tonight- clarify continuing with COVID (6) Hyperlipidemia: Statin therapy as above - lipid panel in the morning (7) Current use of buttermaker helper anticoagulation: Multiple DVT and PE in the setting of Cancer, antiphospholipid syndrome - continue with weight based Lovenox BID (8) Esophageal cancer, stage IV: As above with GERD continue with PPI and Carafate (9) Sleep apnea: Continue with autoPAP CPAP (10) Anxiety: Continue with Ativan patient on TID 0.5mg at home - takes 1mg twice a day he reports - Continue Olanzapine (11) Hyponatremia: Mild at 134 previously was as low as 129 - previously interpreted as SIADH - Continues with diarrhea and low oral food intake - LR overnight (12) Asthma: Continue Albuterol inhaler prn q4 Albuterol Nebulizer PRN for symptoms not controlled by inhaler (13) Diabetes mellitus: Hold Metformin - Aspart sliding scale loose coverage - goal <180mg/DL - CF 20 hold on carb ratio at this time as diet is small meals and minimal appetite Total Time Total Time Spent Total Time Spent (In Minutes): It required greater than 30 minutes to prepare this patient for discharge Discharge Plan Discharge Items Patient Disposition: Home - Self-Care Reason For Visit: STROKE, STAGE IV ESOPHAGEAL CANCER Discharge Diagnosis: left Parietal stroke covid test positive Activity: Resume your previous activity Non-emergency contact: Primary Care Provider and Oncologist Call non-emergency contact if: your symptoms worsen Follow-up/Referrals: Chayo Pfeiffer CRNP [Primary Care Provider] - Diet: Regular Addtl Attending Provider Instructions: your repeat covid test was negative, no need to complete paxlovid, increase your atorvastatin to 40 mg a day,you may use 2 of your 20 mg pills to make up this dose you have been started on Plavix, (clopidogrel) as a means to reduce your risks of future strokes Risk Factors for Stroke: You can reduce your chances of stroke by working with your medical provider to adopt a healthy lifestyle. Some specific ways to lower your chance of stroke are: * If you are a smoker, now is the time to stop smoking cigarettes * If you are diabetic, improve the control of your blood sugars * Avoid excessive amounts of alcohol * Control high blood pressure * Lose weight if you are overweight * Be sure to lead an active lifestyle * Eat a healthy diet low in salt, cholesterol and fat You should know about other risk factors for stroke that you are unable to control. These include: * Age 55 years or older * Male gender * Certain racial groups: , or / * Family History of Stroke, Mini stroke or Heart Attack * Sickle Cell Disease Follow Up: It is important for you to keep your follow up appointments with your medical provider. Who to Call and When: Medical Emergencies: Call 911 immediately if you experience any of the following warning signs and symptoms of Stroke: * Sudden numbness or weakness of the face, arm or leg, especially on one side of the body * Sudden confusion, trouble speaking or understanding * Sudden trouble seeing in one or both eyes * Sudden trouble walking, dizziness, loss of balance or coordination * Sudden severe headache with no cause Do not delay calling 911 if you experience any warning signs or symptoms of a stroke. Delay in seeking medical attention may affect what treatments can be given to you. . Pending Studies at Discharge: Yes Studies:: final echo read Stand-Alone Forms: Medications to Prevent Stroke, [facility], Smoking Cessation Medications and DC Order Prescriptions: New clopidogrel 75 mg Tablet 75 mg PO QAM Qty: 30 RF: 4 Paxlovid (EUA) 150 mg x 2- 100 mg Tablet 3 dose PO BID Qty: 30 RF: 0 Continued (DME) blood-glucose meter [OneTouch Verio Flex Start] Kit See Rx Instructions .ROUTE .MEDSUPPLY Qty: 1 RF: 0 (DME) OneTouch Verio test strips Strip See Rx Instructions .ROUTE .MEDSUPPLY Qty: 100 RF: 3 albuterol sulfate [Ventolin HFA] 90 mcg/actuation HFA aerosol inhaler 2 puff inhalation QID PRN (Reason: Shortness Of Breath) Qty: 18 RF: 6 atorvastatin 20 mg tablet 20 mg PO QAM Qty: 90 RF: 3 azelastine 0.15 % (205.5 mcg) spray,non-aerosol 2 sprays INTNAS BID PRN (Reason: Congestion) RF: 0 tramadol 50 mg tablet 50 mg PO TID Qty: 90 RF: 2 ondansetron HCl 8 mg tablet 8 mg PO Q8 PRN (Reason: Nausea) Qty: 100 RF: 5 sertraline 50 mg tablet 50 mg PO DAILY Qty: 30 RF: 5 hydrocortisone [Proctosol HC] 2.5 % cream with perineal applicator 1 applic UT DAILY PRN (Reason: hemorrhoids) Qty: 30 RF: 1 (DME) CPAP Supplies Misc .Route Qty: 1 RF: 0 lorazepam 1 mg tablet 1 mg PO QID Qty: 120 RF: 3 (DME) nebulizer kit See Rx Instructions .Route .MEDSUPPLY Qty: 1 RF: 0 fluticasone propionate [Flonase Allergy Relief] 50 mcg/actuation spray,suspension 1 sprays INTNAS QAM PRN (Reason: Congestion) RF: 0 (DME) blood-glucose meter [Advanced Glucose Meter] Misc See Rx Instructions .ROUTE .MEDSUPPLY Qty: 1 RF: 0 (DME) lancets [BD Ultra-Fine II Lancets] 30 gauge misc See Rx Instructions .Route Qty: 100 RF: 4 fexofenadine [Jana Allergy] 180 mg Tablet 180 mg PO QAM RF: 0 albuterol sulfate 2.5 mg /3 mL (0.083 %) solution for nebulization 2.5 mg inhalation QID PRN (Reason: Shortness Of Breath Or Wheezing) RF: 0 sennosides [Senokot] 8.6 mg Tablet 17.2 mg PO QAM Qty: 60 RF: 0 metformin 500 mg tablet 500 mg PO BID RF: 0 capecitabine 500 mg tablet 500 mg PO Q12 RF: 0 dexlansoprazole 60 mg capsule,biphase delayed releas 60 mg PO QAM RF: 0 olanzapine 5 mg tablet 5 mg PO BID RF: 0 dronabinol 2.5 mg capsule See Rx Instructions .ROUTE .COMPLEX RF: 0 enoxaparin 150 mg/mL syringe 150 mg subcut BID RF: 0 Dulera 200-5 mcg/actuation HFA aerosol inhaler 2 inh INHALATION BID RF: 0 Discharge Orders: Discharge Order (Routine); Ordered 03/28/22 Ordered By: Tee Blankenship Admission Data Admit Date/Time: 03/27/22 12:58 Attending Provider: Tee Blankenship Admit Provider: Denzel Pedraza Primary Care Provider: Chayo Pfeiffer Other Providers: Denzel Pedraza ; Wilder Velazco Other Interventions: Discharge Summary Assessment (RN) Last Done: 03/28/22 14:46 Coding Level of Care Code D/C DAY MANAGEMENT >30 MINS Diagnoses CVA (cerebral vascular accident) I63.9 COVID-19 U07.1 Hypomagnesemia E83.42 Anti-phospholipid antibody syndrome D68.61 Metastasis from esophageal cancer C79.9; C15.9 Hyperlipidemia E78.5 Current use of half-way anticoagulation Z79.01 Esophageal cancer, stage IV C15.9 Sleep apnea G47.30 Anxiety F41.9 Hyponatremia E87.1 Asthma J45.909 Diabetes mellitus E11.9
--- NOTE | 2022-03-28 15:13 | Pharmacy Report ---
Pharmacist Stroke Counseling - Date of Service March 28, 2022 - Scope: Pharmacy has been consulted to provide medication discharge counseling for this patient admitted with ischemic stroke as per the Pharmacist Discharge Counseling for Stroke Patients Protocol. - Medications on Discharge: Home Medications Medication Instructions Recorded Confirmed fexofenadine 180 mg tablet 180 mg PO QAM 07/02/18 03/27/22 (Jana Allergy) fluticasone propionate 50 1 sprays INTNAS QAM PRN 06/08/19 03/27/22 mcg/actuation nasal spray,suspension (Flonase Allergy Relief) azelastine 205.5 mcg (0.15 %) 2 sprays INTNAS BID PRN 06/25/19 03/27/22 nasal spray metformin 500 mg tablet 500 mg PO BID 12/26/21 03/27/22 albuterol sulfate 2.5 mg INHALATION QID PRN 01/09/22 03/27/22 capecitabine 500 mg tablet 500 mg PO Q12 01/20/22 03/27/22 dexlansoprazole 60 mg 60 mg PO QAM 03/27/22 03/27/22 capsule,biphase delayed release dronabinol 2.5 mg capsule See Rx Instructions .ROUTE .COMPLEX 03/27/22 03/27/22 enoxaparin 150 mg/mL subcutaneous 150 mg SUBCUT BID 03/27/22 03/27/22 syringe mometasone-formoterol HFA 200 2 inh INHALATION BID 03/27/22 03/27/22 mcg-5 mcg/actuation aerosol inhaler (Dulera) olanzapine 5 mg tablet 5 mg PO BID 03/27/22 03/27/22 New Rx's Medication Instructions Recorded blood-glucose meter (Advanced #1 ea 08/22/20 Glucose Meter) blood-glucose meter (OneTouch #1 ea 09/22/20 Verio Flex Start) blood sugar diagnostic (OneTouch #100 ea 10/03/20 Verio test strips) lancets 30 gauge (BD Ultra-Fine II #100 ea 07/05/21 Lancets) nebulizer kit #1 ea 12/25/21 albuterol sulfate 90 mcg/actuation 2 puff INHALATION QID PRN #18 g 12/31/21 aerosol inhaler (Ventolin HFA) sennosides 8.6 mg tablet (Senokot) 17.2 mg PO QAM #60 tab 01/15/22 hydrocortisone 2.5 % topical cream 1 applic IA DAILY PRN #30 g 01/31/22 with perineal applicator (Proctosol HC) ondansetron HCl 8 mg tablet 8 mg PO Q8 PRN #100 tab 01/31/22 sertraline 50 mg tablet 50 mg PO DAILY #30 tab 01/31/22 tramadol 50 mg tablet 50 mg PO TID #90 tab 01/31/22 atorvastatin 20 mg tablet 20 mg PO QAM #90 tab 02/18/22 CPAP Supplies #1 ea 03/06/22 lorazepam 1 mg tablet 1 mg PO QID #120 tab 03/15/22 clopidogrel 75 mg tablet 75 mg PO QAM #30 tab 03/28/22 nirmatrelvir 300 mg (150 mg x 3 dose PO BID #30 tab 03/28/22 2)-ritonavir 100 mg tablet (EUA) (Paxlovid 300 mg () - Action: The above medications, specifically ones for stroke treatment/prophylaxis, have been reviewed in detail with the patient and/or patient patient accounting representative(s) prior to discharge. This includes indication, common adverse reactions, drug interactions, and medication administration. Medication counseling has been employed using the teach-back method to ensure understanding. - Outcome: The patient and/or patient patient accounting representative(s) have demonstrated understanding of the medications. Additional comments: - Counseling completed with patient's - Reviewed new medications/medication changes related to stroke prevention - Reviewed s/s of bleeding (especially since he is on anticoagulation with lovenox) and the need to inform providers of these therapies if patient would have a medical or dental procedure scheduled. - Discussed dose increase to atorvastatin 40 mg daily and potential side effects of this drug - demonstrated understanding of the changes Thank you for allowing pharmacy to be involved in the care of this patient. Please call [phone] with any additional questions
--- NOTE | 2022-03-28 18:21 | Electrocardiogram Report ---
Test Reason : Blood Pressure : / mmHG Vent. Rate : 091 BPM Atrial Rate : 091 BPM P-R Int : 162 ms QRS Dur : 092 ms QT Int : 374 ms P-R-T Axes : 056 069 046 degrees QTc Int : 460 ms Normal sinus rhythm Normal ECG When compared with ECG of 27-MAR-2022 12:25, No significant change was found Confirmed by Josh Villarreal ([id number]) on 03/28/2022 6:20:41 PM Referred By: REFERRED SELF Confirmed By:Alex Villarreal
--- NOTE | 2022-03-28 18:41 | XCELERA ---
[id number]
== END 2022-03-28 16:33 | disposition home or self-care (01) | DRG 64 ==
LOC: ED 11:50 → SUATTDRO 12:58 → 2W 12:58

== ENCOUNTER 2022-04-04 17:45 | Inpatient (IN) ==
[2022-04-04] MEDS ORDERED: SODIUM CHLORIDE 0.9% 1000ML 1,000 ML IV ONE (18:06)
[2022-04-04 18:40] LABS: Basophils # (auto) 0.01 K/uL (0-0.2); Basophils % (auto) 0.2 %; Eosinophils # (auto) 0.04 K/uL (0-0.5); Eosinophils % (auto) 0.9 %; Hematocrit (blood only) 30.1 % (42-52); Hemoglobin 10.7 g/dL (14.0-18.0); Immature Granulocytes # (auto) 0.01 K/uL (0.00-0.02); Immature Granulocytes % (auto) 0.2 %; Lymphocytes # (auto) 1.13 K/uL (1.2-3.4); Lymphocytes % (auto) 25.3 %; Mean Corpuscular Hemoglobin 33.1 pg (25-34); Mean Corpuscular Hgb Conc 35.5 g/dL (32-36); Mean Corpuscular Volume 93.2 fL (80-100); Mean Platelet Volume 10.2 fL (7.4-10.4); Monocytes # (auto) 0.48 K/uL (0.11-0.59); Monocytes % (auto) 10.8 %; Neutrophils # (auto) 2.79 K/uL (1.4-6.5); Neutrophils % (auto) 62.6 %; Platelet Count 105 K/uL (130-400); RDW Coefficient of Variation 18.5 % (11.5-14.5); RDW Standard Deviation 64.3 fL (36.4-46.3); Red Blood Count 3.23 M/uL (4.7-6.1); White Blood Count 4.46 K/uL (4.8-10.8)
--- NOTE | 2022-04-04 18:42 | XRay Report ---
XR chest 1V portable HISTORY: 46 years-old Male Chest Pain acute atypical chest pain COMPARISON: Chest radiograph 03/27/2022, chest CT 03/01/2022. TECHNIQUE: Portable AP view of the chest FINDINGS: The cardiomediastinal and hilar silhouettes are within normal limits. No pneumothorax, pleural effusi on, airspace consolidation or overt pulmonary edema. Degenerative changes of the shoulders and spine. 9 mm nodular density projecting over the right midlung is likely secondary to summation density. IMPRESSION: No acute process. ACT 112: Negative or not required by law. The above report was generated using voice recognition software. It may contain grammatical, syntax o r spelling errors. Electronically signed by: Teo Palmer M.D. 04/04/2022 6:41 PM
[2022-04-04 19:04] LABS: Alanine Aminotransferase 19 U/L (7-52); Albumin Globulin Ratio 1.9 (0.9-2); Albumin Level 3.6 gm/dl (3.4-5.0); Alkaline Phosphatase 72 U/L (34-104); Anion Gap 12 (3-11); BUN Creatinine Ratio 18.9 (10-20); Bilirubin,Total 1.4 mg/dl (0.2-1.0); Blood Urea Nitrogen 25 mg/dl (6-23); Calcium 7.7 mg/dl (8.5-10.1); Carbon Dioxide 24 mmol/L (21-32); Chloride 95 mmol/L (98-107); Creatinine Clr Calc Pharmacy 93.2 ml/min; Est GFR (African American) 73.9 ml/min; Est GFR (Non-African American) 63.8 ml/min; Globulin 1.9 gm/dl (2.5-4.0); Glucose 179 mg/dl (70-99(Fasting)); Lipase 27 U/L (11-82); Magnesium 1.1 mg/dl (1.7-2.4); Phosphorus 2.7 mg/dl (2.5-4.9); Sodium 131 mmol/L (136-145); Total Protein 5.5 gm/dl (6.0-8.3)
--- NOTE | 2022-04-04 19:09 | Emergency Department Note ---
Impression & Plan Hypomagnesemia, Dehydration, Dizziness, Hypokalemia, Hypocalcemia ED Provider Note NAME: ANA WORRELL AGE: 46 SEX: M ARRIVES VIA: Walk-In INFORMANT: Patient, ED PROVIDER(S): Billy Carrera MD CHIEF COMPLAINT: Dizziness PLAN: Disposition: Admit MEDICAL DECISION MAKING: The patient is a pleasant 46-year-old gentleman with a complicated past medical history of antiphospholipid syndrome on Lovenox, history of DVT/PE, metastatic esophageal cancer, recent diagnosis of subacute CVA found on outpatient imaging for cancer surveillance admitted to this facility and discharged last week presents to the emergency department for evaluation of dizziness that began yesterday and has worsened. He is taking ongoing oral chemotherapy at home and relates that he has not been eating or drinking much. He goes to the cancer center twice weekly for IV fluid hydration. He denies any fevers, chills, cough, congestion, vomiting or diarrhea. The patient's admission he had been started on Plavix in addition to his Lovenox. He had an echocardiogram that did not demonstrate evidence of PFO. Of note, the patient did have a positive COVID-19 ID now test on his last admission but when his test was repeated with a TripOvationheid PCR this was negative and therefore he was considered to not have COVID- 19. On arrival patient is no distress, afebrile heart rate in the 130s and otherwise stable vital signs. He appears clinically dry. He has no focal neurologic deficits. EKG without overt acute ischemia. CXR negative for acute cardiopulmonary process. WBC 4.4K, H/H 10.7/30.1, and platelets 105K all similar to prior values. Chemistry without metabolic acidosis. BUN 25, consistent with patient's clinical dry appearance. Magnesium was significantly low at 1.1 with repletion initiated with IV repletion. Sodium 131, potassium 3.5 and calcium 7.7. High- sensitivity troponin 6.0, within normal limits. Lipase is not elevated. CT of the head and CTA of the head and neck were performed and did not demonstrate acute findings. The previously noted small vessel infarcts are again seen. Upon reevaluation the patient was improved after initial IV fluid hydration. HR improved. We did discuss the option for admission given his significantly low magnesium. However the patient did want to see if he would be able to go home following completion of his electrolyte repletion. Following completion of his magnesium infusion he was preparing for discharge but then began to feel similarly dizzy/lightheaded and weak. Ultimately the patient and his did agree with plan for admission at that time. He had been ordered for oral electrolyte repletion and additional IV calcium and potassium chloride ordered as well. Case was discussed with Dr. Germain, [facility] hospitalist, who will evaluate the patient for admission. Triage Nursing notes reviewed and agree them. Prior medical records reviewed Vital Signs: reviewed and remarkable for tachycardia. Differential diagnosis: Benign positional vertigo, dehydration, hypovolemia, anemia, tumor, infection, hypoglycemia, electrolyte abnormalities, cardiac sources, intracerebral event, toxicologic, neurologic, as well as other pathologies. ER treatment provided: See below. Diagnostics interpreted by me: ECG: Sinus tachycardia, 117 bpm, no ectopy, no overt ST elevation or depression, QTC 449, QRS 86. Cardiac Monitoring: An order for continuous cardiac monitoring was placed and demonstrated Sinus tachycardia, 117 bpm, no ectopy. Laboratory studies: See below Imaging studies: See below Consultation(s): Case was discussed with Dr. Germain, [facility] hospitalist, who will evaluate the patient for admission. HPI: The patient is a pleasant 46-year-old gentleman with a complicated past medical history of antiphospholipid syndrome on Lovenox, history of DVT/PE, metastatic esophageal cancer, recent diagnosis of subacute CVA found on outpatient imaging for cancer surveillance admitted to this facility and disch arged last week presents to the emergency department for evaluation of dizziness that began yesterday and has worsened. He is taking ongoing oral chemotherapy at home and relates that he has not been eating or drinking much. He goes to the cancer center twice weekly for IV fluid hydration. He denies any fevers, chills, cough, congestion, vomiting or diarrhea. The patient's admission he had been started on Plavix in addition to his Lovenox. He had an echocardiogram that did not demonstrate evidence of PFO. Of note, the patient did have a positive COVID-19 ID now test on his last admission but when his test was repeated with a IActive PCR this was negative and therefore he was considered to not have COVID-19. ROS: See above HPI for pertinent positives & negatives. A total of 10 systems reviewed and were otherwise negative. VITALS:See Below PHYSICAL EXAMINATION: GENERAL: Awake, alert, fatigued/chronically ill-appearing, in no distress HENT: Normocephalic, atraumatic. Oropharynx with dry mucous membranes and otherwise unremarkable. EYES: Normal conjunctiva. Sclera non-icteric. EOMI. No nystamgus. PEARRL. NECK: Supple. No nuchal rigidity. FROM. No JVD. RESPIRATORY: Clear to auscultation. CARDIAC: Tachycardic rate, normal rhythm. Extremities warm and well perfused. Pulses equal. ABDOMEN: Soft, non-distended. No tenderness to palpation. No rebound or guarding. No masses. RECTAL: Deferred. MUSCULOSKELETAL: Chest examination reveals no tenderness. The back is symmetrical on inspection without obvious abnormality. There is no CVA tenderness to palpation. No joint edema. LOWER EXTREMITIES: Calves are equal size bilaterally and non-tender. No edema. No discoloration. NEURO: Normal sensorium. No focal sensory or motor deficits noted. 5/5 strength and SILT x 4 extremities. Cerebellar function intact including [id number], alternating palms, [id number]. SKIN: No rash or jaundice noted. Billy Carrera MD Past Med/Surg History Medical History Anticoagulant long-term use Asthma Well controlled with inhalers Diabetes mellitus Esophageal cancer, stage IV Presumed per CT scan per general surgery records. Reason for port placement GERD (gastroesophageal reflux disease) History of anesthesia reaction Woke up during cataract procedure and "attempted to walk off the table" and was told he should always be "put completely to sleep". 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 On Lovenox Sleep apnea CPAP Surgical History History of cataract surgery L EYE History of left knee surgery History of liver biopsy History of surgery (01/08/22) Attempted Insertion Access Port with Fluoroscopy(Left) - Carlos Angeles DO 01/08/2022 History of tooth extraction History of umbilical hernia repair Family History Father Family history of diabetes mellitus FHx: skin cancer Cancer FHx: bladder cancer Mother FHx: kidney cancer Family history of diabetes mellitus Cancer Brother Family history of diabetes mellitus Family/Other Coronary heart disease Grandmother (Paternal) FHx: colon cancer Social History Smoking Status: Never smoker Tobacco Type: Smokeless Tobacco (Dip or Chew) Second Hand Exposure: No; Hx Alcohol Use: No Hx Substance Use: No Preferred Language: Swedish Communication Ability: Effective Visual Impairment: No Limitations Cloth Shearing Supervisor Required: No Beliefs That Will Affect Care: None marital status: Current Living Situation: Spouse Current Living Situation Comment: home with current occupational status: employed Feels Safe at Home: Yes during the past year weight has: remained stable Assistive Devices: CPAP Allergies Allergies Allergy/AdvReac Type Severity Reaction Status Date / Time aspirin AdvReac Intermediate GI SYMPTOMS Verified 01/31/22 14:32 Home Meds Home Medications Medication Instructions Recorded Confirmed fexofenadine 180 mg tablet 180 mg PO QAM 07/02/18 03/27/22 (Jana Allergy) fluticasone propionate 50 1 sprays INTNAS QAM PRN 06/08/19 03/27/22 mcg/actuation nasal spray,suspension (Flonase Allergy Relief) azelastine 205.5 mcg (0.15 %) 2 sprays INTNAS BID PRN 06/25/19 03/27/22 nasal spray metformin 500 mg tablet 500 mg PO BID 12/26/21 03/27/22 albuterol sulfate 2.5 mg INHALATION QID PRN 01/09/22 03/27/22 capecitabine 500 mg tablet 500 mg PO Q12 01/20/22 03/27/22 dexlansoprazole 60 mg 60 mg PO QAM 03/27/22 03/27/22 capsule,biphase delayed release dronabinol 2.5 mg capsule See Rx Instructions .ROUTE .COMPLEX 03/27/22 03/27/22 enoxaparin 150 mg/mL subcutaneous 150 mg SUBCUT BID 03/27/22 03/27/22 syringe mometasone-formoterol HFA 200 2 inh INHALATION BID 06/15/22 06/15/22 mcg-5 mcg/actuation aerosol inhaler (Dulera) olanzapine 5 mg tablet 5 mg PO BID 03/27/22 03/27/22 Previous Rx's Medication Instructions Recorded blood-glucose meter (Advanced #1 ea 08/22/20 Glucose Meter) blood-glucose meter (OneTouch #1 ea 09/22/20 Verio Flex Start) blood sugar diagnostic (OneTouch #100 ea 10/03/20 Verio test strips) lancets 30 gauge (BD Ultra-Fine II #100 ea 07/05/21 Lancets) nebulizer kit #1 ea 12/25/21 albuterol sulfate 90 mcg/actuation 2 puff INHALATION QID PRN #18 g 12/31/21 aerosol inhaler (Ventolin HFA) sennosides 8.6 mg tablet (Senokot) 17.2 mg PO QAM #60 tab 01/15/22 hydrocortisone 2.5 % topical cream 1 applic [place] DAILY PRN #30 g 01/31/22 with perineal applicator (Proctosol HC) ondansetron HCl 8 mg tablet 8 mg PO Q8 PRN #100 tab 01/31/22 sertraline 50 mg tablet 50 mg PO DAILY #30 tab 01/31/22 tramadol 50 mg tablet 50 mg PO TID #90 tab 01/31/22 CPAP Supplies #1 ea 03/06/22 lorazepam 1 mg tablet 1 mg PO QID #120 tab 03/15/22 clopidogrel 75 mg tablet 75 mg PO QAM #30 tab 03/28/22 nirmatrelvir 300 mg (150 mg x 3 dose PO BID #30 tab 03/28/22 2)-ritonavir 100 mg tablet (EUA) (Paxlovid 300 mg () atorvastatin 40 mg tablet 40 mg PO DAILY #30 tab 03/29/22 calcium carbonate 600 mg calcium 600 mg PO DAILY #7 tab 04/05/22 (1,500 mg) tablet (Calcium) magnesium oxide 400 mg PO BID #14 cap 04/05/22 potassium chloride 20 mEq 20 meq PO BID #14 tab 04/05/22 tablet,extended release(part/cryst) (Klor-Con M) Results & Data (ED) Vital Signs Vital Signs - 24 hr 04/04/22 17:49 04/04/22 18:30 04/04/22 19:30 Temperature 36.6 C Temperature Source Temporal Artery Scan Pulse Rate 132 H 117 H 109 H Pulse Rate from SpO2 Sensor Respiratory Rate 18 13 13 Respiratory Effort / Characteristics Non-Labored Respiratory Depth Normal Blood Pressure 119/80 120/84 Blood Pressure Mean 93 96 Pulse Oximetry 96 97 96 Oxygen Delivery Method Room Air Sepsis Recent Fever Within 48 Hours No Sepsis New/Unexplained Change in Mental Status No Sepsis Action Taken by Nursing No Action Required 04/04/22 20:15 04/04/22 21:00 04/04/22 22:00 Temperature Temperature Source Pulse Rate 106 H 102 H 107 H Pulse Rate from SpO2 Sensor 107 H Respiratory Rate 24 24 12 Respiratory Effort / Characteristics Respiratory Depth Blood Pressure 109/66 119/72 Blood Pressure Mean 80 87 Pulse Oximetry 98 95 96 Oxygen Delivery Method Sepsis Recent Fever Within 48 Hours Sepsis New/Unexplained Change in Mental Status Sepsis Action Taken by Nursing 04/04/22 23:00 04/05/22 00:31 Temperature Temperature Source Pulse Rate 99 H 106 H Pulse Rate from SpO2 Sensor 99 H Respiratory Rate 20 18 Respiratory Effort / Characteristics Respiratory Depth Blood Pressure 123/80 Blood Pressure Mean 94 Pulse Oximetry 94 95 Oxygen Delivery Method Room Air Sepsis Recent Fever Within 48 Hours Sepsis New/Unexplained Change in Mental Status Sepsis Action Taken by Nursing Laboratory Data Attestation: I reviewed the patient's lab results. Result diagrams: 04/04/22 18:21 04/04/22 18:43 Lab Results 04/04/22 04/04/22 04/04/22 Range/Units 18:21 18:21 18:43 WBC 4.46 L (4.8-10.8) K/uL RBC 3.23 L (4.7-6.1) M/uL Hgb 10.7 L (14.0-18.0) g/dL Hct 30.1 L (42-52) % MCV 93.2 (80-100) fL MCH 33.1 (25-34) pg MCHC 35.5 (32-36) g/dL RDW Std Deviation 64.3 H (36.4-46.3) fL RDW Coeff of Andie 18.5 H (11.5-14.5) % Plt Count 105 L (130-400) K/uL MPV 10.2 (7.4-10.4) fL Immature Gran % (Auto) 0.2 % Neut % (Auto) 62.6 % Lymph % (Auto) 25.3 % Scott % (Auto) 10.8 % Eos % (Auto) 0.9 % Baso % (Auto) 0.2 % Neut # (Auto) 2.79 (1.4-6.5) K/uL Lymph # (Auto) 1.13 L (1.2-3.4) K/uL Scott # (Auto) 0.48 (0.11-0.59) K/uL Eos # (Auto) 0.04 (0-0.5) K/uL Baso # (Auto) 0.01 (0-0.2) K/uL Immature Gran # (Auto) 0.01 (0.00-0.02) K/uL Sodium 131 L (136-145) mmol/L Potassium TNP 3.5 Chloride 95 L (98-107) mmol/L Carbon Dioxide 24 (21-32) mmol/L Anion Gap 12 H (3-11) BUN 25 H (6-23) mg/dl Creatinine 1.32 (0.6-1.4) mg/dl Est Cr Clr Drug Dosing 93.2 ml/min Est GFR ( Amer) 73.9 ml/min Est GFR (Non-Af Amer) 63.8 ml/min BUN/Creatinine Ratio 18.9 (10-20) Glucose 179 H (70-99(Fasting)) mg/dl Calcium 7.7 L (8.5-10.1) mg/dl Phosphorus 2.7 (2.5-4.9) mg/dl Magnesium 1.1 L (1.7-2.4) mg/dl Total Bilirubin 1.4 H (0.2-1.0) mg/dl AST TNP 15 ALT 19 (7-52) U/L Alkaline Phosphatase 72 (34-104) U/L Troponin I High Sens 6.0 (0-20) pg/ml Total Protein 5.5 L (6.0-8.3) gm/dl Albumin 3.6 (3.4-5.0) gm/dl Globulin 1.9 L (2.5-4.0) gm/dl Albumin/Globulin Ratio 1.9 (0.9-2) Lipase 27 (11-82) U/L SARS-CoV-2 (PCR) (Negative) Influenza Type A (PCR) (Neg) Influenza Type B (PCR) (Neg) RSV (RT-PCR) (Neg) SARS-CoV-2, RNA, NAAT (NEGATIVE) 04/05/22 04/05/22 Range/Units 00:42 01:22 WBC (4.8-10.8) K/uL RBC (4.7-6.1) M/uL Hgb (14.0-18.0) g/dL Hct (42-52) % MCV (80-100) fL MCH (25-34) pg MCHC (32-36) g/dL RDW Std Deviation (36.4-46.3) fL RDW Coeff of Andie (11.5-14.5) % Plt Count (130-400) K/uL MPV (7.4-10.4) fL Immature Gran % (Auto) % Neut % (Auto) % Lymph % (Auto) % Scott % (Auto) % Eos % (Auto) % Baso % (Auto) % Neut # (Auto) (1.4-6.5) K/uL Lymph # (Auto) (1.2-3.4) K/uL Scott # (Auto) (0.11-0.59) K/uL Eos # (Auto) (0-0.5) K/uL Baso # (Auto) (0-0.2) K/uL Immature Gran # (Auto) (0.00-0.02) K/uL Sodium (136-145) mmol/L Potassium Chloride (98-107) mmol/L Carbon Dioxide (21-32) mmol/L Anion Gap (3-11) BUN (6-23) mg/dl Creatinine (0.6-1.4) mg/dl Est Cr Clr Drug Dosing ml/min Est GFR ( Amer) ml/min Est GFR (Non-Af Amer) ml/min BUN/Creatinine Ratio (10-20) Glucose (70-99(Fasting)) mg/dl Calcium (8.5-10.1) mg/dl Phosphorus (2.5-4.9) mg/dl Magnesium (1.7-2.4) mg/dl Total Bilirubin (0.2-1.0) mg/dl AST ALT (7-52) U/L Alkaline Phosphatase (34-104) U/L Troponin I High Sens (0-20) pg/ml Total Protein (6.0-8.3) gm/dl Albumin (3.4-5.0) gm/dl Globulin (2.5-4.0) gm/dl Albumin/Globulin Ratio (0.9-2) Lipase (11-82) U/L SARS-CoV-2 (PCR) NEGATIVE (Negative) Influenza Type A (PCR) Negative (Neg) Influenza Type B (PCR) Negative (Neg) RSV (RT-PCR) Negative (Neg) SARS-CoV-2, RNA, NAAT POSITIVE A* (NEGATIVE) Administered Medications Lactated Ringer's (Lr) 1,000 mls @ 125 mls/hr IV .Q8H LETY Stop: 05/05/22 00:44 Last Admin: 04/05/22 01:48 Dose: Not Given Documented by: [id number] Discontinued Medications Calcium Carbonate (Calcium Carbonate 500 Mg Chewable Tab) 500 mg PO NOW STA Stop: 04/05/22 00:26 Last Admin: 04/05/22 01:03 Dose: 500 mg Documented by: [id number] Enoxaparin Sodium (Enoxaparin 150 Mg/Ml Syr) 150 mg SQ NOW STA Stop: 04/04/22 20:28 Last Admin: 04/04/22 20:33 Dose: 150 mg Documented by: [id number] Famotidine (Famotidine Susp 40 Mg/5 Ml Udp) 40 mg PO DAILY ONE Stop: 04/05/22 01:54 Last Admin: 04/05/22 02:18 Dose: 40 mg Documented by: [id number] Sodium Chloride (Nss 1000ml) 1,000 mls @ 999 mls/hr IV .Q1H1M ONE Stop: 04/04/22 19:06 Last Infusion: 04/04/22 19:53 Dose: 0 mls/hr Documented by: [id number] Admin: 04/04/22 18:50 Dose: 999 mls/hr Documented by: [id number] Magnesium Sulfate/Dextrose (Magnesium Sulfate / D5w) 1 gm in 100 mls @ 100 mls/hr IV Q1H LETY Stop: 04/04/22 23:39 Last Infusion: 04/04/22 23:01 Dose: 0 mls/hr Documented by: [id number] Admin: 04/04/22 21:53 Dose: 100 mls/hr Documented by: [id number] Infusion: 04/04/22 21:53 Dose: 100 mls/hr Documented by: [id number] Admin: 04/04/22 21:53 Dose: 100 mls/hr Documented by: [id number] Potassium Chloride (K Lowell / Wtr) 10 meq in 100 mls @ 100 mls/hr IV Q1H LETY; Protocol Stop: 04/05/22 02:44 Last Admin: 04/05/22 01:47 Dose: Not Given Documented by: [id number] Calcium Gluconate () 1,000 mg in 60 mls @ 240 mls/hr IV NOW STA Stop: 04/05/22 00:51 Last Admin: 04/05/22 01:47 Dose: Not Given Documented by: [id number] Promethazine HCl (Phenergan) 25 mg in 51 mls @ 204 mls/hr IV NOW STA Stop: 04/05/22 01:20 Last Admin: 04/05/22 01:33 Dose: Not Given Documented by: [id number] Ioversol (Optiray 320 125ml) 120 ml IV ONCE ONE Stop: 04/04/22 20:09 Last Admin: 04/04/22 20:08 Dose: 120 ml Documented by: [id number] Lorazepam (Lorazepam 1 Mg Tab) 1 mg PO NOW STA Stop: 04/05/22 01:42 Last Admin: 04/05/22 02:00 Dose: 1 mg Documented by: [id number] Magnesium Oxide (Magnesium Oxide 400 Mg Tab) 400 mg PO NOW STA Stop: 04/05/22 00:26 Last Admin: 04/05/22 01:04 Dose: 400 mg Documented by: [id number] Olanzapine (Olanzapine Zydis 5 Mg Orally Dis. Tab) 5 mg PO ONCE ONE Stop: 04/05/22 02:04 Last Admin: 04/05/22 02:19 Dose: 5 mg Documented by: [id number] Ondansetron HCl (Ondansetron Inj 2 Mg/Ml 2 Ml Vial) 4 mg IV NOW STA Stop: 04/04/22 21:51 Last Admin: 04/04/22 21:53 Dose: 4 mg Documented by: [id number] Ondansetron HCl (Ondansetron Inj 2 Mg/Ml 2 Ml Vial) 4 mg IV NOW STA Stop: 04/05/22 01:14 Last Admin: 04/05/22 01:16 Dose: 4 mg Documented by: [id number] Ondansetron HCl (Ondansetron 4 Mg Od Tab) 4 mg PO NOW STA Stop: 04/05/22 01:57 Last Admin: 04/05/22 02:19 Dose: 4 mg Documented by: [id number] Potassium Chloride (Potassium Chloride Crtab 20 Meq Tabcr) 40 meq PO NOW STA Stop: 04/05/22 00:26 Last Admin: 04/05/22 01:03 Dose: 40 meq Documented by: [id number] Imaging Data Radiologist's Impression: Chest X-Ray 04/04/22 18:05 XR chest 1V portable HISTORY: 46 years-old Male Chest Pain acute atypical chest pain COMPARISON: Chest radiograph 03/27/2022, chest CT 03/01/2022. TECHNIQUE: Portable AP view of the chest FINDINGS: The cardiomediastinal and hilar silhouettes are within normal limits. No pneumothorax, pleural effusion, airspace consolidation or overt pulmonary edema. Degenerative changes of the shoulders and spine. 9 mm nodular density projecting over the right midlung is likely secondary to summation density. IMPRESSION: No acute process. ACT 112: Negative or not required by law. The above report was generated using voice recognition software. It may contain grammatical, syntax or spelling errors. Electronically signed by: Teo Palmer M.D. 04/04/2022 6:[address] 04/04/22 18:40 CT angio head w con, CT head/brain wo con, CT angio neck with con CLINICAL HISTORY: 46 years-old Male with dizziness, h/o parietal cva. Acute dizziness with strokelike symptoms COMPARISON STUDY: CTA had and neck with brain MRI 03/27/2022, head CT 08/03/2017 TECHNIQUE: Unenhanced axial CT scan of the brain is performed. Subsequently, following the IV administration of 120 cc of Optiray, CT angiogram of the head and neck was performed from the skull base to the vertex. Images are reviewed in the axial, sagittal, and coronal planes. 3-D MIPS images are created and assessed. IV contrast was administered without complication. All measurements we re obtained according to NASCET criteria. A dose lowering technique was utilized adhering to the principles of ALARA. CT DOSE: 1531.23 mGy.cm FINDINGS: CT BRAIN: There is no acute intracranial hemorrhage, midline shift, hydrocephalus, intracranial mass, territorial ischemia or abnormal extra-axial collections. No abnormal intra-axial or extra-axial enhancement. Subcentimeter acute to subacute appearing lacunar infarcts of the left frontal lobe centrum semiovale are redemonstrated and better seen on the prior MRI study. Mastoid air cells and middle ear cavities are clear. No calvarial fracture. Paranasal sinuses are clear. 3.5 cm soft tissue mass within these is right suboccipital tissues redemonstrated indeterminate. Prior left-sided lens replacement. CT ANGIOGRAM OF THE HEAD AND NECK: The imaged bilateral internal carotid arteries are patent. The bilateral anterior and middle cerebral arteries are also patent. The vertebrobasilar system and posterior cerebral arteries are widely patent. There is no aneurysm, high-grade stenosis, or proximal branch occlusion identified. Dural sinuses appear patent. IMPRESSION: 1. Subcentimeter acute to subacute appearing lacunar infarcts of the left frontal lobe centrum semiovale are redemonstrated and are better characterized on the brain MRI study from 03/27/2022. 2. No acute intracranial hemorrhage or acute territorial infarct. 3. Unremarkable CTA of the head and neck. 4. Chronic soft tissue mass within the right suboccipital subcutaneous tissues, present dating back to 2016. ACT 112: Negative or not required by law. The above report was generated using voice recognition software. It may contain grammatical, syntax or spelling errors. Electronically signed by: Teo Palmer M.D. 04/04/2022 9:05 PM Head CTA 04/04/22 18:40 CT angio head w con, CT head/brain wo con, CT angio neck with con CLINICAL HISTORY: 46 years-old Male with dizziness, h/o parietal cva. Acute dizziness with strokelike symptoms COMPARISON STUDY: CTA had and neck with brain MRI 03/27/2022, head CT 08/03/2017 TECHNIQUE: Unenhanced axial CT scan of the brain is performed. Subsequently, following the IV administration of 120 cc of Optiray, CT angiogram of the head and neck was performed from the skull base to the vertex. Images are reviewed in the axial, sagittal, and coronal planes. 3-D MIPS images are created and assessed. IV contrast was administered without complication. All measurements were obtained according to NASCET criteria. A dose lowering technique was utilized adhering to the principles of ALARA. CT DOSE: 1531.23 mGy.cm FINDINGS: CT BRAIN: There is no acute intracranial hemorrhage, midline shift, hydrocephalus, intracranial mass, territorial ischemia or abnormal extra-axial collections. No abnormal intra-axial or extra-axial enhancement. Subcentimeter acute to subacute appearing lacunar infarcts of the left frontal lobe centrum semiovale are redemonstrated and better seen on the prior MRI study. Mastoid air cells and middle ear cavities are clear. No calvarial fracture. Paranasal sinuses are clear. 3.5 cm soft tissue mass within these is right suboccipital tissues redemonstrated indeterminate. Prior left-sided lens replacement. CT ANGIOGRAM OF THE HEAD AND NECK: The imaged bilateral internal carotid arteries are patent. The bilateral anterior and middle cerebral arteries are also patent. The vertebrobasilar system and posterior cerebral arteries are widely patent. There is no aneurysm, high-grade stenosis, or proximal branch occlusion identified. Dural sinuses appear patent. IMPRESSION: 1. Subcentimeter acute to subacute appearing lacunar infarcts of the left fron gabi lobe centrum semiovale are redemonstrated and are better characterized on the brain MRI study from 03/27/2022. 2. No acute intracranial hemorrhage or acute territorial infarct. 3. Unremarkable CTA of the head and neck. 4. Chronic soft tissue mass within the right suboccipital subcutaneous tissues, present dating back to 2016. ACT 112: Negative or not required by law. The above report was generated using voice recognition software. It may contain grammatical, syntax or spelling errors. Electronically signed by: Teo Palmer M.D. 04/04/2022 9:05 PM Neck CTA 04/04/22 18:40 CT angio head w con, CT head/brain wo con, CT angio neck with con CLINICAL HISTORY: 46 years-old Male with dizziness, h/o parietal cva. Acute dizziness with strokelike symptoms COMPARISON STUDY: CTA had and neck with brain MRI 03/27/2022, head CT 08/03/2017 TECHNIQUE: Unenhanced axial CT scan of the brain is performed. Subsequently, following the IV administration of 120 cc of Optiray, CT angiogram of the head and neck was performed from the skull base to the vertex. Images are reviewed in the axial, sagittal, and coronal planes. 3-D MIPS images are created and assessed. IV contrast was administered without complication. All measurements were obtained according to NASCET criteria. A dose lowering technique was utilized adhering to the principles of ALARA. CT DOSE: 1531.23 mGy.cm FINDINGS: CT BRAIN: There is no acute intracranial hemorrhage, midline shift, hydrocephalus, intracranial mass, territorial ischemia or abnormal extra-axial collections. No abnormal intra-axial or extra-axial enhancement. Subcentimeter acute to subacute appearing lacunar infarcts of the left frontal lobe centrum semiovale are redemonstrated and better seen on the prior MRI study. Mastoid air cells and middle ear cavities are clear. No calvarial fracture. Paranasal sinuses are clear. 3.5 cm soft tissue mass within these is right suboccipital tissues redemonstrated indeterminate. Prior left-sided lens replacement. CT ANGIOGRAM OF THE HEAD AND NECK: The imaged bilateral internal carotid arteries are patent. The bilateral anterior and middle cerebral arteries are also patent. The vertebrobasilar system and posterior cerebral arteries are widely patent. There is no aneurysm, high-grade stenosis, or proximal branch occlusion identified. Dural sinuses appear patent. IMPRESSION: 1. Subcentimeter acute to subacute appearing lacunar infarcts of the left frontal lobe centrum semiovale are redemonstrated and are better characterized on the brain MRI study from 03/27/2022. 2. No acute intracranial hemorrhage or acute territorial infarct. 3. Unremarkable CTA of the head and neck. 4. 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 ACT 112: Negative or not required by law. The above report was generated using voice recognition software. It may contain grammatical, syntax or spelling errors. Electronically signed by: Teo Palmer M.D. 04/04/2022 9:05 PM Discharge Plan Visit Data Chief Complaint: Syncope (Near Syncope) Stated Complaint: NEAR SYNCOPE, HIGH HR, ED Provider: Billy Carrera Discharge Problem: Hypomagnesemia, Dehydration, Dizziness, Hypokalemia, Hypocalcemia Patient Disposition: Home - Self-Care Condition: Good Discharge Instructions Krames/Other Patient Handouts: Hypomagnesemia Dc, ED Dehydration (Adult), ED Dizziness, Uncertain Cause, ED Hypokalemia, ED Potassium-Rich Foods, ED Hypocalcemia (Adult) Activity Restrictions/Additional Instructions: Please follow up with your providers tomorrow as scheduled for your IV fluid infusion and for re-evaluation including having a repeat check of your magnesium which was significantly low today at 1.1. Your calcium and potassium were also slightly low at 7.7 and 3.5, respectively and should also be rechecked. The cause of your symptoms is likely related to dehydration and low electrolytes in the setting of your decreased oral intake and diarrhea. Otherwise, your exam, CT scan of your head and neck with contrast and lab results did not show signs of an emergent condition at this time. Magnesium, potassium, and calcium supplement as prescribed. Drink plenty of fluids to ensure hydration with electrolyte and rich drinks such as Pedialyte. Return to the emergency department for worsening symptoms as described in the accompanying instructions. Forms Stand Alone Forms: My [facility], Virtual Emergency Department, Important Visit Information Prescriptions Prescriptions: New potassium chloride [Klor-Con M20] 20 mEq tablet,ER particles/crystals 20 meq PO BID Qty: 14 RF: 0 magnesium oxide 400 mg capsule 400 mg PO BID Qty: 14 RF: 0 calcium carbonate [Calcium 600] 600 mg calcium (1,500 mg) tablet 600 mg PO DAILY Qty: 7 RF: 0 No Action (DME) blood-glucose meter [OneTouch Verio Flex Start] Kit See Rx Instructions .ROUTE .MEDSUPPLY Qty: 1 RF: 0 (DME) OneTouch Verio test strips Strip See Rx Instructions .ROUTE .MEDSUPPLY Qty: 100 RF: 3 albuterol sulfate [Ventolin HFA] 90 mcg/actuation HFA aerosol inhaler 2 puff inhalation QID PRN (Reason: Shortness Of Breath) Qty: 18 RF: 6 azelastine 0.15 % (205.5 mcg) spray,non-aerosol 2 sprays INTNAS BID PRN (Reason: Congestion) RF: 0 tramadol 50 mg tablet 50 mg PO TID Qty: 90 RF: 2 ondansetron HCl 8 mg tablet 8 mg PO Q8 PRN (Reason: Nausea) Qty: 100 RF: 5 sertraline 50 mg tablet 50 mg PO DAILY Qty: 30 RF: 5 hydrocortisone [Proctosol HC] 2.5 % cream with perineal applicator 1 applic [place] DAILY PRN (Reason: hemorrhoids) Qty: 30 RF: 1 (DME) CPAP Supplies Misc .Route Qty: 1 RF: 0 atorvastatin 40 mg tablet 40 mg PO DAILY Qty: 30 RF: 11 lorazepam 1 mg tablet 1 mg PO QID Qty: 120 RF: 3 (DME) nebulizer kit See Rx Instructions .Route .MEDSUPPLY Qty: 1 RF: 0 fluticasone propionate [Flonase Allergy Relief] 50 mcg/actuation spray, suspension 1 sprays INTNAS QAM PRN (Reason: Congestion) RF: 0 (DME) blood-glucose meter [Advanced Glucose Meter] Misc See Rx Instructions .ROUTE .MEDSUPPLY Qty: 1 RF: 0 (DME) lancets [BD Ultra-Fine II Lancets] 30 gauge misc See Rx Instructions .Route Qty: 100 RF: 4 fexofenadine [Jana Allergy] 180 mg Tablet 180 mg PO QAM RF: 0 albuterol sulfate 2.5 mg /3 mL (0.083 %) solution for nebulization 2.5 mg inhalation QID PRN (Reason: Shortness Of Breath Or Wheezing) RF: 0 sennosides [Senokot] 8.6 mg Tablet 17.2 mg PO QAM Qty: 60 RF: 0 metformin 500 mg tablet 500 mg PO BID RF: 0 capecitabine 500 mg tablet 500 mg PO Q12 RF: 0 dexlansoprazole 60 mg capsule,biphase delayed releas 60 mg PO QAM RF: 0 olanzapine 5 mg tablet 5 mg PO BID RF: 0 dronabinol 2.5 mg capsule See Rx Instructions .ROUTE .COMPLEX RF: 0 enoxaparin 150 mg/mL syringe 150 mg subcut BID RF: 0 Dulera 200-5 mcg/actuation HFA aerosol inhaler 2 inh INHALATION BID RF: 0 clopidogrel 75 mg Tablet 75 mg PO QAM Qty: 30 RF: 4 Paxlovid (EUA) 150 mg x 2- 100 mg Tablet 3 dose PO BID Qty: 30 RF: 0 Referrals Referrals: Chayo Pfeiffer CRNP [Primary Care Provider] -
[2022-04-04] MEDS ORDERED: OPTIRAY 320 125ml IV ONE (20:08)
[2022-04-04] MEDS ORDERED: ENOXAPARIN 150 MG/ML SYR SQ STA (20:27)
[2022-04-04 20:28] LABS: Potassium 3.5 mmol/L (3.5-5.1)
--- NOTE | 2022-04-04 21:08 | CT Scan Report ---
CT angio head w con, CT head/brain wo con, CT angio neck with con CLINICAL HISTORY: 46 years-old Male with dizziness, h/o parietal cva. Acute dizziness with strokel grant symptoms COMPARISON STUDY: CTA had and neck with brain MRI 03/27/2022, head CT 08/03/2017 TECHNIQUE: Unenhanced axial CT scan of the brain is performed. Subsequently, following the IV adminis tration of 120 cc of Optiray, CT angiogram of the head and neck was performed from the skull base to the vertex. Images are reviewed in the axial, sagittal, and coronal planes. 3-D MIPS images are creat ed and assessed. IV contrast was administered without complication. All measurements were obtained ac cording to NASCET criteria. A dose lowering technique was utilized adhering to the principles of ANDREIA Kirkpatrick. CT DOSE: 1531.23 mGy.cm FINDINGS: CT BRAIN: There is no acute intracranial hemorrhage, midline shift, hydrocephalus, intracranial mass, territori al ischemia or abnormal extra-axial collections. No abnormal intra-axial or extra-axial enhancement. Subcentimeter acute to subacute appearing lacunar infarcts of the left frontal lobe centrum semioval e are redemonstrated and better seen on the prior MRI study. Mastoid air cells and middle ear cavitie s are clear. No calvarial fracture. Paranasal sinuses are clear. 3.5 cm soft tissue mass within these is right suboccipital tissues redemonstrated indeterminate. Prior left-sided lens replacement. CT ANGIOGRAM OF THE HEAD AND NECK: The imaged bilateral internal carotid arteries are patent. The bilateral anterior and middle cerebral arteries are also patent. The vertebrobasilar system and posterior cerebral arteries are widely chase nt. There is no aneurysm, high-grade stenosis, or proximal branch occlusion identified. Dural sinuses appear patent. IMPRESSION: 1. Subcentimeter acute to subacute appearing lacunar infarcts of the left frontal lobe centrum semiov jaden are redemonstrated and are better characterized on the brain MRI study from 03/27/2022. 2. No acute intracranial hemorrhage or acute territorial infarct. 3. Unremarkable CTA of the head and neck. 4. Chronic soft tissue mass within the right suboccipital subcutaneous tissues, present dating back 2016. ACT 112: Negative or not required by law. The above report was generated using voice recognition software. It may contain grammatical, syntax o r spelling errors. Electronically signed by: Teo Palmer M.D. 04/04/2022 9:05 PM
[2022-04-04] MEDS ORDERED: ONDANSETRON INJ 2 MG/ML 2 ML VIAL IV STA (21:50)
[2022-04-04] MEDS: MAGNESIUM SULFATE / D5W 1 GM/100 ML BAG IV SCH (21:53)
[2022-04-05] MEDS ORDERED: MAGNESIUM OXIDE 400 MG TAB PO STA (00:25)
[2022-04-05] MEDS ORDERED: CALCIUM CARBONATE 500 MG CHEWABLE TAB PO STA (00:25)
[2022-04-05] MEDS ORDERED: POTASSIUM CHLORIDE CRTAB 20 MEQ TABCR PO STA ×2 (00:25→07:38)
[2022-04-05] MEDS ORDERED: CALCIUM GLUCONATE 1,000 MG/60 ML BAG IV STA (00:37)
[2022-04-05] MEDS ORDERED: PROMETHAZINE 25 MG/51 ML BAG IV STA (01:06)
[2022-04-05] MEDS ORDERED: ONDANSETRON INJ 2 MG/ML 2 ML VIAL IV STA (01:13)
[2022-04-05] MEDS ORDERED: LORazepam 1 MG TAB PO STA (01:41)
[2022-04-05] MEDS: POTASSIUM CHLORIDE / WTR 10 MEQ/100 ML PLCT IV SCH ×6 (01:47→16:00)
[2022-04-05] MEDS: LACTATED RINGER'S 1,000 ML IV SCH ×4 (01:48→21:21)
[2022-04-05] MEDS ORDERED: FAMOTIDINE SUSP 40 MG/5 ML UDP PO ONE (01:53)
[2022-04-05] MEDS ORDERED: ONDANSETRON 4 MG OD TAB PO STA (01:56)
[2022-04-05] MEDS ORDERED: FAMOTIDINE 20 MG TAB PO ONE (02:00)
[2022-04-05] MEDS ORDERED: OLANZapine ZYDIS 5 MG ORALLY DIS. TAB PO ONE (02:03)
[2022-04-05 02:12] LABS: Influenza A virus by PCR Negative (Neg); Influenza B virus by PCR Negative (Neg); RSV by PCR Negative (Neg); SARS CoV2 RNA(COVID-19) InHosp NEGATIVE (Negative)
[2022-04-05] MEDS ORDERED: GLUCOSE 40% GEL 15 GM TUBE PO PRN (03:51)
[2022-04-05] MEDS ORDERED: DEXTROSE 50% 50 ML SYRINGE IV PRN (03:51)
[2022-04-05] MEDS ORDERED: GLUCAGON FOR INJ 1 MG VIAL SQ PRN (03:51)
[2022-04-05] MEDS ORDERED: CARBOHYDRATES FOR HYPOGLYCEMIA PO PRN (03:51)
[2022-04-05] MEDS ORDERED: GLUCOSE 10 TABS/TUBE PO PRN (03:51)
--- NOTE | 2022-04-05 03:52 | History & Physical Report ---
Date of Service April 05, 2022 Assessment & Plan (1) Hypomagnesemia: Plan: Magnesium 1.1 upon admission Attempted to give patient IV replacement, however, he only has a single 22-gauge IV in, and he and his do not want additional IV placed Patient is not a good candidate for central lines or ports due to issues with clots associated with antiphospholipid antibody syndrome. Difficult to replace electrolytes and give oral medications due to severe esophageal burning Patient did receive 2 g magnesium sulfate IV, and will attempt to give 2 mg as long as IV holds up Repeat laboratories now and in a.m. Patient did have issues with low magnesium at previous admission as well. It likely is a function of decreased oral intake, increased GI losses, and secondary to losses from proton pump inhibitors (2) Dehydration: Plan: Patient's oral intake is limited due to severe esophageal issues Will continue with ice chips and full liquids as tolerated Will attempt to give IV fluids to the extent that he can through the single 22- gauge IV access (3) CVA (cerebral vascular accident): Plan: CT head, CTA head neck again demonstrate left frontal lobe lacunar infarcts, but better imaged on previous brain MRI of 03/27/2022. There is no hemorrhagic conversion. (4) Asthma: Plan: Placed on duo nebs every 2 hours as needed (5) Anti-phospholipid antibody syndrome: Plan: Antiphospholipid antibody syndrome/bilateral lower extremity DVT history/right upper extremity DVT history/bilateral PE history- Continue Lovenox 2050 mg SQ every 12 hours (6) Current use of halfway anticoagulation: Plan: See above (7) Acute deep vein thrombosis (DVT) of right upper extremity: Plan: See above (8) Metastasis from esophageal cancer: Plan: Undergoing oral chemotherapy. Patient will use own capecitabine-milligrams every 12 hours orally (9) DVT of lower extremity, bilateral: Plan: See above (10) Hyperlipidemia: Plan: Hold atorvastatin until patient can take medications more easily (11) Bilateral pulmonary embolism: Plan: See above (12) Diabetes mellitus: Plan: Hold metformin Placed on Accu-Cheks before meals and at bedtime with NovoLog coverage per scale History of Present Illness Chief Complaint: The patient presents to the emergency department with complaint of generalized weakness, dizziness, decreased oral intake, nausea and vomiting over the past few days. Primary Care Provider: NORBERTO uMsa The patient is a 46-year-old male with a past medical history including antiphospholipid syndrome on Lovenox, bilateral lower extremity DVT, right upper extremity DVT, metastatic esophageal cancer stage IV, left frontal lobe lacunar infarcts, hypomagnesemia, hyperlipidemia, asthma, bilateral PEs, diabetes mellitus, hypertension, liver metastases, GERD and sleep apnea. He was most recently admitted to [facility] from 03/27-03/28. At that time he initially tested positive for COVID-19, but subsequent testing the next day was negative. In the ED again today, patient was initially COVID-19 positive, and PCR testing was then negative. Significant laboratories: Magnesium 1.1, total bilirubin 1.4, glucose 179. Chest x-ray negative. CT head, CTA head and neck showed left frontal lobe lacunar infarcts seen better on brain MRI of 03/27/2022. Allergies Allergy/AdvReac Type Severity Reaction Status Date / Time aspirin AdvReac Intermediate GI SYMPTOMS Verified 01/31/22 14:32 Home Medications Medication Instructions Recorded Confirmed Type fexofenadine 180 mg tablet 180 mg PO QAM 07/02/18 03/27/22 History (Jana Allergy) fluticasone propionate 50 1 sprays INTNAS QAM PRN 06/08/19 03/27/22 History mcg/actuation nasal spray,suspension (Flonase Allergy Relief) azelastine 205.5 mcg (0.15 %) 2 sprays INTNAS BID PRN 06/25/19 03/27/22 History nasal spray blood-glucose meter (Advanced #1 ea 08/22/20 01/31/22 Rx Glucose Meter) blood-glucose meter (OneTouch #1 ea 09/22/20 01/31/22 Rx Verio Flex Start) blood sugar diagnostic (OneTouch #100 ea 10/03/20 01/31/22 Rx Verio test strips) lancets 30 gauge (BD Ultra-Fine II #100 ea 07/05/21 01/31/22 Rx Lancets) nebulizer kit #1 ea 12/25/21 01/31/22 Rx metformin 500 mg tablet 500 mg PO BID 12/26/21 03/27/22 History albuterol sulfate 90 mcg/actuation 2 puff INHALATION QID PRN #18 g 12/31/21 03/27/22 Rx aerosol inhaler (Ventolin HFA) albuterol sulfate 2.5 mg INHALATION QID PRN 01/09/22 03/27/22 History sennosides 8.6 mg tablet (Senokot) 17.2 mg PO QAM #60 tab 01/15/22 03/27/22 Rx capecitabine 500 mg tablet 500 mg PO Q12 01/20/22 03/27/22 History hydrocortisone 2.5 % topical cream 1 applic TN DAILY PRN #30 g 01/31/22 03/27/22 Rx with perineal applicator (Proctosol HC) ondansetron HCl 8 mg tablet 8 mg PO Q8 PRN #100 tab 01/31/22 03/27/22 Rx sertraline 50 mg tablet 50 mg PO DAILY #30 tab 01/31/22 03/27/22 Rx tramadol 50 mg tablet 50 mg PO TID #90 tab 01/31/22 03/27/22 Rx CPAP Supplies #1 ea 03/06/22 03/06/22 Rx lorazepam 1 mg tablet 1 mg PO QID #120 tab 03/15/22 03/27/22 Rx dexlansoprazole 60 mg 60 mg PO QAM 03/27/22 03/27/22 History capsule,biphase delayed release dronabinol 2.5 mg capsule See Rx Instructions .ROUTE .COMPLEX 03/27/22 03/27/22 History enoxaparin 150 mg/mL subcutaneous 150 mg SUBCUT BID 03/27/22 03/27/22 History syringe mometasone-formoterol HFA 200 2 inh INHALATION BID 03/27/22 03/27/22 History mcg-5 mcg/actuation aerosol inhaler (Dulera) olanzapine 5 mg tablet 5 mg PO BID 03/27/22 03/27/22 History clopidogrel 75 mg tablet 75 mg PO QAM #30 tab 03/28/22 Rx nirmatrelvir 300 mg (150 mg x 3 dose PO BID #30 tab 03/28/22 Rx 2)-ritonavir 100 mg tablet (EUA) (Paxlovid 300 mg () atorvastatin 40 mg tablet 40 mg PO DAILY #30 tab 03/29/22 03/29/22 Rx calcium carbonate 600 mg calcium 600 mg PO DAILY #7 tab 04/05/22 Rx (1,500 mg) tablet (Calcium) magnesium oxide 400 mg PO BID #14 cap 04/05/22 Rx potassium chloride 20 mEq 20 meq PO BID #14 tab 04/05/22 Rx tablet,extended release(part/cryst) (Dominguez Sue) Past Med/Surg History Medical History Anticoagulant long-term use Asthma Well controlled with inhalers Diabetes mellitus Esophageal cancer, stage IV Presumed per CT scan per general surgery records. Reason for port placement GERD (gastroesophageal reflux disease) History of anesthesia reaction Woke up during cataract procedure and "attempted to walk off the table" and was told he should always be "put completely to sleep". 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 On Lovenox Sleep apnea CPAP Surgical History History of cataract surgery L EYE History of left knee surgery History of liver biopsy History of surgery (01/08/22) Attempted Insertion Access Port with Fluoroscopy(Left) - Carlos Angeles DO 01/08/2022 History of tooth extraction History of umbilical hernia repair Family History Father Family history of diabetes mellitus FHx: skin cancer Cancer FHx: bladder cancer Mother FHx: kidney cancer Family history of diabetes mellitus Cancer Brother Family history of diabetes mellitus Family/Other Coronary heart disease Grandmother (Paternal) FHx: colon cancer Social History Smoking Status: Never smoker Tobacco Type: Smokeless Tobacco (Dip or Chew) Second Hand Exposure: No; Hx Alcohol Use: No Hx Substance Use: No Preferred Language: [place] Communication Ability: Effective Visual Impairment: No Limitations Fashion Designer Required: No Beliefs That Will Affect Care: None marital status: Current Living Situation: Spouse Current Living Situation Comment: home with current occupational status: employed Feels Safe at Home: Yes during the past year weight has: remained stable Assistive Devices: CPAP Review of Systems Review of Systems: The patient denies chest pain, palpitations, sore throat, fevers, chills, sweats, diarrhea , constipation, abdominal pain, pelvic pain, blood in urine or stool, dysuria, urinary frequency or urgency, memory loss, loss of consciousness, rash, abnormal bruising or bleeding, imbalance, focal weakness, numbness or tingling in arms or legs, back or neck pain, or night sweats. The review of systems is otherwise negative other than for that already noted above, and at least 10 systems have been reviewed. Physical Exam Physical Exam: The patient is awake, alert and oriented 3, well developed and well nourished, normocephalic and atraumatic, lying in bed and in mild distress due to esophageal burning HEENT--PERRL, EOMI, mucous membranes and oropharynx dry. Neck--supple. No JVD. No bruits. Thyroid normal, trachea midline, no adenopathy. Heart--normal S1 and S2. No murmurs, rubs or gallops. Lungs--clear bilaterally, no respiratory distress, no accessory muscle use. Abdomen--normal bowel sounds and soft. Nontender. Nondistended. Morbidly obese Extremities--no cyanosis or clubbing. No edema. Dermatologic--normal skin turgor, normal color, no abnormal lymph nodes, no rash. Neurologic--cranial nerves II through XII grossly intact. Rheumatologic--normal range of motion. Psychiatric--normal affect. Results & Data Results & [facility] ([facility] Vital Signs (Past 12 Hours) Vital Signs Temp Pulse Resp BP Pulse Ox 04/05/22 00:31 106 H 18 123/80 95 04/04/22 23:00 99 H 20 94 04/04/22 22:00 107 H 12 96 04/04/22 21:00 102 H 24 119/72 95 04/04/22 20:15 106 H 24 109/66 98 04/04/22 19:30 109 H 13 120/84 96 04/04/22 18:30 117 H 13 97 04/04/22 17:49 36.6 C 132 H 18 119/80 96 Laboratory Results Laboratory Results WBC 4.46 K/uL (4.8-10.8) L 04/04/22 18:21 RBC 3.23 M/uL (4.7-6.1) L 04/04/22 18:21 Hgb 10.7 g/dL (14.0-18.0) L 04/04/22 18: Hct 30.1 % (42-52) L 04/04/22 18: MCV 93.2 fL (80-100) 04/04/22 18:21 MCH 33.1 pg (25-34) 04/04/22 18: MCHC 35.5 g/dL (32-36) 04/04/22 18: RDW Std Deviation 64.3 fL (36.4-46.3) H 04/04/22 18:21 RDW Coeff of Andie 18.5 % (11.5-14.5) H 04/04/22 18: Plt Count 105 K/uL (130-400) L 04/04/22 18: MPV 10.2 fL (7.4-10.4) 04/04/22 18: Immature Gran % (Auto) 0.2 % 04/04/22 18: Neut % (Auto) 62.6 % 04/04/22 18:21 Lymph % (Auto) 25.3 % 04/04/22 18:21 [place] % (Auto) 10.8 % 04/04/22 18:21 Eos % (Auto) 0.9 % 04/04/22 18: Baso % (Auto) 0.2 % 04/04/22 18: Neut # (Auto) 2.79 K/uL (1.4-6.5) 04/04/22 18: Lymph # (Auto) 1.13 K/uL (1.2-3.4) L 04/04/22 18: [place] # (Auto) 0.48 K/uL (0.11-0.59) 04/04/22 18:21 Eos # (Auto) 0.04 K/uL (0-0.5) 04/04/22 18: Baso # (Auto) 0.01 K/uL (0-0.2) 04/04/22 18: Immature Gran # (Auto) 0.01 K/uL (0.00-0.02) 04/04/22 18: Sodium 131 mmol/L (136-145) L 04/04/22 18:21 Potassium 3.5 mmol/L (3.5-5.1) 04/04/22 18:43 Chloride 95 mmol/L (98-107) L 04/04/22 18:21 Carbon Dioxide 24 mmol/L (21-32) 04/04/22 18:21 Anion Gap 12 (3-11) H 04/04/22 18:21 BUN 25 mg/dl (6-23) H 04/04/22 18:21 Creatinine 1.32 mg/dl (0.6-1.4) 04/04/22 18:21 Est Cr Clr Drug Dosing 93.2 ml/min 04/04/22 18:21 Est GFR ( Amer) 73.9 ml/min 04/04/22 18:21 Est GFR (Non-Af Amer) 63.8 ml/min 04/04/22 18:21 BUN/Creatinine Ratio 18.9 (10-20) 04/04/22 18:21 Glucose 179 mg/dl (70-99(Fasting)) H 04/04/22 18:21 Calcium 7.7 mg/dl (8.5-10.1) L 04/04/22 18:21 Phosphorus 2.7 mg/dl (2.5-4.9) 04/04/22 18:21 Magnesium 1.1 mg/dl (1.7-2.4) L 04/04/22 18:21 Total Bilirubin 1.4 mg/dl (0.2-1.0) H 04/04/22 18:21 AST 15 U/L (13-39) 04/04/22 18:43 ALT 19 U/L (7-52) 04/04/22 18:21 Alkaline Phosphatase 72 U/L (34-104) 04/04/22 18:21 Troponin I High Sens 6.0 pg/ml (0-20) 04/04/22 18:43 Total Protein 5.5 gm/dl (6.0-8.3) L 04/04/22 18:21 Albumin 3.6 gm/dl (3.4-5.0) 04/04/22 18:21 Globulin 1.9 gm/dl (2.5-4.0) L 04/04/22 18:21 Albumin/Globulin Ratio 1.9 (0.9-2) 04/04/22 18:21 Lipase 27 U/L (11-82) 04/04/22 18:21 SARS-CoV-2 (PCR) NEGATIVE (Negative) 04/05/22 01:22 Influenza Type A (PCR) Negative (Neg) 04/05/22 01:22 Influenza Type B (PCR) Negative (Neg) 04/05/22 01:22 RSV (RT-PCR) Negative (Neg) 04/05/22 01:22 SARS-CoV-2, RNA, NAAT POSITIVE (NEGATIVE) A* 04/05/22 00:42 Impressions Chest X-Ray 04/04/22 18:05 XR chest 1V portable HISTORY: 46 years-old Male Chest Pain acute atypical chest pain COMPARISON: Chest radiograph 03/27/2022, chest CT 03/01/2022. TECHNIQUE: Portable AP view of the chest FINDINGS: The cardiomediastinal and hilar silhouettes are within normal limits. No pneumothorax, pleural effusion, airspace consolidation or overt pulmonary edema. Degenerative changes of the shoulders and spine. 9 mm nodular density projecting over the right midlung is likely secondary to summation density. IMPRESSION: No acute process. ACT 112: Negative or not required by law. The above report was generated using voice recognition software. It may contain grammatical, syntax or spelling errors. Electronically signed by: Teo Palmer M.D. 04/04/2022 6:[address] 04/04/22 18:40 CT angio head w con, CT head/brain wo con, CT angio neck with con CLINICAL HISTORY: 46 years-old Male with dizziness, h/o parietal cva. Acute dizziness with strokelike symptoms COMPARISON STUDY: CTA had and neck with brain MRI 03/27/2022, head CT 08/03/2017 TECHNIQUE: Unenhanced axial CT scan of the brain is performed. Subsequently, following the IV administration of 120 cc of Optiray, CT angiogram of the head and neck was performed from the skull base to the vertex. Images are reviewed in the axial, sagittal, and coronal planes. 3-D MIPS images are created and assessed. IV contrast was administered without complication. All measurements were obtained according to NASCET criteria. A dose lowering technique was utilized adhering to the principles of ALARA. CT DOSE: 1531.23 mGy.cm FINDINGS: CT BRAIN: There is no acute intracranial hemorrhage, midline shift, hydrocephalus, intracranial mass, territorial ischemia or abnormal extra-axial collections. No abnormal intra-axial or extra-axial enhancement. Subcentimeter acute to subacute appearing lacunar infarcts of the left frontal lobe centrum semiovale are redemonstrated and better seen on the prior MRI study. Mastoid air cells and middle ear cavities are clear. No calvarial fracture. Paranasal sinuses are clear. 3.5 cm soft tissue mass within these is right suboccipital tissues redemonstrated indeterminate. Prior left-sided lens replacement. CT ANGIOGRAM OF THE HEAD AND NECK: The imaged bilateral internal carotid arteries are patent. The bilateral anterior and middle cerebral arteries are also patent. The vertebrobasilar system and posterior cerebral arteries are widely patent. There is no aneurysm, high-grade stenosis, or proximal branch occlusion identified. Dural sinuses appear patent. IMPRESSION: 1. Subcentimeter acute to subacute appearing lacunar infarcts of the left frontal lobe centrum semiovale are redemonstrated and are better characterized on the brain MRI study from 03/27/2022. 2. No acute intracranial hemorrhage or acute territorial infarct. 3. Unremarkable CTA of the head and neck. 4. Chronic soft tissue mass within the right suboccipital subcutaneous tissues, present dating back to 2016. ACT 112: Negative or not required by law. The above report was generated using voice recognition software. It may contain grammatical, syntax or spelling errors. Electronically signed by: Teo Palmer M.D. 04/04/2022 9:05 PM Head CTA 04/04/22 18:40 CT angio head w con, CT head/brain wo con, CT angio neck with con CLINICAL HISTORY: 46 years-old Male with dizziness, h/o parietal cva. Acute dizziness with strokelike symptoms COMPARISON STUDY: CTA had and neck with brain MRI 03/27/2022, head CT 08/03/2017 TECHNIQUE: Unenhanced axial CT scan of the brain is performed. Subsequently, following the IV administration of 120 cc of Optiray, CT angiogram of the head and neck was performed from the skull base to the vertex. Images are reviewed in the axial, sagittal, and coronal planes. 3-D MIPS images are created and assessed. IV contrast was administered without complication. All measurements were obtained according to NASCET criteria. A dose lowering technique was utilized adhering to the principles of ALARA. CT DOSE: 1531.23 mGy.cm FINDINGS: CT BRAIN: There is no acute intracranial hemorrhage, midline shift, hydrocephalus, intracranial mass, territorial ischemia or abnormal extra-axial collections. No abnormal intra-axial or extra-axial enhancement. Subcentimeter acute to subacute appearing lacunar infarcts of the left frontal lobe centrum semiovale are redemonstrated and better seen on the prior MRI study. Mastoid air cells and middle ear cavities are clear. No calvarial fracture. Paranasal sinuses are clear. 3.5 cm soft tissue mass within these is right suboccipital tissues redemonstrated indeterminate. Prior left-sided lens replacement. CT ANGIOGRAM OF THE HEAD AND NECK: The imaged bilateral internal carotid arteries are patent. The bilateral anterior and middle cerebral arteries are also patent. The vertebrobasilar system and posterior cerebral arteries are widely patent. There is no aneurysm, high-grade stenosis, or proximal branch occlusion identified. Dural sinuses appear patent. IMPRESSION: 1. Subcentimeter acute to subacute appearing lacunar infarcts of the left frontal lobe centrum semiovale are redemonstrated and are better characterized on the brain MRI study from 03/27/2022. 2. No acute intracranial hemorrhage or acute territorial infarct. 3. Unremarkable CTA of the head and neck. 4. Chronic soft tissue mass within the right suboccipital subcutaneous tissues, present dating back to 2016. ACT 112: Negative or not required by law. The above report was generated using voice recognition software. It may contain grammatical, syntax or spelling errors. Electronically signed by: Teo Palmer M.D. 04/04/2022 9:05 PM Neck CTA 04/04/22 18:40 CT angio head w con, CT head/brain wo con, CT angio neck with con CLINICAL HISTORY: 46 years-old Male with dizziness, h/o parietal cva. Acute dizziness with strokelike symptoms COMPARISON STUDY: CTA had and neck with brain MRI 03/27/2022, head CT 08/03/2017 TECHNIQUE: Unenhanced axial CT scan of the brain is performed. Subsequently, following the IV administration of 120 cc of Optiray, CT angiogram of the head and neck was performed from the skull base to the vertex. Images are reviewed in the axial, sagittal, and coronal planes. 3-D MIPS images are created and assessed. IV contrast was administered without complication. All measurements were obtained according to NASCET criteria. A dose lowering technique was utilized adhering to the principles of ALARA. CT DOSE: 1531.23 mGy.cm FINDINGS: CT BRAIN: There is no acute intracranial hemorrhage, midline shift, hydrocephalus, intracranial mass, territorial ischemia or abnormal extra-axial collections. No abnormal intra-axial or extra-axial enhancement. Subcentimeter acute to subacute appearing lacunar infarcts of the left frontal lobe centrum semiovale are redemonstrated and better seen on the prior MRI study. Mastoid air cells and middle ear cavities are clear. No calvarial fracture. Paranasal sinuses are clear. 3.5 cm soft tissue mass within these is right suboccipital tissues redemonstrated indeterminate. Prior left-sided lens replacement. CT ANGIOGRAM OF THE HEAD AND NECK: The imaged bilateral internal carotid arteries are patent. The bilateral anterior and middle cerebral arteries are also patent. The vertebrobasilar system and posterior cerebral arteries are widely patent. There is no aneurysm, high-grade stenosis, or proximal branch occlusion identified. Dural sinuses appear patent. IMPRESSION: 1. Subcentimeter acute to subacute appearing lacunar infarcts of the left fro ntal lobe centrum semiovale are redemonstrated and are better characterized on the brain MRI study from 03/27/2022. 2. No acute intracranial hemorrhage or acute territorial infarct. 3. Unremarkable CTA of the head and neck. 4. 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 ACT 112: Negative or not required by law. The above report was generated using voice recognition software. It may contain grammatical, syntax or spelling errors. Electronically signed by: Teo Palmer M.D. 04/04/2022 9:05 PM Code Status & VTE Plan Code Status Full code PG Care Time/CCT Total # of Minutes Spent Total Time Spent with Patient: Total time spent is greater than 50% in coordination of care (as documented) at patient's floor/unit and/or counseling patient: Coding Level of Care Code 86198 Initial Inpt Care Lvl 3 Diagnoses Hypomagnesemia E83.42 Dehydration E86.0 CVA (cerebral vascular accident) I63.9 Asthma J45.909 Anti-phospholipid antibody syndrome D68.61 Current use of halfway anticoagulation Z79.01 Acute deep vein thrombosis (DVT) of right upper extremity I82.621 Affected thrombotic vein of extremity: unspecified vein of extremity Metastasis from esophageal cancer C79.9; C15.9 DVT of lower extremity, bilateral I82.403 Hyperlipidemia E78.5 Bilateral pulmonary embolism I26.99 Diabetes mellitus E11.9 (1) Acute deep vein thrombosis (DVT) of right upper extremity Affected thrombotic vein of extremity: unspecified vein of extremity Qualified Code(s): I82.621 - Acute embolism and thrombosis of deep veins of right upper extremity
[2022-04-05 04:25] LABS: Albumin Level 3.3 gm/dl (3.4-5.0); BUN Creatinine Ratio 18.7 (10-20); Calcium 7.6 mg/dl (8.5-10.1); Creatinine Clr Calc Pharmacy 100.1 ml/min; Est GFR (African American) 80.5 ml/min; Est GFR (Non-African American) 69.5 ml/min; Magnesium 1.4 mg/dl (1.7-2.4); Phosphorus 2.6 mg/dl (2.5-4.9); Potassium 3.3 mmol/L (3.5-5.1)
[2022-04-05] MEDS ORDERED: MAGNESIUM SULFATE / D5W 1 GM/100 ML BAG IV SCH (08:00)
[2022-04-05] MEDS ORDERED: LACTATED RINGER'S 500 ML IV ONE (08:15)
[2022-04-05] MEDS ORDERED: OLANZapine ZYDIS 5 MG ORALLY DIS. TAB PO SCH (09:00)
[2022-04-05] MEDS: ENOXAPARIN 150 MG/ML SYR SQ SCH ×2 (09:40→20:42)
[2022-04-05] MEDS: FEXOFENADINE HCL 180 MG TAB PO SCH (09:41)
[2022-04-05] MEDS: CALCIUM CARBONATE 1,250 MG/5 ML UDC PO SCH ×2 (09:41→20:42)
[2022-04-05] MEDS: SERTRALINE HCL 50 MG TABLET PO SCH (09:41)
[2022-04-05] MEDS: LORazepam 1 MG TAB PO SCH ×4 (09:53→23:24)
[2022-04-05] MEDS: INSULIN ASPART PER UNIT SC SCH ×4 (09:53→20:40)
[2022-04-05] MEDS: traMADol HCL 50 MG TABLET PO SCH ×3 (09:56→20:46)
[2022-04-05] MEDS: MAGNESIUM SULFATE / D5W 1 GM/100 ML BAG IV SCH ×4 (10:04→16:02)
--- NOTE | 2022-04-05 12:11 | Electrocardiogram Report ---
Test Reason : Blood Pressure : / mmHG Vent. Rate : 117 BPM Atrial Rate : 117 BPM P-R Int : 140 ms QRS Dur : 086 ms QT Int : 322 ms P-R-T Axes : 056 076 038 degrees QTc Int : 449 ms Sinus tachycardia Otherwise normal ECG When compared with ECG of 28-MAR-2022 06:10, No significant change was found Confirmed by Tre Macdonald ([id number]) on 04/05/2022 12:11:14 PM Referred By: REFERRED SELF Confirmed By:Tre Macdonald
[2022-04-05] MEDS: ONDANSETRON 8MG OD TAB PO PRN ×2 (12:18→23:24)
[2022-04-05] MEDS ORDERED: PANTOprazole 40 MG TAB PO SCH (13:00)
[2022-04-05] MEDS ORDERED: CAPECITABINE PO SCH (13:00)
--- NOTE | 2022-04-05 13:20 | Hospitalist Progress Note ---
Date of Service April 05, 2022 Assessment & Plan (1) Dizziness: Plan: 46-year-old male with history of stage IV esophageal cancer with hepatic metastases on palliative PO chemotherapy, antiphospholipid syndrome with multiple DVTs on therapeutic Lovenox b.i.d., and recent diagnosis of subacute CVA on _ presenting for dizziness, weakness in the setting of ongoing GI distress from chemotherapy. Weakness / Dizziness - Character of the "dizziness" actually seems more like sensation of lightheadedness -- possibly related to gravity / moving head - Work-up as follows: - Sinus tachycardia since arrival - Chronic pancytopenia is stable - Admission BMP: Na 131, Ca 7.6, Mg 1.1, Tbili 1.4 - CTA-H/N: Subcentimeter (sub)-acute lacunar infarcts within L frontal lobe (seen 03/27) - Suspect primarily metabolic in nature - dehydration leading cause in setting of acute GI losses (n/v) from chemotherapy. Hypomagnesemia. Chemotherapeutics may also be contributing. Lower suspicion that the infarct is playing a role given its location - Rehydrate, replete lytes - Consider PT/OT pending remainder of recovery (2) Hypomagnesemia: Plan: Magnesium 1.1 upon admission Suspect secondary to decreased PO intake, GI losses, possibly PPI Replete with IV as needed -- difficult to give PO given esophageal cancer and discomfort BMP, Mg, Phos qAM patient would likely benefit from BMP checks and infusions of Mg, K at future outpatient rehydration sessions (3) Dehydration: Plan: Patient's oral intake is limited due to severe esophageal issues and nausea w/ chemorx Will continue with ice chips and full liquids as tolerated Continue mIVF @ 125cc/hr (4) CVA (cerebral vascular accident): Plan: CT head, CTA head neck again demonstrate left frontal lobe lacunar infarcts, but better imaged on previous brain MRI of 03/27/2022. There is no hemorrhagic conversion. (5) Asthma: Plan: Placed on duo nebs every 2 hours as needed (6) Anti-phospholipid antibody syndrome: Plan: Antiphospholipid antibody syndrome/bilateral lower extremity DVT history/right upper extremity DVT history/bilateral PE history- Continue Lovenox 250 mg SQ every 12 hours Given weight decrease over last several weeks-months, may qualify for reduced dose - will check Xa level (7) Current use of correction anticoagulation: Plan: See above (8) Acute deep vein thrombosis (DVT) of right upper extremity: Plan: See above (9) Metastasis from esophageal cancer: Plan: Undergoing oral chemotherapy. Patient will use own capecitabine-milligrams every 12 hours orally (10) DVT of lower extremity, bilateral: Plan: See above (11) Hyperlipidemia: Plan: Hold atorvastatin until patient can take medications more easily (12) Bilateral pulmonary embolism: Plan: See above (13) Diabetes mellitus: Plan: Hold metformin Placed on Accu-Cheks before meals and at bedtime with NovoLog coverage per scale Plan: Code: Full Dispo: PCU PPX: Therapeutic Lovenox Diet: Full liquid Admission and Anticipated Discharge Date Admission Date: April 05, 2022 Supervising Physician Co-Signing Physician Notes I personally examined the patient and verified all rock points of history and exam, discussed case, and agree with decision making with Dr Troy. Feeling better. Gets IV fluids twice a week. Still weak overall. notes that he was actually much better whenever he was on prednisonehe was on it for maybe 3 weeks or so, it was stopped a few weeks ago due to concerns about his sugar. Wonders if he could be started again. Vitals noted, in general he is awake and alert fatigued but no distress. HEENT normocephalic atraumatic mucous members moist. Breathing unlabored no accessory muscle use good effort. Skin shows no rashes no pallor or icterus. Nausea vomiting dehydration and electrolyte depletionrelated to his esophageal cancer. IV fluids have helped. notes that he felt better on prednisoneit is certainly reasonable to try, given his overall risk-benefit balance and severity of illness with the cancer, symptomatic control absolutely seems reasonableand we can offset hyperglycemia with insulin if needed. Otherwise as above. Subjective NAEO. Feeling unchanged for the most part this morning - still getting "dizzy," which - on clarification - sounds more like a sensation of disequilibrium rather than vertigo. When asked to use another word to describe what he's feeling, he notes "lightheadedness." Does endorse recent poor PO intake. Diarrhea and nausea and vomiting ongoing since home chemotherapy (round 4) has started. Denies chest pain, palpitations, SOB. No f/c/NS in the last few weeks. Review of Systems Review of Systems: as per HPI Physical Exam Physical Exam: General: 46-year old male who is alert, oriented, and appears in no acute distress. HEENT: NCAT. Hoarse voice. - Eyes - Sclera are white, anicteric, and without injection. - Mouth - MMM - Neck - supple, no appreciable JVD Cardiac: Normal rate and regular rhythm; S1 and S2 present with no murmurs, rubs, or gallops. Pulmonary: Good respiratory effort with symmetric expansion of the chest. No use of accessory muscles. Lungs were clear to auscultation bilaterally with no crackles or wheezes. Abdominal: Normoactive bowel sounds. Abdomen was soft, nondistended, and non- tender to palpation. Extremities: Upper and lower extremities are warm and well perfused. No peripheral edema in the lower extremities bilaterally Neuro: - Cranial Nerves: 2-12 grossly intact. - Motor: UE - Finger, wrist, elbow, and shoulder strength is 5/5 bilaterally. LE - Hip, knee, and ankle strength is 5/5 bilaterally. - Sensation: UE and LE sensation to light touch is grossly intact bilaterally. Results & Data Results & Data ([facility]) Vital Signs (Past 12 Hours) Vital Signs Temp Pulse Pulse Resp BP BP Pulse Ox 04/05/22 11:18 37.1 C 94 H 16 121/76 96 04/05/22 08:00 108 H 04/05/22 06:57 36.7 C 105 H 16 137/86 95 04/05/22 05:41 110 H 04/05/22 05:30 37.2 C 112 H 16 127/88 95 04/05/22 03:13 109 H 14 125/79 95 Resident Activity Tracking Resident Involvement: Resident Care Provided Care Provided: Adult Hospital Medicine (1) Acute deep vein thrombosis (DVT) of right upper extremity Affected thrombotic vein of extremity: unspecified vein of extremity Qualified Code(s): I82.621 - Acute embolism and thrombosis of deep veins of right upper extremity
[2022-04-05] MEDS: MOMETASONE/FORMOTEROL INH SCH ×2 (13:36→20:45)
[2022-04-05] MEDS ORDERED: FLUTICASONE PROPIONATE NA SPR 16 GM BTL PRN (15:35)
[2022-04-05] MEDS ORDERED: HYDROCORTISONE HC 2.5% CRM 30GM TUBE EXT PRN (15:35)
[2022-04-05] MEDS ORDERED: ALBUTEROL HFA 8 GM INHALER INH PRN (15:35)
[2022-04-05] MEDS ORDERED: traMADol HCL 50 MG TABLET PO PRN (15:35)
[2022-04-05] MEDS ORDERED: NON-FORMULARY MEDICATION (Ondansetron Hcl 8 mg tablet) PO PRN (15:35)
[2022-04-05] MEDS ORDERED: ALBUTEROL 0.083% NEBU SOLN 3 ML VIAL INH PRN (15:35)
[2022-04-05] MEDS ORDERED: predniSONE 10 MG TABLET PO STA (15:43)
[2022-04-05] MEDS ORDERED: NON-FORMULARY MEDICATION (Famotidine 20 MG) PO SCH (15:45)
[2022-04-05] MEDS ORDERED: AZELASTINE HCL 0.1% NASAL 200 SPRAYS/27,400 MCG BTL PRN (15:48)
[2022-04-05] MEDS ORDERED: Nursing to Pharmacy Communication SCH (16:30)
[2022-04-05] MEDS ORDERED: CALCIUM CARBONATE 500 MG CHEWABLE TAB PO PRN (16:43)
--- NOTE | 2022-04-05 16:46 | Billing Data ---
Date of Service April 05, 2022 Coding Level of Care Code 20949 Subseq Hosp Care Lvl 3
[2022-04-05] MEDS ORDERED: LORazepam 1 MG TAB PO SCH (17:00)
[2022-04-05] MEDS: DEXLANSOPRAZOLE PO SCH (17:48)
[2022-04-05] MEDS: ATORVASTATIN 40 MG TAB PO SCH (17:55)
[2022-04-05] MEDS: CLOPIDOGREL BISULFATE 75 MG TAB PO SCH (17:55)
[2022-04-05] MEDS: OLANZapine ZYDIS 5 MG ORALLY DIS. TAB PO SCH (17:58)
[2022-04-05] MEDS ORDERED: DEXLANSOPRAZOLE PO SCH (18:00)
[2022-04-05] MEDS ORDERED: OLANZapine 5 MG TABLET PO SCH (21:00)
[2022-04-05] MEDS ORDERED: NON-FORMULARY MEDICATION (Capecitabine 500 mg tablet) PO SCH (21:00)
[2022-04-05] MEDS ORDERED: NON-FORMULARY MEDICATION (Mometasone-Formoterol [Dulera] 200-5 mcg/actuation HFA aerosol i INH SCH (21:00)
[2022-04-05] MEDS ORDERED: FAMOTIDINE SUSP 40 MG/5 ML UDP PO SCH (21:00)
[2022-04-06] MEDS: LACTATED RINGER'S 1,000 ML IV SCH ×2 (05:48→13:59)
[2022-04-06 06:32] LABS: Albumin Level 3.1 gm/dl (3.4-5.0); BUN Creatinine Ratio 15.5 (10-20); Calcium 7.8 mg/dl (8.5-10.1); Creatinine Clr Calc Pharmacy 114.6 ml/min; Est GFR (African American) 99.8 ml/min; Est GFR (Non-African American) 86.1 ml/min; Magnesium 1.5 mg/dl (1.7-2.4); Potassium 3.4 mmol/L (3.5-5.1)
[2022-04-06] MEDS: DEXLANSOPRAZOLE PO SCH (06:37)
[2022-04-06] MEDS: OLANZapine ZYDIS 5 MG ORALLY DIS. TAB PO SCH ×2 (06:38→16:40)
[2022-04-06] MEDS: INSULIN ASPART PER UNIT SC SCH ×3 (08:04→16:39)
--- NOTE | 2022-04-06 08:12 | Hospitalist Progress Note ---
Date of Service April 06, 2022 Assessment & Plan (1) Dizziness: Plan: 46-year-old male with history of stage IV esophageal cancer with hepatic metastases on palliative PO chemotherapy, antiphospholipid syndrome with multiple DVTs on therapeutic Lovenox b.i.d., and recent diagnosis of subacute CVA on _ presenting for dizziness, weakness in the setting of ongoing GI distress from chemotherapy. Weakness / Dizziness Character of the "dizziness" actually seems more like sensation of lightheadedness -- possibly related to gravity / moving head. Suspect primarily metabolic in nature dehydration leading cause in setting of acute GI losses (n/ v) from chemotherapy. Hypomagnesemia. Chemotherapeutics may also be contributing. Lower suspicion that the infarct is playing a role given its location - Rehydrate, replete lytes - Admission CTA-H/N: Subcentimeter (sub)-acute lacunar infarcts within L frontal lobe (seen 03/27) - Sinus tachycardia since arrival-> improving am 06/06 - Chronic pancytopenia is stable - Admission BMP: Na 131, Ca 7.6, Mg 1.1, Tbili 1.4 -04/06: Na 132, Ca 7.8, Mg 1.5 - Consider PT/OT pending remainder of recovery -Patient previously had success treating his symptoms of weakness and generalized malaise with prednisone 10 mg every morning however the in the past this is led to significantly deranged blood sugars. Given the reported benefit will initiate prednisone 10 mg daily while hospitalized and monitor sugars. If sugars are acceptable we will continue prednisone as an outpatient. (2) Hypomagnesemia: Plan: Magnesium 1.1 upon admission ,Suspect secondary to decreased PO intake, GI losses, possibly PPI -Replete with IV as needed -- difficult to give PO given esophageal cancer and discomfort -BMP, Mg, Phos qAM -04/06: Mg 1.5 -Repleted 2 g IV mag sulfate -On D/C patient would likely benefit from BMP checks and infusions of Mg, K at future outpatient rehydration sessions (3) Dehydration: Plan: Patient's oral intake is limited due to severe esophageal issues and nausea w/ chemorx -Will continue with ice chips and full liquids as tolerated -Continue mIVF with LR @ 125cc/hr (4) CVA (cerebral vascular accident): Plan: CT head, CTA head neck again demonstrate left frontal lobe lacunar infarcts, but better imaged on previous brain MRI of 03/27/2022. There is no hemorrhagic conversion. (5) Asthma: Plan: Placed on duo nebs every 2 hours as needed (6) Anti-phospholipid antibody syndrome: Plan: Antiphospholipid antibody syndrome/bilateral lower extremity DVT history/right upper extremity DVT history/bilateral PE history- Continue Lovenox 250 mg SQ every 12 hours Given weight decrease over last several weeks-months, may qualify for reduced dose -Xa 1.33 on 04/05 consider repeating in a week after dose change (7) Current use of usp anticoagulation: Plan: See above (8) Acute deep vein thrombosis (DVT) of right upper extremity: Plan: See above (9) Metastasis from esophageal cancer: Plan: Undergoing oral chemotherapy. Patient will use own capecitabine-milligrams every 12 hours orally (10) DVT of lower extremity, bilateral: Plan: See above (11) Hyperlipidemia: Plan: Hold atorvastatin until patient can take medications more easily (12) Bilateral pulmonary embolism: Plan: See above (13) Diabetes mellitus: Plan: -Hold metformin -Placed on Accu-Cheks before meals and at bedtime with NovoLog coverage per scale -Resumed prednisone 10 mg daily while hospitalized will need sugar management strategy on discharge. -as above Plan: Code: Full Dispo: PCU PPX: Therapeutic Lovenox Diet: Full liquid Admission and Anticipated Discharge Date Admission Date: April 05, 2022 Supervising Physician Co-Signing Physician Notes I personally examined the patient and verified all rock points of history and exam, discussed case, and agree with decision making with Dr Lei see discharge summary Subjective Patient lying in bed this morning in no acute distress. Reports he is feeling significantly better than when he presented to the hospital. No acute concerns or complaints. He is eager to move towards discharge.Reports tolerating his diet, voiding, transient diarrhea which is not abnormal for him. All questions answered acute concerns related to discharge. Denying fevers or chills, nausea or vomiting Review of Systems Review of Systems: as above Physical Exam Physical Exam: General: No acute distress HEENT: Normocephalic atraumatic Neck: Normal visual inspection Cardiac: Regular rate and rhythm I did not appreciate significant murmurs rubs or gallops normal S1, normal S2, negative pedal edema, negative calf tenderness Respiratory: Clear to auscultation bilaterally with symmetrical chest expansion did not appreciate any significant increased work of breathing, no wheezes, rales, rhonchi GI: Distended, tender, no rebound, no guarding MSK: Moves all extremities Neuro: Alert and oriented x4 Psych: Calm and cooperative with the interview Results & Data Results & Data ([facility]) Vital Signs (Past 12 Hours) Vital Signs Temp Pulse Pulse Resp BP Pulse Ox 04/06/22 07:46 36.9 C 97 H 18 117/77 95 04/06/22 03:37 36.5 C 98 H 18 101/63 93 04/06/22 00:25 36.8 C 98 H 18 131/80 95 04/06/22 00:00 103 H 04/05/22 20:12 37.0 C 18 95 Laboratory Results 04/06/22 04/06/22 04/05/22 Range/Units 07:32 05:20 20:17 Heparin Anti-Xa, LM Wt (< 0.10) IU/ML Sodium 132 L (136-145) mmol/L Potassium 3.4 L (3.5-5.1) mmol/L Chloride 98 (98-107) mmol/L Carbon Dioxide 27 (21-32) mmol/L Anion Gap 7 (3-11) BUN 16 (6-23) mg/dl Creatinine 1.03 (0.6-1.4) mg/dl Est Cr Clr Drug Dosing 114.6 ml/min Est GFR ( Amer) 99.8 ml/min Est GFR (Non-Af Amer) 86.1 ml/min BUN/Creatinine Ratio 15.5 (10-20) Glucose 134 H (70-99(Fasting)) mg/dl POC Glucose 146 H 195 H (70-99) mg/dl Calcium 7.8 L (8.5-10.1) mg/dl Phosphorus 3.0 (2.5-4.9) mg/dl Magnesium 1.5 L (1.7-2.4) mg/dl Albumin 3.1 L (3.4-5.0) gm/dl 04/05/22 04/05/22 04/05/22 Range/Units 16:12 14:02 11:17 Heparin Anti-Xa, LM Wt 1.33 (< 0.10) IU/ML Sodium (136-145) mmol/L Potassium (3.5-5.1) mmol/L Chloride (98-107) mmol/L Carbon Dioxide (21-32) mmol/L Anion Gap (3-11) BUN (6-23) mg/dl Creatinine (0.6-1.4) mg/dl Est Cr Clr Drug Dosing ml/min Est GFR ( Amer) ml/min Est GFR (Non-Af Amer) ml/min BUN/Creatinine Ratio (10-20) Glucose (70-99(Fasting)) mg/dl POC Glucose 187 H 178 H (70-99) mg/dl Calcium (8.5-10.1) mg/dl Phosphorus (2.5-4.9) mg/dl Magnesium (1.7-2.4) mg/dl Albumin (3.4-5.0) gm/dl Medications Administered Current Inpatient Medications Albuterol (Albuterol 0.083% Nebu Soln 3 Ml Vial) 2.5 mg INH QID PRN; Protocol PRN Reason: Shortness Of Breath Or Wheezing Stop: 05/05/22 15:34 Albuterol (Albuterol Hfa 8 Gm Inhaler) 2 puffs INH QID PRN PRN Reason: Shortness Of Breath Stop: 05/05/22 15:34 Atorvastatin Calcium (Atorvastatin 40 Mg Tab) 40 mg PO DAILY [facility] Stop: 05/05/22 15:44 Last Admin: 04/05/22 17:55 Dose: 40 mg Documented by: Azelastine HCl (Azelastine Hcl 0.1% Nasal 200 Sprays/27,400 Mcg Btl) 2 sprays NA BID PRN PRN Reason: Congestion Stop: 05/05/22 15:47 Calcium Carbonate (Calcium Carbonate 1,250 Mg/5 Ml Udc) 1,250 mg PO BID [facility] Stop: 05/05/22 08:59 Last Admin: 04/05/22 20:42 Dose: 1,250 mg Documented by: Calcium Carbonate (Calcium Carbonate 500 Mg Chewable Tab) 500 mg PO Q4H PRN PRN Reason: Indigestion Stop: 05/05/22 16:42 Last Admin: 04/05/22 17:54 Dose: 500 mg Documented by: Capecitabine (Capecitabine) 5 ea PO BID@0000,1200 [facility]; Protocol Stop: 04/12/22 12:01 Clopidogrel Bisulfate (Clopidogrel Bisulfate 75 Mg Tab) [facility] Stop: 05/05/22 15:44 Last Admin: 04/05/22 17:55 Dose: 75 mg Documented by: Dexlansoprazole (Dexlansoprazole) 1 ea PO DAILY@0630 [facility] Stop: 05/05/22 17:59 Last Admin: 04/06/22 06:37 Dose: 1 ea Documented by: Dextrose (Dextrose 50% 50 Ml Syringe) 25 - 50 ml IV UD PRN; Protocol PRN Reason: Hypoglycemia Protocol Stop: 05/05/22 03:50 Dronabinol (Dronabinol 2.5 Mg Cap) 5 mg PO DAILY@0630 [facility] Stop: 05/06/22 06:29 Last Admin: 04/06/22 06:37 Dose: 5 mg Documented by: Dronabinol (Dronabinol 2.5 Mg Cap) 2.5 mg PO DAILY@1600 [facility] Stop: 05/06/22 15:59 Enoxaparin Sodium (Enoxaparin 150 Mg/Ml Syr) 150 mg SQ Q12H [facility]; Protocol Stop: 05/05/22 08:59 Last Admin: 04/05/22 20:42 Dose: 150 mg Documented by: Famotidine (Famotidine Susp 40 Mg/5 Ml Udp) 40 mg PO [facility] Stop: 05/05/22 20:59 Last Admin: 04/05/22 17:54 Dose: 40 mg Documented by: Fexofenadine HCl (Fexofenadine Hcl 180 Mg Tab) 180 mg PO QAM [facility] Stop: 05/05/22 08:59 Last Admin: 04/05/22 09:41 Dose: 180 mg Documented by: Fluticasone Propionate (Fluticasone Propionate Na Spr 16 Gm Btl) 1 sprays NA QAM PRN PRN Reason: Congestion Stop: 05/05/22 15:34 Glucagon (Glucagon For Inj 1 Mg Vial) 1 mg SQ UD PRN; Protocol PRN Reason: Hypoglycemia Protocol Stop: 05/05/22 03:50 Glucose (Glucose 10 Tabs/Tube) 4 - 8 tabs PO UD PRN; Protocol PRN Reason: Hypoglycemia Protocol Stop: 05/05/22 03:50 Glucose (Glucose 40% Gel 15 Gm Tube) 15 - 30 gm PO UD PRN; Protocol PRN Reason: Hypoglycemia Protocol Stop: 05/05/22 03:50 Hydrocortisone (Hydrocortisone Hc 2.5% Crm 30gm Tube) 1 appln EXT DAILY PRN PRN Reason: hemorrhoids Stop: 05/05/22 15:34 Lactated Ringer's (Lr) 1,000 mls @ 125 mls/hr IV .Q8H [facility] Stop: 05/05/22 00:44 Last Admin: 04/06/22 05:48 Dose: 125 mls/hr Documented by: Insulin Aspart (Insulin Aspart Per Unit) 0 units SC ACHS [facility] Stop: 05/05/22 07:29 Last Admin: 04/06/22 08:04 Dose: 2 units Documented by: Lorazepam (Lorazepam 1 Mg Tab) 1 mg PO QID [facility] Stop: 05/05/22 08:59 Last Admin: 04/05/22 23:24 Dose: 1 mg Documented by: Miscellaneous (Carbohydrates For Hypoglycemia ) 15 - 30 gm PO UD PRN PRN Reason: Hypoglycemia Protocol Stop: 05/05/22 03:50 Mometasone Furoate/Formoterol Fumar (Mometasone/Formoterol) 1 ea INH BID [facility] Stop: 05/05/22 12:59 Last Admin: 04/05/22 20:45 Dose: Not Given Documented by: Olanzapine (Olanzapine Zydis 5 Mg Orally Dis. Tab) 5 mg PO BID@0630,1600 [facility] Stop: 05/05/22 16:59 Last Admin: 04/06/22 06:38 Dose: 5 mg Documented by: Ondansetron HCl (Ondansetron 8mg Od Tab) 8 mg PO Q6H PRN PRN Reason: Nausea Stop: 05/05/22 02:38 Last Admin: 04/05/22 23:24 Dose: 8 mg Documented by: Prednisone (Prednisone 10 Mg Tablet) 10 mg PO QAM [facility] Stop: 05/06/22 08:59 Sennosides (Senna 8.6 Mg Tab) 8.6 mg PO DAILY [facility] Stop: 05/06/22 08:59 Sertraline HCl (Sertraline Hcl 50 Mg Tablet) 50 mg PO QAM [facility] Stop: 05/05/22 08:59 Last Admin: 04/05/22 09:41 Dose: 50 mg Documented by: Tramadol HCl (Tramadol Hcl 50 Mg Tablet) 50 mg PO TID [facility] Stop: 05/05/22 08:59 Last Admin: 06/24/22 20:46 Dose: Not Given Documented by: (1) Acute deep vein thrombosis (DVT) of right upper extremity Affected thrombotic vein of extremity: unspecified vein of extremity Qualified Code(s): I82.621 - Acute embolism and thrombosis of deep veins of right upper extremity
[2022-04-06] MEDS: traMADol HCL 50 MG TABLET PO SCH ×2 (08:21→13:22)
[2022-04-06] MEDS: SENNA 8.6 MG TAB PO SCH ×2 (08:22→08:30)
[2022-04-06] MEDS: ATORVASTATIN 40 MG TAB PO SCH (08:22)
[2022-04-06] MEDS: LORazepam 1 MG TAB PO SCH ×2 (08:22→13:22)
[2022-04-06] MEDS: SERTRALINE HCL 50 MG TABLET PO SCH (08:22)
[2022-04-06] MEDS: CLOPIDOGREL BISULFATE 75 MG TAB PO SCH (08:22)
[2022-04-06] MEDS: FEXOFENADINE HCL 180 MG TAB PO SCH (08:22)
[2022-04-06] MEDS: ENOXAPARIN 150 MG/ML SYR SQ SCH (08:23)
[2022-04-06] MEDS: CALCIUM CARBONATE 1,250 MG/5 ML UDC PO SCH ×2 (08:23→08:29)
[2022-04-06] MEDS: MOMETASONE/FORMOTEROL INH SCH ×2 (08:24→08:30)
[2022-04-06] MEDS ORDERED: SERTRALINE HCL 50 MG TABLET PO SCH (09:00)
[2022-04-06] MEDS ORDERED: predniSONE 10 MG TABLET PO SCH (09:00)
[2022-04-06] MEDS ORDERED: FEXOFENADINE HCL 180 MG TAB PO SCH (09:00)
[2022-04-06] MEDS ORDERED: OPTIRAY 320 100ml IV ONE (09:19)
[2022-04-06] MEDS: MAGNESIUM SULFATE / D5W 1 GM/100 ML BAG IV SCH ×2 (10:00→11:24)
[2022-04-06] MEDS: ONDANSETRON 8MG OD TAB PO PRN (11:24)
[2022-04-06] MEDS ORDERED: CAPECITABINE PO SCH ×2 (12:00)
--- NOTE | 2022-04-06 15:21 | Discharge Summary ---
Date of Service April 06, 2022 Admission HPI Per Admitting Provider The patient is a 46-year-old male with a past medical history including antiphospholipid syndrome on Lovenox, bilateral lower extremity DVT, right upper extremity DVT, metastatic esophageal cancer stage IV, left frontal lobe lacunar infarcts, hypomagnesemia, hyperlipidemia, asthma, bilateral PEs, diabetes mellitus, hypertension, liver metastases, GERD and sleep apnea. He was most recently admitted to [facility] from 03/27-03/28. At that time he initially tested positive for COVID-19, but subsequent testing the next day was negative. In the ED again today, patient was initially COVID-19 positive, and PCR testing was then negative. Significant laboratories: Magnesium 1.1, total bilirubin 1.4, glucose 179. Chest x-ray negative. CT head, CTA head and neck showed left frontal lobe lacunar infarcts seen better on brain MRI of 03/27/2022. Principal Diagnosis dehydration - improved Discharge Exam gen aaox3 pleasant nad heent nc at mmm breathing unlabored no accessory muscles good effort skin no rashes no pallor or icterus mental status intact Discharge Data Allergies Allergy/AdvReac Type Severity Reaction Status Date / Time aspirin AdvReac Intermediate GI SYMPTOMS Verified 01/31/22 14:32 Consultations 04/05/22 00:37 ED Decision to Admit Stat Ordered Studies 04/04/22 18:40 CT angio head w con Stat CT angio neck with con Stat CT head/brain wo con Stat 04/06/22 09:00 CT abd pelvis IV con only Routine CT chest diagnostic w con Routine Hospital Course (1) Dizziness: 46-year-old male with history of stage IV esophageal cancer with hepatic metastases on palliative PO chemotherapy, antiphospholipid syndrome with multiple DVTs on therapeutic Lovenox b.i.d., and recent diagnosis of subacute CVA on _ presenting for dizziness, weakness in the setting of ongoing GI distress from chemotherapy. Weakness / Dizziness Character of the "dizziness" actually seems more like sensation of lightheadedness -- possibly related to gravity / moving head. Suspect primarily metabolic in nature dehydration leading cause in setting of acute GI losses (n/v) from chemotherapy. Hypomagnesemia. Chemotherapeutics may also be contributing. Lower suspicion that the infarct is playing a role given its l ocation -Symptoms improved with rehydration and electrolyte replacement -Patient previously had success treating his symptoms of weakness and generalized malaise with prednisone 10 mg every morning however the in the past this is led to significantly deranged blood sugars. Given the reported benefit started prednisone yesterday and followed through yesterday and today to ensure that he did not have severe hyperglycemiasugar was actually quite easy to control, requiring fairly minimal insulinwill send home on 10 mg of prednisone for symptom management, as well as currently 10 units of Lantus to protect against severe hyperglycemia. Recommended that he check glucoses 1 to 2 hours postprandial to look for his worst potential readings, and if insulins need to be escalated much, that basal bolus type dosing may be indicatedbut hopefully this will not be needed (2) Hypomagnesemia: Magnesium 1.1 upon admission ,Suspect secondary to decreased PO intake, GI losses, possibly PPI -Replete with IV as needed -- difficult to give PO given esophageal cancer and discomfort -On D/C patient would likely benefit from periodic electrolyte checks and inf usions of Mg, K at future outpatient rehydration sessions as labs indicate (3) Dehydration: Patient's oral intake is limited due to severe esophageal issues and nausea w/ chemorx -Improved with IV fluids (4) CVA (cerebral vascular accident): CT head, CTA head neck again demonstrate left frontal lobe lacunar infa rcts, but better imaged on previous brain MRI of 03/27/2022. There is no hemorrhagic conversion. (5) Asthma: Placed on duo nebs every 2 hours as needed (6) Anti-phospholipid antibody syndrome: Antiphospholipid antibody syndrome/bilateral lower extremity DVT history/right upper extremity DVT history/bilateral PE history- Given weight loss, 10 A levelafter consideration as well as discussion with clinical pharmacyreduced to 120 mg twice daily which is more in line with a current body weight 1 mg/kg dosing (7) Current use of exterminator helper termite anticoagulation: See above (8) Acute deep vein thrombosis (DVT) of right upper extremity: See above (9) Metastasis from esophageal cancer: Undergoing oral chemotherapy, continue outpatient treatment (10) DVT of lower extremity, bilateral: See above (11) Hyperlipidemia: Hold atorvastatin until patient can take medications more easily (12) Bilateral pulmonary embolism: See above (13) Diabetes mellitus: -A1c was reasonable and sugars were not markedly high in spite of the 10 mg of prednisonecontinue metformin at discharge, additionally 10 units of Lantus daily, postprandial glucose checks, and if necessary, discussed the potential escalation to basal bolus dosing (however hopefully this will be needed) Total Time Total Time Spent Total Time Spent (In Minutes): <30 Discharge Plan Discharge Items Patient Disposition: Home - Self-Care Reason For Visit: HYPOMAGNESEMIA Discharge Diagnosis: dehydration Condition on Discharge: Good Activity: Resume your previous activity Non-emergency contact: Primary Care Provider and Oncologist Call non-emergency contact if: you have any medication questions and your symptoms worsen Follow-up/Referrals: Chayo Pfeiffer CRNP [Primary Care Provider] - Diet: Regular Addtl Attending Provider Instructions: dehydration -The main symptoms bring her to the hospital appear to have been dehydration related. Fortunately this improved with IV fluids. Continue to do the best you can with eating and drinking, and continue to have the outpatient IV fluids set up when you need -Since you noticed a significant drop off and how you are feeling after the prednisone was stopped, given everything you are going through it definitely seems reasonable to be back on that. We will have you on 10 mg daily, your PCP or oncologist could adjust the dose if it seems like it might help Diabetes -Fortunately, in spite of the prednisone, your sugars have overall been fairly easy to keep under control -The main reason we will want to keep the sugars in line is to prevent high sugar related dehydration. Is a reasonable rule when your sugar is above 200 and will start to pull fluid into your kidneys/act a bit like a diuretic. At the low end it will be fairly mild, really for you I would be far more concerned acutely if you are above 350-400 -Because so far it has been fairly easy to keep your sugars in line, we will try to keep the outpatient regimen simplewe will go with 10 units of Lantus in the morning -To gauge how your sugars are doing, I would recommend checking once or twice a day 1 to 2 hours after eating (this will give you a chance to see your worst/highest sugars, which is going to be more important and then seeing where you run generally), if everything is less than 200, things are easy. If you are seeing things in the low to mid 200s, that could imply that we need to add more insulin. Because dehydration seems to be what causes you the most acute problemsif you are above 350, it would definitely be reasonable to call the office for further evaluation/management, if its hours when the office is not open or you feel particularly bad from dehydration, it would also be reasonable to come to the ER in that respect -Remember, Lantus kicks in about 2 hours after you take it, goes for about 18 hours with no real peak in activity, and then slowly wears off over the last 4 to 6 hours. Because of this, if you need more insulin, you could reach a point where we need to add some insulin at mealtime to cover the carbohydrates to eat. I am hoping this will not be the case though. You would notice this if you are constantly really high after you eat, and especially if they have increased the Lantus to about 20 units or higher on the daythose both become reasonable times at which adding mealtime insulin might be of benefit Lovenox -After discussing with our clinical pharmacy staffit would be warranted to reduce your Lovenox to 120 mg twice a day. A new prescription has been sent in this regard the CT scan readings by radiology are pending -- keep checking the portal - i've found that reports get up there about as quickly as they show up in our system Pending Studies at Discharge: Yes Stand-Alone Forms: [facility], Smoking Cessation Medications and DC Order Prescriptions: New potassium chloride [Klor-Con M20] 20 mEq tablet,ER particles/crystals 20 meq PO BID Qty: 14 RF: 0 magnesium oxide 400 mg capsule 400 mg PO BID Qty: 14 RF: 0 calcium carbonate [Calcium 600] 600 mg calcium (1,500 mg) tablet 600 mg PO DAILY Qty: 7 RF: 0 prednisone 10 mg Tablet 10 mg PO QAM Qty: 30 RF: 0 insulin glargine [Lantus Solostar U-100 Insulin] 100 unit/mL (3 mL) insulin pen 10 unit subcut DAILY Qty: 15 RF: 0 enoxaparin [Lovenox] 120 mg/0.8 mL syringe 120 mg subcut Q12H Qty: 48 RF: 0 Continued (DME) blood-glucose meter [OneTouch Verio Flex Start] Kit See Rx Instructions .ROUTE .MEDSUPPLY Qty: 1 RF: 0 (DME) OneTouch Verio test strips Strip See Rx Instructions .ROUTE .MEDSUPPLY Qty: 100 RF: 3 albuterol sulfate [Ventolin HFA] 90 mcg/actuation HFA aerosol inhaler 2 puff inhalation QID PRN (Reason: Shortness Of Breath) Qty: 18 RF: 6 azelastine 0.15 % (205.5 mcg) spray,non-aerosol 2 sprays INTNAS BID PRN (Reason: Congestion) RF: 0 tramadol 50 mg tablet 50 mg PO TID Qty: 90 RF: 2 ondansetron HCl 8 mg tablet 8 mg PO Q8 PRN (Reason: Nausea) Qty: 100 RF: 5 sertraline 50 mg tablet 50 mg PO DAILY Qty: 30 RF: 5 hydrocortisone [Proctosol HC] 2.5 % cream with perineal applicator 1 applic MS DAILY PRN (Reason: hemorrhoids) Qty: 30 RF: 1 (DME) CPAP Supplies Misc .Route Qty: 1 RF: 0 atorvastatin 40 mg tablet 40 mg PO DAILY Qty: 30 RF: 11 lorazepam 1 mg tablet 1 mg PO QID Qty: 120 RF: 3 (DME) nebulizer kit See Rx Instructions .Route .MEDSUPPLY Qty: 1 RF: 0 fluticasone propionate [Flonase Allergy Relief] 50 mcg/actuation spray,suspension 1 sprays INTNAS QAM PRN (Reason: Congestion) RF: 0 (DME) blood-glucose meter [Advanced Glucose Meter] Misc See Rx Instructions .ROUTE .MEDSUPPLY Qty: 1 RF: 0 (DME) lancets [BD Ultra-Fine II Lancets] 30 gauge misc See Rx Instructions .Route Qty: 100 RF: 4 fexofenadine [Jana Allergy] 180 mg Tablet 180 mg PO QAM RF: 0 albuterol sulfate 2.5 mg /3 mL (0.083 %) solution for nebulization 2.5 mg inhalation QID PRN (Reason: Shortness Of Breath Or Wheezing) RF: 0 Senna-S 1 tab PO DAILY RF: 0 famotidine 20 mg PO DAILY RF: 0 metformin 500 mg tablet 500 mg PO BID RF: 0 capecitabine 500 mg tablet 500 mg PO Q12 RF: 0 dexlansoprazole 60 mg capsule,biphase delayed releas 60 mg PO QAM RF: 0 olanzapine 5 mg tablet 5 mg PO BID RF: 0 dronabinol 2.5 mg capsule See Rx Instructions .ROUTE .COMPLEX RF: 0 Dulera 200-5 mcg/actuation HFA aerosol inhaler 2 inh INHALATION BID RF: 0 clopidogrel 75 mg Tablet 75 mg PO QAM Qty: 30 RF: 4 Discontinued enoxaparin 150 mg/mL syringe 150 mg subcut BID RF: 0 Discharge Orders: Discharge Order (Routine); Ordered 04/06/22 Ordered By: Jarek Mancia Admission Data Admit Date/Time: 04/05/22 02:25 Attending Provider: Jarek Mancia Admit Provider: Berhane Germain Primary Care Provider: Chayo Pfeiffer Other Providers: Berhane Germain Coding Level of Care Code D/C DAY MANAGEMENT <30 MINS Diagnoses Dizziness R42 Hypomagnesemia E83.42 Dehydration E86.0 CVA (cerebral vascular accident) I63.9 Asthma J45.909 Anti-phospholipid antibody syndrome D68.61 Current use of chcf anticoagulation Z79.01 Acute deep vein thrombosis (DVT) of right upper extremity I82.621 Affected thrombotic vein of extremity: unspecified vein of extremity Metastasis from esophageal cancer C79.9; C15.9 DVT of lower extremity, bilateral I82.403 Hyperlipidemia E78.5 Bilateral pulmonary embolism I26.99 Diabetes mellitus E11.9
--- NOTE | 2022-04-06 18:27 | CT Scan Report ---
CT chest diagnostic w con, CT abd pelvis IV con only HISTORY: 46 years-old Male evaluate disease burden, esophageal cancer subsequent treatment strategy. Follow up study in a patient with history of esophageal carcinoma and hepatic metastasis COMPARISON: CT chest, abdomen and pelvis 03/01/2022 TECHNIQUE: Multiple axial CT images of the chest, abdomen and pelvis were obtained following the intr avenous ministration of 94 mL Optiray 320. A dose lowering technique was used consistent with the divine ncipals of GEORGI. FINDINGS: CT CHEST: Normal thyroid. No pathologically enlarged lymph nodes of the chest. Mediastinal subcentimeter medias tinal and hilar lymph nodes measure up to 9 mm. No pathologically enlarged lymph nodes are identified . The heart is upper limits of normal in size. Trace pericardial effusion. Unremarkable thoracic aort a. The previously noted minimal residual segmental and subsegmental pulmonary emboli are not definiti vely seen on today's study. There is an unchanged 7 mm subpleural solid nodule of the posterior basal segment right lower lobe on image 219 suggestive of probable scarring. No pneumothorax, pleural effusion, overt pulmonary edema, suspicious pulmonary nodules or masses. Mil d bilateral bronchial wall thickening suggestive of bronchitis with intermixed groundglass opacities suggestive of atelectasis. Mild linear subsegmental bibasilar atelectasis/scarring. Decreased transve rse dimension of the trachea. Unremarkable soft tissues. Degenerative changes of the shoulders and sp ine. There are no destructive bone lesions identified. No paravertebral edema. CT ABDOMEN/PELVIS: No pneumatosis or pneumoperitoneum. The spleen is enlarged measuring up to 15.2 cm in length. Unremar kable adrenal glands, pancreas and gallbladder. Innumerable hepatic metastasis redemonstrated with th e largest lesion within the hepatic dome measuring up to 3 cm, previously 3.5 cm. The hepatic disease appears stable to slightly improved from the prior exam. There is patency of the hepatic and portal veins. 1.2 cm cyst of the inferior pole left kidney. There is no hydronephrosis. Prostamegaly. Urinary bladd er wall thickening with partial distention. Aorta and IVC are unremarkable. 1.5 x 1.0 cm celiac node on image 138 of series 7 has mildly decreased in size. Numerous additional subcentimeter and borderli ne enlarged gastrohepatic and periportal lymph nodes appear similar to the prior study. 3.1 x 1.7 cm precaval lymph node on image 129 is similar to prior. Subcentimeter nonenlarged retroperitoneal lymph nodes. Masslike thickening with luminal narrowing within the gastroesophageal junction and proximal stomach is redemonstrated measuring up to approximately 5.7 cm. The degree of wall thickening with adjacent i nflammatory stranding has progressed. No significant upstream esophageal distention. No bowel obstruc tion or bowel wall thickening. Normal appendix. Subcentimeter soft tissue nodules of the subcutaneous anterior abdominal wall may represent injection granulomata. Prior ventral abdominal wall hernia rep air. No destructive bone lesions identified. IMPRESSION: 1. The primary neoplasm of the distal esophagus and gastroesophageal junction is again seen which dem onstrates mildly increased size from the 03/01/2022 study. 2. Multifocal hepatic metastasis appears stable to mildly improved from comparison. 3. Upper abdominal lymphatic metastasis appears generally unchanged. 4. No definite evidence of intrathoracic metastatic disease. Unchanged subcentimeter mediastinal and hilar lymph nodes. 5. Splenomegaly. 6. Additional findings as above. ACT 112: Negative or not required by law. The above report was generated using voice recognition software. It may contain grammatical, syntax o r spelling errors. Electronically signed by: Teo Palmer M.D. 04/06/2022 6:24 PM
== END 2022-04-06 17:34 | disposition home or self-care (01) | DRG 640 ==
LOC: ED 17:45 → SUATTDRO 04-05 02:25 → 2S 04-05 02:25

== ENCOUNTER 2022-05-01 18:01 | Inpatient (IN) ==
[2022-05-01 18:33] LABS: Basophils # (auto) 0.01 K/uL (0-0.2); Basophils % (auto) 0.2 %; Hematocrit (blood only) 23.7 % (40.1-51.0); Immature Granulocytes # (auto) 0.02 K/uL (0.00-0.02); Immature Granulocytes % (auto) 0.5 %; Lymphocytes # (auto) 0.76 K/uL (1.2-3.4); Mean Corpuscular Hemoglobin 32.4 pg (25.0-34.0); Mean Corpuscular Hgb Conc 33.8 g/dL (32.0-36.0); Mean Platelet Volume 11.4 fL (9.4-12.4); Monocytes # (auto) 0.25 K/uL (0.24-0.82); Monocytes % (auto) 6.2 %; Neutrophils # (auto) 2.97 K/uL (1.4-6.5); Neutrophils % (auto) 74.1 %; Platelet Count 37 K/uL (130-400); RDW Coefficient of Variation 17.5 % (11.5-14.5); RDW Standard Deviation 59.4 fL (36.4-46.3); Red Blood Count 2.47 M/uL (4.63-6.08); White Blood Count 4.01 K/ul (4.8-10.8)
[2022-05-01] MEDS ORDERED: OPTIRAY 320 125ml IV ONE (18:40)
[2022-05-01 18:51] LABS: INR 1.4 (0.9-1.1); Partial Thromboplastin Time 28.5 Seconds (21.0-31.0); Prothrombin Time 14.5 Seconds (9.0-12.0)
--- NOTE | 2022-05-01 18:56 | CT Scan Report ---
UNENHANCED CT OF THE BRAIN; CT ANGIOGRAM OF THE BRAIN; CT ANGIOGRAM OF THE NECK CLINICAL HISTORY: Left-sided weakness. COMPARISON STUDY: CT angiogram of the head and neck dated 04/04/2022. TECHNIQUE: Unenhanced axial CT scan of the brain is performed. Subsequently, following the IV adminis tration of 120 of Optiray 320, CT angiogram of the head and neck was performed from the aortic arch t o the vertex. Images are reviewed in the axial, sagittal, and coronal planes. 3-D MIPS images are cre ated and assessed. IV contrast was administered without complication. All measurements were calculate d based on NASCET criteria. A dose lowering technique was utilized adhering to the principles of ALA RA. CT DOSE: 1399.99 mGy.cm FINDINGS: Brain parenchyma: A small chronic lacunar infarct is again seen in the left centrum semiovale. There is minimal periventricular microangiopathic disease. There is no hemorrhage, mass effect, or evidence of acute territorial ischemia by CT criteria. There is no evidence of enhancing mass lesion on the a ngiogram phase images. The ventricles, sulci, and cisterns are normal in configuration. Wilson-white ma tter differentiation is preserved. No extra-axial fluid collection is seen. Thoracic aorta: Visualized portions of the thoracic aorta are normal in caliber. The aortic arch demo nstrates standard 3-vessel anatomy. Right carotid arterial system: The right common carotid artery is widely patent, as are the right int ernal and external carotid arteries. Left carotid arterial system: The left common carotid artery is widely patent, as are the left international representative al and external carotid arteries. Vertebral arteries: The vertebral arteries are widely patent bilaterally and codominant. Subclavian arteries: Widely patent bilaterally. Intracranial vasculature: The internal carotid arteries are patent at the skull base, as are the ante rior and middle cerebral arteries bilaterally. The vertebrobasilar system and posterior cerebral bang delvis are widely patent. The vertebral arteries are codominant. There is no aneurysm, high-grade steno sis, or focal vessel cut off seen throughout the intracranial circulation. Jugular veins: Patent bilaterally. Dural sinuses: Patent. Lung apices: Partially visualized upper lobe lung parenchyma appears clear. Soft tissues: The visualized pharyngeal soft tissues are normal in appearance noting angiographic pha se technique. The oropharyngeal airway appears widely patent. The salivary and thyroid glands are nor mal in appearance. No cervical lymphadenopathy is seen. An indeterminant 3.7 cm soft tissue mass is a gain seen in the right suboccipital tissues. Skeletal structures: The calvarium appears intact. The cervical spine is maintained noting multilevel spondylosis. No lytic or blastic lesion is seen. Orbits: The bony orbits are intact. Orbital contents are normal as visualized noting a left ocular le ns implant. Sinuses and mastoids: The paranasal sinuses are clear. There is a small left mastoid effusion. The ri t mastoid air cells are well pneumatized. IMPRESSION: 1. There is no hemorrhage, mass effect, or evidence of acute territorial ischemia by CT criteria. 2. Unremarkable CT angiogram of the brain. No change from 04/04/2022 or 03/27/2022. 3. Unremarkable CT angiogram of the neck. No change from 04/04/2022 or 03/27/2022. 4. A chronic right suboccipital soft tissue mass is unchanged. ACT 112: Negative or not required by law. Electronically signed by: Kartik Mcfarlane M.D. 05/01/2022 6:54 PM
[2022-05-01 19:00] LABS: Albumin Globulin Ratio 1.5 (0.9-2); Albumin Level 3.1 gm/dl (3.4-5.0); BUN Creatinine Ratio 33.3 (10-20); Bilirubin,Total 1.1 mg/dl (0.2-1.0); Calcium 7.5 mg/dl (8.5-10.1); Creatinine Clr Calc Pharmacy 80.7 ml/min; Est GFR (African American) 64.9 ml/min; Globulin 2.1 gm/dl (2.5-4.0); Magnesium 1.2 mg/dl (1.7-2.4); Potassium 3.7 mmol/L (3.5-5.1); Total Protein 5.2 gm/dl (6.0-8.3)
--- NOTE | 2022-05-01 19:05 | Emergency Department Note ---
Impression & Plan Acute left-sided muscle weakness, Hypomagnesemia, Elevated troponin, Thrombocytopenia ED Provider Note NAME: ANA WORRELL AGE: 46 SEX: M : 1975 ARRIVES VIA: Walk-In INFORMANT: Patient ED PROVIDER(S): Jarek Martins DO CHIEF COMPLAINT: left sided weakness HPI: Patient is a 46-year-old male who presents to the ER with a past medical history DVT, antiphospholipid antibody, metastatic esophageal cancer on Lovenox therapeutic dose which he took this morning. Admits to a headache which started earlier this morning. About 10 minutes prior to arrival patient started left- sided facial droop, trouble talking, and left-sided weakness. He denies any chest pain or belly pain. No other exacerbating or remitting factors. History is difficult to obtain due to his speech. ROS: Review of systems is limited secondary to speech PAST MEDICAL HISTORY:See Below PAST SURGICAL HISTORY:See Below FAMILY HISTORY:See Below SOCIAL HISTORY:See Below HOME MEDICATIONS:See Below ALLERGIES:See Below VITALS:See Below PHYSICAL EXAMINATION: GENERAL: Sitting up in bed, alert, ill-appearing, disheveled EYE EXAM: normal conjunctiva. Unable to gaze to the left OROPHARYNX: no exudate, no erythema, lips, buccal mucosa, and tongue normal and mucous membranes are moist NECK: supple, no nuchal rigidity, no adenopathy, non-tender LUNGS: Clear to auscultation. Normal chest wall mechanics HEART: no murmurs, S1 normal and S2 normal ABDOMEN: abdomen soft, non-tender, normo-active bowel sounds, no masses, no rebound or guarding. UPPER EXTREMITIES: upper extremities are grossly normal. LOWER EXTREMITIES: No pitting edema. NEURO EXAM: Awake alert oriented to person and place but slurring his words left-sided facial droop and weakness of the left upper and left lower extremity. Only able to plantar and dorsiflex the left lower. No weakness on the right side. MEDICAL DECISION MAKING: Patient is a 46-year-old male with metastatic colon cancer presents ER for week left upper and left lower extremity associated with slurred speech, facial droop and unable to gaze to the left. IVs were established blood work was obtained. Stroke alert was called. Discussed with [facility] telestroke and they note that as he is currently receiving therapeutic Lovenox in combination with recent stroke and metastatic cancer he is a poor candidate but the Lovenox is an exclusion. Labs show a leukopenia 4 with a mild anemia and a fairly consistent with previous. Platelets were significantly low at 37. BMP with creatinine 1.7. Calcium and mag were low. Troponin was elevated 57. COVID was negative. CT angio of the head and neck were negative. Patient was given IV fluids. Updated bedside. Admitted to the hospital for further work-up of his likely stroke. Triage Nursing notes reviewed. Limited review of prior medical records performed Vital Signs: reviewed and remarkable for tachy Differential diagnosis: Differential Diagnosis includes but is not limited to ischemic Stroke, hemorrhagic stroke, bells palsy, mass, neoplasm, migraine headache, seizure, subarachnoid hemorrhage, TIA, and transient global amnesia. ER treatment provided: See below Diagnostics interpreted by me: ECG: Sinus tachycardia rate of 130 Normal axis No PVCs T wave inversion in lead III Cardiac Monitoring: An order was placed for continuous cardiac monitoring. The monitor shows a rate of 120 with sinus rhythm. Laboratory studies: As stated above and show below. Imaging studies: CT as well as angios the head and neck as described above were negative Consultation(s): Discussed with [facility] telestroke Dr. Vanessa who notes that this patient is not a tPA candidate based on Lovenox. Procedures: none Critical Care: None Past Med/Surg History Medical History Anticoagulant long-term use Asthma Well controlled with inhalers Diabetes mellitus Esophageal cancer, stage IV Presumed per CT scan per general surgery records. Reason for port placement GERD (gastroesophageal reflux disease) History of anesthesia reaction Woke up during cataract procedure and "attempted to walk off the table" and was told he should always be "put completely to sleep". 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 On Lovenox Sleep apnea CPAP Surgical History History of cataract surgery L EYE History of left knee surgery History of liver biopsy History of surgery (01/08/22) Attempted Insertion Access Port with Fluoroscopy(Left) - Carlos Angeles DO 01/08/2022 History of tooth extraction History of umbilical hernia repair Family History Father Family history of diabetes mellitus FHx: skin cancer Cancer FHx: bladder cancer Mother FHx: kidney cancer Family history of diabetes mellitus Cancer Brother Family history of diabetes mellitus Family/Other Coronary heart disease Grandmother (Paternal) FHx: colon cancer Social History Smoking Status: Never smoker Tobacco Type: Smokeless Tobacco (Dip or Chew) Second Hand Exposure: No; Hx Alcohol Use: No Hx Substance Use: No Preferred Language: Occitan Communication Ability: Effective Visual Impairment: No Limitations Managing Director Atlas Required: No Beliefs That Will Affect Care: None marital status: Current Living Situation: Spouse Current Living Situation Comment: home with current occupational status: employed Other Information That Helps Us Care for You: No Feels Safe at Home: Yes Safety Concerns: Feels Safe At This Time during the past year weight has: remained stable Assistive Devices: CPAP Allergies Allergies Allergy/AdvReac Type Severity Reaction Status Date / Time aspirin AdvReac Intermediate GI SYMPTOMS Verified 01/31/22 14:32 Home Meds Home Medications Medication Instructions Recorded Confirmed fexofenadine 180 mg tablet 180 mg PO QAM 07/02/18 05/01/22 (Jana Allergy) fluticasone propionate 50 1 sprays intranasal QAM PRN 06/08/19 05/01/22 mcg/actuation nasal Congestion spray,suspension (Flonase Allergy Relief) metformin 500 mg tablet 500 mg PO BID 12/26/21 05/01/22 albuterol sulfate 2.5 mg inhalation QID PRN 01/09/22 05/01/22 Shortness Of Breath Or Wheezing dexlansoprazole 60 mg 60 mg PO QAM 03/27/22 05/01/22 capsule,biphase delayed release mometasone-formoterol HFA 200 2 inh inhalation BID 03/27/22 05/01/22 mcg-5 mcg/actuation aerosol inhaler (Dulera) olanzapine 5 mg tablet 5 mg PO BID 03/27/22 05/01/22 baclofen 10 mg tablet 10 mg PO TID PRN Hiccups 05/01/22 05/01/22 dronabinol 5 mg capsule 5 mg PO BID 05/01/22 05/01/22 famotidine 20 mg tablet 20 mg PO BID 05/01/22 05/01/22 sennosides 8.6 mg-docusate sodium 1 tab-cap PO HS 05/01/22 05/01/22 50 mg tablet (Senna-S) tramadol 50 mg tablet 50 mg PO TID PRN Pain 05/01/22 05/01/22 Previous Rx's Medication Instructions Recorded blood-glucose meter (Advanced #1 ea 08/22/20 Glucose Meter) blood-glucose meter (OneTouch #1 ea 09/22/20 Verio Flex Start) blood sugar diagnostic (OneTouch #100 ea 10/03/20 Verio test strips) lancets 30 gauge (P[employer] Ultra-Fine II #100 ea 07/05/21 Lancets) nebulizer kit #1 ea 12/25/21 albuterol sulfate 90 mcg/actuation 2 puff inhalation QID PRN 12/31/21 aerosol inhaler (Ventolin HFA) Shortness Of Breath #18 grams hydrocortisone 2.5 % topical cream 1 applic ME DAILY PRN hemorrhoids 01/31/22 with perineal applicator #30 grams (Proctosol HC) ondansetron HCl 8 mg tablet 8 mg PO Q8 PRN Nausea #100 tabs 01/31/22 CPAP Supplies #1 ea 03/06/22 lorazepam 1 mg tablet 1 mg PO QID anxiety #120 tabs 03/15/22 clopidogrel 75 mg tablet 75 mg PO QAM #30 tabs 03/28/22 calcium carbonate 600 mg calcium 600 mg PO DAILY #7 tabs 04/05/22 (1,500 mg) tablet (Calcium) magnesium oxide 400 mg PO BID #14 caps 04/05/22 enoxaparin 120 mg/0.8 mL 120 mg (0.8 mL) subcut Q12H #48 mL 04/06/22 subcutaneous syringe (Lovenox) insulin glargine 100 unit/mL (3 10 unit (0.1 mL) subcut DAILY #15 04/06/22 mL) subcutaneous pen (Lantus mL Solostar U-100 Insulin) prednisone 10 mg tablet 10 mg PO QAM #30 tabs 04/06/22 atorvastatin 40 mg tablet 40 mg PO DAILY #90 tabs 04/22/22 sertraline 50 mg tablet 50 mg PO DAILY #30 tabs 04/23/22 Results & Data (ED) Vital Signs Vital Signs - 24 hr 05/01/22 18:05 05/01/22 18:42 05/01/22 18:50 Pulse Rate 130 H Pulse Rate [Right Finger] 120 H 119 H Pulse Rate from SpO2 Sensor Pulse Rhythm Regular Pulse Rhythm [Right Finger] Pulse Strength Normal Pulse Strength [Right Finger] Respiratory Rate 20 21 19 Respiratory Effort / Characteristics Non-Labored Spontaneous Respiratory Depth Normal Respiratory Pattern Regular Blood Pressure 115/74 Blood Pressure [Right Arm] 118/78 116/78 Blood Pressure Mean 87 Blood Pressure Mean [Right Arm] 91 90 Blood Pressure Position Sitting Blood Pressure Position [Right Arm] Pulse Oximetry 97 95 95 Oxygen Delivery Method Room Air Room Air Sepsis Recent Fever Within 48 Hours No Sepsis New/Unexplained Change in Mental Status No Sepsis Action Taken by Nursing No Action Required 05/01/22 19:08 05/01/22 19:20 05/01/22 18:40 Pulse Rate Pulse Rate [Right Finger] 117 H 115 H Pulse Rate from SpO2 Sensor Pulse Rhythm Pulse Rhythm [Right Finger] Regular Regular Pulse Strength Pulse Strength [Right Finger] Normal Normal Respiratory Rate 20 18 Respiratory Effort / Characteristics Non-Labored Spontaneous Non-Labored Spontaneous Respiratory Depth Normal Normal Respiratory Pattern Regular Regular Blood Pressure 118/78 Blood Pressure [Right Arm] 120/75 98/64 L Blood Pressure Mean 91 Blood Pressure Mean [Right Arm] 90 75 Blood Pressure Position Blood Pressure Position [Right Arm] Lying Pulse Oximetry 97 96 Oxygen Delivery Method Room Air Room Air Sepsis Recent Fever Within 48 Hours Sepsis New/Unexplained Change in Mental Status Sepsis Action Taken by Nursing 05/01/22 18:40 05/01/22 18:45 05/01/22 18:50 Pulse Rate 120 H 120 H Pulse Rate [Right Finger] Pulse Rate from SpO2 Sensor 120 H 121 H Pulse Rhythm Pulse Rhythm [Right Finger] Pulse Strength Pulse Strength [Right Finger] Respiratory Rate 21 21 Respiratory Effort / Characteristics Respiratory Depth Respiratory Pattern Blood Pressure 116/78 Blood Pressure [Right Arm] Blood Pressure Mean 90 Blood Pressure Mean [Right Arm] Blood Pressure Position Blood Pressure Position [Right Arm] Pulse Oximetry 95 96 Oxygen Delivery Method Sepsis Recent Fever Within 48 Hours Sepsis New/Unexplained Change in Mental Status Sepsis Action Taken by Nursing 05/01/22 18:50 05/01/22 19:00 05/01/22 19:00 Pulse Rate 119 H 117 H Pulse Rate [Right Finger] Pulse Rate from SpO2 Sensor 119 H 118 H Pulse Rhythm Pulse Rhythm [Right Finger] Pulse Strength Pulse Strength [Right Finger] Respiratory Rate 25 H 21 Respiratory Effort / Characteristics Respiratory Depth Respiratory Pattern Blood Pressure 120/75 Blood Pressure [Right Arm] Blood Pressure Mean 90 Blood Pressure Mean [Right Arm] Blood Pressure Position Blood Pressure Position [Right Arm] Pulse Oximetry 95 92 Oxygen Delivery Method Sepsis Recent Fever Within 48 Hours Sepsis New/Unexplained Change in Mental Status Sepsis Action Taken by Nursing 05/01/22 19:10 05/01/22 19:10 05/01/22 19:15 Pulse Rate 117 H 113 H Pulse Rate [Right Finger] Pulse Rate from SpO2 Sensor 130 H 114 H Pulse Rhythm Pulse Rhythm [Right Finger] Pulse Strength Pulse Strength [Right Finger] Respiratory Rate 24 25 H Respiratory Effort / Characteristics Respiratory Depth Respiratory Pattern Blood Pressure 116/82 Blood Pressure [Right Arm] Blood Pressure Mean 93 Blood Pressure Mean [Right Arm] Blood Pressure Position Blood Pressure Position [Right Arm] Pulse Oximetry 96 97 Oxygen Delivery Method Sepsis Recent Fever Within 48 Hours Sepsis New/Unexplained Change in Mental Status Sepsis Action Taken by Nursing 05/01/22 19:20 05/01/22 19:20 05/01/22 19:30 Pulse Rate 114 H Pulse Rate [Right Finger] Pulse Rate from SpO2 Sensor 127 H Pulse Rhythm Pulse Rhythm [Right Finger] Pulse Strength Pulse Strength [Right Finger] Respiratory Rate 25 H Respiratory Effort / Characteristics Respiratory Depth Respiratory Pattern Blood Pressure 98/64 L 119/76 Blood Pressure [Right Arm] Blood Pressure Mean 75 90 Blood Pressure Mean [Right Arm] Blood Pressure Position Blood Pressure Position [Right Arm] Pulse Oximetry 96 Oxygen Delivery Method Sepsis Recent Fever Within 48 Hours Sepsis New/Unexplained Change in Mental Status Sepsis Action Taken by Nursing 05/01/22 19:30 05/01/22 19:40 05/01/22 19:40 Pulse Rate 114 H 113 H Pulse Rate [Right Finger] Pulse Rate from SpO2 Sensor 114 H 112 H Pulse Rhythm Pulse Rhythm [Right Finger] Pulse Strength Pulse Strength [Right Finger] Respiratory Rate 21 24 Respiratory Effort / Characteristics Respiratory Depth Respiratory Pattern Blood Pressure 115/79 Blood Pressure [Right Arm] Blood Pressure Mean 91 Blood Pressure Mean [Right Arm] Blood Pressure Position Blood Pressure Position [Right Arm] Pulse Oximetry 95 97 Oxygen Delivery Method Sepsis Recent Fever Within 48 Hours Sepsis New/Unexplained Change in Mental Status Sepsis Action Taken by Nursing 05/01/22 19:45 05/01/22 19:50 05/01/22 19:50 Pulse Rate 111 H 112 H Pulse Rate [Right Finger] Pulse Rate from SpO2 Sensor 113 H 111 H Pulse Rhythm Pulse Rhythm [Right Finger] Pulse Strength Pulse Strength [Right Finger] Respiratory Rate 22 21 Respiratory Effort / Characteristics Respiratory Depth Respiratory Pattern Blood Pressure 106/69 Blood Pressure [Right Arm] Blood Pressure Mean 81 Blood Pressure Mean [Right Arm] Blood Pressure Position Blood Pressure Position [Right Arm] Pulse Oximetry 97 97 Oxygen Delivery Method Sepsis Recent Fever Within 48 Hours Sepsis New/Unexplained Change in Mental Status Sepsis Action Taken by Nursing 05/01/22 20:00 05/01/22 20:00 05/01/22 20:10 Pulse Rate 113 H Pulse Rate [Right Finger] Pulse Rate from SpO2 Sensor 112 H Pulse Rhythm Pulse Rhythm [Right Finger] Pulse Strength Pulse Strength [Right Finger] Respiratory Rate 30 H Respiratory Effort / Characteristics Respiratory Depth Respiratory Pattern Blood Pressure 119/82 107/73 Blood Pressure [Right Arm] Blood Pressure Mean 94 84 Blood Pressure Mean [Right Arm] Blood Pressure Position Blood Pressure Position [Right Arm] Pulse Oximetry 97 Oxygen Delivery Method Sepsis Recent Fever Within 48 Hours Sepsis New/Unexplained Change in Mental Status Sepsis Action Taken by Nursing 05/01/22 20:10 05/01/22 20:15 05/01/22 20:20 Pulse Rate 113 H 111 H Pulse Rate [Right Finger] Pulse Rate from SpO2 Sensor 112 H 111 H Pulse Rhythm Pulse Rhythm [Right Finger] Pulse Strength Pulse Strength [Right Finger] Respiratory Rate 21 Respiratory Effort / Characteristics Respiratory Depth Respiratory Pattern Blood Pressure 104/68 Blood Pressure [Right Arm] Blood Pressure Mean 80 Blood Pressure Mean [Right Arm] Blood Pressure Position Blood Pressure Position [Right Arm] Pulse Oximetry 97 97 Oxygen Delivery Method Sepsis Recent Fever Within 48 Hours Sepsis New/Unexplained Change in Mental Status Sepsis Action Taken by Nursing 05/01/22 20:20 Pulse Rate 113 H Pulse Rate [Right Finger] Pulse Rate from SpO2 Sensor 113 H Pulse Rhythm Pulse Rhythm [Right Finger] Pulse Strength Pulse Strength [Right Finger] Respiratory Rate 15 Respiratory Effort / Characteristics Respiratory Depth Respiratory Pattern Blood Pressure Blood Pressure [Right Arm] Blood Pressure Mean Blood Pressure Mean [Right Arm] Blood Pressure Position Blood Pressure Position [Right Arm] Pulse Oximetry 97 Oxygen Delivery Method Sepsis Recent Fever Within 48 Hours Sepsis New/Unexplained Change in Mental Status Sepsis Action Taken by Nursing Laboratory Data Result diagrams: 05/01/22 18:06 05/01/22 18:06 Lab Results 05/01/22 05/01/22 05/01/22 Range/Units 18:06 18:06 18:06 WBC 4.01 L (4.8-10.8) K/ul RBC 2.47 L (4.63-6.08) M/uL Hgb 8.0 L (14.0-18.0) g/dl Hct 23.7 L (40.1-51.0) % MCV 96.0 (80.0-100.0) fL MCH 32.4 (25.0-34.0) pg MCHC 33.8 (32.0-36.0) g/dL RDW Std Deviation 59.4 H (36.4-46.3) fL RDW Coeff of Andie 17.5 H (11.5-14.5) % Plt Count 37 L (130-400) K/uL MPV 11.4 (9.4-12.4) fL Immature Gran % (Auto) 0.5 % Neut % (Auto) 74.1 % Lymph % (Auto) 19.0 % Churchill % (Auto) 6.2 % Eos % (Auto) 0.0 % Baso % (Auto) 0.2 % Neut # (Auto) 2.97 (1.4-6.5) K/uL Lymph # (Auto) 0.76 L (1.2-3.4) K/uL Churchill # (Auto) 0.25 (0.24-0.82) K/uL Eos # (Auto) 0.00 (0-0.50) K/uL Baso # (Auto) 0.01 (0-0.2) K/uL Immature Gran # (Auto) 0.02 (0.00-0.02) K/uL PT 14.5 H (9.0-12.0) Seconds INR 1.4 H (0.9-1.1) APTT 28.5 (21.0-31.0) Seconds PTT Ratio 1.0 Sodium 135 L (136-145) mmol/L Potassium 3.7 (3.5-5.1) mmol/L Chloride 100 (98-107) mmol/L Carbon Dioxide 23 (21-32) mmol/L Anion Gap 12 H (3-11) BUN 49 H (6-23) mg/dl Creatinine 1.47 H (0.6-1.4) mg/dl Est Cr Clr Drug Dosing 80.7 ml/min Est GFR ( Amer) 64.9 ml/min Est GFR (Non-Af Amer) 56.0 ml/min BUN/Creatinine Ratio 33.3 H (10-20) Glucose 209 H (70-99(Fasting)) mg/dl POC Glucose (70-99) mg/dl Calcium 7.5 L (8.5-10.1) mg/dl Magnesium 1.2 L (1.7-2.4) mg/dl Total Bilirubin 1.1 H (0.2-1.0) mg/dl AST 27 (13-39) U/L ALT 20 (7-52) U/L Alkaline Phosphatase 82 (34-104) U/L Troponin I High Sens 64.9 H* D (0-20) pg/ml Total Protein 5.2 L (6.0-8.3) gm/dl Albumin 3.1 L (3.4-5.0) gm/dl Globulin 2.1 L (2.5-4.0) gm/dl Albumin/Globulin Ratio 1.5 (0.9-2) SARS-CoV-2, RNA, NAAT (NEGATIVE) 05/01/22 05/01/22 05/01/22 Range/Units 18:10 18:37 20:15 WBC (4.8-10.8) K/ul RBC (4.63-6.08) M/uL Hgb (14.0-18.0) g/dl Hct (40.1-51.0) % MCV (80.0-100.0) fL MCH (25.0-34.0) pg MCHC (32.0-36.0) g/dL RDW Std Deviation (36.4-46.3) fL RDW Coeff of Andie (11.5-14.5) % Plt Count (130-400) K/uL MPV (9.4-12.4) fL Immature Gran % (Auto) % Neut % (Auto) % Lymph % (Auto) % Churchill % (Auto) % Eos % (Auto) % Baso % (Auto) % Neut # (Auto) (1.4-6.5) K/uL Lymph # (Auto) (1.2-3.4) K/uL Churchill # (Auto) (0.24-0.82) K/uL Eos # (Auto) (0-0.50) K/uL Baso # (Auto) (0-0.2) K/uL Immature Gran # (Auto) (0.00-0.02) K/uL PT (9.0-12.0) Seconds INR (0.9-1.1) APTT (21.0-31.0) Seconds PTT Ratio Sodium (136-145) mmol/L Potassium (3.5-5.1) mmol/L Chloride (98-107) mmol/L Carbon Dioxide (21-32) mmol/L Anion Gap (3-11) BUN (6-23) mg/dl Creatinine (0.6-1.4) mg/dl Est Cr Clr Drug Dosing ml/min Est GFR ( Amer) ml/min Est GFR (Non-Af Amer) ml/min BUN/Creatinine Ratio (10-20) Glucose (70-99(Fasting)) mg/dl POC Glucose 218 H (70-99) mg/dl Calcium (8.5-10.1) mg/dl Magnesium (1.7-2.4) mg/dl Total Bilirubin (0.2-1.0) mg/dl AST (13-39) U/L ALT (7-52) U/L Alkaline Phosphatase (34-104) U/L Troponin I High Sens 57.3 H* (0-20) pg/ml Total Protein (6.0-8.3) gm/dl Albumin (3.4-5.0) gm/dl Globulin (2.5-4.0) gm/dl Albumin/Globulin Ratio (0.9-2) SARS-CoV-2, RNA, NAAT NEGATIVE (NEGATIVE) Administered Medications Magnesium Sulfate/Dextrose (Magnesium Sulfate / D5w) 1 gm in 100 mls @ 50 mls/hr IV Q2H LETY Stop: 05/02/22 06:14 Last Admin: 05/01/22 21:08 Dose: 50 mls/hr Documented By: HS Discontinued Medications Sodium Chloride (Nss) 500 mls @ 999 mls/hr IV .Q31M ONE Stop: 05/01/22 20:20 Last Infusion: 05/01/22 22:04 Dose: 0 mls/hr Documented By: Admin: 05/01/22 21:08 Dose: 999 mls/hr Documented By: HS Ioversol (Optiray 320 125ml) 120 ml IV ONCE ONE Stop: 05/01/22 18:41 Last Admin: 05/01/22 18:41 Dose: 120 ml Documented By: [facility] Lorazepam (Lorazepam 2 Mg/1 Ml Vial) 0.5 mg IV 2200 LETY; Protocol Stop: 05/01/22 23:00 Last Admin: 05/01/22 22:03 Dose: 0.5 mg Documented By: HS Lorazepam (Lorazepam 2 Mg/1 Ml Vial) Confirm Administered Dose 1 mg .ROUTE .STK- MED ONE Stop: 05/01/22 22:03 Last Admin: 05/01/22 22:04 Dose: Not Given Documented By: HS Imaging Data Radiologist's Impression: Chest X-Ray 05/01/22 18:08 SINGLE VIEW CHEST CLINICAL HISTORY: Strokelike symptoms. FINDINGS: An AP, portable, semierect chest radiograph is compared to study dated 04/04/2022 and correlated with chest CT dated 04/06/2022. The cardiomediastinal silhouette is top normal for projection. There is elevation of the right hemidiaphragm with bibasilar scarring/atelectasis. No airspace consolidation or large pleural effusion is identified. There is diffuse bronchial thickening. No pneumothorax is seen. The bony thorax is grossly intact. IMPRESSION: 1. Diffuse peribronchial thickening suggests bronchitis/reactive airway disease. Clinical correlation will be required. 2. No airspace consolidation or pleural effusion is identified. ACT 112: Negative or not required by law. Electronically signed by: Kartik Mcfarlane M.D. 05/01/2022 7:[address] 05/01/22 18:[address] OF THE BRAIN; CT ANGIOGRAM OF THE BRAIN; CT ANGIOGRAM OF THE NECK CLINICAL HISTORY: Left-sided weakness. COMPARISON STUDY: CT angiogram of the head and neck dated 04/04/2022. TECHNIQUE: Unenhanced axial CT scan of the brain is performed. Subsequently, following the IV administration of 120 of Optiray 320, CT angiogram of the head and neck was performed from the aortic arch to the vertex. Images are reviewed in the axial, sagittal, and coronal planes. 3-D MIPS images are created and assessed. IV contrast was administered without complication. All measurements were calculated based on NASCET criteria. A dose lowering technique was utilize d adhering to the principles of ALARA. CT DOSE: 1399.99 mGy.cm FINDINGS: Brain parenchyma: A small chronic lacunar infarct is again seen in the left centrum semiovale. There is minimal periventricular microangiopathic disease. There is no hemorrhage, mass effect, or evidence of acute territorial ischemia by CT criteria. There is no evidence of enhancing mass lesion on the angiogram phase images. The ventricles, sulci, and cisterns are normal in configuration. Wilson-white matter differentiation is preserved. No extra-axial fluid collection is seen. Thoracic aorta: Visualized portions of the thoracic aorta are normal in caliber. The aortic arch demonstrates standard 3-vessel anatomy. Right carotid arterial system: The right common carotid artery is widely patent, as are the right internal and external carotid arteries. Left carotid arterial system: The left common carotid artery is widely patent, as are the left internal and external carotid arteries. Vertebral arteries: The vertebral arteries are widely patent bilaterally and codominant. Subclavian arteries: Widely patent bilaterally. Intracranial vasculature: The internal carotid arteries are patent at the skull base, as are the anterior and middle cerebral arteries bilaterally. The vertebrobasilar system and posterior cerebral arteries are widely patent. The vertebral arteries are codominant. There is no aneurysm, high-grade stenosis, or focal vessel cut off seen throughout the intracranial circulation. Jugular veins: Patent bilaterally. Dural sinuses: Patent. Lung apices: Partially visualized upper lobe lung parenchyma appears clear. Soft tissues: The visualized pharyngeal soft tissues are normal in appearance noting angiographic phase technique. The oropharyngeal airway appears widely patent. The salivary and thyroid glands are normal in appearance. No cervical lymphadenopathy is seen. An indeterminant 3.7 cm soft tissue mass is again seen in the right suboccipital tissues. Skeletal structures: The calvarium appears intact. The cervical spine is rosa ntained noting multilevel spondylosis. No lytic or blastic lesion is seen. Orbits: The bony orbits are intact. Orbital contents are normal as visualized noting a left ocular lens implant. Sinuses and mastoids: The paranasal sinuses are clear. There is a small left mastoid effusion. The right mastoid air cells are well pneumatized. IMPRESSION: 1. There is no hemorrhage, mass effect, or evidence of acute territorial ischemia by CT criteria. 2. Unremarkable CT angiogram of the brain. No change from 04/04/2022 or 03/27/2022. 3. Unremarkable CT angiogram of the neck. No change from 04/04/2022 or 03/27/2022. 4. A chronic right suboccipital soft tissue mass is unchanged. ACT 112: Negative or not required by law. Electronically signed by: Kartik Mcfarlane M.D. 05/01/2022 6:54 PM Head CTA 05/01/22 18:[address] OF THE BRAIN; CT ANGIOGRAM OF THE BRAIN; CT ANGIOGRAM OF THE NECK CLINICAL HISTORY: Left-sided weakness. COMPARISON STUDY: CT angiogram of the head and neck dated 04/04/2022. TECHNIQUE: Unenhanced axial CT scan of the brain is performed. Subsequently, following the IV administration of 120 of Optiray 320, CT angiogram of the head and neck was performed from the aortic arch to the vertex. Images are reviewed in the axial, sagittal, and coronal planes. 3-D MIPS images are created and assessed. IV contrast was administered without complication. All measurements were calculated based on NASCET criteria. A dose lowering technique was ut ilized adhering to the principles of ALARA. CT DOSE: 1399.99 mGy.cm FINDINGS: Brain parenchyma: A small chronic lacunar infarct is again seen in the left centrum semiovale. There is minimal periventricular microangiopathic disease. There is no hemorrhage, mass effect, or evidence of acute territorial ischemia by CT criteria. There is no evidence of enhancing mass lesion on the angiogram phase images. The ventricles, sulci, and cisterns are normal in configuration. Wilson-white matter differentiation is preserved. No extra-axial fluid collection is seen. Thoracic aorta: Visualized portions of the thoracic aorta are normal in caliber. The aortic arch demonstrates standard 3-vessel anatomy. Right carotid arterial system: The right common carotid artery is widely patent, as are the right internal and external carotid arteries. Left carotid arterial system: The left common carotid artery is widely patent, as are the left internal and external carotid arteries. Vertebral arteries: The vertebral arteries are widely patent bilaterally and codominant. Subclavian arteries: Widely patent bilaterally. Intracranial vasculature: The internal carotid arteries are patent at the skull base, as are the anterior and middle cerebral arteries bilaterally. The vertebrobasilar system and posterior cerebral arteries are widely patent. The vertebral arteries are codominant. There is no aneurysm, high-grade stenosis, or focal vessel cut off seen throughout the intracranial circulation. Jugular veins: Patent bilaterally. Dural sinuses: Patent. Lung apices: Partially visualized upper lobe lung parenchyma appears clear. Soft tissues: The visualized pharyngeal soft tissues are normal in appearance noting angiographic phase technique. The oropharyngeal airway appears widely patent. The salivary and thyroid glands are normal in appearance. No cervical lymphadenopathy is seen. An indeterminant 3.7 cm soft tissue mass is again seen in the right suboccipital tissues. Skeletal structures: The calvarium appears intact. The cervical spine is maintained noting multilevel spondylosis. No lytic or blastic lesion is seen. Orbits: The bony orbits are intact. Orbital contents are normal as visualized noting a left ocular lens implant. Sinuses and mastoids: The paranasal sinuses are clear. There is a small left mastoid effusion. The right mastoid air cells are well pneumatized. IMPRESSION: 1. There is no hemorrhage, mass effect, or evidence of acute territorial ischemia by CT criteria. 2. Unremarkable CT angiogram of the brain. No change from 04/04/2022 or 03/27/2022. 3. Unremarkable CT angiogram of the neck. No change from 04/04/2022 or 03/27/2022. 4. A chronic right suboccipital soft tissue mass is unchanged. ACT 112: Negative or not required by law. Electronically signed by: Kartik Mcfarlane M.D. 05/01/2022 6:54 PM Neck CTA 05/01/22 18:[address] OF THE BRAIN; CT ANGIOGRAM OF THE BRAIN; CT ANGIOGRAM OF THE NECK CLINICAL HISTORY: Left-sided weakness. COMPARISON STUDY: CT angiogram of the head and neck dated 04/04/2022. TECHNIQUE: Unenhanced axial CT scan of the brain is performed. Subsequently, following the IV administration of 120 of Optiray 320, CT angiogram of the head and neck was performed from the aortic arch to the vertex. Images are reviewed in the axial, sagittal, and coronal planes. 3-D MIPS images are created and assessed. IV contrast was administered without complication. All measurements were calculated based on NASCET criteria. A dose lowering technique was utilized adhering to the principles of ALARA. CT DOSE: 1399.99 mGy.cm FINDINGS: Brain parenchyma: A small chronic lacunar infarct is again seen in the left centrum semiovale. There is minimal periventricular microangiopathic disease. There is no hemorrhage, mass effect, or evidence of acute territorial ischemia by CT criteria. There is no evidence of enhancing mass lesion on the angiogram phase images. The ventricles, sulci, and cisterns are normal in configuration. Wilson-white matter differentiation is preserved. No extra-axial fluid collection is seen. Thoracic aorta: Visualized portions of the thoracic aorta are normal in caliber. The aortic arch demonstrates standard 3-vessel anatomy. Right carotid arterial system: The right common carotid artery is widely patent, as are the right internal and external carotid arteries. Left carotid arterial system: The left common carotid artery is widely patent, as are the left internal and external carotid arteries. Vertebral arteries: The vertebral arteries are widely patent bilaterally and codominant. Subclavian arteries: Widely patent bilaterally. Intracranial vasculature: The internal carotid arteries are patent at the skull base, as are the anterior and middle cerebral arteries bilaterally. The vert ebrobasilar system and posterior cerebral arteries are widely patent. The vertebral arteries are codominant. There is no aneurysm, high-grade stenosis, or focal vessel cut off seen throughout the intracranial circulation. Jugular veins: Patent bilaterally. Dural sinuses: Patent. Lung apices: Partially visualized upper lobe lung parenchyma appears clear. Soft tissues: The visualized pharyngeal soft tissues are normal in appearance noting angiographic phase technique. The oropharyngeal airway appears widely patent. The salivary and thyroid glands are normal in appearance. No cervical lymphadenopathy is seen. An indeterminant 3.7 cm soft tissue mass is again seen in the right suboccipital tissues. Skeletal structures: The calvarium appears intact. The cervical spine is maintained noting multilevel spondylosis. No lytic or blastic lesion is seen. Orbits: The bony orbits are intact. Orbital contents are normal as visualized noting a left ocular lens implant. Sinuses and mastoids: The paranasal sinuses are clear. There is a small left mastoid effusion. The right mastoid air cells are well pneumatized. IMPRESSION: 1. There is no hemorrhage, mass effect, or evidence of acute territorial ischemia by CT criteria. 2. Unremarkable CT angiogram of the brain. No change from 04/04/2022 or 03/27/2022. 3. Unremarkable CT angiogram of the neck. No change from 04/04/2022 or 03/27/2022. 4. A chronic right suboccipital soft tissue mass is unchanged. ACT 112: Negative or not required by law. Electronically signed by: Kartik Mcfarlane M.D. 05/01/2022 6:54 PM Discharge Plan Visit Data Chief Complaint: Stroke/CVA Symptoms Stated Complaint: TIA SYMPTOMS ED Provider: Jarek Martins Discharge Problem: Acute left-sided muscle weakness, Hypomagnesemia, Elevated troponin, Thrombocytopenia Patient Disposition: Admitted As Inpatient Discharge Instructions Interventions: ED Discharge Assessment Last Done: 05/01/22 22:20
[2022-05-01 19:25] LABS: Troponin I High Sensitivity 64.9 pg/ml (0-20)
--- NOTE | 2022-05-01 19:33 | History & Physical Report ---
Date of Service May 01, 2022 Assessment & Plan (1) Acute left-sided muscle weakness: Plan: Symptoms lasting for at least one hour before admission. Left-sided hemiparesis including face as well as right-sided cerebellar signs is suggestive of right- sided infarct. Suspect acute ischemic stroke in this patient who is severe hypercoagulable - most likely thromboembolic in nature. - CT head and CTA head/neck without evidence for ischemia/hemorrhage or other acute abnormalities - tPA contraindicated due to severe thrombocytopenia and recent use of therapeutic Lovenox - ordered MRI brain w/o contrast - TTE done in 02/2022 unremarkable and without evidence for PFO - Neurology consulted - appreciate recs - Q2H NIHSS checks - patient failed dysphagia assessment - strict NPO pending [employer] evaluation - permissive HTN - continue with LR @125cc/hr as patient borderline tachycardic/hypotensive - PT/OT consults appreciated (2) Hypomagnesemia: Plan: Mg 1.2 - ordered 5g of mag sulfate. - trend in AM (3) Elevated troponin: Plan: hsTroponin 64.9 --> 57.3. No chest pain and EKG with ST/T abnormalities. Suspect mild demand ischemia in setting of borderline tachycardia. - PRN EKG/nitro for chest pain (4) Pancytopenia: Plan: Progressively worsening since starting chemotherapy in 01/2022. 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 Patient follows with [facility] in [place] - has been doing chemotherapy (Cisplatin/Xeloda/Pebmrolizumab) for metastatic esophageal cancer since 01/2022.This is contributing to hypercoagulability and risk for stroke. - continue f/u with [facility] and our cancer center - patient currently DNR/DNI - may consider further discussions regarding goals of care, pending current stroke work-up - per primary team/oncology (6) Antiphospholipid antibody syndrome: Plan: With history of LE DVTs, right UE DVT, and saddle PE. - continue home therapeutic Lovenox (7) Bilateral pulmonary embolism: Plan: History of. Continue therapeutic Lovenox as stated above (8) Diabetes: Plan: A1c 7.2 in 03/2022. SSI and Lantus 5 units BID while hospitalized. (9) Asthma: Plan: PRN Albuterol nebs for SOB/wheezing. (10) History of CVA (cerebrovascular accident): Plan: History of left frontal lobe lacunar infarcts. - stroke w/u as stated above - hold Plavix and Atorvastatin while NPO - defer addition of Aspirin to Neurology in this patient who is both a high bleeding risk and is hypercoagulable (11) Hypertension: Plan: Currently normotensive. Hold home meds while NPO. Permissive hypertension as stated above. (12) GERD (gastroesophageal reflux disease): Plan: Protonix per hospital formulary. Hold home Pepcid while NPO. (13) Depression with anxiety: Plan: Hold Zoloft while NPO. Contact provider for PRN Ativan for severe anxiety. Plan FEN/GI: NPO, LR @125cc/hr DVT Prophylaxis: therapeutic Lovenox Code Status: DNR/DNI Disposition: PCU History of Present Illness Chief Complaint: stroke alert Primary Care Provider: NORBERTO Musa Kalen Mcdonough is a 46yo male with PMHx significant for stage IV esophageal cancer with liver metastasis (on chemotherapy, followed by Dr. Bishop and [facility]), antiphospholipid syndrome on Lovenox, h/o bilateral lower extremity DVT and saddle PE, h/o right upper extremity DVT, left frontal lobe lacunar infarcts, hypomagnesemia, HLD, asthma, T2DM, HTN, GERD and sleep apnea. He presented to [facility] ED on 05/01 for acute-onset left-sided facial droop, trouble speaking, and left-sided weakness ~10 minutes prior to arrival in ED. Also reports onset of headache earlier in the morning. Currently reports that headache is largely resolved but remains with productive aphasia, lower left facial droop and left upper/lower extremity weakness. He appears fatigued but easily arousable. Remainder of interview is limited due to productive aphasia, although patient's reports that his deficit occurred sometime between 2:30 - 5:00 pm and has thus been present possibly for more than 5 hours at this point. Patient follows with [facility] in [place] - has been doing chemotherapy (Cisplatin/Xeloda/Pebmrolizumab) for metastatic esophageal cancer since 01/2022. Follows with our cancer center for weekly lab monitoring and often requires IVFs and magnesium (hypomagnesemia thought to be due to cisplatin). Patient was to have two more infusions of his 6th cycle of chemotherapy, scheduled for tonight and tomorrow night. Patient's does report that he uses synthetic cannabinoids and that she had given him marijuana earlier in the day. In the ED the patient was tachycardic to 130 and hypotensive to 98/64. No fever of hypoxia. Labs significant for pancytopenia (WBC 4.01, Hgb 8.0, plts 37 - progressive since starting chemotherapy several months ago). PT 14.5/INR 1.4. Na 135 (baseline). BUN 49/Cr 1.47 (~baseline). Calcium 7.5 (corrected 8.2). Mg 1.2. hsTroponin 64.9 (no chest pain or ST/T abnormalities on EKG). COVID-[address] head and CTA head/neck without acute pathology. CXR unremarkable. Patient received NSS 500cc bolus in ED. Allergies Allergy/AdvReac Type Severity Reaction Status Date / Time aspirin AdvReac Intermediate GI SYMPTOMS Verified 01/31/22 14:32 Home Medications Medication Instructions Recorded Confirmed Type fexofenadine 180 mg tablet 180 mg PO QAM 07/02/18 05/01/22 History (Jana Allergy) fluticasone propionate 50 1 sprays intranasal QAM PRN 06/08/19 05/01/22 History mcg/actuation nasal Congestion spray,suspension (Flonase Allergy Relief) blood-glucose meter (Advanced #1 ea 08/22/20 04/23/22 Rx Glucose Meter) blood-glucose meter (OneTouch #1 ea 09/22/20 04/23/22 Rx Verio Flex Start) blood sugar diagnostic (OneTouch #100 ea 10/03/20 04/23/22 Rx Verio test strips) lancets 30 gauge (BD Ultra-Fine II #100 ea 07/05/21 04/23/22 Rx Lancets) nebulizer kit #1 ea 12/25/21 04/23/22 Rx metformin 500 mg tablet 500 mg PO BID 12/26/21 05/01/22 History albuterol sulfate 90 mcg/actuation 2 puff inhalation QID PRN 12/31/21 05/01/22 Rx aerosol inhaler (Ventolin HFA) Shortness Of Breath #18 grams albuterol sulfate 2.5 mg inhalation QID PRN 01/09/22 05/01/22 History Shortness Of Breath Or Wheezing hydrocortisone 2.5 % topical cream 1 applic CO DAILY PRN hemorrhoids 01/31/22 05/01/22 Rx with perineal applicator #30 grams (Proctosol HC) ondansetron HCl 8 mg tablet 8 mg PO Q8 PRN Nausea #100 tabs 01/31/22 05/01/22 Rx CPAP Supplies #1 ea 03/06/22 04/23/22 Rx lorazepam 1 mg tablet 1 mg PO QID anxiety #120 tabs 03/15/22 05/01/22 Rx dexlansoprazole 60 mg 60 mg PO QAM 03/27/22 05/01/22 History capsule,biphase delayed release mometasone-formoterol HFA 200 2 inh inhalation BID 03/27/22 05/01/22 History mcg-5 mcg/actuation aerosol inhaler (Dulera) olanzapine 5 mg tablet 5 mg PO BID 03/27/22 05/01/22 History clopidogrel 75 mg tablet 75 mg PO QAM #30 tabs 03/28/22 05/01/22 Rx calcium carbonate 600 mg calcium 600 mg PO DAILY #7 tabs 04/05/22 05/01/22 Rx (1,500 mg) tablet (Calcium) magnesium oxide 400 mg PO BID #14 caps 04/05/22 05/01/22 Rx enoxaparin 120 mg/0.8 mL 120 mg (0.8 mL) subcut Q12H #48 mL 04/06/22 05/01/22 Rx subcutaneous syringe (Lovenox) insulin glargine 100 unit/mL (3 10 unit (0.1 mL) subcut DAILY #15 04/06/22 05/01/22 Rx mL) subcutaneous pen (Lantus mL Solostar U-100 Insulin) prednisone 10 mg tablet 10 mg PO QAM #30 tabs 04/06/22 05/01/22 Rx atorvastatin 40 mg tablet 40 mg PO DAILY #90 tabs 04/22/22 05/01/22 Rx sertraline 50 mg tablet 50 mg PO DAILY #30 tabs 04/23/22 05/01/22 Rx baclofen 10 mg tablet 10 mg PO TID PRN Hiccups 05/01/22 05/01/22 History dronabinol 5 mg capsule 5 mg PO BID 05/01/22 05/01/22 History famotidine 20 mg tablet 20 mg PO BID 05/01/22 05/01/22 History sennosides 8.6 mg-docusate sodium 1 tab-cap PO HS 05/01/22 05/01/22 History 50 mg tablet (Senna-S) tramadol 50 mg tablet 50 mg PO TID PRN Pain 05/01/22 05/01/22 History Past Med/Surg History Medical History Anticoagulant long-term use Asthma Well controlled with inhalers Diabetes mellitus Esophageal cancer, stage IV Presumed per CT scan per general surgery records. Reason for port placement GERD (gastroesophageal reflux disease) History of anesthesia reaction Woke up during cataract procedure and "attempted to walk off the table" and was told he should always be "put completely to sleep". 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 On Lovenox Sleep apnea CPAP Surgical History History of cataract surgery L EYE History of left knee surgery History of liver biopsy History of surgery (01/08/22) Attempted Insertion Access Port with Fluoroscopy(Left) - Carlos Angeles DO 01/08/2022 History of tooth extraction History of umbilical hernia repair Family History Father Family history of diabetes mellitus FHx: skin cancer Cancer FHx: bladder cancer Mother , age 50 of breast cancer FHx: kidney cancer Family history of diabetes mellitus Breast cancer Brother Family history of diabetes mellitus Family/Other Coronary heart disease Grandmother (Paternal) FHx: colon cancer Social History Smoking Status: Never smoker Tobacco Type: Smokeless Tobacco (Dip or Chew) Second Hand Exposure: No; Hx Alcohol Use: No Hx Substance Use: No Preferred Language: [place] Communication Ability: Effective Visual Impairment: No Limitations Human Development Professor Required: No Beliefs That Will Affect Care: None marital status: Current Living Situation: Spouse Current Living Situation Comment: home with current occupational status: employed current occupation: former box truck washer, 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 Cooperative. HEENT: Atraumatic, normocephalic. Small food remnants present in mouth. Pulm: CTAB A&P. -wheezes, -rales, -rhonchi. Symmetrical chest rise. No increase work of breathing. No respiratory distress. Cardiac: RRR, -mrg. Radial pulses intact and symmetrical. No LE edema. Abdominal: soft, non-tender, non-distended, BS x 4 Skin: warm, dry, no rash Neurologic: Weakness in left lower facial muscles, with lower facial droop apparent. Otherwise CNII-XII intact. 3/5 strength throughout left upper/lower extremity. 5/5 strength on the right. Sensation intact and 2+ patellar/brachial reflexes. Patient has severe dysarthria. Finger-nose testing abnormal on the right. +pronator drift on right. Results & Data Results & Data ([facility]) Vital Signs (Past 12 Hours) Vital Signs Pulse Pulse Resp BP BP Pulse Ox O2 Del Method 05/01/22 19:08 117 H 20 120/75 97 Room Air 05/01/22 18:50 119 H 19 116/78 95 05/01/22 18:42 120 H 21 118/78 95 Room Air 05/01/22 18:05 130 H 20 115/74 97 Room Air Supervising Physician Co-Signing Physician Notes Attending addendum: I have physically seen this patient, have supervised the medical residents activities, and agree with the H&P unless as otherwise noted. Assessment and Plan: Acute left-sided weakness- CT head without contrast no acute findings CTA head and neck without evidence for ischemia or hemorrhage or other acute abnormalities MRI brain without contrast to further assess The patient will be admitted to telemetry for serial cardiac enzymes, serial EKG's, cardiac rhythm monitoring Stroke that tPA order set LR at 125 mils per hour Patient is not a tPA candidate Continue therapeutic Lovenox for history of phospholipid antibody syndrome and recurrent thromboembolism Elevated troponin- Initial troponin 64.9, has decreased to 57.3 Follow serially Metastatic esophageal cancer/pancytopenia- Follow laboratory serially Hypomagnesemia- Magnesium 1.2 upon admission IV replacement as noted, repeat laboratories in a.m. Remaining orders and notations as noted Resident Activity Tracking Resident Involvement: Resident Care Provided Care Provided: Adult Hospital Medicine (1) Hypertension Hypertension type: essential hypertension Qualified Code(s): I10 - Essential (primary) hypertension
--- NOTE | 2022-05-01 19:38 | XRay Report ---
SINGLE VIEW CHEST CLINICAL HISTORY: Strokelike symptoms. FINDINGS: An AP, portable, semierect chest radiograph is compared to study dated 04/04/2022 and correl ated with chest CT dated 04/06/2022. The cardiomediastinal silhouette is top normal for projection. Th ere is elevation of the right hemidiaphragm with bibasilar scarring/atelectasis. No airspace consolid ation or large pleural effusion is identified. There is diffuse bronchial thickening. No pneumothorax is seen. The bony thorax is grossly intact. IMPRESSION: 1. Diffuse peribronchial thickening suggests bronchitis/reactive airway disease. Clinical correlation will be required. 2. No airspace consolidation or pleural effusion is identified. ACT 112: Negative or not required by law. Electronically signed by: Kartik Mcfarlane M.D. 05/01/2022 7:36 PM
[2022-05-01] MEDS ORDERED: SODIUM CHLORIDE 0.9% 500 ML IV ONE (19:50)
[2022-05-01] MEDS: MAGNESIUM SULFATE / D5W 1 GM/100 ML BAG IV SCH (21:08)
[2022-05-01] MEDS ORDERED: LORazepam 2 MG/1 ML VIAL IV SCH (22:00)
[2022-05-01] MEDS ORDERED: LORazepam 2 MG/1 ML VIAL ONE (22:02)
[2022-05-01] MEDS ORDERED: PHARMACIST DISCHARGE MED REC CONSULT PRN (23:28)
[2022-05-01] MEDS ORDERED: GLUCOSE 10 TAB/TUBE PO PRN (23:28)
[2022-05-01] MEDS ORDERED: GLUCOSE 40% GEL 15 GM TUBE PO PRN (23:28)
[2022-05-01] MEDS ORDERED: DEXTROSE 50% 50 ML SYRINGE IV PRN (23:28)
[2022-05-01] MEDS ORDERED: GLUCAGON FOR INJ 1 MG VIAL SQ PRN (23:28)
[2022-05-01] MEDS ORDERED: CARBOHYDRATES FOR HYPOGLYCEMIA PO PRN (23:28)
[2022-05-02] MEDS: MAGNESIUM SULFATE / D5W 1 GM/100 ML BAG IV SCH ×4 (00:09→06:06)
[2022-05-02] MEDS: LACTATED RINGER'S 1,000 ML IV SCH ×2 (00:09→07:53)
[2022-05-02] MEDS: ENOXAPARIN INJ 120 MG/0.8 ML SYR SQ SCH ×2 (00:10→07:54)
[2022-05-02] MEDS: LANTUS PER UNIT CHARGE SQ SCH ×4 (00:10→21:51)
[2022-05-02] MEDS: INSULIN ASPART PER UNIT SC SCH ×5 (00:11→21:50)
[2022-05-02] MEDS: ACETAMINOPHEN 1000 MG/100 ML IV IV PRN ×2 (02:23→08:00)
--- NOTE | 2022-05-02 07:23 | Magnetic Resonance Report ---
MRI OF THE BRAIN WITHOUT IV CONTRAST CLINICAL HISTORY: Strokelike symptoms. Left-sided facial droop. Left-sided weakness. Aphasia. COMPARISON STUDY: CT of the brain dated 05/01/2022. TECHNIQUE: MRI of the brain was performed utilizing various T1 and T2-weighted sequences in the axial , sagittal, and coronal planes. IV contrast was not administered for this examination. FINDINGS: Brain parenchyma: There is a large region of restricted diffusion in the right frontal lobe consisten t with acute to subacute infarct a punctate lacunar infarct is seen in the left cerebellar hemisphere .. No additional foci of restricted diffusion are identified. There is no hemorrhage or midline shift . A small chronic lacunar infarct is noted in the left ho radiata. No extra-axial fluid collectio n is seen. The cerebellar tonsils are normal in configuration. Ventricles, sulci, and cisterns: Normal in configuration. Pituitary and sella: Unremarkable. Intracranial vasculature: Normal flow voids are maintained at the skull base. Orbits: The bony orbits are grossly intact. Orbital contents are normal in appearance. Sinuses and mastoids: The paranasal sinuses are clear. There is a left mastoid effusion. The right ma stoid air cells are clear. Calvarium: Unremarkable. Cervical cord: Partially visualized cervical spinal cord is normal in morphology and signal intensity . IMPRESSION: 1. There is a large region of restricted diffusion the right frontal lobe consistent with an acute to subacute infarct. 2. An additional punctate lacunar infarct is noted in the left cerebellar hemisphere. 3. There is no hemorrhage or midline shift. ACT 112: Negative or not required by law. Electronically signed by: Kartik Mcfarlane M.D. 05/02/2022 7:22 AM
[2022-05-02 08:15] LABS: INR 1.4 (0.9-1.1); Prothrombin Time 14.3 Seconds (9.0-12.0)
[2022-05-02 08:35] LABS: Hematocrit (blood only) 19.8 % (40.1-51.0); Hemoglobin 6.7 g/dl (14.0-18.0); Mean Corpuscular Hemoglobin 32.7 pg (25.0-34.0); Mean Corpuscular Hgb Conc 33.8 g/dL (32.0-36.0); Mean Corpuscular Volume 96.6 fL (80.0-100.0); Mean Platelet Volume 12.8 fL (9.4-12.4); Platelet Count 43 K/uL (130-400); RDW Coefficient of Variation 17.3 % (11.5-14.5); RDW Standard Deviation 58.3 fL (36.4-46.3); Red Blood Count 2.05 M/uL (4.63-6.08); White Blood Count 2.95 K/ul (4.8-10.8)
[2022-05-02 08:36] LABS: Basophils # (auto) 0.01 K/uL (0-0.2); Basophils % (auto) 0.3 %; Eosinophils # (auto) 0.01 K/uL (0-0.50); Eosinophils % (auto) 0.3 %; Immature Granulocytes # (auto) 0.01 K/uL (0.00-0.02); Immature Granulocytes % (auto) 0.3 %; Lymphocytes # (auto) 0.86 K/uL (1.2-3.4); Lymphocytes % (auto) 29.2 %; Monocytes # (auto) 0.17 K/uL (0.24-0.82); Monocytes % (auto) 5.8 %; Neutrophils # (auto) 1.89 K/uL (1.4-6.5); Neutrophils % (auto) 64.1 %; Spherocytes 1+; Tear Drop Cells 1+
[2022-05-02 08:37] LABS: Anion Gap 7 (3-11); BUN Creatinine Ratio 33.9 (10-20); Blood Urea Nitrogen 40 mg/dl (6-23); Calcium 7.5 mg/dl (8.5-10.1); Carbon Dioxide 28 mmol/L (21-32); Chloride 101 mmol/L (98-107); Cholesterol 42 mg/dl (0-200); Creatinine Clr Calc Pharmacy 102.2 ml/min; Est GFR (African American) 84.7 ml/min; Glucose 158 mg/dl (70-99(Fasting)); HDL Cholesterol 17 mg/dl; Magnesium 1.9 mg/dl (1.7-2.4); Potassium 3.2 mmol/L (3.5-5.1); Sodium 136 mmol/L (136-145); Triglycerides 134 mg/dl (0-150)
[2022-05-02 08:50] LABS: Chol HDL Ratio 2.5 (0-5); VLDL Cholesterol 27 mg/dl (0-30)
--- NOTE | 2022-05-02 09:30 | Neurology Consultation ---
Date of Consultation May 02, 2022 Assessment & Plan (1) CVA (cerebral vascular accident): (2) History of CVA (cerebrovascular accident): (3) Acute left-sided muscle weakness: (4) Anti-phospholipid antibody syndrome: (5) Esophageal cancer, stage IV: (6) Idiopathic polyneuropathy: Plan this is an extremely complicated patient neurologically. The patient has had an acute left cerebellar stroke of a tiny nature with a very large subacute right frontal stroke resulting in a significant left oleg paresis ( face > arm > leg). he has severe dysarthria and possible left homonymous hemianopsia (although this is difficult to be certain). He does not seem to have a sensory deficit or aphasia. This comes on a background of previous left parietal stroke a month ago, despite therapeutic Lovenox and 75 mg clopidogrel daily. He has antiphospholipid antibody syndrome leading to multiple clots including DVT and a large saddle pulmonary embolus in the past. He has metastatic (to the liver) esophageal cancer currently on chemotherapy (although stopped the last 2 days because of this stroke). This also comes on a background of pancytopenia [place] [address]. he is at high risk for bleeding. There is likely some underlying depression. He has a polyneuropathy present, which is likely due to cisplatin chemotherapy Recommendations: 1. From a neurologic standpoint, I am not sure what I can do better for this patient to prevent clots and strokes than the anticoagulant plus the antiplatelet medication. He has already tried and failed Coumadin. Perhaps Eliquis would be better than Lovenox but I would defer this to Hematology/ Oncology. he is currently on 75 mg clopidogrel. I am not sure if adding 81 mg aspirin tablet to this regimen would help. 2. I am concerned about his sleepiness and yawning. Given his large right f rontal stroke, he could swell and have cerebral edema making him clinically were worse. 3. for depression I would discontinue sertraline and initiate fluoxetine 20 mg daily. 4. increase activity as able. Overall, I spent a total of 75 minutes with this case including review of records, review of MRI and CT films, direct evaluation the patient bedside, and discussion of the case with the patient and at bedside, and Dr. Cabrales, including differential diagnosis and treatment options. History of Present Illness Reason for Consultation: Patient is a 46-year-old, who was asked to see at the request of Dr. Tim, for neurologic consultation regarding stroke. Requesting Physician: Dr. Tim Attending Physician: Denzel Cabrales History of Present Illness patient has a history of antiphospholipid antibody syndrome diagnosed in August of 2020 after having a large saddle pulmonary embolus and was noted to have right upper extremity DVT even old nature and DVT clots in his legs. He was initially on Coumadin for 1 year but it was not working and he was switched to Lovenox since. In December of 2021 he was diagnosed with metastatic esophageal cancer with me tastases to the liver. He has received chemotherapy with cisplatin, Xeloda, and Pebmrolizumab since January of 2022. he was finishing a cycle this week. He has had pancytopenia and hypermagnesemia with the chemotherapy. In March of 2022 the patient had an incidentally discovered small left hemispheric stroke. He had no obvious neurologic deficits. There is no history of cardiac issues such as atrial fibrillation or coronary artery disease. CT angiography of the head and neck were unremarkable. MRI of the brain showed no metastases. He was initiated on clopidogrel and has remained on clopidogrel 75 mg and Lovenox since. He arrived to the emergency room May 01 at 6:05 p.m. is a pulse of 130, respiratory rate of 20, blood pressure 115/74, if his saturation 97%. He had the sudden onset of left-sided weakness and slurred speech. CBC showed a white count of 4, hemoglobin of 8, hematocrit of 23.7, [place] [address]. protime was 14.5 and INR 1.4. Sodium was 135, BUN 49, creatinine 1.47, glucose 209, magnesium 1.2, calcium 7.5, and troponin 64.9. Chest x-ray showed diffuse peribronchial thickening suggesting bronchitis / reactive airway disease. CT scan of the head showed no acute changes. CT angiography of the head and neck showed no vascular anomaly or stenoses (unchanged from previous CT angiography ). An unchanged chronic right suboccipital soft tissue mass was seen as well. MRI of the brain revealed a large right frontal subacute stroke. There was a punctate acute stroke in the left cerebellar hemisphere as well. I reviewed all of these films. Patient complains of a right frontal headache and is somewhat sleepy and yawning but is arousable and will answer questions. He does not have other pain. Allergies Allergy/AdvReac Type Severity Reaction Status Date / Time aspirin AdvReac Intermediate GI SYMPTOMS Verified 01/31/22 14:32 Home Medications Medication Instructions Recorded Confirmed Type fexofenadine 180 mg tablet 180 mg PO QAM 07/02/18 05/01/22 History (Jana Allergy) fluticasone propionate 50 1 sprays intranasal QAM PRN 06/08/19 05/01/22 History mcg/actuation nasal Congestion spray,suspension (Flonase Allergy Relief) blood-glucose meter (Advanced #1 ea 08/22/20 04/23/22 Rx Glucose Meter) blood-glucose meter (OneTouch #1 ea 09/22/20 04/23/22 Rx Verio Flex Start) blood sugar diagnostic (OneTouch #100 ea 10/03/20 04/23/22 Rx Verio test strips) lancets 30 gauge (BD Ultra-Fine II #100 ea 07/05/21 04/23/22 Rx Lancets) nebulizer kit #1 ea 12/25/21 04/23/22 Rx metformin 500 mg tablet 500 mg PO BID 12/26/21 05/01/22 History albuterol sulfate 90 mcg/actuation 2 puff inhalation QID PRN 12/31/21 05/01/22 Rx aerosol inhaler (Ventolin HFA) Shortness Of Breath #18 grams albuterol sulfate 2.5 mg inhalation QID PRN 01/09/22 05/01/22 History Shortness Of Breath Or Wheezing hydrocortisone 2.5 % topical cream 1 applic VT DAILY PRN hemorrhoids 01/31/22 05/01/22 Rx with perineal applicator #30 grams (Proctosol HC) ondansetron HCl 8 mg tablet 8 mg PO Q8 PRN Nausea #100 tabs 01/31/22 05/01/22 Rx CPAP Supplies #1 ea 03/06/22 04/23/22 Rx lorazepam 1 mg tablet 1 mg PO QID anxiety #120 tabs 03/15/22 05/01/22 Rx dexlansoprazole 60 mg 60 mg PO QAM 03/27/22 05/01/22 History capsule,biphase delayed release mometasone-formoterol HFA 200 2 inh inhalation BID 03/27/22 05/01/22 History mcg-5 mcg/actuation aerosol inhaler (Dulera) olanzapine 5 mg tablet 5 mg PO BID 03/27/22 05/01/22 History clopidogrel 75 mg tablet 75 mg PO QAM #30 tabs 03/28/22 05/01/22 Rx calcium carbonate 600 mg calcium 600 mg PO DAILY #7 tabs 04/05/22 05/01/22 Rx (1,500 mg) tablet (Calcium) magnesium oxide 400 mg PO BID #14 caps 04/05/22 05/01/22 Rx enoxaparin 120 mg/0.8 mL 120 mg (0.8 mL) subcut Q12H #48 mL 04/06/22 05/01/22 Rx subcutaneous syringe (Lovenox) insulin glargine 100 unit/mL (3 10 unit (0.1 mL) subcut DAILY #15 04/06/22 05/01/22 Rx mL) subcutaneous pen (Lantus mL Solostar U-100 Insulin) prednisone 10 mg tablet 10 mg PO QAM #30 tabs 04/06/22 05/01/22 Rx atorvastatin 40 mg tablet 40 mg PO DAILY #90 tabs 04/22/22 05/01/22 Rx sertraline 50 mg tablet 50 mg PO DAILY #30 tabs 04/23/22 05/01/22 Rx baclofen 10 mg tablet 10 mg PO TID PRN Hiccups 05/01/22 05/01/22 History dronabinol 5 mg capsule 5 mg PO BID 05/01/22 05/01/22 History famotidine 20 mg tablet 20 mg PO BID 05/01/22 05/01/22 History sennosides 8.6 mg-docusate sodium 1 tab-cap PO HS 05/01/22 05/01/22 History 50 mg tablet (Senna-S) tramadol 50 mg tablet 50 mg PO TID PRN Pain 05/01/22 05/01/22 History Patient History Medical History Anticoagulant long-term use Asthma Well controlled with inhalers Diabetes mellitus Esophageal cancer, stage IV Presumed per CT scan per general surgery records. Reason for port placement GERD (gastroesophageal reflux disease) History of anesthesia reaction Woke up during cataract procedure and "attempted to walk off the table" and was told he should always be "put completely to sleep". 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 On Lovenox Sleep apnea CPAP Surgical History History of cataract surgery L EYE History of left knee surgery History of liver biopsy History of surgery (01/08/22) Attempted Insertion Access Port with Fluoroscopy(Left) - Carlos Angeles DO 01/08/2022 History of tooth extraction History of umbilical hernia repair Family History Father Family history of diabetes mellitus FHx: skin cancer Cancer FHx: bladder cancer Mother , age 50 of breast cancer FHx: kidney cancer Family history of diabetes mellitus Breast cancer Brother Family history of diabetes mellitus Family/Other Coronary heart disease Grandmother (Paternal) FHx: colon cancer Social History Smoking Status: Never smoker Tobacco Type: Smokeless Tobacco (Dip or Chew) Second Hand Exposure: No; Hx Alcohol Use: No Hx Substance Use: No Preferred Language: Tristanian Communication Ability: Effective Visual Impairment: No Limitations Manager Case Management Required: No Beliefs That Will Affect Care: None marital status: Current Living Situation: Spouse Current Living Situation Comment: home with current occupational status: employed current occupation: former truck rental clerk, 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 Constitutional: + weakness; no fever and no fatigue Eyes: no diplopia, no eye pain and no worsening vision Ear, Nose, Mouth, Throat: no ear pain, no tinnitus, no hearing loss, no dizziness, no hoarseness and no dysphagia Respiratory: no cough and no dyspnea Cardiovascular: no chest pain, no palpitations and no lightheadedness Gastrointestinal: no abdominal pain, no nausea and no vomiting Musculoskeletal: no back pain, no neck pain, no radicular pain, no joint pain and no myalgia Integumentary: no rash and no lesions Neurologic: + localized weakness, + headache(s) and + abnormal speech; no gait abnormality, no generalized weakness, no tingling, no numbness, no tremor(s), no abnormal movements, no confusion and no memory loss Psychiatric: no depression, no irritability, no anxiety, no difficulty concentrating, no confusion and no hallucinations Endocrine: no fatigue and no flushing Hematologic / Lymphatic: no easy bleeding and no easy bruising Allergy / Immunological: no urticaria and no problem reported Exam (Neuro) Physical Exam: The patient is left-handed. The patient is very sleepy but arousable with voice. Speech is without any obvious expressive or receptive aphasia, however, he has severe dysarthria. The patient can name objects and colors. He knew his name, his age, his , and other fax. it is difficult to tell if he has some depression Pupils are 4 mm bilaterally and reactive to light. Extraocular eye muscles are intact without nystagmus. vision is difficult to assess but he may not be able to see very well off to the left. There are no deficits to sensation in the face in all 3 distributions of the fifth cranial nerve bilaterally. Corneal reflexes are positive bilaterally. He has a dense facial droop on the left with no movement voluntarily.. Hearing seems normal bilaterally. Palate moves well without asymmetry. There is normal sternocleidomastoid and trapezius (shoulder shrug) strength bilaterally. Tongue is midline with good strength bilaterally. Neck has a full range of motion without discomfort. There are no cervical bruits bilaterally. There are no cranial or ocular bruits. Heart is without murmur. There is a regular rhythm and rate. Cervical, thoracic, and lumbar spine are nontender to palpation. Gait and stance cannot be tested due to his weakness. on the right there is no drift with outstretched arm, and no resting, postural, or action tremor. There is good facility and rapid alternating movement in the hand. The left is too weak to assess but has no tremor. Motor strength is 5/5 diffusely in the Right upper extremity, including deltoids, biceps, triceps, brachioradialis, wrist flexors and extensors, chief quality officer, and intrinsic hand muscles. Motor strength is 5/5 diffusely in the right lower extremity, including hip flexors, quadriceps, hamstrings, gastrocnemius, tibialis anterior, tibialis posterior, and Peroneii muscles. motor strength is 4/5 diffusely in the left lower extremity. With coaxing he can movement contract all major muscles in the leg. Motor strength is 2-3/5 proximally in the left upper extremity and 1-2/5 distally. Tone is decreased in the left arm and leg compared to the right. Sensory examination is intact to touch and pin throughout all 4 limbs diffusely. Reflexes are 0/4 in the biceps, triceps, brachioradialis, quadriceps, and Achilles tendons bilaterally. There is no clonus bilaterally. Toes are downgoing with plantar stimulation bilaterally. Results & Data ([facility]) Vital Signs (Past 12 Hours) Vital Signs Temp Pulse Pulse Resp BP BP Pulse Ox 05/02/22 07:09 36.5 C 93 H 18 122/76 95 05/02/22 03:09 36.8 C 91 H 18 127/78 97 05/02/22 00:34 103 H 05/01/22 23:52 107 H 19 98 05/01/22 23:15 37.2 C 107 H 20 105/68 98 05/01/22 22:20 05/01/22 22:00 106 H 23 120/74 95 05/01/22 21:45 106 H 20 96 05/01/22 21:30 107 H 27 H 95 05/01/22 21:15 109 H 21 96 05/01/22 21:00 107 H 21 96 O2 Del Method 05/02/22 07:09 Room Air 05/02/22 03:09 Room Air 05/02/22 00:34 05/01/22 23:52 05/01/22 23:15 Room Air 05/01/22 22:20 Room Air 05/01/22 22:00 05/01/22 21:45 05/01/22 21:30 05/01/22 21:15 05/01/22 21:00 PG Care Time/CCT Total # of Minutes Spent Total Time Spent with Patient: Total time spent is greater than 50% in coordination of care (as documented) at patient's floor/unit and/or counseling patient: Coding Level of Care Code 62170 Inpt Consult Level 5 Diagnoses CVA (cerebral vascular accident) I63.9 History of CVA (cerebrovascular accident) Z86.73 Acute left-sided muscle weakness M62.81 Anti-phospholipid antibody syndrome D68.61 Esophageal cancer, stage IV C15.9 Idiopathic polyneuropathy G60.9 Time Spent (min) 75
[2022-05-02] MEDS: MoRPHine SULFATE 2 MG/ML CARP IV PRN ×3 (10:07→22:38)
[2022-05-02] MEDS: PANTOprazole 40 MG in SYRINGE 0 ML IV SCH (12:05)
[2022-05-02] MEDS: POTASSIUM CHLORIDE 20 MEQ in LACTATED RINGER'S 1,000 ML IV SCH ×2 (12:05→20:27)
[2022-05-02] MEDS: dexAMETHasone 4 MG in SYRINGE 0 ML IV SCH (12:11)
[2022-05-02] MEDS ORDERED: SODIUM CHLORIDE 0.9% 250 ML IV PRN (13:34)
--- NOTE | 2022-05-02 13:36 | Hospitalist Progress Note ---
Date of Service May 02, 2022 Assessment & Plan (1) Acute CVA (cerebrovascular accident): Plan: R frontal lobe - large. Punctate L cerebellum. B/l nature of his CVAs in 2 different distributions highly suggestive of embolic CVA. Further, his CTAs of the head/neck are negative. 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 Most concerning is that he developed these CVAs while on therapeutic lovenox 1mg/kg BID. Appreciate neurology consultation. Unfortunately options moving forward are very limited. He is at high risk of hemorrhagic transformation given his severe thrombocytopenia. I spoke with his oncologist, Dr Bishop, and given the treatment failure with lovenox will change to heparin infusion standard adult dosing. Oral options moving forward for anticoagulation are limited as he failed coumadin therapy in the past by report. Plan - * stop lovenox injections * start heparin infusion standard dosing at 2000 tonight * resume plavix albeit very cautiously in light of low platelets * resume statin * PT, OT, speech evals appreciate * did pass swallow eval - allowed pureed diet * await echo with bubble study Prognosis is very poor in light of prior poor functional status even before this event, failure to thrive, and his advanced cancer. Continue telemetry. He is at high risk of developing significant cerebral edema given the size of the stroke. (2) Encephalopathy acute: Plan: Ammonia checked - wnl. VBG without hypercarbia. MS waxing/waning. Likely metabolic encephalopathy 2nd to #1. Monitor carefully for worsening which would indicate development of worsening intracerebral edema vs hemorrhagic transformation vs other. (3) Superficial venous thrombosis of arm: Plan: left arm basilic vein thrombus. seen on doppler today. elevate the arm on pillows. heat packs as needed/desired. the current us-guided IV is not located in the basilic vein thus the IV can remain in place. reassurances given to pt's that no DVT was seen in the left arm, and that the catheter in the left arm is intact and free of clot at this time. (4) Pancytopenia due to antineoplastic chemotherapy: Plan: severe. Tx 2 units of PRBCs in the setting of #1 above. repeat CBC in am. given the employment of heparin drip in the setting of severely low platelets watch for bleeding. (5) Hypomagnesemia: Plan: repleted with IV mag. mag level today wnl. repeat mag level am. (6) Elevated troponin: Plan: Peak hsTroponin 64.9 Likely myocardial demand ischemia in setting of his CVA. No Rx needed. 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 Patient follows with [facility] in [place] - has been doing chemotherapy (Cisplatin/Xeloda/Pebmrolizumab) since 01/2022. Follows with Dr Bishop locally. Will consult Dr Bishop formally in am. Very poor prognosis. His functional status was very poor even before this large CVA occurred. DNR/DNI. (8) Antiphospholipid antibody syndrome: Plan: With history of LE DVTs, right UE DVT, and saddle PE. See #1 above re: d/c of lovenox and changing to IV heparin. PO anticoagulation options will need to be discussed with Dr Bishop and perhaps Dr Guidry from the clinic. By report he had developed clots even on coumadin in the past. (9) Bilateral pulmonary embolism: Plan: History of. (10) Diabetes: Plan: A1c 7.2 in 03/2022. Increase lantus to 10 units BID. Adjust novolog. (11) Asthma: Plan: PRN Albuterol nebs for SOB/wheezing. (12) Hypertension: Plan: BPs low in the setting of his CVA. Cont IV fluids to maintain normal BP. Transfusional support - 2 units PRBCs today. (13) GERD (gastroesophageal reflux disease): Plan: IV Protonix today. Change to PO tomorrow. (14) Depression with anxiety: Plan: Resume zoloft. Ativan prn. (15) Severe protein-calorie malnutrition: Plan: 30kg weight loss since early 2021. 2nd to advanced esophageal cancer with mets. (16) Hypokalemia: Plan: add KCL to IV fluids repeat BMP with mag in am (17) Chronic use of steroids: Plan: prednisone 10mg daily change to IV dexamethasone 4mg IV daily for stress dose purposes Plan extensively updated several times today care d/w Dr Godinez - neurology care d/w Dr Bishop - oncology complex care coordination of this very sick gentleman with multiple visits, coordinating care with specialists, addressing copious # of issues, etc total time today 90 minutes Admission and Anticipated Discharge Date Admission Date: May 01, 2022 Subjective multiple visits to the pt's room today at bedside and updated several times first visit we discussed PRBC infusion as Hb was <7 this morning written consent obtained from during that first visit patient was quite lethargic and had not been seen yet by speech therapy for swallow eval pt's reports that even before this stroke he was having difficulty ambulating at home and was very weak he had been having more periods of wanting to sleep/nap she also expressed concern about sores in his mouth after my visit the pt's expressed concern about his left arm and was concerned about him having a DVT in the left arm she requested u/s of left arm doppler was obtained, and this showed no DVT but a superficial thrombus in his basilic vein I came to bedside a 2nd time and inspected the left arm the us-guided peripheral IV in the left forearm is on the lateral aspect of the arm as opposed to the medial aspect where the basilic vein lies I reassured her that the superficial thrombus is NOT in the same vein where the IV is located and that the IV is functioning well, has no palpable cord proximal to the IV, etc and can remain she felt relieved by this information tele overnight without dysrhythmia Review of Systems Review of Systems: Unobtainable due to cognitive status and Other (expressive aphasia ) Physical Exam Physical Exam: gen - no acute distress, expressive aphasia, following commands after he finally woke up eyes - gaze preference to the right; PERRL neck - no JVD mouth - ulcers on buccal mucosa on undersurface of lips, MMM otherwise; no obvious thrush heart - RRR, s1 s2, no murmur lungs - mild end-exp wheezing b/l abd - soft NT ND BS+ ext - no leg edema, pulses 2+ b/l skin - left arm - mild medial ecchymoses forearm; us-guided peripheral IV site is on medial distal aspect of forearm; insertion site clean, no cord, no swelling, no erythema; proximal to the site and extending for several CMs there is no abnormality neuro - left sided lower facial droop; strength left hand 1-2/5 at best; strength proximal left arm about 2/5 at best; left leg 3-4/5; RUE/RLE 5/5 strength; expressive aphasia Results & Data Results & Data ([facility]) Vital Signs (Past 12 Hours) Vital Signs Temp Pulse Resp BP Pulse Ox O2 Del Method 05/02/22 10:42 36.8 C 96 H 17 117/78 95 Room Air 05/02/22 07:09 36.5 C 93 H 18 122/76 95 Room Air 05/02/22 03:09 36.8 C 91 H 18 127/78 97 Room Air Laboratory Results Laboratory Results - last 24 hr 05/01/22 05/02/22 05/02/22 18:06 06:07 07:24 WBC RBC Hgb Hct MCV MCH MCHC RDW Std Deviation RDW Coeff of Andie Plt Count MPV Immature Gran % (Auto) Neut % (Auto) Lymph % (Auto) Addison % (Auto) Eos % (Auto) Baso % (Auto) Neut # (Auto) Lymph # (Auto) Addison # (Auto) Eos # (Auto) Baso # (Auto) Immature Gran # (Auto) Spherocytes Tear Drop Cells PT INR APTT PTT Ratio VBG pH VBG pCO2 VBG pO2 VBG HCO3 VBG O2 Saturation VBG Base Excess Sodium Potassium Chloride Carbon Dioxide Anion Gap BUN Creatinine Est Cr Clr Drug Dosing Est GFR ( Amer) Est GFR (Non-Af Amer) BUN/Creatinine Ratio Glucose POC Glucose 174 H 170 H Calcium Magnesium Ammonia Triglycerides Cholesterol LDL Cholesterol, Calc VLDL Cholesterol, Calc HDL Cholesterol Cholesterol/HDL Ratio Blood Type A Positive Antibody Screen NEGATIVE Crossmatch See Detail 05/02/22 05/02/22 05/02/22 07:46 07:46 07:46 WBC 2.95 L RBC 2.05 L Hgb 6.7 L* Hct 19.8 L* MCV 96.6 MCH 32.7 MCHC 33.8 RDW Std Deviation 58.3 H RDW Coeff of Andie 17.3 H Plt Count 43 L MPV 12.8 H Immature Gran % (Auto) 0.3 Neut % (Auto) 64.1 Lymph % (Auto) 29.2 Addison % (Auto) 5.8 Eos % (Auto) 0.3 Baso % (Auto) 0.3 Neut # (Auto) 1.89 Lymph # (Auto) 0.86 L Addison # (Auto) 0.17 L Eos # (Auto) 0.01 Baso # (Auto) 0.01 Immature Gran # (Auto) 0.01 Spherocytes 1+ Tear Drop Cells 1+ PT 14.3 H INR 1.4 H APTT PTT Ratio VBG pH VBG pCO2 VBG pO2 VBG HCO3 VBG O2 Saturation VBG Base Excess Sodium 136 Potassium 3.2 L Chloride 101 Carbon Dioxide 28 Anion Gap 7 BUN 40 H Creatinine 1.18 Est Cr Clr Drug Dosing 102.2 Est GFR ( Amer) 84.7 Est GFR (Non-Af Amer) 73.0 BUN/Creatinine Ratio 33.9 H Glucose 158 H POC Glucose Calcium 7.5 L Magnesium 1.9 Ammonia Triglycerides 134 Cholesterol 42 LDL Cholesterol, Calc TNP VLDL Cholesterol, Calc 27 HDL Cholesterol 17 Cholesterol/HDL Ratio 2.5 Blood Type Antibody Screen Crossmatch 05/02/22 05/02/22 05/02/22 11:25 14:00 14:00 WBC RBC Hgb Hct MCV MCH MCHC RDW Std Deviation RDW Coeff of Andie Plt Count MPV Immature Gran % (Auto) Neut % (Auto) Lymph % (Auto) Addison % (Auto) Eos % (Auto) Baso % (Auto) Neut # (Auto) Lymph # (Auto) Addison # (Auto) Eos # (Auto) Baso # (Auto) Immature Gran # (Auto) Spherocytes Tear Drop Cells PT INR APTT PTT Ratio VBG pH 7.48 H VBG pCO2 39 VBG pO2 44 VBG HCO3 29 VBG O2 Saturation 76.1 VBG Base Excess 5.2 Sodium Potassium Chloride Carbon Dioxide Anion Gap BUN Creatinine Est Cr Clr Drug Dosing Est GFR ( Amer) Est GFR (Non-Af Amer) BUN/Creatinine Ratio Glucose POC Glucose 189 H Calcium Magnesium Ammonia Cancelled Triglycerides Cholesterol LDL Cholesterol, Calc VLDL Cholesterol, Calc HDL Cholesterol Cholesterol/HDL Ratio Blood Type Antibody Screen Crossmatch 05/02/22 05/02/22 05/02/22 15:05 16:15 21:09 WBC RBC Hgb Hct MCV MCH MCHC RDW Std Deviation RDW Coeff of Andie Plt Count MPV Immature Gran % (Auto) Neut % (Auto) Lymph % (Auto) Addison % (Auto) Eos % (Auto) Baso % (Auto) Neut # (Auto) Lymph # (Auto) Addison # (Auto) Eos # (Auto) Baso # (Auto) Immature Gran # (Auto) Spherocytes Tear Drop Cells PT INR APTT PTT Ratio VBG pH VBG pCO2 VBG pO2 VBG HCO3 VBG O2 Saturation VBG Base Excess Sodium Potassium Chloride Carbon Dioxide Anion Gap BUN Creatinine Est Cr Clr Drug Dosing Est GFR ( Amer) Est GFR (Non-Af Amer) BUN/Creatinine Ratio Glucose POC Glucose 239 H 206 H Calcium Magnesium Ammonia 44.0 Triglycerides Cholesterol LDL Cholesterol, Calc VLDL Cholesterol, Calc HDL Cholesterol Cholesterol/HDL Ratio Blood Type Antibody Screen Crossmatch 05/02/22 21:50 WBC RBC Hgb Hct MCV MCH MCHC RDW Std Deviation RDW Coeff of Andie Plt Count MPV Immature Gran % (Auto) Neut % (Auto) Lymph % (Auto) Addison % (Auto) Eos % (Auto) Baso % (Auto) Neut # (Auto) Lymph # (Auto) Addison # (Auto) Eos # (Auto) Baso # (Auto) Immature Gran # (Auto) Spherocytes Tear Drop Cells PT INR APTT 27.0 PTT Ratio 1.0 VBG pH VBG pCO2 VBG pO2 VBG HCO3 VBG O2 Saturation VBG Base Excess Sodium Potassium Chloride Carbon Dioxide Anion Gap BUN Creatinine Est Cr Clr Drug Dosing Est GFR ( Amer) Est GFR (Non-Af Amer) BUN/Creatinine Ratio Glucose POC Glucose Calcium Magnesium Ammonia Triglycerides Cholesterol LDL Cholesterol, Calc VLDL Cholesterol, Calc HDL Cholesterol Cholesterol/HDL Ratio Blood Type Antibody Screen Crossmatch Diagnostic Findings MRI OF THE BRAIN WITHOUT IV CONTRAST CLINICAL HISTORY: Strokelike symptoms. Left-sided facial droop. Left-sided weakness. Aphasia. COMPARISON STUDY: CT of the brain dated 05/01/2022. TECHNIQUE: MRI of the brain was performed utilizing various T1 and T2-weighted sequences in the axial, sagittal, and coronal planes. IV contrast was not administered for this examination. FINDINGS: Brain parenchyma: There is a large region of restricted diffusion in the right frontal lobe consistent with acute to subacute infarct a punctate lacunar infarct is seen in the left cerebellar hemisphere.. No additional foci of restricted diffusion are identified. There is no hemorrhage or midline shift. A small chronic lacunar infarct is noted in the left ho radiata. No extra- axial fluid collection is seen. The cerebellar tonsils are normal in configuration. Ventricles, sulci, and cisterns: Normal in configuration. Pituitary and sella: Unremarkable. Intracranial vasculature: Normal flow voids are maintained at the skull base. Orbits: The bony orbits are grossly intact. Orbital contents are normal in appearance. Sinuses and mastoids: The paranasal sinuses are clear. There is a left mastoid effusion. The right mastoid air cells are clear. Calvarium: Unremarkable. Cervical cord: Partially visualized cervical spinal cord is normal in morphology and signal intensity. IMPRESSION: 1. There is a large region of restricted diffusion the right frontal lobe consistent with an acute to subacute infarct. 2. An additional punctate lacunar infarct is noted in the left cerebellar hemisphere. 3. There is no hemorrhage or midline shift. ACT 112: Negative or not required by law. Electronically signed by: Kartik Mcfarlane M.D. 05/02/2022 7:22 AM Extremity Venous Study 05/02/22 16:13 US venous doppler UE LT CLINICAL HISTORY: IV L forearm, concern for DVT of left arm PROCEDURE: Left upper extremity real-time compression venous ultrasound with Duplex and Color Doppler imaging. FINDINGS: Utilizing real-time ultrasonic imaging multiple real time high-resolution ultrasonic images of the deep venous system were performed from the forearm through the subclavian vein including evaluation of the jugular vein. Compression real time ultrasonic imaging was performed in addition to color Doppler imaging and duplex Doppler ultrasound with velocity spectral profile analysis. There is normal compressibility of the deep venous system from the forearm through the subclavian vein. Normal vascular flow is currently identified. A left basilic thrombus is seen. Impression: A superficial venous thrombus is in the left basilic vein. ACT 112: Negative or not required by law. Electronically signed by: Lon Wills M.D. 05/02/2022 5:28 PM PG Care Time/CCT Total # of Minutes Spent Total Time Spent with Patient: Total time spent is greater than 50% in coordination of care (as documented) at patient's floor/unit and/or counseling patient: Prolonged Care Time Prolonged Care Time: Yes Total Prolonged Care Time: 90 Coding Level of Care Code 34040 Subseq Hosp Care Lvl 3 (25 - SIGNIFICANT, SEPARATELY IDENTIFIABLE ) Diagnoses Acute CVA (cerebrovascular accident) I63.9 Encephalopathy acute G93.40 Superficial venous thrombosis of arm I82.619 Pancytopenia due to antineoplastic chemotherapy D61.810; T45.1X5A Hypomagnesemia E83.42 Elevated troponin R77.8 Metastasis from esophageal cancer C79.9; C15.9 Antiphospholipid antibody syndrome D68.61 Bilateral pulmonary embolism I26.99 Diabetes E11.9 Asthma J45.909 Hypertension I10 Hypertension type: essential hypertension GERD (gastroesophageal reflux disease) K21.9 Depression with anxiety F41.8 Severe protein-calorie malnutrition E43 Hypokalemia E87.6 Chronic use of steroids Additional Codes Prolonged Care Time - Prolonged Care Time: Yes ([id number]) Time Spent (min) 90 (1) Hypertension Hypertension type: essential hypertension Qualified Code(s): I10 - Essential (primary) hypertension
[2022-05-02 14:11] LABS: Base Excess VBG 5.2 mEq/L; HCO3 VBG 29 mmol/L; Oxygen Saturation VBG 76.1 %; PCO2 VBG 39 mmHg (38-50); PO2 VBG 44 mmHg; pH VBG 7.48 (7.36-7.41)
--- NOTE | 2022-05-02 17:30 | Ultrasound Report ---
US venous doppler UE LT CLINICAL HISTORY: IV L forearm, concern for DVT of left arm PROCEDURE: Left upper extremity real-time compression venous ultrasound with Duplex and Color Doppler imaging. FINDINGS: Utilizing real-time ultrasonic imaging multiple real time high-resolution ultrasonic images of the de ep venous system were performed from the forearm through the subclavian vein including evaluation of the jugular vein. Compression real time ultrasonic imaging was performed in addition to color Dopple r imaging and duplex Doppler ultrasound with velocity spectral profile analysis. There is normal compressibility of the deep venous system from the forearm through the subclavian vei n. Normal vascular flow is currently identified. A left basilic thrombus is seen. Impression: A superficial venous thrombus is in the left basilic vein. ACT 112: Negative or not required by law. Electronically signed by: Lon Wills M.D. 05/02/2022 5:28 PM
[2022-05-02] MEDS: FIRST - Mouthwash BLM 119 ML PO SCH ×2 (17:37→20:30)
[2022-05-02] MEDS ORDERED: ALBUTEROL 0.083% NEBU SOLN 3 ML VIAL INH PRN (18:56)
[2022-05-02] MEDS ORDERED: Heparin IV Adult Wt-Based Standard *NO* Bolus Protocol IV ONE (20:00)
[2022-05-02] MEDS: LORazepam 1 MG TAB PO SCH (20:28)
[2022-05-02] MEDS: BACLOFEN 10 MG TAB PO PRN (20:28)
[2022-05-02] MEDS: CLOPIDOGREL BISULFATE 75 MG TAB PO SCH (20:29)
[2022-05-02] MEDS: ATORVASTATIN 40 MG TAB PO SCH (20:30)
[2022-05-02] MEDS: DOCUSATE SODIUM/SENNA 50/8.6MG TAB PO SCH (20:33)
[2022-05-02] MEDS ORDERED: LORazepam 1 MG TAB PO SCH (21:00)
--- NOTE | 2022-05-02 21:27 | Billing Data ---
Date of Service May 02, 2022 Coding Level of Care Code 45571 Initial Inpt Care Lvl 3
--- NOTE | 2022-05-02 21:43 | Electrocardiogram Report ---
Test Reason : Blood Pressure : / mmHG Vent. Rate : 130 BPM Atrial Rate : 130 BPM P-R Int : 132 ms QRS Dur : 088 ms QT Int : 312 ms P-R-T Axes : 049 046 005 degrees QTc Int : 459 ms Sinus tachycardia Possible Inferior infarct , age undetermined Cannot rule out Anterior infarct , age undetermined Abnormal ECG When compared with ECG of 04-APR-2022 18:02, T wave inversion more evident in Inferior leads Confirmed by Saul Rivera ([id number]) on 05/02/2022 9:42:36 PM Referred By: REFERRED SELF Confirmed By:Saul Rivera
[2022-05-02] MEDS: HEPARIN SODIUM/DEXTROSE 25,000 UNITS/500 ML BAG IV SCH (22:20)
[2022-05-03] MEDS: LORazepam 1 MG TAB PO SCH ×4 (01:40→20:33)
[2022-05-03] MEDS: MoRPHine SULFATE 2 MG/ML CARP IV PRN ×3 (01:40→22:11)
[2022-05-03] MEDS: POTASSIUM CHLORIDE 20 MEQ in LACTATED RINGER'S 1,000 ML IV SCH ×3 (04:14→23:21)
[2022-05-03 08:02] LABS: Basophils # (auto) 0.01 K/uL (0-0.2); Basophils % (auto) 0.3 %; Eosinophils # (auto) 0.01 K/uL (0-0.50); Eosinophils % (auto) 0.3 %; Hematocrit (blood only) 26.1 % (40.1-51.0); Hemoglobin 8.8 g/dl (14.0-18.0); Immature Granulocytes # (auto) 0.02 K/uL (0.00-0.02); Immature Granulocytes % (auto) 0.6 %; Lymphocytes # (auto) 1.24 K/uL (1.2-3.4); Lymphocytes % (auto) 34.9 %; Mean Corpuscular Hemoglobin 31.2 pg (25.0-34.0); Mean Corpuscular Hgb Conc 33.7 g/dL (32.0-36.0); Mean Corpuscular Volume 92.6 fL (80.0-100.0); Mean Platelet Volume 10.2 fL (9.4-12.4); Monocytes # (auto) 0.29 K/uL (0.24-0.82); Monocytes % (auto) 8.2 %; Neutrophils # (auto) 1.98 K/uL (1.4-6.5); Neutrophils % (auto) 55.7 %; Platelet Count 48 K/uL (130-400); RDW Coefficient of Variation 17.2 % (11.5-14.5); RDW Standard Deviation 55.7 fL (36.4-46.3); Red Blood Count 2.82 M/uL (4.63-6.08); White Blood Count 3.55 K/ul (4.8-10.8)
[2022-05-03 08:21] LABS: INR 1.4 (0.9-1.1); Prothrombin Time 14.4 Seconds (9.0-12.0)
[2022-05-03 08:22] LABS: Partial Thromboplastin Ratio 1.6; Partial Thromboplastin Time 44.8 Seconds (21.0-31.0)
[2022-05-03 08:27] LABS: BUN Creatinine Ratio 26.4 (10-20); Calcium 7.8 mg/dl (8.5-10.1); Creatinine Clr Calc Pharmacy 96.5 ml/min; Est GFR (Non-African American) 68.1 ml/min; Magnesium 1.3 mg/dl (1.7-2.4); Potassium 3.3 mmol/L (3.5-5.1)
--- NOTE | 2022-05-03 08:32 | Neurology Progress Note ---
Date of Service May 03, 2022 Assessment & Plan (1) CVA (cerebral vascular accident): (2) History of CVA (cerebrovascular accident): (3) Acute left-sided muscle weakness: (4) Anti-phospholipid antibody syndrome: (5) Esophageal cancer, stage IV: (6) Idiopathic polyneuropathy: Plan This is an extremely complicated patient neurologically. The patient has had a tiny, acute left cerebellar stroke and a very large subacute right frontal stroke, resulting in a significant left hemiparesis ( face > arm > leg). He has severe dysarthria, but no noticeable aphasia, sensory deficit, or homonymous hemianopsia. This comes on a background of previous left parietal stroke a month ago, and despite therapeutic Lovenox and 75 mg clopidogrel daily. He has antiphospholipid antibody syndrome leading to multiple clots including DVT and a large saddle pulmonary embolus in the past. He has metastatic (to the liver) esophageal cancer currently on chemotherapy (although the oral portion stopped the last 2 days because of this stroke). He has pancytopenia [place] [address]. He is at high risk for bleeding. Given the size of his right frontal stroke he is a great risk for cerebral edema. This could give headache / sleepiness or other symptoms. There is likely some underlying depression. He has a polyneuropathy, which is likely due to cisplatin chemotherapy Recommendations: 1. Continue anticoagulant plus antiplatelet medication to prevent stroke. Unfortunately, he has failed warfarin and Lovenox 2. CT scan of the head without contrast to evaluate for cerebral edema. 3. Consider fluoxetine 20 milligrams daily instead of sertraline for depression. Fluoxetine is a little more energized and then sertraline and his typically helpful following stroke. 4. increase activity as able. 5. Now that he is on heparin, consider a central line for blood drawing and IV access. Overall, I spent a total of 35 minutes with this case including review of records, direct evaluation the patient bedside, and discussion of the case with the patient, , and RN at bedside, and Dr. Cabrales, including differential diagnosis and treatment options. Admission and Anticipated Discharge Date Admission Date: May 01, 2022 Subjective patient had a significant headache and was given 2 milligrams morphine. This helped resolve his headache but has made him a little bit sleepy. Blood pressure is 130/85 and he has been in sinus rhythm in the 90s this morning. There were no abnormal dysrhythmias overnight. He was heparinized and remains on Plavix. Hopefully on the heparin he will not clot as much as he has done on Lovenox. Hemoglobin hematocrit are at 8.8 and 26.1 ( markedly improved since 2 units p acked red cells given yesterday. Echocardiogram has not been obtained this hospitalization but on March 28 echocardiogram was largely unremarkable and showed no change from 2 months previous. He remains a "difficult stick" for laboratory studies and IVs. Results & Data ([facility]) Vital Signs (Past 12 Hours) Vital Signs Temp Pulse Pulse Resp BP BP Pulse Ox 05/03/22 07:27 37.0 C 95 H 17 130/85 94 05/03/22 04:00 36.4 C L 93 H 18 115/76 97 05/02/22 23:02 36.5 C 88 18 120/71 93 05/02/22 22:25 36.1 C L 81 20 98/47 L 94 05/02/22 21:25 36.5 C 84 17 115/56 L 94 05/02/22 20:55 36.6 C 83 20 110/54 L 97 05/02/22 20:40 36.5 C 84 20 97 05/02/22 20:35 36.1 C L 81 18 108/72 95 O2 Del Method 05/03/22 07:27 Room Air 05/03/22 04:00 Room Air 05/02/22 23:02 CPAP 05/02/22 22:25 05/02/22 21:25 05/02/22 20:55 05/02/22 20:40 05/02/22 20:35 Exam (Neuro) Physical Exam: The patient is very sleepy but arousable. He will open his eyes and track. He seems to see well in all visual aleman bilaterally. Speech is sparse but he seems to comprehend and follow one-step commands. he has a dense left facial droop with no movement at the corner of the mouth. He has no abnormal involuntary movements or tremor. Right arm and leg is 5/5 diffusely. Left arm is 2/5 distally and left leg is 4/ PG Care Time/CCT Total # of Minutes Spent Total Time Spent with Patient: Total time spent is greater than 50% in coordination of care (as documented) at patient's floor/unit and/or counseling patient: Coding Level of Care Code 94029 Subseq Hosp Care Lvl 3 Diagnoses CVA (cerebral vascular accident) I63.9 History of CVA (cerebrovascular accident) Z86.73 Acute left-sided muscle weakness M62.81 Anti-phospholipid antibody syndrome D68.61 Esophageal cancer, stage IV C15.9 Idiopathic polyneuropathy G60.9 Time Spent (min) 35
[2022-05-03] MEDS: dexAMETHasone 4 MG in SYRINGE 0 ML IV SCH (08:49)
[2022-05-03] MEDS: FIRST - Mouthwash BLM 119 ML PO SCH ×4 (08:51→20:34)
[2022-05-03] MEDS: CLOPIDOGREL BISULFATE 75 MG TAB PO SCH (08:52)
[2022-05-03] MEDS: INSULIN ASPART PER UNIT SC SCH ×4 (08:53→20:35)
[2022-05-03] MEDS: LANTUS PER UNIT CHARGE SQ SCH ×2 (08:54→20:35)
[2022-05-03] MEDS: FLUTICASONE/VILANTEROL 200/25MCG 14 PUFFS/INHALER INH SCH (08:54)
[2022-05-03] MEDS: SERTRALINE HCL 50 MG TABLET PO SCH (08:55)
[2022-05-03] MEDS: POTASSIUM CHLORIDE CRTAB 20 MEQ TABCR PO SCH ×3 (10:34→20:33)
[2022-05-03] MEDS: MAGNESIUM SULFATE / D5W 1 GM/100 ML BAG IV SCH ×3 (10:34→14:45)
[2022-05-03] MEDS: PANTOprazole 40 MG in SYRINGE 0 ML IV SCH (10:54)
[2022-05-03] MEDS: HEPARIN SODIUM/DEXTROSE 25,000 UNITS/500 ML BAG IV SCH (12:27)
--- NOTE | 2022-05-03 13:18 | CT Scan Report ---
HEAD CT NONCONTRAST CT DOSE: 537.48 mGy.cm HISTORY: Left-sided weakness. R frontal infarct; eval worsening edema TECHNIQUE: Multiaxial CT images of the head were performed without the use of intravenous contrast. A utomated exposure control was utilized for this study. A dose lowering technique was utilized adheri ng to the principles of ALARA. Comparison: Head CT 05/01/2022. Findings: The paranasal sinuses and right mastoid air cells are clear. There are a few partially opac ified left mastoid air cells, unchanged. The calvarium and skull base are intact. No change in the 3. 5 cm subcutaneous soft tissue mass within the right occipital region. There is a large area cytotoxic edema within the right frontal temporal region which measures approximately 7 cm. This is consistent with the patient's known subacute right MCA territory infarct. No evidence for hemorrhagic transform ation. No significant mass effect or midline shift. Mild microvascular ischemic changes are again not ed. Impression: Expected evolution of the large right subacute MCA territory infarct . No evidence for midline shift or hemorrhagic transformation at this time. ACT 112: Negative or not required by law. Electronically signed by: Nikunj Cleaning M.D. 05/03/2022 1:17 PM
[2022-05-03 15:49] LABS: Partial Thromboplastin Ratio 1.5; Partial Thromboplastin Time 41.6 Seconds (21.0-31.0)
[2022-05-03] MEDS ORDERED: OPTIRAY 320 125ml IV ONE (17:32)
--- NOTE | 2022-05-03 18:04 | CT Scan Report ---
CT angio chest PE protocol CLINICAL HISTORY: h/o PEs, R scapular pain; eval PE, bony mets, etc TECHNIQUE: Multidetector row helical CT of the chest was performed with angiographic protocol. Harman l and sagittal reformations were obtained. Coronal and sagittal MIPS were obtained from the axial matt a set and were submitted for review. Automated dose lowering techniques and/or adjustment according to patient size were utilized for this exam. CT DOSE: 987.23 mGy.cm Comparison: Comparison is made to CT chest 04/06/2022 FINDINGS: Exam is limited by patient motion. Lungs and pleura: There is suggestion of tree-in-bud nodularity in the right lower lobe. Heart and pericardium: Heart size is normal. No pericardial effusion. Vessels: Evaluation for pulmonary embolism is limited due to suboptimal contrast timing and patient m otion. No evidence of central or lobar embolus. Mediastinum and alex: Unremarkable. Chest wall and lower neck: Unremarkable. Abdomen: Partial visualization of mass lesion in the distal esophagus and gastroesophageal junction c ompatible with known neoplasm. Heterogeneity of the liver is compatible with metastatic disease. Bones: Degenerative changes in the thoracic spine. IMPRESSION: 1. Limited exam without evidence of pulmonary embolism. There is suggestion of tree-in-bud nodularit y in the right lower lobe which may represent infectious/plantar process. 2. Changes of abdominal malignancy as above. ACT 112: Negative or not required by law. Electronically signed by: Lon Wills M.D. 05/03/2022 6:01 PM
[2022-05-03] MEDS: ALBUTEROL 0.083% NEBU SOLN 3 ML VIAL NEB PRN (20:04)
[2022-05-03] MEDS: DOCUSATE SODIUM/SENNA 50/8.6MG TAB PO SCH (20:34)
[2022-05-03] MEDS: ATORVASTATIN 40 MG TAB PO SCH (20:35)
[2022-05-03] MEDS ORDERED: POTASSIUM CHLORIDE PWD 20 MEQ PACK PO ONE (21:08)
--- NOTE | 2022-05-03 21:12 | Communication Note ---
Date of Service: May 03, 2022 because of incompatibility (notified by nursing) w/ heparin, changing LR (w/ KCl added) 125/hr to NSS (w/o KCl added) 125/hr. Already has PO supplementation ordered. Follow AM potassium. Messaged by nursing about patient's requesting for patient's QID ativan 1mg PO to be given on a q6h schedule instead of the QID 10am, 2pm, 6pm, 10pm schedule. Currently on hold while awaiting clarification as the QID's close spacing would have concern of oversedation. Per patient's PDMP and old notes, he was on 0.5mg x1 in December. In January, this was increased to 1mg TID scheduled. In March, it was increased to 1mg QID scheduled, partly to treat his nausea as well. I will be deferring to day hospitalist to re-examine the Ativan regimen with the patient and consider usage on a more prn and lesser basis. Would likely benefit from input from heme/onc regarding chemo/cancer-specific nausea.
[2022-05-03] MEDS ORDERED: SODIUM CHLORIDE 0.9% 1000ML 1,000 ML IV SCH (21:15)
--- NOTE | 2022-05-03 21:17 | Hospitalist Progress Note ---
Date of Service May 03, 2022 Assessment & Plan (1) Acute CVA (cerebrovascular accident): Plan: R frontal lobe - large. Punctate L cerebellum. B/l nature of his CVAs in 2 different distributions highly suggestive of embolic CVA. Further, his CTAs of the head/neck are negative. 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 Most concerning is that he developed these CVAs while on therapeutic lovenox 1mg/kg BID. Appreciate neurology consultation. Unfortunately options moving forward are very limited. He is at high risk of hemorrhagic transformation given his severe thrombocytopenia. CT head today, however, without ICH and edema is present but not severe (no midline shift, etc). Continue heparin infusion. Oral options moving forward for anticoagulation are limited as he failed coumadin therapy in the past by report but that may be only option. He is not a DOAC candidate. Plan - * continue heparin infusion * continue plavix * continue statin * PT, OT, speech evals appreciated Prognosis is very poor in light of prior poor functional status even before this event, failure to thrive, and his advanced cancer. Continue telemetry. He is at high risk of developing significant cerebral edema given the size of the stroke. This usually peaks day 4/day 5. Neuro checks per usual. (2) Back pain: Plan: CTA chest - rule out bony mets; rule out PE (low suspicion for such); rule out other pathology. Morphine prn otherwise. (3) Encephalopathy acute: Plan: Improved. 2nd CVA. Ammonia checked - wnl. VBG without hypercarbia. CT head today stable. (4) Superficial venous thrombosis of arm: Plan: left arm basilic vein thrombus. elevate the arm on pillows. heat packs as needed/desired. the current us-guided IV is not located in the basilic vein thus the IV can remain in place. (5) Pancytopenia due to antineoplastic chemotherapy: Plan: severe. s/p Tx 2 units of PRBCs. CBC today acceptable. given the employment of heparin drip in the setting of severely low platelets watch for bleeding and continue daily CBC. (6) Hypomagnesemia: Plan: replete with IV mag. repeat mag level am. (7) Elevated troponin: Plan: Peak hsTroponin 64.9 Likely myocardial demand ischemia in setting of his CVA. No Rx needed. 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 Patient follows with [facility] in [place] - has been doing chemotherapy (Cisplatin/Xeloda/Pebmrolizumab) since 01/2022. Follows with Dr Bishop locally. Appreciate Dr Bishop speaking with him & his today. Very poor prognosis. His functional status was very poor even before this large CVA occurred. DNR/DNI. (9) Antiphospholipid antibody syndrome: Plan: With history of LE DVTs, right UE DVT, and saddle PE. See #1 above re: d/c of lovenox and changing to IV heparin. By report he had developed clots even on coumadin in the past but that may be our only option moving forward from oral standpoint. (10) Bilateral pulmonary embolism: Plan: History of. CTA chest pending. (11) Diabetes: Plan: A1c 7.2 in 03/2022. Cont lantus 10 units BID. Adjust novolog again. (12) Asthma: Plan: PRN Albuterol nebs for SOB/wheezing. (13) Hypertension: Plan: stable. (14) GERD (gastroesophageal reflux disease): Plan: allow home dexilant use order placed (15) Depression with anxiety: Plan: Cont zoloft. Ativan prn. (16) Severe protein-calorie malnutrition: Plan: 30kg weight loss since early 2021. 2nd to advanced esophageal cancer with mets. (17) Hypokalemia: Plan: replaced resolved (18) Chronic use of steroids: Plan: prednisone 10mg daily at home remains on IV dexamethasone 4mg IV daily for stress dose purposes change to PO dex 2mg daily in the next 1-2 days in [place] of prednisone Plan extensively updated at bedside today care d/w Dr Godinez - neurology care d/w Dr Bishop - oncology Admission and Anticipated Discharge Date Admission Date: May 01, 2022 Subjective tele overnight - NSR pt eating well - no obvious dysphagia/aspiration during the visit he complains of right scapular pain and back pain in the midline started overnight using the right arm or turning the head/neck does not bring on the pain denies pleurisy denies dyspnea no BM since admission Review of Systems Review of Systems: gen - tired cv - no orthopnea or cp pulm - no dyspnea GI - reflux earlier today; gave him home dexilant neuro - headache; denies improvement in LUE weakness Physical Exam Physical Exam: gen - no acute distress, expressive aphasia although is verbalizing a bit more today, following commands without difficulty eyes - gaze preference to the right improved neck - no JVD; full ROM active/passive mouth - ulcers on buccal mucosa on undersurface of lips unchanged heart - RRR, s1 s2, no murmur lungs - CTA b/l abd - soft NT ND BS+ ext - no leg edema, pulses 2+ b/l skin - left arm - IV site clean, dry, no hematoma or cord neuro - left sided lower facial droop; strength left hand 2/5 at best; strength proximal left arm about 2/5 at best; left leg 4/5; RUE/RLE 5/5 strength; expressive aphasia but improved musculo - tender over t-spine to palpation; tender to palpation over scapula on right Results & Data Results & Data ([facility]) Vital Signs (Past 12 Hours) Vital Signs Temp Pulse Resp BP Pulse Ox O2 Del Method 05/03/22 20:06 84 16 97 Room Air 05/03/22 19:14 36.9 C 85 18 111/73 99 Room Air 05/03/22 15:23 36.7 C 89 18 103/68 96 Room Air 05/03/22 11:25 36.8 C 90 18 107/69 96 Room Air Laboratory Results Laboratory Results - last 24 hr 05/01/22 05/02/22 05/03/22 18:06 21:50 07:28 WBC RBC Hgb Hct MCV MCH MCHC RDW Std Deviation RDW Coeff of Andie Plt Count MPV Immature Gran % (Auto) Neut % (Auto) Lymph % (Auto) Swisher % (Auto) Eos % (Auto) Baso % (Auto) Neut # (Auto) Lymph # (Auto) Swisher # (Auto) Eos # (Auto) Baso # (Auto) Immature Gran # (Auto) PT INR APTT 27.0 PTT Ratio 1.0 Sodium Potassium Chloride Carbon Dioxide Anion Gap BUN Creatinine Est Cr Clr Drug Dosing Est GFR ( Amer) Est GFR (Non-Af Amer) BUN/Creatinine Ratio Glucose POC Glucose 127 H Calcium Magnesium Crossmatch See Detail 05/03/22 05/03/22 05/03/22 07:47 07:47 07:47 WBC 3.55 L RBC 2.82 L Hgb 8.8 L Hct 26.1 L MCV 92.6 MCH 31.2 MCHC 33.7 RDW Std Deviation 55.7 H RDW Coeff of Andie 17.2 H Plt Count 48 L MPV 10.2 Immature Gran % (Auto) 0.6 Neut % (Auto) 55.7 Lymph % (Auto) 34.9 Swisher % (Auto) 8.2 Eos % (Auto) 0.3 Baso % (Auto) 0.3 Neut # (Auto) 1.98 Lymph # (Auto) 1.24 Swisher # (Auto) 0.29 Eos # (Auto) 0.01 Baso # (Auto) 0.01 Immature Gran # (Auto) 0.02 PT 14.4 H INR 1.4 H APTT PTT Ratio Sodium 137 Potassium 3.3 L Chloride 102 Carbon Dioxide 28 Anion Gap 7 BUN 33 H Creatinine 1.25 Est Cr Clr Drug Dosing 96.5 Est GFR ( Amer) 79.0 Est GFR (Non-Af Amer) 68.1 BUN/Creatinine Ratio 26.4 H Glucose 128 H POC Glucose Calcium 7.8 L Magnesium 1.3 L Crossmatch 05/03/22 05/03/22 05/03/22 07:47 11:27 15:19 WBC RBC Hgb Hct MCV MCH MCHC RDW Std Deviation RDW Coeff of Andie Plt Count MPV Immature Gran % (Auto) Neut % (Auto) Lymph % (Auto) Swisher % (Auto) Eos % (Auto) Baso % (Auto) Neut # (Auto) Lymph # (Auto) Swisher # (Auto) Eos # (Auto) Baso # (Auto) Immature Gran # (Auto) PT INR APTT 44.8 H 41.6 H PTT Ratio 1.6 1.5 Sodium Potassium Chloride Carbon Dioxide Anion Gap BUN Creatinine Est Cr Clr Drug Dosing Est GFR ( Amer) Est GFR (Non-Af Amer) BUN/Creatinine Ratio Glucose POC Glucose 227 H Calcium Magnesium Crossmatch 05/03/22 05/03/22 16:34 20:08 WBC RBC Hgb Hct MCV MCH MCHC RDW Std Deviation RDW Coeff of Andie Plt Count MPV Immature Gran % (Auto) Neut % (Auto) Lymph % (Auto) Swisher % (Auto) Eos % (Auto) Baso % (Auto) Neut # (Auto) Lymph # (Auto) Swisher # (Auto) Eos # (Auto) Baso # (Auto) Immature Gran # (Auto) PT INR APTT PTT Ratio Sodium Potassium Chloride Carbon Dioxide Anion Gap BUN Creatinine Est Cr Clr Drug Dosing Est GFR ( Amer) Est GFR (Non-Af Amer) BUN/Creatinine Ratio Glucose POC Glucose 254 H 233 H Calcium Magnesium Crossmatch PG Care Time/CCT Total # of Minutes Spent Total Time Spent with Patient: Total time spent is greater than 50% in coordination of care (as documented) at patient's floor/unit and/or counseling patient: Coding Level of Care Code 60898 Subseq Hosp Care Lvl 3 Diagnoses Acute CVA (cerebrovascular accident) I63.9 Back pain M54.9 Encephalopathy acute G93.40 Superficial venous thrombosis of arm I82.619 Pancytopenia due to antineoplastic chemotherapy D61.810; T45.1X5A Hypomagnesemia E83.42 Elevated troponin R77.8 Metastasis from esophageal cancer C79.9; C15.9 Antiphospholipid antibody syndrome D68.61 Bilateral pulmonary embolism I26.99 Diabetes E11.9 Asthma J45.909 Hypertension I10 Hypertension type: essential hypertension GERD (gastroesophageal reflux disease) K21.9 Depression with anxiety F41.8 Severe protein-calorie malnutrition E43 Hypokalemia E87.6 Chronic use of steroids (1) Hypertension Hypertension type: essential hypertension Qualified Code(s): I10 - Essential (primary) hypertension
[2022-05-03] MEDS: FAMOTIDINE 20 MG TAB PO SCH (22:56)
[2022-05-03 23:12] LABS: Partial Thromboplastin Ratio 1.1; Partial Thromboplastin Time 30.8 Seconds (21.0-31.0)
[2022-05-03] MEDS ORDERED: HEPARIN SOD (PORCINE) 1000 UNIT/ML IV ONE (23:30)
[2022-05-04] MEDS: HEPARIN SODIUM/DEXTROSE 25,000 UNITS/500 ML BAG IV SCH ×3 (00:35→12:40)
[2022-05-04] MEDS: MoRPHine SULFATE 2 MG/ML CARP IV PRN ×2 (02:33→09:09)
[2022-05-04] MEDS ORDERED: CALCIUM CARBONATE 500 MG CHEWABLE TAB PO PRN (04:50)
[2022-05-04] MEDS: ACETAMINOPHEN 1000 MG/100 ML IV IV PRN (05:03)
[2022-05-04 06:44] LABS: Basophils # (auto) 0.01 K/uL (0-0.2); Basophils % (auto) 0.3 %; Eosinophils # (auto) 0.02 K/uL (0-0.50); Eosinophils % (auto) 0.6 %; Hematocrit (blood only) 25.5 % (40.1-51.0); Hemoglobin 8.6 g/dl (14.0-18.0); Immature Granulocytes # (auto) 0.03 K/uL (0.00-0.02); Lymphocytes # (auto) 1.31 K/uL (1.2-3.4); Lymphocytes % (auto) 42.1 %; Mean Corpuscular Hemoglobin 31.7 pg (25.0-34.0); Mean Corpuscular Hgb Conc 33.7 g/dL (32.0-36.0); Mean Corpuscular Volume 94.1 fL (80.0-100.0); Mean Platelet Volume 10.1 fL (9.4-12.4); Monocytes % (auto) 9.6 %; Neutrophils # (auto) 1.44 K/uL (1.4-6.5); Neutrophils % (auto) 46.4 %; Nucleated RBC # (auto) 0.02 K/uL (0-0); Nucleated RBC % (auto) 0.6 %; Platelet Count 52 K/uL (130-400); RDW Coefficient of Variation 17.2 % (11.5-14.5); RDW Standard Deviation 55.8 fL (36.4-46.3); Red Blood Count 2.71 M/uL (4.63-6.08); White Blood Count 3.11 K/ul (4.8-10.8)
[2022-05-04 07:17] LABS: Partial Thromboplastin Ratio 2.3
[2022-05-04 07:18] LABS: BUN Creatinine Ratio 22.7 (10-20); Calcium 7.7 mg/dl (8.5-10.1); Creatinine Clr Calc Pharmacy 101.4 ml/min; Est GFR (African American) 83.8 ml/min; Est GFR (Non-African American) 72.3 ml/min; Magnesium 1.4 mg/dl (1.7-2.4); Potassium 3.5 mmol/L (3.5-5.1)
[2022-05-04 07:22] LABS: Platelet Estimate Decreased (Normal)
[2022-05-04 07:26] LABS: Partial Thromboplastin Time 64.5 Seconds (21.0-31.0)
[2022-05-04] MEDS ORDERED: LORazepam 1 MG TAB PO PRN (07:26)
[2022-05-04] MEDS: INSULIN ASPART PER UNIT SC SCH ×4 (08:37→20:41)
[2022-05-04] MEDS: LANTUS PER UNIT CHARGE SQ SCH ×2 (08:38→20:44)
[2022-05-04] MEDS: dexAMETHasone 4 MG in SYRINGE 0 ML IV SCH (08:50)
[2022-05-04] MEDS: SERTRALINE HCL 50 MG TABLET PO SCH (08:50)
[2022-05-04] MEDS: FLUTICASONE/VILANTEROL 200/25MCG 14 PUFFS/INHALER INH SCH (08:51)
[2022-05-04] MEDS: FAMOTIDINE 20 MG TAB PO SCH ×2 (08:51→20:40)
[2022-05-04] MEDS: FIRST - Mouthwash BLM 119 ML PO SCH ×4 (08:52→20:41)
[2022-05-04] MEDS: CLOPIDOGREL BISULFATE 75 MG TAB PO SCH (08:52)
[2022-05-04] MEDS ORDERED: POTASSIUM CHLORIDE PWD 20 MEQ PACK PO ONE (09:00)
[2022-05-04] MEDS ORDERED: bisacodyL 5 MG TABEC PO ONE (09:30)
[2022-05-04] MEDS ORDERED: ARTIFICIAL TEARS OP PRN (09:30)
[2022-05-04] MEDS ORDERED: PANTOprazole 40 MG TAB PO SCH (11:00)
[2022-05-04] MEDS: MAGNESIUM SULFATE / D5W 1 GM/100 ML BAG IV SCH ×3 (11:04→14:29)
[2022-05-04] MEDS: BACLOFEN 10 MG TAB PO PRN (11:12)
[2022-05-04] MEDS: LIDOCAINE 5% 1 PATCH TD SCH (12:27)
[2022-05-04] MEDS ORDERED: bisacodyL 10 MG SUPP PR STA (15:51)
[2022-05-04] MEDS: HYDROCODONE/ACETAMINOPHEN 7.5/325MG TAB PO PRN (16:34)
[2022-05-04] MEDS: ATORVASTATIN 40 MG TAB PO SCH (20:39)
[2022-05-04] MEDS: DOCUSATE SODIUM/SENNA 50/8.6MG TAB PO SCH (20:40)
[2022-05-04] MEDS: LORazepam 1 MG TAB PO PRN (20:50)
[2022-05-05] MEDS: HEPARIN SODIUM/DEXTROSE 25,000 UNITS/500 ML BAG IV SCH ×3 (00:06→22:19)
[2022-05-05] MEDS: HYDROCODONE/ACETAMINOPHEN 7.5/325MG TAB PO PRN ×2 (00:06→20:09)
[2022-05-05] MEDS: LORazepam 1 MG TAB PO PRN (05:07)
[2022-05-05] MEDS: MoRPHine SULFATE 2 MG/ML CARP IV PRN ×2 (05:23→15:01)
--- NOTE | 2022-05-05 08:47 | Hospitalist Progress Note ---
Date of Service May 04, 2022 Assessment & Plan (1) Acute CVA (cerebrovascular accident): Plan: R frontal lobe - large. Punctate L cerebellum. B/l nature of his CVAs in 2 different distributions highly suggestive of embolic CVA. Further, his CTAs of the head/neck are negative. recent echo without thrombus. 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 Most concerning is that he developed these CVAs while on therapeutic lovenox 1mg/kg BID. Appreciate neurology consultation. Unfortunately options moving forward are very limited. He is at high risk of hemorrhagic transformation given his severe thrombocytopenia. CT head yesterday fortunately did not show ICH/hemorrhagic transformation. Although edema is present it is not severe (no midline shift, etc). Continue heparin infusion. Oral options moving forward for anticoagulation are limited as he failed coumadin therapy in the past by report but that may be only option. He is not a DOAC candidate. Plan - * continue heparin infusion * continue plavix * continue statin * PT, OT, speech evals appreciated * inpatient rehab has been advised Consider starting coumadin tomorrow. Prognosis is very poor in light of prior poor functional status even before this event, failure to thrive, and his advanced cancer. Continue telemetry. He is at high risk of developing significant cerebral edema given the size of the stroke. This usually peaks day 4/day 5. Neuro checks per usual. (2) Back pain: Plan: CTA chest did not show obvious spinal bony mets Acute PEs ruled out Try norco 7.5's prn Try lidoderm patches K-pad heat (3) Encephalopathy acute: Plan: Improved/resolved. 2nd CVA. Ammonia checked - wnl. VBG without hypercarbia. CT head yesterday stable. (4) Superficial venous thrombosis of arm: Plan: left arm basilic vein thrombus. elevate the arm on pillows. heat packs as needed/desired. the current us-guided IV is not located in the basilic vein thus the IV can remain in place. (5) Pancytopenia due to antineoplastic chemotherapy: Plan: severe. s/p Tx 2 units of PRBCs. CBC post-transfusion acceptable. given the employment of heparin drip in the setting of severely low platelets watch for bleeding and continue daily CBC. (6) Hypomagnesemia: Plan: replete with IV mag again. repeat mag level am. (7) Elevated troponin: Plan: Peak hsTroponin 64.9 Likely myocardial demand ischemia in setting of his CVA. No Rx needed. 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 Patient follows with [facility] in [place] - has been doing chemotherapy (Cisplatin/Xeloda/Pebmrolizumab) since 01/2022. Follows with Dr Bishop locally. Appreciate Dr Bishop speaking with him & his yesterday. Very poor prognosis. His functional status was very poor even before this large CVA occurred. DNR/DNI. (9) Antiphospholipid antibody syndrome: Plan: With history of LE DVTs, right UE DVT, and saddle PE. See #1 above re: d/c of lovenox and changing to IV heparin. By report he had developed clots even on coumadin in the past but that may be our only option moving forward from oral standpoint. (10) Bilateral pulmonary embolism: Plan: History of. CTA chest this admission without any centrally located PEs. (11) Diabetes: Plan: A1c 7.2 in 03/2022. Cont lantus 10 units BID. Novolog SSI. (12) Asthma: Plan: PRN Albuterol nebs for SOB/wheezing. (13) Hypertension: Plan: stable. (14) GERD (gastroesophageal reflux disease): Plan: cont home dexilant (15) Depression with anxiety: Plan: Cont zoloft. Ativan prn. (16) Severe protein-calorie malnutrition: Plan: 30kg weight loss since early 2021. 2nd to advanced esophageal cancer with mets. (17) Hypokalemia: Plan: replaced resolved (18) Chronic use of steroids: Plan: prednisone 10mg daily at home remains on IV dexamethasone 4mg IV daily for stress dose purposes change to PO dex 2mg daily tomorrow AM Plan extensively updated at bedside today we discussed home vs rehab as options at d/c Admission and Anticipated Discharge Date Admission Date: May 01, 2022 Subjective no events overnight tele NSR patient's right upper back/scapular pain improved with lidoderm patches and occasional morphine use left arm weakness slightly better today with various questions about his care - anticoagulation, disposition after discharge, etc patient states he wants to continue treating his cancer doesn't want to go to rehab Review of Systems Review of Systems: gen - weak, fatigue; eating well cv - no cp pulm - no dyspnea GI - no pain; having ongoing constipation musculo - right upper back pain but improved today; right frontal headache continues Physical Exam Physical Exam: gen - no acute distress, expressive aphasia modestly improved again, no receptive aphasia eyes - gaze preference resolved neck - no JVD mouth - MMM heart - RRR, s1 s2, no murmur lungs - CTA b/l abd - soft NT ND BS+ ext - no leg edema, pulses 2+ b/l neuro - left sided lower facial droop; strength left hand close to 3/5 today; left shoulder extension/abduction close to 3/5 today as well; left leg 4/5; RUE/RLE 5/5 strength; expressive aphasia but improved Results & Data Results & Data ([facility]) Vital Signs (Past 12 Hours) Vital Signs Temp Pulse Pulse Resp BP Pulse Ox O2 Del Method 05/05/22 07:06 36.6 C 101 H 18 124/82 96 CPAP 05/05/22 02:51 36.6 C 90 18 121/78 99 05/04/22 22:59 87 05/04/22 22:41 36.6 C 98 H 18 116/79 97 Room Air Laboratory Results Laboratory Results - last 24 hr 05/01/22 05/04/22 05/04/22 18:06 11:20 16:14 POC Glucose 215 H 221 H Crossmatch See Detail 05/04/22 20:07 POC Glucose 184 H Crossmatch BMP wnl mag low 1.4 PG Care Time/CCT Total # of Minutes Spent Total Time Spent with Patient: Total time spent is greater than 50% in coordination of care (as documented) at patient's floor/unit and/or counseling patient: Coding Level of Care Code 32212 Subseq Hosp Care Lvl 3 Diagnoses Acute CVA (cerebrovascular accident) I63.9 Back pain M54.9 Encephalopathy acute G93.40 Superficial venous thrombosis of arm I82.619 Pancytopenia due to antineoplastic chemotherapy D61.810; T45.1X5A Hypomagnesemia E83.42 Elevated troponin R77.8 Metastasis from esophageal cancer C79.9; C15.9 Antiphospholipid antibody syndrome D68.61 Bilateral pulmonary embolism I26.99 Diabetes E11.9 Asthma J45.909 Hypertension I10 Hypertension type: essential hypertension GERD (gastroesophageal reflux disease) K21.9 Depression with anxiety F41.8 Severe protein-calorie malnutrition E43 Hypokalemia E87.6 Chronic use of steroids (1) Hypertension Hypertension type: essential hypertension Qualified Code(s): I10 - Essential (primary) hypertension
[2022-05-05 08:49] LABS: Hematocrit (blood only) 28.5 % (40.1-51.0); Hemoglobin 9.9 g/dl (14.0-18.0); Mean Corpuscular Hemoglobin 31.8 pg (25.0-34.0); Mean Corpuscular Hgb Conc 34.7 g/dL (32.0-36.0); Mean Corpuscular Volume 91.6 fL (80.0-100.0); Mean Platelet Volume 11.1 fL (9.4-12.4); Platelet Count 68 K/uL (130-400); RDW Coefficient of Variation 18.6 % (11.5-14.5); RDW Standard Deviation 54.5 fL (36.4-46.3); Red Blood Count 3.11 M/uL (4.63-6.08); White Blood Count 3.46 K/ul (4.8-10.8)
[2022-05-05 09:07] LABS: Calcium 8.1 mg/dl (8.5-10.1); Creatinine Clr Calc Pharmacy 97.3 ml/min; Est GFR (African American) 79.7 ml/min; Est GFR (Non-African American) 68.8 ml/min; Magnesium 1.4 mg/dl (1.7-2.4)
[2022-05-05 09:17] LABS: Partial Thromboplastin Ratio 2.1
[2022-05-05 09:18] LABS: Partial Thromboplastin Time 56.9 Seconds (21.0-31.0)
[2022-05-05] MEDS: LANTUS PER UNIT CHARGE SQ SCH ×2 (09:32→21:49)
[2022-05-05] MEDS: BACLOFEN 10 MG TAB PO PRN ×2 (09:33→17:44)
[2022-05-05] MEDS: INSULIN ASPART PER UNIT SC SCH ×4 (09:33→21:49)
[2022-05-05] MEDS: SERTRALINE HCL 50 MG TABLET PO SCH (09:34)
[2022-05-05] MEDS: dexAMETHasone 1 MG TAB PO SCH (09:36)
[2022-05-05] MEDS: LIDOCAINE 5% 1 PATCH TD SCH (09:37)
[2022-05-05] MEDS: FLUTICASONE/VILANTEROL 200/25MCG 14 PUFFS/INHALER INH SCH (09:38)
[2022-05-05] MEDS: FIRST - Mouthwash BLM 119 ML PO SCH ×4 (09:38→20:09)
[2022-05-05] MEDS: CLOPIDOGREL BISULFATE 75 MG TAB PO SCH (09:40)
[2022-05-05] MEDS: FAMOTIDINE 20 MG TAB PO SCH ×2 (09:40→20:08)
[2022-05-05] MEDS: DEXLANSOPRAZOLE PO SCH (09:40)
[2022-05-05] MEDS: MAGNESIUM SULFATE / D5W 1 GM/100 ML BAG IV SCH ×3 (11:00→15:01)
[2022-05-05] MEDS ORDERED: ONDANSETRON INJ 2 MG/ML 2 ML VIAL IV PRN (17:16)
[2022-05-05] MEDS ORDERED: PROMETHAZINE HCL 25 MG in SODIUM CHLORIDE 0.9% 50 ML IV PRN (17:16)
[2022-05-05] MEDS ORDERED: OLANZapine ZYDIS 5 MG ORALLY DIS. TAB PO STA (17:26)
[2022-05-05] MEDS ORDERED: SODIUM CHLORIDE 0.9% 500 ML IV SCH (17:30)
[2022-05-05] MEDS: DOCUSATE SODIUM/SENNA 50/8.6MG TAB PO SCH (20:07)
[2022-05-05] MEDS: ATORVASTATIN 40 MG TAB PO SCH (20:07)
--- NOTE | 2022-05-05 20:55 | Hospitalist Progress Note ---
Date of Service May 05, 2022 Assessment & Plan (1) Acute CVA (cerebrovascular accident): Plan: R frontal lobe - large. Punctate L cerebellum. B/l nature of his CVAs in 2 different distributions highly suggestive of embolic CVA. Further, his CTAs of the head/neck are negative. recent echo without thrombus. 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 Most concerning is that he developed these CVAs while on therapeutic lovenox 1mg/kg BID. Appreciate neurology consultation. Unfortunately options moving forward are very limited. He is at high risk of hemorrhagic transformation given his severe thrombocytopenia. CT head on Friday fortunately did not show ICH/hemorrhagic transformation. Although edema is present it is not severe (no midline shift, etc). Continue heparin infusion. Oral options moving forward for anticoagulation are limited as he failed coumadin therapy in the past by report but that may be only option. He is not a DOAC candidate. Plan - * continue heparin infusion for now * continue plavix - stop at d/c if hospice is pursued * continue statin - stop at d/c if hospice is pursued * PT, OT, speech evals appreciated Prognosis is very poor in light of prior poor functional status even before this event, failure to thrive, and his advanced cancer. We spent nearly all of today's visit discussing home with hospice. This is the likely plan at discharge. Uncertain if hospice would allow therapeutic lovenox - will need to check into that. (2) Back pain: Plan: CTA chest did not show obvious spinal bony mets Acute PEs ruled out Cont norco 7.5's prn Cont lidoderm patches K-pad heat Morphine prn (3) Encephalopathy acute: Plan: Resolved. 2nd CVA. Ammonia checked - wnl. VBG without hypercarbia. CT head 2 days ago stable and without ICH. (4) Superficial venous thrombosis of arm: Plan: left arm basilic vein thrombus. elevate the arm on pillows. heat packs as needed/desired. the current us-guided IV is not located in the basilic vein thus the IV can remain in place. no Rx needed (5) Pancytopenia due to antineoplastic chemotherapy: Plan: ongoing but counts acceptable today. s/p Tx 2 units of PRBCs earlier this stay. (6) Hypomagnesemia: Plan: replete again with IV mag again. (7) Elevated troponin: Plan: Peak hsTroponin 64.9 Likely myocardial demand ischemia in setting of his CVA. No Rx needed. 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 Patient follows with [facility] in [place] - has been doing chemotherapy (Cisplatin/Xeloda/Pebmrolizumab) since 01/2022. Follows with Dr Bishop locally. Appreciate Dr Bishop speaking with him & his a few days ago. Likely transitioning to hospice. His functional status was very poor even before this large CVA occurred. DNR/DNI. (9) Antiphospholipid antibody syndrome: Plan: With history of LE DVTs, right UE DVT, and saddle PE. And now acute CVA. (10) Bilateral pulmonary embolism: Plan: History of. CTA chest this admission without any centrally located PEs. (11) Diabetes: Plan: A1c 7.2 in 03/2022. Cont lantus 10 units BID. Novolog SSI. (12) Asthma: Plan: PRN Albuterol nebs for SOB/wheezing. (13) Hypertension: Plan: stable. (14) GERD (gastroesophageal reflux disease): Plan: cont home dexilant (15) Depression with anxiety: Plan: Cont zoloft. Ativan prn. (16) Severe protein-calorie malnutrition: Plan: 30kg weight loss since early 2021. 2nd to advanced esophageal cancer with mets. (17) Hypokalemia: Plan: replaced resolved (18) Chronic use of steroids: Plan: prednisone 10mg daily at home remains on dexamethasone even if going on hospice will continue 2mg daily at home for appetite, bone pain control, etc Plan total visit time today about 70 minutes with greater than 50% of which was spent counseling & discussing hospice with patient/ care d/w social work Admission and Anticipated Discharge Date Admission Date: May 01, 2022 Subjective before I arrived for a bedside visit I had been notified that the pt's stated she wanted to pursue hospice and wanted to take him home today with such social work was notified of this I came to bedside, and his wanted to speak with me in private we sat down for about 15min - she and her family all realize that he "is not going to get better" patient himself does NOT want to go to rehab he has stated he wants to continue chemo, but feels he wouldn't be able to continue doing this in current physical health the two of us went back to room and we sat down with Mr Mcdonough he confirmed again he did not want inpatient rehab - simply wants to go home we spent the next 20 min discussing hospice he did not verbalize his thoughts much, but at least once he shook his head yes to going home with hospice we did discuss his anticoagulation - wants to continue the lovenox for fear of him being off "everything" (all anticoagulation, thus running the risk of DVT/PE etc) hopeful they can get him home tomorrow they already have a space set up where a hospital bed can be placed patient continues with pain over back at times - relieved with pain meds no new complaints Review of Systems Review of Systems: gen - no fevers, fatigued/weak cv - no cp pulm - no dyspnea GI - no abd pain Physical Exam Physical Exam: gen - no acute distress, expressive aphasia unchanged, no receptive aphasia; flat affect eyes - gaze preference resolved neck - no JVD mouth - MMM heart - RRR, s1 s2, no murmur lungs - CTA b/l; decreased BS bases abd - soft NT ND BS+ ext - no leg edema, pulses 2+ b/l; developing some dependent edema left arm neuro - left sided lower facial droop; strength left hand 3/5 or slight more today; left shoulder extension/abduction 3/5 today as well; left leg 4/5; RUE/RLE 5/5 strength; expressive aphasia Results & Data Results & Data ([facility]) Vital Signs (Past 12 Hours) Vital Signs Temp Pulse Resp BP Pulse Ox O2 Del Method 05/05/22 19:00 37.2 C 101 H 18 113/77 96 Room Air Laboratory Results Laboratory Results - last 24 hr 05/05/22 05/05/22 05/05/22 07:05 08:37 08:37 WBC 3.46 L RBC 3.11 L Hgb 9.9 L Hct 28.5 L MCV 91.6 MCH 31.8 MCHC 34.7 RDW Std Deviation 54.5 H RDW Coeff of Andie 18.6 H Plt Count 68 L MPV 11.1 APTT PTT Ratio Sodium 132 L Potassium 4.0 Chloride 97 L Carbon Dioxide 23 Anion Gap 12 H BUN 26 H Creatinine 1.24 Est Cr Clr Drug Dosing 97.3 Est GFR ( Amer) 79.7 Est GFR (Non-Af Amer) 68.8 BUN/Creatinine Ratio 21.0 H Glucose 153 H POC Glucose 145 H Calcium 8.1 L Magnesium 1.4 L 05/05/22 05/05/22 05/05/22 08:37 11:17 16:20 WBC RBC Hgb Hct MCV MCH MCHC RDW Std Deviation RDW Coeff of Andie Plt Count MPV APTT 56.9 H* PTT Ratio 2.1 Sodium Potassium Chloride Carbon Dioxide Anion Gap BUN Creatinine Est Cr Clr Drug Dosing Est GFR ( Amer) Est GFR (Non-Af Amer) BUN/Creatinine Ratio Glucose POC Glucose 186 H 184 H Calcium Magnesium 05/05/22 20:34 WBC RBC Hgb Hct MCV MCH MCHC RDW Std Deviation RDW Coeff of Andie Plt Count MPV APTT PTT Ratio Sodium Potassium Chloride Carbon Dioxide Anion Gap BUN Creatinine Est Cr Clr Drug Dosing Est GFR ( Amer) Est GFR (Non-Af Amer) BUN/Creatinine Ratio Glucose POC Glucose 212 H Calcium Magnesium PG Care Time/CCT Total # of Minutes Spent Total Time Spent with Patient: Total time spent is greater than 50% in coordination of care (as documented) at patient's floor/unit and/or counseling patient: Prolonged Care Time Prolonged Care Time: Yes Total Prolonged Care Time: 70 Coding Level of Care Code 85349 Subseq Hosp Care Lvl 3 (25 - SIGNIFICANT, SEPARATELY IDENTIFIABLE ) Diagnoses Acute CVA (cerebrovascular accident) I63.9 Back pain M54.9 Encephalopathy acute G93.40 Superficial venous thrombosis of arm I82.619 Pancytopenia due to antineoplastic chemotherapy D61.810; T45.1X5A Hypomagnesemia E83.42 Elevated troponin R77.8 Metastasis from esophageal cancer C79.9; C15.9 Antiphospholipid antibody syndrome D68.61 Bilateral pulmonary embolism I26.99 Diabetes E11.9 Asthma J45.909 Hypertension I10 Hypertension type: essential hypertension GERD (gastroesophageal reflux disease) K21.9 Depression with anxiety F41.8 Severe protein-calorie malnutrition E43 Hypokalemia E87.6 Chronic use of steroids Additional Codes Prolonged Care Time - Prolonged Care Time: Yes ([id number]) Time Spent (min) 70 (1) Hypertension Hypertension type: essential hypertension Qualified Code(s): I10 - Essential (primary) hypertension
[2022-05-06] MEDS: MoRPHine SULFATE 2 MG/ML CARP IV PRN ×4 (01:46→18:50)
[2022-05-06 08:02] LABS: Partial Thromboplastin Ratio 2.7
[2022-05-06 08:26] LABS: Partial Thromboplastin Time 73.8 Seconds (21.0-31.0)
[2022-05-06] MEDS: LANTUS PER UNIT CHARGE SQ SCH ×2 (08:39→21:00)
[2022-05-06] MEDS: INSULIN ASPART PER UNIT SC SCH ×4 (08:40→21:00)
[2022-05-06] MEDS: dexAMETHasone 1 MG TAB PO SCH (08:42)
[2022-05-06] MEDS: FAMOTIDINE 20 MG TAB PO SCH ×2 (08:42→21:14)
[2022-05-06] MEDS: CLOPIDOGREL BISULFATE 75 MG TAB PO SCH (08:42)
[2022-05-06] MEDS: FLUTICASONE/VILANTEROL 200/25MCG 14 PUFFS/INHALER INH SCH (08:43)
[2022-05-06] MEDS: SERTRALINE HCL 50 MG TABLET PO SCH (08:43)
[2022-05-06] MEDS: LIDOCAINE 5% 1 PATCH TD SCH (08:44)
[2022-05-06] MEDS: DEXLANSOPRAZOLE PO SCH (08:45)
[2022-05-06] MEDS: FIRST - Mouthwash BLM 119 ML PO SCH ×4 (08:59→21:15)
[2022-05-06] MEDS: HEPARIN SODIUM/DEXTROSE 25,000 UNITS/500 ML BAG IV SCH ×2 (08:59→20:59)
[2022-05-06] MEDS: ALBUTEROL 0.083% NEBU SOLN 3 ML VIAL NEB PRN (09:22)
[2022-05-06] MEDS ORDERED: OLANZapine ZYDIS 5 MG ORALLY DIS. TAB PO STA (09:24)
[2022-05-06] MEDS: LORazepam 1 MG TAB PO PRN (11:02)
--- NOTE | 2022-05-06 12:37 | Hospitalist Progress Note ---
Date of Service May 06, 2022 Assessment & Plan (1) Acute CVA (cerebrovascular accident): Plan: R frontal lobe - large. Punctate L cerebellum. B/l nature of his CVAs in 2 different distributions highly suggestive of embolic CVA. Further, his CTAs of the head/neck are negative. recent echo without thrombus. 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 Most concerning is that he developed these CVAs while on therapeutic lovenox 1mg/kg BID. Appreciate neurology consultation. Unfortunately options moving forward are very limited. He is at high risk of hemorrhagic transformation given his severe thrombocytopenia. CT head on Friday fortunately did not show ICH/hemorrhagic transformation. Although edema is present it is not severe (no midline shift, etc). Continue heparin infusion. Oral options moving forward for anticoagulation are limited as he failed coumadin therapy in the past by report but that may be only option. He is not a DOAC candidate. Plan - * continue heparin infusion for now * continue plavix * continue statin * PT, OT, speech evals appreciated Prognosis is very poor in light of prior poor functional status even before this stroke event, failure to thrive, and his advanced cancer. Again spent nearly all of today's visit discussing discharge options - home with hospice vs home with routine care/PT/OT vs rehab with intent to get stronger so he can pursue cancer Rx down the line. As of today they are now NOT wanting hospice. Ms Hardwick from [facility] aware of above discussions. Discussed care with Dr Cruz from palliative care who will consult. (2) Back pain: Plan: CTA chest did not show obvious spinal bony mets Acute PEs ruled out Cont norco 7.5's prn Cont lidoderm patches Morphine prn (3) Encephalopathy acute: Plan: Resolved. 2nd CVA. Ammonia checked - wnl. VBG without hypercarbia. Most recent CT head stable and without ICH. (4) Superficial venous thrombosis of arm: Plan: left arm basilic vein thrombus. elevate the arm on pillows. heat packs as needed/desired. the current us-guided IV is not located in the basilic vein thus the IV can remain in place. no Rx needed (5) Pancytopenia due to antineoplastic chemotherapy: Plan: ongoing but counts acceptable again today. s/p Tx 2 units of PRBCs earlier this stay. (6) Hypomagnesemia: Plan: replete again with IV mag today. repeat level am. consider amiloride for refractory hypomag. typically receives IV mag twice weekly at [facility]. (7) Elevated troponin: Plan: Likely myocardial demand ischemia in setting of his CVA. Had chest pain today but I do not think this is ischemic - suspect GI. No Rx needed. 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 Patient follows with [facility] in [place] - has been doing chemotherapy (Cisplatin/Xeloda/Pebmrolizumab) since 01/2022. Follows with Dr Bishop locally. Appreciate Dr Bishop speaking with him & his a few days ago. Appreciate MS Ronen speaking w/ . Palliative care consult requested to help with ongoing goals of care discussions. His functional status was very poor even before this large CVA occurred. DNR/DNI. Poor candidate for inpatient rehab - hospice truly would be best option. (9) Antiphospholipid antibody syndrome: Plan: With history of LE DVTs, right UE DVT, and saddle PE. And now acute CVA. (10) Bilateral pulmonary embolism: Plan: History of. CTA chest this admission without any centrally located PEs. (11) Diabetes: Plan: A1c 7.2 in 03/2022. Cont lantus but increase to 15 units BID. Novolog SSI. (12) Asthma: Plan: PRN Albuterol nebs for SOB/wheezing. (13) Hypertension: Plan: stable. (14) GERD (gastroesophageal reflux disease): Plan: cont home dexilant he has episodes of dry heaves - often after eating, sometimes randomly NUMEROUS meds tried by report - various PPIs, anti-emetics (various), H2 nickie, olanzapine, ativan, etc. suspect he has esophageal spasm leading to pain/refluxing/dry heaves as a result of his actual esophageal cancer and now he has element of dysphagia from stroke try combination of ativan 0.5mg AC and short-acting diltiazem 30mg AC to help with dry heaving episodes re-eval tomorrow continues on marinol BID (15) Depression with anxiety: Plan: Cont zoloft. (16) Severe protein-calorie malnutrition: Plan: 30kg weight loss since early 2021. 2nd to advanced esophageal cancer with mets. 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 start NaCL 1gm BID fluid restrict 1500cc/day check serum osm am bmp am Plan total care time today with complex care coordination 65 minutes Admission and Anticipated Discharge Date Admission Date: May 01, 2022 Subjective received notification from nursing and social work early this am that patient & his had changed their minds about going home with hospice they decided to not do so - now wanting to pursue rehab also was notified that he had had chest pain following breakfast this am by the time I arrived the chest pain was resolved he continues with episodes of "dry heaves" - mainly following meals, but also gets it at other times they have tried H2 nickie, PPI, various anti-emetics, etc for the dry heaves - nothing really has helped olanzapine has helped this in the past continues with headache continues with back pain he did sit at side of bed this am during the visit we talked for about 30 minutes about goals of care, disposition, etc he doesn't verbalize his desires/thoughts, but shakes his head "yes" consistently when asked about continuing chemotherapy down the line agreeable to consult with Dr Cruz from palliative care Review of Systems Review of Systems: gen - weak, fatigue cv - no orthopnea pulm - no dyspnea; no pleuritic pain GI - no abd pain; episodes of dry heaves Physical Exam Physical Exam: gen - no acute distress, expressive aphasia unchanged, no receptive aphasia; flat affect eyes - gaze preference resolved neck - no JVD mouth - MMM heart - RRR, s1 s2, no murmur lungs - CTA b/l; decreased BS bases chest - no reproducible chest wall tenderness abd - soft NT ND BS+ ext - no leg edema, pulses 2+ b/l; mild dependent edema left arm neuro - left sided lower facial droop; strength left hand 3/5 or slight more today; left shoulder extension/abduction 3/5 today as well; left leg 4/5; RUE/RLE 5/5 strength; expressive aphasia Results & Data Results & Data ([facility]) Vital Signs (Past 12 Hours) Vital Signs Temp Pulse Resp BP Pulse Ox O2 Del Method 05/06/22 11:29 36.2 C L 107 H 18 115/79 94 Room Air 05/06/22 09:22 119 H 20 90 Room Air 05/06/22 07:45 36.5 C 91 H 16 114/78 97 BiPAP 05/06/22 03:48 36.5 C 96 H 18 126/87 98 CPAP Laboratory Results Laboratory Results - last 24 hr 05/05/22 05/05/22 05/06/22 16:20 20:34 07:10 APTT 73.8 H* PTT Ratio 2.7 POC Glucose 184 H 212 H 05/06/22 05/06/22 07:45 11:34 APTT PTT Ratio POC Glucose 160 H 196 H Diagnostic Findings Laboratory Results - last 24 hr 05/06/22 05/06/22 05/06/22 07:10 07:45 11:34 WBC RBC Hgb Hct MCV MCH MCHC RDW Std Deviation RDW Coeff of Andie Plt Count MPV PT INR APTT 73.8 H* PTT Ratio 2.7 Sodium Potassium Chloride Carbon Dioxide Anion Gap BUN Creatinine Est Cr Clr Drug Dosing Est GFR ( Amer) Est GFR (Non-Af Amer) BUN/Creatinine Ratio Glucose POC Glucose 160 H 196 H Calcium Magnesium Total Bilirubin AST ALT Alkaline Phosphatase Troponin I High Sens Total Protein Albumin Globulin Albumin/Globulin Ratio Urine Osmolality Ur Random Sodium 05/06/22 05/06/22 05/06/22 12:43 12:43 12:43 WBC 3.28 L RBC 2.98 L Hgb 9.5 L Hct 27.9 L MCV 93.6 MCH 31.9 MCHC 34.1 RDW Std Deviation 56.8 H RDW Coeff of Andie 19.0 H Plt Count 63 L MPV 9.6 PT 14.7 H INR 1.4 H APTT PTT Ratio Sodium 131 L Potassium 3.8 Chloride 97 L Carbon Dioxide 25 Anion Gap 9 BUN 25 H Creatinine 1.15 Est Cr Clr Drug Dosing 97.0 Est GFR ( Amer) 87.3 Est GFR (Non-Af Amer) 75.4 BUN/Creatinine Ratio 21.7 H Glucose 188 H POC Glucose Calcium 8.1 L Magnesium 1.3 L Total Bilirubin 1.8 H AST 34 ALT 32 Alkaline Phosphatase 97 Troponin I High Sens 72.7 H* D Total Protein 5.0 L Albumin 3.0 L Globulin 2.0 L Albumin/Globulin Ratio 1.5 Urine Osmolality Ur Random Sodium 05/06/22 05/06/22 05/06/22 15:11 16:26 17:30 WBC RBC Hgb Hct MCV MCH MCHC RDW Std Deviation RDW Coeff of Andie Plt Count MPV PT INR APTT 49.3 H* PTT Ratio 1.8 Sodium Potassium Chloride Carbon Dioxide Anion Gap BUN Creatinine Est Cr Clr Drug Dosing Est GFR ( Amer) Est GFR (Non-Af Amer) BUN/Creatinine Ratio Glucose POC Glucose 211 H Calcium Magnesium Total Bilirubin AST ALT Alkaline Phosphatase Troponin I High Sens Total Protein Albumin Globulin Albumin/Globulin Ratio Urine Osmolality 528 Ur Random Sodium 05/06/22 05/06/22 17:30 20:11 WBC RBC Hgb Hct MCV MCH MCHC RDW Std Deviation RDW Coeff of Andie Plt Count MPV PT INR APTT PTT Ratio Sodium Potassium Chloride Carbon Dioxide Anion Gap BUN Creatinine Est Cr Clr Drug Dosing Est GFR ( Amer) Est GFR (Non-Af Amer) BUN/Creatinine Ratio Glucose POC Glucose 225 H Calcium Magnesium Total Bilirubin AST ALT Alkaline Phosphatase Troponin I High Sens Total Protein Albumin Globulin Albumin/Globulin Ratio Urine Osmolality Ur Random Sodium 81 PG Care Time/CCT Total # of Minutes Spent Total Time Spent with Patient: Total time spent is greater than 50% in coordination of care (as documented) at patient's floor/unit and/or counseling patient: Prolonged Care Time Prolonged Care Time: Yes Total Prolonged Care Time: 65 Coding Level of Care Code 63355 Subseq Hosp Care Lvl 3 (25 - SIGNIFICANT, SEPARATELY IDENTIFIABLE ) Diagnoses Acute CVA (cerebrovascular accident) I63.9 Back pain M54.9 Encephalopathy acute G93.40 Superficial venous thrombosis of arm I82.619 Pancytopenia due to antineoplastic chemotherapy D61.810; T45.1X5A Hypomagnesemia E83.42 Elevated troponin R77.8 Metastasis from esophageal cancer C79.9; C15.9 Antiphospholipid antibody syndrome D68.61 Bilateral pulmonary embolism I26.99 Diabetes E11.9 Asthma J45.909 Hypertension I10 Hypertension type: essential hypertension GERD (gastroesophageal reflux disease) K21.9 Depression with anxiety F41.8 Severe protein-calorie malnutrition E43 Hypokalemia E87.6 Chronic use of steroids Hyponatremia E87.1 Additional Codes Prolonged Care Time - Prolonged Care Time: Yes ([id number]) Time Spent (min) 65 (1) Hypertension Hypertension type: essential hypertension Qualified Code(s): I10 - Essential (primary) hypertension
[2022-05-06 13:15] LABS: Hematocrit (blood only) 27.9 % (40.1-51.0); Hemoglobin 9.5 g/dl (14.0-18.0); Mean Corpuscular Hemoglobin 31.9 pg (25.0-34.0); Mean Corpuscular Hgb Conc 34.1 g/dL (32.0-36.0); Mean Corpuscular Volume 93.6 fL (80.0-100.0); Mean Platelet Volume 9.6 fL (9.4-12.4); Platelet Count 63 K/uL (130-400); RDW Standard Deviation 56.8 fL (36.4-46.3); Red Blood Count 2.98 M/uL (4.63-6.08); White Blood Count 3.28 K/ul (4.8-10.8)
[2022-05-06 13:21] LABS: INR 1.4 (0.9-1.1); Prothrombin Time 14.7 Seconds (9.0-12.0)
[2022-05-06 13:45] LABS: Troponin I High Sensitivity 72.7 pg/ml (0-20)
[2022-05-06 13:52] LABS: Albumin Globulin Ratio 1.5 (0.9-2); BUN Creatinine Ratio 21.7 (10-20); Bilirubin,Total 1.8 mg/dl (0.2-1.0); Calcium 8.1 mg/dl (8.5-10.1); Est GFR (African American) 87.3 ml/min; Est GFR (Non-African American) 75.4 ml/min; Magnesium 1.3 mg/dl (1.7-2.4); Potassium 3.8 mmol/L (3.5-5.1)
[2022-05-06] MEDS: BACLOFEN 10 MG TAB PO PRN (14:52)
[2022-05-06 16:01] LABS: Partial Thromboplastin Ratio 1.8
[2022-05-06 16:06] LABS: Partial Thromboplastin Time 49.3 Seconds (21.0-31.0)
[2022-05-06] MEDS: MAGNESIUM SULFATE / D5W 1 GM/100 ML BAG IV SCH ×3 (16:06→20:09)
[2022-05-06] MEDS: ACETAMINOPHEN 500 MG TAB PO PRN (16:07)
[2022-05-06] MEDS: LORazepam 0.5 MG TAB PO SCH (16:08)
[2022-05-06] MEDS: dilTIAZem HCL 30 MG TAB PO SCH (16:08)
[2022-05-06] MEDS: SODIUM CHLORIDE 1 GM TABLET PO SCH (21:14)
[2022-05-06] MEDS: ATORVASTATIN 40 MG TAB PO SCH (21:14)
[2022-05-06] MEDS: DOCUSATE SODIUM/SENNA 50/8.6MG TAB PO SCH (21:14)
[2022-05-07 06:58] LABS: Partial Thromboplastin Time 54.7 Seconds (21.0-31.0)
[2022-05-07] MEDS: LORazepam 0.5 MG TAB PO SCH ×3 (07:57→17:04)
[2022-05-07] MEDS: dexAMETHasone 1 MG TAB PO SCH (07:58)
[2022-05-07] MEDS: FAMOTIDINE 20 MG TAB PO SCH ×2 (07:58→20:46)
[2022-05-07] MEDS: SERTRALINE HCL 50 MG TABLET PO SCH (07:58)
[2022-05-07] MEDS: dilTIAZem HCL 30 MG TAB PO SCH ×3 (07:59→17:02)
[2022-05-07] MEDS: DEXLANSOPRAZOLE PO SCH (07:59)
[2022-05-07] MEDS: CLOPIDOGREL BISULFATE 75 MG TAB PO SCH (07:59)
[2022-05-07] MEDS: FLUTICASONE/VILANTEROL 200/25MCG 14 PUFFS/INHALER INH SCH (08:00)
[2022-05-07] MEDS: LIDOCAINE 5% 1 PATCH TD SCH (08:01)
[2022-05-07] MEDS: SODIUM CHLORIDE 1 GM TABLET PO SCH ×2 (08:01→20:45)
[2022-05-07] MEDS: FIRST - Mouthwash BLM 119 ML PO SCH ×5 (08:02→20:47)
[2022-05-07] MEDS: INSULIN ASPART PER UNIT SC SCH ×4 (08:19→21:09)
[2022-05-07] MEDS: LANTUS PER UNIT CHARGE SQ SCH ×2 (08:20→21:09)
[2022-05-07] MEDS: HEPARIN SODIUM/DEXTROSE 25,000 UNITS/500 ML BAG IV SCH (08:25)
--- NOTE | 2022-05-07 09:08 | Palliative Care Consultation ---
Date of Consultation May 07, 2022 Assessment & Plan (1) Headache: Would likely benefit from routine tylenol for the next day or two. Will decrease dose to 650mg with hepatic mets, though labs have been within normal range. (2) Constipation: On senna S daily as at home. Monitor with increased opioid use. (3) Palliative care encounter: I talked with Kalen and his about goals of care. They both feel that as long as Kalen has "quality of life", they want to pursue treatment. His very much wants him to make decisions though he tends to withdraw from conversation at times and needs encouragement to participate. I asked him what quality of life meant to him. 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 His notes that prior to the CVA, he was able to do this. Their hope is that with physical therapy, he would be able to do that again. We discussed importance of rehab for therapy as PT at home would not likely be intense enough to accomplish his goals. We also discussed the importance of his functional status to be able to tolerate cancer treatment. They are pleased that he is eating better and hopeful that this, in addition to rehab, will help him accomplish his goals. They are not interested in hospice at this time but would consider that when they feel that he no longer has good quality of life. History of Present Illness Reason for Consultation: goals of care Requesting Physician: Dr. Cabrales Attending Physician: Cee Clemons MD History of Present Illness 46 yo gentleman with Stage IV esophageal cancer metastatic to the liver. He is followed at [facility] and by [facility]. He has been receiving cisplatin, xeloda and pembrolizimab treatment with associated pancytopenia. He unfortunately also has a history of antiphosphlipid antibody syndrome with previous bilateral LE DVTs, right UE DVT, saddle PE and previous left frontal infarct. Apparently he had failed warfarin as an outpatient and had been on lovenox prior to admission. He presented with left facial droop, aphasia, dysphagia and left sided weakness and was found to have a large ischemic CVA in the right frontal lobe as well as a punctate left cerebellar infarct. He has been uncertain about how to proceed with his care, considering hospice and then deciding against hospice. We have been consulted to assist with goals of care. He is somnolent but arousable and his is at bedside. He complains of constant, dull ache across his forehead which he rates as 4/10. He has also had some back pain. He did have prn morphine x 3 yesterday. He had been taking routine tramadol at home prior to admission. He had poor po intake prior to admission with wretching at times. He has not had wretching here in the hospital and has been on a regimen of lorazepam and diltiazem before meals. He has been tolerating po in terms of swallowing and was able to swallow multiple pills with a sip of water during visit. Allergies Allergy/AdvReac Type Severity Reaction Status Date / Time aspirin AdvReac Intermediate GI SYMPTOMS Verified 01/31/22 14:32 Home Medications Medication Instructions Recorded Confirmed Type fexofenadine 180 mg tablet 180 mg PO QAM 07/02/18 05/01/22 History (Jana Allergy) fluticasone propionate 50 1 sprays intranasal QAM PRN 06/08/19 05/01/22 History mcg/actuation nasal Congestion spray,suspension (Flonase Allergy Relief) blood-glucose meter (Advanced #1 ea 08/22/20 04/23/22 Rx Glucose Meter) blood-glucose meter (OneTouch #1 ea 09/22/20 04/23/22 Rx Verio Flex Start) blood sugar diagnostic (OneTouch #100 ea 10/03/20 04/23/22 Rx Verio test strips) lancets 30 gauge (BD Ultra-Fine II #100 ea 07/05/21 04/23/22 Rx Lancets) nebulizer kit #1 ea 12/25/21 04/23/22 Rx metformin 500 mg tablet 500 mg PO BID 12/26/21 05/01/22 History albuterol sulfate 90 mcg/actuation 2 puff inhalation QID PRN 12/31/21 05/01/22 Rx aerosol inhaler (Ventolin HFA) Shortness Of Breath #18 grams albuterol sulfate 2.5 mg inhalation QID PRN 01/09/22 05/01/22 History Shortness Of Breath Or Wheezing hydrocortisone 2.5 % topical cream 1 applic RI DAILY PRN hemorrhoids 01/31/22 05/01/22 Rx with perineal applicator #30 grams (Proctosol HC) ondansetron HCl 8 mg tablet 8 mg PO Q8 PRN Nausea #100 tabs 01/31/22 05/01/22 Rx CPAP Supplies #1 ea 03/06/22 04/23/22 Rx lorazepam 1 mg tablet 1 mg PO QID anxiety #120 tabs 03/15/22 05/01/22 Rx dexlansoprazole 60 mg 60 mg PO QAM 03/27/22 05/01/22 History capsule,biphase delayed release mometasone-formoterol HFA 200 2 inh inhalation BID 03/27/22 05/01/22 History mcg-5 mcg/actuation aerosol inhaler (Dulera) olanzapine 5 mg tablet 5 mg PO BID 03/27/22 05/01/22 History clopidogrel 75 mg tablet 75 mg PO QAM #30 tabs 03/28/22 05/01/22 Rx calcium carbonate 600 mg calcium 600 mg PO DAILY #7 tabs 04/05/22 05/01/22 Rx (1,500 mg) tablet (Calcium) magnesium oxide 400 mg PO BID #14 caps 04/05/22 05/01/22 Rx enoxaparin 120 mg/0.8 mL 120 mg (0.8 mL) subcut Q12H #48 mL 04/06/22 05/01/22 Rx subcutaneous syringe (Lovenox) insulin glargine 100 unit/mL (3 10 unit (0.1 mL) subcut DAILY #15 04/06/22 05/01/22 Rx mL) subcutaneous pen (Lantus mL Solostar U-100 Insulin) prednisone 10 mg tablet 10 mg PO QAM #30 tabs 04/06/22 05/01/22 Rx atorvastatin 40 mg tablet 40 mg PO DAILY #90 tabs 04/22/22 05/01/22 Rx sertraline 50 mg tablet 50 mg PO DAILY #30 tabs 04/23/22 05/01/22 Rx baclofen 10 mg tablet 10 mg PO TID PRN Hiccups 05/01/22 05/01/22 History dronabinol 5 mg capsule 5 mg PO BID 05/01/22 05/01/22 History famotidine 20 mg tablet 20 mg PO BID 05/01/22 05/01/22 History sennosides 8.6 mg-docusate sodium 1 tab-cap PO HS 05/01/22 05/01/22 History 50 mg tablet (Senna-S) tramadol 50 mg tablet 50 mg PO TID PRN Pain 05/01/22 05/01/22 History Patient History Medical History Anticoagulant long-term use Asthma Well controlled with inhalers Diabetes mellitus Esophageal cancer, stage IV Presumed per CT scan per general surgery records. Reason for port placement GERD (gastroesophageal reflux disease) History of anesthesia reaction Woke up during cataract procedure and "attempted to walk off the table" and was told he should always be "put completely to sleep". 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 On Lovenox Sleep apnea CPAP Surgical History History of cataract surgery L EYE History of left knee surgery History of liver biopsy History of surgery (01/08/22) Attempted Insertion Access Port with Fluoroscopy(Left) - [facility], 01/08/2022 History of tooth extraction History of umbilical hernia repair Family History Father Family history of diabetes mellitus FHx: skin cancer Cancer FHx: bladder cancer Mother , age 50 of breast cancer FHx: kidney cancer Family history of diabetes mellitus Breast cancer Brother Family history of diabetes mellitus Family/Other Coronary heart disease Grandmother (Paternal) FHx: colon cancer Social History Smoking Status: Never smoker Tobacco Type: Smokeless Tobacco (Dip or Chew) Second Hand Exposure: No; Hx Alcohol Use: No Hx Substance Use: No Preferred Language: Romansh Communication Ability: Effective Visual Impairment: No Limitations Power Engineer Required: No Beliefs That Will Affect Care: None marital status: Current Living Situation: Spouse Current Living Situation Comment: home with current occupational status: employed current occupation: former dump truck driver off highway, 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 Feels Safe at Home: Yes during the past year weight has: remained stable Assistive Devices: None Review of Systems Review of Systems: ESAS Pain 1/3 Dyspnea 0/3 Anxiety 0/3 Nausea 0/3 Drowsiness 1/3 PPS 30% Physical Exam Constitutional: no acute distress ENMT: left facial droop Respiratory: normal respiratory effort; no labored breathing and no audible wheezes no rales or rhonchi Cardiovascular: Rate/Rhythm: regular rate and regular rhythm Gastrointestinal (Abdomen): LBM 05/05 Neurologic: left sided weakness upper and lower extremity Results & Data ([facility]) Vital Signs (Past 12 Hours) Vital Signs Temp Pulse Pulse Resp BP Pulse Ox O2 Del Method 05/07/22 07:43 98.1 F 94 H 19 111/74 94 Room Air 05/07/22 06:43 98.1 F 95 H 18 118/78 97 BiPAP 05/07/22 03:17 97.5 F L 91 H 18 120/76 96 CPAP 05/06/22 23:18 94 H 05/06/22 22:48 98.2 F 95 H 18 109/75 96 CPAP PG Care Time/CCT Total # of Minutes Spent Total Time Spent: 55 Total Time Spent with Patient: Total time spent is greater than 50% in coordination of care (as documented) at patient's floor/unit and/or counseling patient:goals of care, symptom management Coding Level of Care Code 00944 Initial Inpt Care Lvl 2 Diagnoses Headache R51.9 Constipation K59.00 Palliative care encounter Z51.5
[2022-05-07 09:11] LABS: Hematocrit (blood only) 26.5 % (40.1-51.0); Hemoglobin 8.8 g/dl (14.0-18.0); Mean Corpuscular Hemoglobin 31.7 pg (25.0-34.0); Mean Corpuscular Hgb Conc 33.2 g/dL (32.0-36.0); Mean Corpuscular Volume 95.3 fL (80.0-100.0); Mean Platelet Volume 10.4 fL (9.4-12.4); Platelet Count 66 K/uL (130-400); RDW Coefficient of Variation 19.5 % (11.5-14.5); RDW Standard Deviation 61.1 fL (36.4-46.3); Red Blood Count 2.78 M/uL (4.63-6.08); White Blood Count 3.15 K/ul (4.8-10.8)
[2022-05-07 09:22] LABS: BUN Creatinine Ratio 20.8 (10-20); Calcium 8.4 mg/dl (8.5-10.1); Creatinine Clr Calc Pharmacy 96.4 ml/min; Est GFR (Non-African American) 68.1 ml/min; Magnesium 1.8 mg/dl (1.7-2.4)
[2022-05-07] MEDS: ACETAMINOPHEN 500 MG TAB PO PRN (11:44)
--- NOTE | 2022-05-07 12:25 | Electrocardiogram Report ---
Test Reason : Blood Pressure : / mmHG Vent. Rate : 110 BPM Atrial Rate : 110 BPM P-R Int : 148 ms QRS Dur : 088 ms QT Int : 340 ms P-R-T Axes : 053 069 029 degrees QTc Int : 460 ms Sinus tachycardia Possible Old Inferior infarct (cited on or before 01-MAY-2022) Possible Old Anterolateral infarct Abnormal ECG When compared with ECG of 01-MAY-2022 18:09, No significant change Confirmed by Lucho Chandler ([id number]) on 05/07/2022 12:24:45 PM Referred By: REFERRED SELF Confirmed By:Lucho Chandler
[2022-05-07] MEDS ORDERED: ACETAMINOPHEN 325 MG TAB PO SCH (13:15)
[2022-05-07] MEDS: ENOXAPARIN INJ 120 MG/0.8 ML SYR SQ SCH (16:45)
--- NOTE | 2022-05-07 20:35 | Hospitalist Progress Note ---
Date of Service May 07, 2022 Assessment & Plan (1) Acute CVA (cerebrovascular accident): Plan: R frontal lobe - large. Punctate L cerebellum. B/l nature of his CVAs in 2 different distributions highly suggestive of embolic CVA. He also had a recent left parietal stroke approximately 1 month ago Further, his CTAs of the head/neck are negative. recent echo without thrombus. 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 Most concerning is that he developed these CVAs while on therapeutic lovenox 1mg/kg BID as well as the use of Plavix. Appreciate neurology consultation. Unfortunately options moving forward are very limited. He is at high risk of hemorrhagic transformation given his severe thrombocytopenia. CT head repeated after admission fortunately did not show ICH/hemorrhagic transformation. Although edema is present it is not severe (no midline shift, etc). He does not have excessive drowsiness and is able to participate in convers ations Okay to discontinue heparin and revert back to 1 pasha/KG twice daily of Lovenox. Discussed with oncology that this remains his best option Oral options moving forward for anticoagulation are limited as he failed coumadin therapy in the past by report but that may be only option. He is not a DOAC candidate. * continue plavix * continue statin * PT, OT, speech evals appreciated Prognosis is very poor in light of prior poor functional status even before this stroke event, failure to thrive, and his advanced cancer. Again discussed goals of care with patient and his -they are leaning towards going home with home health with the eventual transition to hospice unless he improves his performance status enough to continue with further chemotherapy Ms Hardwick and Dr. Bishop from [facility] aware of above discussions. Discussed care with Dr Cruz from palliative medicine as well (2) Back pain: Plan: CTA chest did not show obvious spinal bony mets Acute PEs ruled out Cont norco 7.5's prn Cont lidoderm patches Morphine prn (3) Encephalopathy acute: Plan: Resolved. 2nd CVA. Ammonia checked - wnl. VBG without hypercarbia. Most recent CT head stable and without ICH. (4) Superficial venous thrombosis of arm: Plan: left arm basilic vein thrombus. elevate the arm on pillows. heat packs as needed/desired. the current us-guided IV is not located in the basilic vein thus the IV can remain in place. no Rx needed (5) Pancytopenia due to antineoplastic chemotherapy: Plan: ongoing but counts improving s/p Tx 2 units of PRBCs earlier this stay. Okay to restart Lovenox but watch carefully for platelet count dropping below 50 (6) Hypomagnesemia: Plan: Persistently low historically Improved now with replacement Give 1 more gram IV magnesium today consider amiloride for refractory hypomag. typically receives IV mag [facility] weekly at [facility]. (7) Elevated troponin: Plan: Likely myocardial demand ischemia in setting of his CVA. Had chest pain here-suspect GI and is now improving with lorazepam and diltiazem for esophageal spasm. 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 Patient follows with [facility] in [place] - has been doing chemotherapy (Cisplatin/Xeloda/Pebmrolizumab) since 01/2022. Follows with Dr Bishop locally. Appreciate Dr Bishop speaking with him & his a few days ago. Appreciate MS Hardwick speaking w/ . Palliative care consult requested to help with ongoing goals of care discussi ons. His functional status was very poor even before this large CVA occurred. DNR/DNI. Poor candidate for inpatient rehab - hospice truly would be best option, but may go home with home health for now. (9) Antiphospholipid antibody syndrome: Plan: With history of LE DVTs, right UE DVT, and saddle PE. And now acute CVAs. Has failed multiple anticoagulation medications (10) Bilateral pulmonary embolism: Plan: History of. CTA chest this admission without any centrally located PEs. (11) Diabetes: Plan: A1c 7.2 in 03/2022. Cont lantus 15 units BID. Novolog SSI. (12) Asthma: Plan: PRN Albuterol nebs for SOB/wheezing. (13) Hypertension: Plan: stable. (14) GERD (gastroesophageal reflux disease): Plan: cont home dexilant he has episodes of dry heaves - often after eating, sometimes randomly NUMEROUS meds tried by report - various PPIs, anti-emetics (various), H2 nickie, olanzapine, ativan, etc. suspect he has esophageal spasm leading to pain/refluxing/dry heaves as a result of his actual esophageal cancer and now he has element of dysphagia from stroke Was started on combination of ativan 0.5mg AC and short-acting diltiazem 30mg AC to help with dry heaving episodes which has significantly improved his symptoms continues on marinol BID (15) Depression with anxiety: Plan: Cont zoloft, but consider switching to fluoxetine 20 mg daily as per neurology recommendation for poststroke treatment of depression (16) Severe protein-calorie malnutrition: Plan: 30kg weight loss since early 2021. 2nd to advanced esophageal cancer with mets. 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 The patient did not speak much, but did tell me that his goal was to be with his is much as possible before he passes away. He is still waffling [id number] between going home with hospice versus going to rehab. At 1 point all were in agreement to go home with hospice soon as possible and I was in the middle of arranging this with case management and then the asked for me to come back again. She then said they wanted more time to think about things but that they might want to just go home with home PT/OT with an eventual transition to hospice if no improvement in his physical condition to the point where he could withstand more chemotherapy. does report that his dry heaves and chest pains are significantly improved today after the addition of lorazepam and diltiazem by previous hospitalist. He did have a bowel movement today. He is eating and drinking and able to take his pills. Telemetry with normal sinus rhythm with rates in the 90s to 100s I discussed his care with the oncologist as well as palliative medicine Review of Systems Review of Systems: All systems reviewed & are unremarkable except as noted in HPI & below Physical Exam Constitutional: WD/WN, vitals as above Eyes: + anicteric sclerae Neck: trachea midline, no thyromegaly Respiratory: normal respiratory effort, lungs clear to auscultation Cardiovascular: RRR, no murmur, no edema Gastrointestinal (Abdomen): normal bowel sounds, soft, nontender, no hepatosplenomegaly Musculoskeletal: Extremities: extremities normal to inspection; no cyanosis and no clubbing Skin: no rashes, warm and dry Neurologic: + focal motor deficit (0/5 strength throughout LUE, 3/5 throughout LLE, otherwise 5/5) and awake; + CN's not intact (Left-sided facial droop) Speech / Cognition: + abnormal speech (Slightly slurred) Results & Data Results & Data ([facility]) Vital Signs (Past 12 Hours) Vital Signs Temp Pulse Pulse Resp BP Pulse Ox O2 Del Method 05/07/22 18:56 36.9 C 86 16 119/76 96 Room Air 05/07/22 16:00 82 PG Care Time/CCT Total # of Minutes Spent Total Time Spent with Patient: Total time spent is greater than 50% in coordination of care (as documented) at patient's floor/unit and/or counseling patient: Coding Level of Care Code 92116 Subseq Hosp Care Lvl 3 Diagnoses Acute CVA (cerebrovascular accident) I63.9 Back pain M54.9 Encephalopathy acute G93.40 Superficial venous thrombosis of arm I82.619 Pancytopenia due to antineoplastic chemotherapy D61.810; T45.1X5A Hypomagnesemia E83.42 Elevated troponin R77.8 Metastasis from esophageal cancer C79.9; C15.9 Antiphospholipid antibody syndrome D68.61 Bilateral pulmonary embolism I26.99 Diabetes E11.9 Asthma J45.909 Hypertension I10 Hypertension type: essential hypertension GERD (gastroesophageal reflux disease) K21.9 Depression with anxiety F41.8 Severe protein-calorie malnutrition E43 Hypokalemia E87.6 Chronic use of steroids Hyponatremia E87.1 (1) Hypertension Hypertension type: essential hypertension Qualified Code(s): I10 - Essential (primary) hypertension
[2022-05-07] MEDS: ACETAMINOPHEN 325 MG TAB PO SCH (20:40)
[2022-05-07] MEDS: DOCUSATE SODIUM/SENNA 50/8.6MG TAB PO SCH (20:47)
[2022-05-07] MEDS: ATORVASTATIN 40 MG TAB PO SCH (20:47)
[2022-05-08] MEDS: HYDROCODONE/ACETAMINOPHEN 7.5/325MG TAB PO PRN (01:02)
[2022-05-08] MEDS: ACETAMINOPHEN 325 MG TAB PO SCH ×3 (05:32→19:53)
[2022-05-08] MEDS: ENOXAPARIN INJ 120 MG/0.8 ML SYR SQ SCH ×2 (05:32→16:13)
[2022-05-08 06:06] LABS: Basophils # (auto) 0.01 K/uL (0-0.2); Basophils % (auto) 0.3 %; Eosinophils # (auto) 0.02 K/uL (0-0.50); Eosinophils % (auto) 0.6 %; Hematocrit (blood only) 26.3 % (40.1-51.0); Hemoglobin 8.7 g/dl (14.0-18.0); Immature Granulocytes # (auto) 0.04 K/uL (0.00-0.02); Immature Granulocytes % (auto) 1.2 %; Lymphocytes # (auto) 0.85 K/uL (1.2-3.4); Lymphocytes % (auto) 24.5 %; Mean Corpuscular Hemoglobin 31.6 pg (25.0-34.0); Mean Corpuscular Hgb Conc 33.1 g/dL (32.0-36.0); Mean Corpuscular Volume 95.6 fL (80.0-100.0); Mean Platelet Volume 10.6 fL (9.4-12.4); Monocytes # (auto) 0.69 K/uL (0.24-0.82); Monocytes % (auto) 19.9 %; Neutrophils # (auto) 1.86 K/uL (1.4-6.5); Neutrophils % (auto) 53.5 %; Platelet Count 58 K/uL (130-400); RDW Coefficient of Variation 19.6 % (11.5-14.5); RDW Standard Deviation 62.8 fL (36.4-46.3); Red Blood Count 2.75 M/uL (4.63-6.08); White Blood Count 3.47 K/ul (4.8-10.8)
[2022-05-08 06:34] LABS: Albumin Globulin Ratio 1.5 (0.9-2); Albumin Level 2.9 gm/dl (3.4-5.0); BUN Creatinine Ratio 23.3 (10-20); Bilirubin,Total 1.8 mg/dl (0.2-1.0); Calcium 8.3 mg/dl (8.5-10.1); Creatinine Clr Calc Pharmacy 104.5 ml/min; Est GFR (African American) 86.4 ml/min; Est GFR (Non-African American) 74.6 ml/min; Globulin 1.9 gm/dl (2.5-4.0); Magnesium 1.3 mg/dl (1.7-2.4); Phosphorus 3.3 mg/dl (2.5-4.9); Potassium 4.1 mmol/L (3.5-5.1); Total Protein 4.8 gm/dl (6.0-8.3)
[2022-05-08] MEDS: LORazepam 0.5 MG TAB PO SCH ×4 (07:56→20:03)
[2022-05-08] MEDS: dilTIAZem HCL 30 MG TAB PO SCH ×3 (07:57→16:12)
[2022-05-08] MEDS: SERTRALINE HCL 50 MG TABLET PO SCH (08:00)
[2022-05-08] MEDS: dexAMETHasone 1 MG TAB PO SCH (08:00)
[2022-05-08] MEDS: CLOPIDOGREL BISULFATE 75 MG TAB PO SCH (08:00)
[2022-05-08] MEDS: FAMOTIDINE 20 MG TAB PO SCH ×2 (08:01→19:54)
[2022-05-08] MEDS: SODIUM CHLORIDE 1 GM TABLET PO SCH ×2 (08:01→19:54)
[2022-05-08] MEDS: DEXLANSOPRAZOLE PO SCH (08:02)
[2022-05-08] MEDS: FIRST - Mouthwash BLM 119 ML PO SCH ×4 (08:04→19:55)
[2022-05-08] MEDS: LANTUS PER UNIT CHARGE SQ SCH ×2 (08:09→22:06)
[2022-05-08] MEDS: FLUTICASONE/VILANTEROL 200/25MCG 14 PUFFS/INHALER INH SCH (08:09)
[2022-05-08] MEDS: INSULIN ASPART PER UNIT SC SCH ×4 (08:12→22:06)
[2022-05-08] MEDS: MAGNESIUM SULFATE / D5W 1 GM/100 ML BAG IV SCH ×3 (08:15→13:15)
[2022-05-08] MEDS: LIDOCAINE 5% 1 PATCH TD SCH (09:32)
[2022-05-08] MEDS ORDERED: STROKE PATIENT DISCHARGE STA (14:25)
--- NOTE | 2022-05-08 14:30 | Discharge Summary ---
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 Bishop and [facility]), antiphospholipid syndrome on Lovenox, h/o bilateral lower extremity DVT and saddle PE, h/o right upper extremity DVT, left frontal lobe lacunar infarcts, hypomagnesemia, HLD, asthma, T2DM, HTN, GERD and sleep apnea. He presented to [facility] ED on 05/01 for acute-onset left-sided facial droop, trouble speaking, and left-sided weakness ~10 minutes prior to arrival in ED. Also reports onset of headache earlier in the morning. Currently reports that headache is largely resolved but remains with productive aphasia, lower left facial droop and left upper/lower extremity weakness. He appears fatigued but easily arousable. Remainder of interview is limited due to productive aphasia, although patient's reports that his deficit occurred sometime between 2:30 - 5:00 pm and has thus been present possibly for more than 5 hours at this point. Patient follows with [facility] in [place] - has been doing chemotherapy (Cisplatin/Xeloda/Pebmrolizumab) for metastatic esophageal cancer since 01/2022. Follows with our cancer center for weekly lab monitoring and often requires IVFs and magnesium (hypomagnesemia thought to be due to cisplatin). Patient was to have two more infusions of his 6th cycle of chemotherapy, scheduled for tonight and tomorrow night. Patient's does report that he uses synthetic cannabinoids and that she had given him marijuana earlier in the day. In the ED the patient was tachycardic to 130 and hypotensive to 98/64. No fever of hypoxia. Labs significant for pancytopenia (WBC 4.01, Hgb 8.0, plts 37 - progressive since starting chemotherapy several months ago). PT 14.5/INR 1.4. Na 135 (baseline). BUN 49/Cr 1.47 (~baseline). Calcium 7.5 (corrected 8.2). Mg 1.2. hsTroponin 64.9 (no chest pain or ST/T abnormalities on EKG). COVID-[address] head and CTA head/neck without acute pathology. CXR unremarkable. Patient received NSS 500cc bolus in ED. Discharge Exam Constitutional WD/WN, vitals as above Eyes + anicteric sclerae Neck trachea midline, no thyromegaly Respiratory normal respiratory effort, lungs clear to auscultation Cardiovascular RRR, no murmur, no edema Gastrointestinal (Abdomen) normal bowel sounds, soft, nontender, no hepatosplenomegaly Musculoskeletal Extremities: extremities normal to inspection; no cyanosis and no clubbing Skin no rashes, warm and dry Neurologic + focal motor deficit (0/5 strength throughout LUE, 3/5 throughout LLE, otherwise 5/5) and awake; + CN's not intact (Left-sided facial droop) Speech / Cognition: + abnormal speech (Slightly slurred) Discharge Data Allergies Allergy/AdvReac Type Severity Reaction Status Date / Time aspirin AdvReac Intermediate GI SYMPTOMS Verified 01/31/22 14:32 Consultations 05/01/22 18:58 ED Decision to Admit Stat 05/01/22 23:28 Consult Neurology Routine 05/06/22 12:33 Consult Palliative Care Routine Ordered Studies 05/01/22 18:08 CT angio head w con Stat CT angio neck with con Stat CT head/brain wo con Stat 05/01/22 20:23 MR brain wo con Routine 05/02/22 16:13 US venous doppler UE LT Urgent 05/03/22 09:44 CT head/brain wo con Routine 05/03/22 16:45 CT angio chest PE protocol Urgent Hospital Course (1) Acute CVA (cerebrovascular accident): R frontal lobe - large. Punctate L cerebellum. B/l nature of his CVAs in 2 different distributions highly suggestive of embolic CVA. He also had a recent left parietal stroke approximately 1 month ago Further, his CTAs of the head/neck are negative. recent echo without thrombus. 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 Most concerning is that he developed these CVAs while on therapeutic lovenox 1mg/kg BID as well as the use of Plavix. Appreciate neurology consultation. Unfortunately options moving forward are very limited. He is at high risk of hemorrhagic transformation given his severe thrombocytopenia. CT head repeated after admission fortunately did not show ICH/hemorrhagic transformation. Although edema is present it is not severe (no midline shift, etc). He does not have excessive drowsiness and is able to participate in conversations Okay to discontinue heparin and revert back to 1 pasha/KG twice daily of Lovenox. Discussed with oncology that this remains his best option Oral options moving forward for anticoagulation are limited as he failed coumadin therapy in the past by report but that may be only option. He is not a DOAC candidate. * continue plavix * continue statin * PT, OT, speech evals appreciated Prognosis is very poor in light of prior poor functional status even before this stroke event, failure to thrive, and his advanced cancer. Again discussed goals of care with patient and his -they are leaning towards going home with home health with the eventual transition to hospice unless he improves his performance status enough to continue with further chemotherapy Ms Hardwick and Dr. Bishop from [facility] aware of above discussions. Discussed care with Dr Cruz from palliative medicine as well Semi-electric hospital bed needed as patient requires frequent changes in body position and his medical condition requires positioning of the body in ways not feasible with an ordinary bed. (2) Back pain: CTA chest did not show obvious spinal bony mets Acute PEs ruled out Cont norco 7.5's prn Cont lidoderm patches Morphine prn (3) Encephalopathy acute: Resolved. 2nd CVA. Ammonia checked - wnl. VBG without hypercarbia. Most recent CT head stable and without ICH. (4) Superficial venous thrombosis of arm: left arm basilic vein thrombus. elevate the arm on pillows. heat packs as needed/desired. the current us-guided IV is not located in the basilic vein thus the IV can remain in place. no Rx needed (5) Pancytopenia due to antineoplastic chemotherapy: ongoing but counts improving s/p Tx 2 units of PRBCs earlier this stay. Okay to restart Lovenox but watch carefully for platelet count dropping below 50 (6) Hypomagnesemia: Persistently low historically Improved now with replacement Give 1 more gram IV magnesium today consider amiloride for refractory hypomag. typically receives IV mag twice weekly at [facility]. (7) Elevated troponin: Likely myocardial demand ischemia in setting of his CVA. Had chest pain here-suspect GI and is now improving with lorazepam and diltiazem for esophageal spasm. (8) Metastasis from esophageal cancer: Stage IV Esophageal Cancer with metastasis to liver. Patient follows with [facility] in [place] - has been doing chemotherapy (Cisplatin/Xeloda/Pebmrolizumab) since 01/2022. Follows with Dr Bishop locally. Appreciate Dr Bishop speaking with him & his a few days ago. Appreciate MS Ronen speaking w/ . Palliative care consult requested to help with ongoing goals of care discussions. His functional status was very poor even before this large CVA occurred. DNR/DNI. Poor candidate for inpatient rehab - hospice truly would be best option, but may go home with home health for now. (9) Antiphospholipid antibody syndrome: With history of LE DVTs, right UE DVT, and saddle PE. And now acute CVAs. Has failed multiple anticoagulation medications (10) Bilateral pulmonary embolism: History of. CTA chest this admission without any centrally located PEs. (11) Diabetes: A1c 7.2 in 03/2022. Cont lantus 15 units BID. Novolog SSI. (12) Asthma: PRN Albuterol nebs for SOB/wheezing. (13) Hypertension: stable. (14) GERD (gastroesophageal reflux disease): cont home dexilant he has episodes of dry heaves - often after eating, sometimes randomly NUMEROUS meds tried by report - various PPIs, anti-emetics (various), H2 nickie, olanzapine, ativan, etc. suspect he has esophageal spasm leading to pain/refluxing/dry heaves as a result of his actual esophageal cancer and now he has element of dysphagia from stroke Was started on combination of ativan 0.5mg AC and short-acting diltiazem 30mg AC to help with dry heaving episodes which has significantly improved his symptoms continues on marinol BID (15) Depression with anxiety: Cont zoloft, but consider switching to fluoxetine 20 mg daily as per neurology recommendation for poststroke treatment of depression (16) Severe protein-calorie malnutrition: 30kg weight loss since early 2021. 2nd to advanced esophageal cancer with mets. (17) Hypokalemia: replaced resolved (18) Chronic use of steroids: prednisone 10mg daily at home remains on dexamethasone 2mg daily (19) Hyponatremia: mild urine osm high urine Na high previous h/o SIADH suspect ongoing SIADH started NaCL 1gm BID fluid restrict 1500cc/day Serum osmolality low at 277 Follow bmp am Plan Disposition-continued stay, but likely to home tomorrow either with hospice or home health with eventual transition to hospice if not improving Discharge Plan Discharge Items Patient Disposition: Home - Home Health Services Reason For Visit: SUSPECTED CVA Discharge Diagnosis: Acute CVA, metastatic esophageal cancer Condition on Discharge: Fair Activity: As commented below Lifting: Gradually increase as tolerated Bathing: No limitations Exercise/Sports: Gradually increase as tolerated Exercise Comment: With home PT/OT Non-emergency contact: Primary Care Provider and Oncologist Call non-emergency contact if: you have any medication questions, your symptoms worsen, your pain is not controlled and your pain is worsening Follow-up/Referrals: Chayo Pfeiffer CRNP [Primary Care Provider] - (Please follow-up within 1 to 2 weeks) Diet: Carb Consistent or DM2 Diet Texture: Pureed (blended smooth) Addtl Attending Provider Instructions: You were admitted unfortunately large after having a stroke which is causing weakness on the left side of your body. This is most likely related to your tendency to form blood clots despite being on blood thinners. You can continue on your Lovenox as before as well as Plavix. You will have home physical and occupational therapy, but if your condition declines, you do have the option to transition to home hospice if you desire. You can follow-up with oncology within the next 2 weeks. You were started on a regimen of lorazepam and diltiazem to take with each meal to help with your esophageal spasms. Your sertraline will be changed to fluoxetine to help with depression that can sometimes worsen following a stroke. Wishing you the best as you transition to home. -Dr. Clemons Risk Factors for Stroke: You can reduce your chances of stroke by working with your medical provider to adopt a healthy lifestyle. Some specific ways to lower your chance of stroke are: * If you are a smoker, now is the time to stop smoking cigarettes * If you are diabetic, improve the control of your blood sugars * Avoid excessive amounts of alcohol * Control high blood pressure * Lose weight if you are overweight * Be sure to lead an active lifestyle * Eat a healthy diet low in salt, cholesterol and fat You should know about other risk factors for stroke that you are unable to control. These include: * Age 55 years or older * Male gender * Certain racial groups: , or / * Family History of Stroke, Mini stroke or Heart Attack * Sickle Cell Disease Follow Up: It is important for you to keep your follow up appointments with your medical provider. Who to Call and When: Medical Emergencies: Call 911 immediately if you experience any of the following warning signs and symptoms of Stroke: * Sudden numbness or weakness of the face, arm or leg, especially on one side of the body * Sudden confusion, trouble speaking or understanding * Sudden trouble seeing in one or both eyes * Sudden trouble walking, dizziness, loss of balance or coordination * Sudden severe headache with no cause Do not delay calling 911 if you experience any warning signs or symptoms of a stroke. Delay in seeking medical attention may affect what treatments can be given to you. . Pending Studies at Discharge: No Stand-Alone Forms: Medications to Prevent Stroke, My [facility] Medications and DC Order Prescriptions: New diltiazem HCl 30 mg Tablet 30 mg PO AC Qty: 120 0RF sodium chloride 1 gram Tablet 1 g PO BID Qty: 60 0RF lidocaine 5 % Adhesive Patch,Medicated 3 patch transdermal QAM Qty: 30 0RF Rx Instructions: Apply to right shoulder and back at site of pain fluoxetine 20 mg tablet 20 mg PO DAILY Qty: 30 0RF hydrocodone-acetaminophen 7.5-325 mg Tablet 1 tab PO Q6H PRN (Reason: moderate-severe pain) Qty: 14 0RF Continued (DME) blood-glucose meter [OneTouch Verio Flex Start] Kit See Rx Instructions .ROUTE .MEDSUPPLY Qty: 1 0RF Rx Instructions: test 1-2 times a day (DME) OneTouch Verio test strips Strip See Rx Instructions .ROUTE .MEDSUPPLY Qty: 100 3RF Rx Instructions: test daily albuterol sulfate [Ventolin HFA] 90 mcg/actuation HFA aerosol inhaler 2 puff inhalation QID PRN (Reason: Shortness Of Breath) Qty: 18 6RF Rx Instructions: INHALE 2 PUFFS 4 TIMES DAILY NEEDED. atorvastatin 40 mg tablet 40 mg PO DAILY Qty: 90 3RF ondansetron HCl 8 mg tablet 8 mg PO Q8 PRN (Reason: Nausea) Qty: 100 5RF hydrocortisone [Proctosol HC] 2.5 % cream with perineal applicator 1 applic [place] DAILY PRN (Reason: hemorrhoids) Qty: 30 1RF Rx Instructions: PRN (DME) CPAP Supplies Misc .Route Qty: 1 0RF Rx Instructions: Patient requires replacement tubing, mask, filters, and supplies for his auto titrating CPAP. Lifelong need, [facility] (DME) nebulizer kit See Rx Instructions .Route .MEDSUPPLY Qty: 1 0RF Rx Instructions: As directed fluticasone propionate [Flonase Allergy Relief] 50 mcg/actuation spray,suspension 1 sprays INTNAS QAM PRN (Reason: Congestion) Rx Instructions: PRN (DME) blood-glucose meter [Advanced Glucose Meter] Misc See Rx Instructions .ROUTE .MEDSUPPLY Qty: 1 0RF Rx Instructions: check 1 x daily (DME) lancets [BD Ultra-Fine II Lancets] 30 gauge misc See Rx Instructions .Route Qty: 100 4RF Rx Instructions: test 1 x a day fexofenadine [Jana Allergy] 180 mg Tablet 180 mg PO QAM albuterol sulfate 2.5 mg /3 mL (0.083 %) solution for nebulization 2.5 mg inhalation QID PRN (Reason: Shortness Of Breath Or Wheezing) calcium carbonate [Calcium 600] 600 mg calcium (1,500 mg) tablet 600 mg PO DAILY Qty: 7 0RF prednisone 10 mg Tablet 10 mg PO QAM Qty: 30 0RF insulin glargine [Lantus Solostar U-100 Insulin] 100 unit/mL (3 mL) insulin pen 10 unit subcut DAILY Qty: 15 0RF Rx Instructions: needles/supplies as well, please enoxaparin [Lovenox] 120 mg/0.8 mL syringe 120 mg subcut Q12H Qty: 48 0RF Rx Instructions: 60 syringes please metformin 500 mg tablet 500 mg PO BID dexlansoprazole 60 mg capsule,biphase delayed releas 60 mg PO QAM Rx Instructions: cannot take Protonix Dulera 200-5 mcg/actuation HFA aerosol inhaler 2 inh INHALATION BID clopidogrel 75 mg Tablet 75 mg PO QAM Qty: 30 4RF dronabinol 5 mg capsule 5 mg PO BID Rx Instructions: administer before lunch and evening meal baclofen 10 mg tablet 10 mg PO TID PRN (Reason: Hiccups) famotidine 20 mg tablet 20 mg PO BID sennosides-docusate sodium [Senna-S] 8.6-50 mg Tablet 1 tab-cap PO HS Changed lorazepam 1 mg tablet 0.5 mg PO AC Qty: 120 3RF Rx Instructions: place on file magnesium oxide 400 mg capsule 400 mg PO TID Qty: 14 0RF Discontinued sertraline 50 mg tablet 50 mg PO DAILY Qty: 30 5RF olanzapine 5 mg tablet 5 mg PO BID tramadol 50 mg tablet 50 mg PO TID PRN (Reason: Pain) Discharge Orders: Discharge Order (Routine); Ordered 05/08/22 Ordered By: Cee Clemons Admission Data Admit Date/Time: 05/01/22 20:23 Attending Provider: Cee Clemons Admit Provider: Berhane Germain Primary Care Provider: Chayo Pfeiffer Other Providers: Berhane Germain ; Otoniel Godinez ; [facility] ; [facility] ; Dominique Cruz Coding Diagnoses Acute CVA (cerebrovascular accident) I63.9 Back pain M54.9 Encephalopathy acute G93.40 Superficial venous thrombosis of arm I82.619 Pancytopenia due to antineoplastic chemotherapy D61.810; T45.1X5A Hypomagnesemia E83.42 Elevated troponin R77.8 Metastasis from esophageal cancer C79.9; C15.9 Antiphospholipid antibody syndrome D68.61 Bilateral pulmonary embolism I26.99 Diabetes E11.9 Asthma J45.909 Hypertension I10 Hypertension type: essential hypertension GERD (gastroesophageal reflux disease) K21.9 Depression with anxiety F41.8 Severe protein-calorie malnutrition E43 Hypokalemia E87.6 Chronic use of steroids Hyponatremia E87.1
--- NOTE | 2022-05-08 15:29 | Hospitalist Progress Note ---
Date of Service May 08, 2022 Assessment & Plan (1) Acute CVA (cerebrovascular accident): Plan: R frontal lobe - large. Punctate L cerebellum. B/l nature of his CVAs in 2 different distributions highly suggestive of embolic CVA. He also had a recent left parietal stroke approximately 1 month ago Further, his CTAs of the head/neck are negative. recent echo without thrombus. 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 Most concerning is that he developed these CVAs while on therapeutic lovenox 1mg/kg BID as well as the use of Plavix. Appreciate neurology consultation. Unfortunately options moving forward are very limited. He is now out of the expected window for hemorrhagic transformation although does have ongoing thrombocytopenia. CT head repeated after admission fortunately did not show ICH/hemorrhagic transformation. Although edema is present it is not severe (no midline shift, etc). He does not have excessive drowsiness and is able to participate in conversations Initially was on heparin drip and now reverted back to 1 pasha/KG twice daily of Lovenox. Discussed with oncology that this remains his best option Oral options moving forward for anticoagulation are limited as he failed coumadin therapy in the past and he is not a DOAC candidate due to his antiphospholipid antibody syndrome * continue plavix * continue statin * PT, OT, speech evals appreciated Prognosis is very poor in light of prior poor functional status even before this stroke event, failure to thrive, and his advanced cancer. Again discussed goals of care with patient and his -they are continuing to try to decide between going to rehab versus going home with home health with the eventual transition to hospice unless he improves his performance status enough to continue with further chemotherapy. As of 05/08, current plan is to go home with home health but transportation was unable to be arranged Ms Hardwick and Dr. Bishop from [facility] aware of above discussions. Discussed care with Dr Cruz from palliative medicine as well Semi-electric hospital bed needed as patient requires frequent changes in body position and his medical condition requires positioning of the body in ways not feasible with an ordinary bed. (2) Back pain: Plan: CTA chest did not show obvious spinal bony mets Acute PEs ruled out Cont norco 7.5's prn Cont lidoderm patches Morphine prn (3) Encephalopathy acute: Plan: Resolved. 2nd CVA. Ammonia checked - wnl. VBG without hypercarbia. Most recent CT head stable and without ICH. (4) Superficial venous thrombosis of arm: Plan: left arm basilic vein thrombus. elevate the arm on pillows. heat packs as needed/desired. the current us-guided IV is not located in the basilic vein thus the IV can remain in place. no Rx needed (5) Pancytopenia due to antineoplastic chemotherapy: Plan: ongoing but counts improving s/p Tx 2 units of PRBCs earlier this stay. Have since restarted Lovenox but watch carefully for platelet count dropping below 50 (6) Hypomagnesemia: Plan: Persistently low historically Improved with replacement but low again today Give 3 more grams IV magnesium today consider amiloride for refractory hypomag. typically receives IV mag twice weekly at [facility]. For home use, will increase magnesium oxide to 400 Mg p.o. 3 times daily (7) Elevated troponin: Plan: Likely myocardial demand ischemia in setting of his CVA. Had chest pain here-suspect GI and is now improving with lorazepam and diltiazem for esophageal spasm. 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 Patient follows with [facility] in [place] - has been doing chemotherapy (Cisplatin/Xeloda/Pebmrolizumab) since 01/2022. Follows with Dr Bishop locally. Appreciate Dr Bishop speaking with him & his a few days ago. Appreciate Ronen speaking w/ . Palliative care consult requested to help with ongoing goals of care discussions. His functional status was very poor even before this large CVA occurred. DNR/DNI. Poor candidate for inpatient rehab - hospice truly would be best option, but may go home with home health for now. (9) Antiphospholipid antibody syndrome: Plan: With history of LE DVTs, right UE DVT, and saddle PE. And now acute CVAs. Has failed multiple anticoagulation medications Continue Lovenox (10) Bilateral pulmonary embolism: Plan: History of. CTA chest this admission without any centrally located PEs. (11) Diabetes: Plan: A1c 7.2 in 03/2022. Cont lantus 15 units BID. Novolog SSI. (12) Asthma: Plan: PRN Albuterol nebs for SOB/wheezing. (13) Hypertension: Plan: stable. (14) GERD (gastroesophageal reflux disease): Plan: cont home dexilant he has episodes of dry heaves - often after eating, sometimes randomly NUMEROUS meds tried by report - various PPIs, anti-emetics (various), H2 bl ocker, olanzapine, ativan, etc. suspect he has esophageal spasm leading to pain/refluxing/dry heaves as a result of his actual esophageal cancer and now he has element of dysphagia from stroke Was started on combination of ativan 0.5mg AC and short-acting diltiazem 30mg AC to help with dry heaving episodes which has significantly improved his symptoms continues on marinol BID Discontinued olanzapine that he was on for nausea at home (15) Depression with anxiety: Plan: Cont zoloft and increase dose to 75 mg once daily -Neurology recommended switching to fluoxetine 20 mg daily for poststroke treatment of depression, however this interacts with his Plavix and would make his Plavix less effective (16) Severe protein-calorie malnutrition: Plan: 30kg weight loss since early 2021. 2nd to advanced esophageal cancer with mets. 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 He is having incontinence to urine and is moving his bowels, eating. Attempts were made to get the patient approved for rehab placement, but then the decided she did not think her would be able to withstand 3 hours a day of therapy and then there were plans to get him home today but unable to find transportation. Telemetry with normal sinus rhythm, PVCs, rates in the 80s to 90s Review of Systems Review of Systems: All systems reviewed & are unremarkable except as noted in HPI & below Physical Exam Constitutional: WD/WN, vitals as above Eyes: + anicteric sclerae Neck: trachea midline, no thyromegaly Respiratory: normal respiratory effort, lungs clear to auscultation Cardiovascular: RRR, no murmur, no edema Gastrointestinal (Abdomen): normal bowel sounds, soft, nontender, no hepatosplenomegaly Musculoskeletal: Extremities: extremities normal to inspection; no cyanosis and no clubbing Skin: no rashes, warm and dry Neurologic: + focal motor deficit (0/5 strength throughout LUE, 3/5 throughout LLE, otherwise 5/5) and awake; + CN's not intact (Left-sided facial droop) Speech / Cognition: + abnormal speech (Slightly slurred) Results & Data Results & Data ([facility]) Vital Signs (Past 12 Hours) Vital Signs Temp Pulse Pulse Resp BP Pulse Ox O2 Del Method 05/08/22 11:31 37.2 C 101 H 16 111/74 96 Room Air 05/08/22 07:00 93 H 05/08/22 07:02 36.7 C 95 H 17 117/76 95 Room Air 05/08/22 03:51 36.8 C 95 H 15 113/74 94 CPAP Laboratory Results 05/08/22 05/08/22 05/08/22 Range/Units 16:12 11:29 07:05 WBC (4.8-10.8) K/ul RBC (4.63-6.08) M/uL Hgb (14.0-18.0) g/dl Hct (40.1-51.0) % MCV (80.0-100.0) fL MCH (25.0-34.0) pg MCHC (32.0-36.0) g/dL RDW Std Deviation (36.4-46.3) fL RDW Coeff of Andie (11.5-14.5) % Plt Count (130-400) K/uL MPV (9.4-12.4) fL Immature Gran % (Auto) % Neut % (Auto) % Lymph % (Auto) % [place] % (Auto) % Eos % (Auto) % Baso % (Auto) % Neut # (Auto) (1.4-6.5) K/uL Lymph # (Auto) (1.2-3.4) K/uL [place] # (Auto) (0.24-0.82) K/uL Eos # (Auto) (0-0.50) K/uL Baso # (Auto) (0-0.2) K/uL Immature Gran # (Auto) (0.00-0.02) K/uL Sodium (136-145) mmol/L Potassium (3.5-5.1) mmol/L Chloride (98-107) mmol/L Carbon Dioxide (21-32) mmol/L Anion Gap (3-11) BUN (6-23) mg/dl Creatinine (0.6-1.4) mg/dl Est Cr Clr Drug Dosing ml/min Est GFR ( Amer) ml/min Est GFR (Non-Af Amer) ml/min BUN/Creatinine Ratio (10-20) Glucose (70-99(Fasting)) mg/dl POC Glucose 155 H 144 H 116 H (70-99) mg/dl Calcium (8.5-10.1) mg/dl Phosphorus (2.5-4.9) mg/dl Magnesium (1.7-2.4) mg/dl Total Bilirubin (0.2-1.0) mg/dl AST (13-39) U/L ALT (7-52) U/L Alkaline Phosphatase (34-104) U/L Total Protein (6.0-8.3) gm/dl Albumin (3.4-5.0) gm/dl Globulin (2.5-4.0) gm/dl Albumin/Globulin Ratio (0.9-2) 05/08/22 05/08/22 Range/Units 05:29 05:29 WBC 3.47 L (4.8-10.8) K/ul RBC 2.75 L (4.63-6.08) M/uL Hgb 8.7 L (14.0-18.0) g/dl Hct 26.3 L (40.1-51.0) % MCV 95.6 (80.0-100.0) fL MCH 31.6 (25.0-34.0) pg MCHC 33.1 (32.0-36.0) g/dL RDW Std Deviation 62.8 H (36.4-46.3) fL RDW Coeff of Andie 19.6 H (11.5-14.5) % Plt Count 58 L (130-400) K/uL MPV 10.6 (9.4-12.4) fL Immature Gran % (Auto) 1.2 % Neut % (Auto) 53.5 % Lymph % (Auto) 24.5 % [place] % (Auto) 19.9 % Eos % (Auto) 0.6 % Baso % (Auto) 0.3 % Neut # (Auto) 1.86 (1.4-6.5) K/uL Lymph # (Auto) 0.85 L (1.2-3.4) K/uL [place] # (Auto) 0.69 (0.24-0.82) K/uL Eos # (Auto) 0.02 (0-0.50) K/uL Baso # (Auto) 0.01 (0-0.2) K/uL Immature Gran # (Auto) 0.04 H (0.00-0.02) K/uL Sodium 132 L (136-145) mmol/L Potassium 4.1 (3.5-5.1) mmol/L Chloride 98 (98-107) mmol/L Carbon Dioxide 25 (21-32) mmol/L Anion Gap 9 (3-11) BUN 27 H (6-23) mg/dl Creatinine 1.16 (0.6-1.4) mg/dl Est Cr Clr Drug Dosing 104.5 ml/min Est GFR ( Amer) 86.4 ml/min Est GFR (Non-Af Amer) 74.6 ml/min BUN/Creatinine Ratio 23.3 H (10-20) Glucose 102 H (70-99(Fasting)) mg/dl POC Glucose (70-99) mg/dl Calcium 8.3 L (8.5-10.1) mg/dl Phosphorus 3.3 (2.5-4.9) mg/dl Magnesium 1.3 L (1.7-2.4) mg/dl Total Bilirubin 1.8 H (0.2-1.0) mg/dl AST 35 (13-39) U/L ALT 31 (7-52) U/L Alkaline Phosphatase 91 (34-104) U/L Total Protein 4.8 L (6.0-8.3) gm/dl Albumin 2.9 L (3.4-5.0) gm/dl Globulin 1.9 L (2.5-4.0) gm/dl Albumin/Globulin Ratio 1.5 (0.9-2) PG Care Time/CCT Total # of Minutes Spent Total Time Spent with Patient: Total time spent is greater than 50% in coordination of care (as documented) at patient's floor/unit and/or counseling patient: Coding Level of Care Code 02872 Subseq Hosp Care Lvl 2 Diagnoses Acute CVA (cerebrovascular accident) I63.9 Back pain M54.9 Encephalopathy acute G93.40 Superficial venous thrombosis of arm I82.619 Pancytopenia due to antineoplastic chemotherapy D61.810; T45.1X5A Hypomagnesemia E83.42 Elevated troponin R77.8 Metastasis from esophageal cancer C79.9; C15.9 Antiphospholipid antibody syndrome D68.61 Bilateral pulmonary embolism I26.99 Diabetes E11.9 Asthma J45.909 Hypertension I10 Hypertension type: essential hypertension GERD (gastroesophageal reflux disease) K21.9 Depression with anxiety F41.8 Severe protein-calorie malnutrition E43 Hypokalemia E87.6 Chronic use of steroids Hyponatremia E87.1 (1) Hypertension Hypertension type: essential hypertension Qualified Code(s): I10 - Essential (primary) hypertension
--- NOTE | 2022-05-08 15:37 | Pharmacy Report ---
Pharmacist Stroke Counseling - Date of Service May 08, 2022 - Scope: Pharmacy has been consulted to provide medication discharge counseling for this patient admitted with [ischemic stroke] [hemorrhagic stroke] [transient ischemic attack] as per the Pharmacist Discharge Counseling for Stroke Patients Brooks michele - Medications on Discharge: see medications on discharge list - Action: The above medications, specifically ones for stroke treatment/prophylaxis, have been reviewed in detail with the patient and/or patient traffic representative(s) prior to discharge. This includes indication, common adverse reactions, drug interactions, and medication administration. Medication counseling has been employed using the teach-back method to ensure understanding. - Outcome: The patient and/or patient traffic representative(s) have demonstrated understanding of the medications. Additional comments: Patient accompanied by who participated in counseling. Reviewed all new medications with them. Discussed with provider some concerns expressed. May trial Breo inhaler vs. continuing Dulera inhaler. Provider likely will use decadron instead of prednisone on discharge. Discussed with patient's that we will provide discharge packet with medications as well for her to review. Counseling done on 05/08, however some medication changes made after counseling done. Did review those changes with patient/ prior to discharge today. Aware to reach out if any questions. Thank you for allowing pharmacy to be involved in the care of this patient. Please call [phone] with any additional questions
[2022-05-08] MEDS: DOCUSATE SODIUM/SENNA 50/8.6MG TAB PO SCH (19:52)
[2022-05-08] MEDS: ATORVASTATIN 40 MG TAB PO SCH (19:53)
[2022-05-08] MEDS: BACLOFEN 10 MG TAB PO PRN (20:03)
[2022-05-09] MEDS: ENOXAPARIN INJ 120 MG/0.8 ML SYR SQ SCH (04:54)
[2022-05-09] MEDS: ACETAMINOPHEN 325 MG TAB PO SCH (04:54)
[2022-05-09] MEDS: LORazepam 0.5 MG TAB PO SCH (07:35)
[2022-05-09] MEDS: dilTIAZem HCL 30 MG TAB PO SCH (07:35)
[2022-05-09] MEDS: INSULIN ASPART PER UNIT SC SCH (08:20)
[2022-05-09] MEDS: FAMOTIDINE 20 MG TAB PO SCH (08:26)
[2022-05-09] MEDS: SODIUM CHLORIDE 1 GM TABLET PO SCH (08:26)
[2022-05-09] MEDS: CLOPIDOGREL BISULFATE 75 MG TAB PO SCH (08:26)
[2022-05-09] MEDS: dexAMETHasone 1 MG TAB PO SCH (08:26)
[2022-05-09] MEDS: DEXLANSOPRAZOLE PO SCH (08:27)
[2022-05-09] MEDS: FIRST - Mouthwash BLM 119 ML PO SCH (08:28)
[2022-05-09] MEDS: FLUTICASONE/VILANTEROL 200/25MCG 14 PUFFS/INHALER INH SCH (08:28)
[2022-05-09] MEDS ORDERED: SERTRALINE HCL 50 MG TABLET PO SCH (09:00)
[2022-05-09] MEDS ORDERED: FLUoxetine HCL 20 MG CAP PO SCH (09:00)
[2022-05-09] MEDS: LANTUS PER UNIT CHARGE SQ SCH (09:05)
[2022-05-09] MEDS ORDERED: STROKE PATIENT DISCHARGE STA (09:48)
--- NOTE | 2022-05-09 10:04 | Discharge Summary ---
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 Bishop and [facility]), antiphospholipid syndrome on Lovenox, h/o bilateral lower extremity DVT and saddle PE, h/o right upper extremity DVT, left frontal lobe lacunar infarcts, hypomagnesemia, HLD, asthma, T2DM, HTN, GERD and sleep apnea. He presented to [facility] ED on 05/01 for acute-onset left-sided facial droop, trouble speaking, and left-sided weakness ~10 minutes prior to arrival in ED. Also rep orts onset of headache earlier in the morning. Currently reports that headache is largely resolved but remains with productive aphasia, lower left facial droop and left upper/lower extremity weakness. He appears fatigued but easily arousable. Remainder of interview is limited due to productive aphasia, although patient's reports that his deficit occurred sometime between 2:30 - 5:00 pm and has thus been present possibly for more than 5 hours at this point. Patient follows with [facility] in [place] - has been doing chemotherapy (Cisplatin/Xeloda/Pebmrolizumab) for metastatic esophageal cancer since 01/2022. Follows with our cancer center for weekly lab monitoring and often requires IVFs and magnesium (hypomagnesemia thought to be due to cisplatin). Patient was to have two more infusions of his 6th cycle of chemotherapy, scheduled for tonight and tomorrow night. Patient's does report that he uses synthetic cannabinoids and that she had given him marijuana earlier in the day. In the ED the patient was tachycardic to 130 and hypotensive to 98/64. No fever of hypoxia. Labs significant for pancytopenia (WBC 4.01, Hgb 8.0, plts 37 - progressive since starting chemotherapy several months ago). PT 14.5/INR 1.4. Na 135 (baseline). BUN 49/Cr 1.47 (~baseline). Calcium 7.5 (corrected 8.2). Mg 1.2. hsTroponin 64.9 (no chest pain or ST/T abnormalities on EKG). COVID-[address] head and CTA head/neck without acute pathology. CXR unremarkable. Patient received NSS 500cc bolus in ED. Principal Diagnosis Acute CVA, metastatic esophageal cancer Discharge Exam WD/WN, vitals as above Eyes: + anicteric sclerae Neck: trachea midline, no thyromegaly Respiratory: normal respiratory effort, lungs clear to auscultation Cardiovascular: RRR, no murmur, no edema Gastrointestinal (Abdomen): normal bowel sounds, soft, nontender, no hepatosplenomegaly Musculoskeletal: Extremities: extremities normal to inspection; no cyanosis and no clubbing Skin: no rashes, warm and dry Neurologic: + focal motor deficit (0/5 strength thro ughout LUE, 3/5 throughout LLE, otherwise 5/5) and awake; + CN's not intact (Left-sided facial droop) Speech / Cognition: + abnormal speech (Slightly slurred) Discharge Data Allergies Allergy/AdvReac Type Severity Reaction Status Date / Time aspirin AdvReac Intermediate GI SYMPTOMS Verified 01/31/22 14:32 Consultations 05/01/22 18:58 ED Decision to Admit Stat 05/01/22 23:28 Consult Neurology Routine 05/06/22 12:33 Consult Palliative Care Routine Ordered Studies 05/01/22 18:08 CT angio head w con Stat CT angio neck with con Stat CT head/brain wo con Stat 05/01/22 20:23 MR brain wo con Routine 05/02/22 16:13 US venous doppler UE LT Urgent 05/03/22 09:44 CT head/brain wo con Routine 05/03/22 16:45 CT angio chest PE protocol Urgent Hospital Course (1) Acute CVA (cerebrovascular accident): R frontal lobe - large. Punctate L cerebellum. With cerebral edema secondary to CVA B/l nature of his CVAs in 2 different distributions highly suggestive of embolic CVA. He also had a recent left parietal stroke approximately 1 month ago Further, his CTAs of the head/neck are negative. recent echo without thrombus. 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 Most concerning is that he developed these CVAs while on therapeutic lovenox 1mg/kg BID as well as the use of Plavix. Appreciate neurology consultation. Unfortunately options moving forward are very limited. He is now out of the expected window for hemorrhagic transformation although does have ongoing thrombocytopenia. CT head repeated after admission fortunately did not show ICH/hemorrhagic transformation. Although edema is present it is not severe (no midline shift, etc). He does not have excessive drowsiness and is able to participate in conversations Initially was on heparin drip and now reverted back to 1 mg/KG twice daily of Lovenox. Discussed with oncology that this remains his best option Oral options moving forward for anticoagulation are limited as he failed coumadi n therapy in the past and he is not a DOAC candidate due to his antiphospholipid antibody syndrome * continue plavix * continue statin * PT, OT, speech evals appreciated Prognosis is very poor in light of prior poor functional status even before this stroke event, failure to thrive, and his advanced cancer. Again discussed goals of care with patient and his -they are continuing to try to decide between going to rehab versus going home with home health with the eventual transition to hospice unless he improves his performance status enough to continue with further chemotherapy. As of 05/08, current plan is to go home with home health but transportation was unable to be arranged Ms Hardwick and Dr. Bishop from [facility] aware of above discussions. Discussed care with Dr Cruz from palliative medicine as well Semi-electric hospital bed needed as patient requires frequent changes in body position and his medical condition requires positioning of the body in ways not feasible with an ordinary bed. (2) Back pain: CTA chest did not show obvious spinal bony mets Acute PEs ruled out Cont norco 7.5's prn Cont lidoderm patches (3) Encephalopathy acute: Resolved. 2nd CVA. Ammonia checked - wnl. VBG without hypercarbia. Most recent CT head stable and without ICH. (4) Superficial venous thrombosis of arm: left arm basilic vein thrombus. elevate the arm on pillows. heat packs as needed/desired. the current us-guided IV is not located in the basilic vein thus the IV can remain in place. no Rx needed (5) Pancytopenia due to antineoplastic chemotherapy: ongoing but counts improving s/p Tx 2 units of PRBCs earlier this stay. Have since restarted Lovenox but watch carefully for platelet count dropping below 50 (6) Hypomagnesemia: Persistently low historically Improved with replacement but low again today Give 3 more grams IV magnesium today consider amiloride for refractory hypomag. typically receives IV mag twice weekly at [facility]. For home use, will increase magnesium oxide to 400 Mg p.o. 3 times daily F/u BMP, CBC, Magnesium levels with home health and can f/u with Cancer Center if Magnesium replacement needed (7) Elevated troponin: Likely myocardial demand ischemia in setting of his CVA. Had chest pain here-suspect GI and is now improving with lorazepam and diltiazem for esophageal spasm. (8) Metastasis from esophageal cancer: Stage IV Esophageal Cancer with metastasis to liver. Patient follows with [facility] in [place] - has been doing chemotherapy (Cisplatin/Xeloda/Pebmrolizumab) since 01/2022. Follows with Dr Bishop locally. Appreciate Dr Bishop speaking with him & his a few days ago. Appreciate MS Hardwick speaking w/ . Palliative care consult requested to help with ongoing goals of care discussions. His functional status was very poor even before this large CVA occurred. DNR/DNI. Poor candidate for inpatient rehab - hospice truly would be best option, but may go home with home health for now. (9) Antiphospholipid antibody syndrome: With history of LE DVTs, right UE DVT, and saddle PE. And now acute CVAs. Has failed multiple anticoagulation medications Continue Lovenox (10) Bilateral pulmonary embolism: History of. CTA chest this admission without any centrally located PEs. (11) Diabetes: A1c 7.2 in 03/2022. Cont lantus 15 units BID. Novolog SSI. (12) Asthma: PRN Albuterol nebs for SOB/wheezing. (13) Hypertension: stable. (14) GERD (gastroesophageal reflux disease): cont home dexilant he has episodes of dry heaves - often after eating, sometimes randomly NUMEROUS meds tried by report - various PPIs, anti-emetics (various), H2 bloc ker, olanzapine, ativan, etc. suspect he has esophageal spasm leading to pain/refluxing/dry heaves as a result of his actual esophageal cancer and now he has element of dysphagia from stroke Was started on combination of ativan 0.5mg AC and short-acting diltiazem 30mg AC to help with dry heaving episodes which has significantly improved his symptoms continues on marinol BID Discontinued olanzapine that he was on for nausea at home (15) Depression with anxiety: Cont zoloft and increase dose to 75 mg once daily -Neurology recommended switching to fluoxetine 20 mg daily for poststroke treatment of depression, however this interacts with his Plavix and would make his Plavix less effective (16) Severe protein-calorie malnutrition: 30kg weight loss since early 2021. 2nd to advanced esophageal cancer with mets. (17) Hypokalemia: replaced resolved (18) Chronic use of steroids: prednisone 10mg daily at home remains on dexamethasone 2mg daily and prefers for him to be on this going home (19) Hyponatremia: mild urine osm high urine Na high previous h/o SIADH suspect ongoing SIADH started NaCL 1gm BID fluid restrict 1500cc/day Serum osmolality low at 277 Plan Disposition-dc to home today with home health with eventual transition to hospice if not improving Home Health Attestation I certify that this patient is under my care and that I, or a physicians statistical assistant working with me, had a face to-face encounter that meets the home health [id number] encounter requirements with this patient. The encounter with the patient was in whole, or in part, for the following medical condition, which is the primary reason for home health care (list medical condition): CVA I certify that, based on my findings, the following services are medically necessary home health services: My clinical findings support the need for the above services because: OT Assess ADL Status and Restore Function w ADLs PT Assessment for Endurance / Balance / Strength PT Eval for Safety and Mobility PT Eval for Safety, Gait Training, Assistive Devices PT Gait and Balance Training, Strengthening and Safety Skilled Nsg Assessment Skilled Nsg Assessment for Complications r/t CVA Skilled Nsg Assess Pt Illness, Disease and Sx Monitoring Further, I certify that my clinical findings support that this patient is homebound (i.e. absences from home require considerable and taxing effort and are for medical reasons or sabianist services or infrequently or of short duration when for other reasons) because: Transportation Assistance/Unable to Leave Home Unassisted Certification for Home Health Services: Based on the above findings, I certify that this patient is confined to the home and needs intermittent shelter care, physical therapy and/or speech therapy or continues to need occupational therapy. The patient is under my care, and I have initiated the establishment of the plan of care. This patient will be followed by a physician who will periodically review the plan of care. Total Time Total Time Spent Total Time Spent (In Minutes): 35 min Discharge Plan Discharge Items Patient Disposition: Home - Home Health Services Reason For Visit: SUSPECTED CVA Discharge Diagnosis: Acute CVA, metastatic esophageal cancer Condition on Discharge: Fair Activity: As commented below Lifting: Gradually increase as tolerated Bathing: No limitations Exercise/Sports: Gradually increase as tolerated Exercise Comment: With home PT/OT Non-emergency contact: Primary Care Provider and Oncologist Call non-emergency contact if: you have any medication questions, your symptoms worsen, your pain is not controlled and your pain is worsening Follow-up/Referrals: Chayo Pfeiffer CRNP [Primary Care Provider] - 05/14/22 10:30 am (Please follow-up within 1 to 2 weeks May 14 @ 1030 amw Chayo) Diet: Carb Consistent or DM2 Diet Texture: Pureed (blended smooth) Addtl Attending Provider Instructions: You were admitted unfortunately large after having a stroke which is causing weakness on the left side of your body. This is most likely related to your tendency to form blood clots despite being on blood thinners. You can continue on your Lovenox as before as well as Plavix. You will have home physical and occupational therapy, but if your condition declines, you do have the option to transition to home hospice if you desire. You can follow-up with oncology within the next 2 weeks. You were started on a regimen of lorazepam and diltiazem to take with each meal to help with your esophageal spasms. Your sertraline will be increased to 75mg daily to help with depression that can sometimes worsen following a stroke. Originally, you were to be switched to fluoxetine, but unfortunately this interacts with your Plavix so it could not be switched. Wishing you the best as you transition to home. -Dr. Clemons Risk Factors for Stroke: You can reduce your chances of stroke by working with your medical provider to adopt a healthy lifestyle. Some specific ways to lower your chance of stroke are: * If you are a smoker, now is the time to stop smoking cigarettes * If you are diabetic, improve the control of your blood sugars * Avoid excessive amounts of alcohol * Control high blood pressure * Lose weight if you are overweight * Be sure to lead an active lifestyle * Eat a healthy diet low in salt, cholesterol and fat You should know about other risk factors for stroke that you are unable to control. These include: * Age 55 years or older * Male gender * Certain racial groups: , or / * Family History of Stroke, Mini stroke or Heart Attack * Sickle Cell Disease Follow Up: It is important for you to keep your follow up appointments with your medical provider. Who to Call and When: Medical Emergencies: Call 911 immediately if you experience any of the following warning signs and symptoms of Stroke: * Sudden numbness or weakness of the face, arm or leg, especially on one side of the body * Sudden confusion, trouble speaking or understanding * Sudden trouble seeing in one or both eyes * Sudden trouble walking, dizziness, loss of balance or coordination * Sudden severe headache with no cause Do not delay calling 911 if you experience any warning signs or symptoms of a stroke. Delay in seeking medical attention may affect what treatments can be given to you. . Pending Studies at Discharge: No Stand-Alone Forms: Medications to Prevent Stroke, [facility] Medications and DC Order Prescriptions: New diltiazem HCl 30 mg Tablet 30 mg PO AC Qty: 120 0RF sodium chloride 1 gram Tablet 1 g PO BID Qty: 60 0RF lidocaine 5 % Adhesive Patch,Medicated 3 patch transdermal QAM Qty: 30 0RF Rx Instructions: Apply to right shoulder and back at site of pain hydrocodone-acetaminophen 7.5-325 mg Tablet 1 tab PO Q6H PRN (Reason: moderate-severe pain) Qty: 14 0RF dexamethasone 2 mg tablet 2 mg PO DAILY Qty: 30 0RF fluticasone furoate-vilanterol [Breo Ellipta] 200-25 mcg/dose Blister With Device 1 ea inhalation DAILY Qty: 60 0RF Continued (DME) blood-glucose meter [OneTouch Verio Flex Start] Kit See Rx Instructions .ROUTE .MEDSUPPLY Qty: 1 0RF Rx Instructions: test 1-2 times a day (DME) OneTouch Verio test strips Strip See Rx Instructions .ROUTE .MEDSUPPLY Qty: 100 3RF Rx Instructions: test daily albuterol sulfate [Ventolin HFA] 90 mcg/actuation HFA aerosol inhaler 2 puff inhalation QID PRN (Reason: Shortness Of Breath) Qty: 18 6RF Rx Instructions: INHALE 2 PUFFS 4 TIMES DAILY NEEDED. atorvastatin 40 mg tablet 40 mg PO DAILY Qty: 90 3RF ondansetron HCl 8 mg tablet 8 mg PO Q8 PRN (Reason: Nausea) Qty: 100 5RF hydrocortisone [Proctosol HC] 2.5 % cream with perineal applicator 1 applic KS DAILY PRN (Reason: hemorrhoids) Qty: 30 1RF Rx Instructions: PRN (DME) CPAP Supplies Misc .Route Qty: 1 0RF Rx Instructions: Patient requires replacement tubing, mask, filters, and supplies for his auto titrating CPAP. Lifelong need, [facility] [place] nebulizer kit See Rx Instructions .Route .MEDSUPPLY Qty: 1 0RF Rx Instructions: As directed fluticasone propionate [Flonase Allergy Relief] 50 mcg/actuation spray,suspension 1 sprays INTNAS QAM PRN (Reason: Congestion) Rx Instructions: PRN (DME) blood-glucose meter [Advanced Glucose Meter] Misc See Rx Instructions .ROUTE .MEDSUPPLY Qty: 1 0RF Rx Instructions: check 1 x daily (DME) lancets [BD Ultra-Fine II Lancets] 30 gauge misc See Rx Instructions .Route Qty: 100 4RF Rx Instructions: test 1 x a day fexofenadine [Jana Allergy] 180 mg Tablet 180 mg PO QAM albuterol sulfate 2.5 mg /3 mL (0.083 %) solution for nebulization 2.5 mg inhalation QID PRN (Reason: Shortness Of Breath Or Wheezing) calcium carbonate [Calcium 600] 600 mg calcium (1,500 mg) tablet 600 mg PO DAILY Qty: 7 0RF insulin glargine [Lantus Solostar U-100 Insulin] 100 unit/mL (3 mL) insulin pen 10 unit subcut DAILY Qty: 15 0RF Rx Instructions: needles/supplies as well, please enoxaparin [Lovenox] 120 mg/0.8 mL syringe 120 mg subcut Q12H Qty: 48 0RF Rx Instructions: 60 syringes please metformin 500 mg tablet 500 mg PO BID dexlansoprazole 60 mg capsule,biphase delayed releas 60 mg PO QAM Rx Instructions: cannot take Protonix clopidogrel 75 mg Tablet 75 mg PO QAM Qty: 30 4RF dronabinol 5 mg capsule 5 mg PO BID Rx Instructions: administer before lunch and evening meal baclofen 10 mg tablet 10 mg PO TID PRN (Reason: Hiccups) famotidine 20 mg tablet 20 mg PO BID sennosides-docusate sodium [Senna-S] 8.6-50 mg Tablet 1 tab-cap PO HS Changed lorazepam 1 mg tablet 0.5 mg PO AC Qty: 120 3RF Rx Instructions: place on file magnesium oxide 400 mg capsule 400 mg PO TID Qty: 14 0RF sertraline 50 mg tablet 75 mg PO DAILY Qty: 45 0RF Discontinued prednisone 10 mg Tablet 10 mg PO QAM Qty: 30 0RF olanzapine 5 mg tablet 5 mg PO BID Dulera 200-5 mcg/actuation HFA aerosol inhaler 2 inh INHALATION BID tramadol 50 mg tablet 50 mg PO TID PRN (Reason: Pain) Discharge Orders: Discharge Order (Routine); Ordered 05/09/22 Ordered By: Cee Clemons Admission Data Admit Date/Time: 05/01/22 20:23 Attending Provider: Cee Clemons Admit Provider: Berhane Germain Primary Care Provider: Chayo Pfeiffer Other Providers: Berhane Germain ; Otoniel Godinez ; [facility] ; [facility] ; Dominique Cruz Coding Level of Care Code D/C DAY MANAGEMENT >30 MINS Diagnoses Acute CVA (cerebrovascular accident) I63.9 Back pain M54.9 Encephalopathy acute G93.40 Superficial venous thrombosis of arm I82.619 Pancytopenia due to antineoplastic chemotherapy D61.810; T45.1X5A Hypomagnesemia E83.42 Elevated troponin R77.8 Metastasis from esophageal cancer C79.9; C15.9 Antiphospholipid antibody syndrome D68.61 Bilateral pulmonary embolism I26.99 Diabetes E11.9 Asthma J45.909 Hypertension I10 Hypertension type: essential hypertension GERD (gastroesophageal reflux disease) K21.9 Depression with anxiety F41.8 Severe protein-calorie malnutrition E43 Hypokalemia E87.6 Chronic use of steroids Hyponatremia E87.1
== END 2022-05-09 10:17 | disposition home health service (06) | DRG 64 ==
LOC: ED 18:01 → 2S 20:23 → SUATTDRO 20:23 → 2S 22:20
DX: K22.4 Dyskinesia of esophagus; C15.9 Malignant neoplasm of esophagus, unspecified; I63.40 Cerebral infarction due to embolism of unspecified cerebral artery; Z83.3 Family history of diabetes mellitus; Z86.718 Personal history of other venous thrombosis and embolism; Z95.828 Presence of other vascular implants and grafts; E43 Unspecified severe protein-calorie malnutrition; Z66 Do not resuscitate; D61.810 Antineoplastic chemotherapy induced pancytopenia; E87.6 Hypokalemia; Z79.52 Long term (current) use of systemic steroids; I24.8 Other forms of acute ischemic heart disease; Z86.711 Personal history of pulmonary embolism; G93.41 Metabolic encephalopathy; G81.94 Hemiplegia, unspecified affecting left nondominant side; R29.810 Facial weakness; I10 Essential (primary) hypertension; E83.42 Hypomagnesemia; I82.612 Acute embolism and thrombosis of superficial veins of left upper extremity; D68.61 Antiphospholipid syndrome; K59.00 Constipation, unspecified; Z86.73 Personal history of transient ischemic attack (TIA), and cerebral infarction without residual deficits; R47.1 Dysarthria and anarthria; J45.909 Unspecified asthma, uncomplicated; E11.9 Type 2 diabetes mellitus without complications; C78.7 Secondary malignant neoplasm of liver and intrahepatic bile duct; R51.9 Headache, unspecified; F41.8 Other specified anxiety disorders; E87.1 Hypo-osmolality and hyponatremia; G93.6 Cerebral edema